=== PATIENT | female | born 1950 | race Caucasian/White ===

== ENCOUNTER 2018-03-21 22:16 | Emergency (ER) | payer MEDICARE, SELFPAY ==
[2018-03-21 22:17] VITALS: BP 160/99; PULSE 85; PULSE 89; RESP 17; TEMP 36.6; O2SAT 94; BMI 30.9
[2018-03-21 23:14] LABS: Absolute Lymphocyte Count 3.71 X10^3/ul (0.83-4.51); Absolute Neutrophil Count 3.9 X10^3/uL (2.0-7.7); Basophil# 0.03 X10^3/uL; Basophil% 0.3 % (0-1); Eosinophil# 0.32 X10^3/uL; Eosinophils% 3.7 % (0-5); Hematocrit 43.1 % (37-47); Hemoglobin 13.8 g/dl (12.0-15.0); Lymphocyte # 3.71 X10^3/ul (4.0); Lymphocyte % 42.4 % (19-41); Mean Corpuscular Hgb 31.3 pg (27.0-32.0); Mean Corpuscular Volume 97.7 fL (81-99); Mean Platelet Vol. 9.1 fl (6.2-12.0); Monocyte# 0.76 X10^3/uL; Monocyte% 8.7 % (0-10); Neutrophil # 3.87 X10^3/uL (2.7-7.7); Neutrophil % 44.1 % (47-70); Platelet Count 288 K/mm3 (150-450); RBC Distribution Width CV 12.6 % (11.6-14.6); RBC Distribution Width SD 44.9 fl (35.1-43.9); Red Blood Count 4.41 M/mm3 (4.2-5.4); White Blood Count 8.8 K/mm3 (4.4-11.0)
[2018-03-21 23:15] LABS: POSITIVE COUNT NO; POSITIVE DIFFERENTIAL NO; POSITIVE MORPHOLOGY NO
[2018-03-21 23:24] LABS: Anion Gap 7 (5-15); BUN 16 mg/dL (7-18); BUN/Creat Ratio 22.3 RATIO (10-20); Calcium,Total 8.7 mg/dL (8.5-10.1); Chloride 101 mmol/L (98-107); Creatinine, Serum 0.72 mg/dL (0.55-1.02); EST Glomerular Filtration Rate 86 mL/min (>60); Est Glom Filt Rate - Afr Amer 104 mL/min (>60); Estimated Creatinine Clearance 45.85 ml/min; Glucose 132 mg/dL (74-106); Potassium 4.2 mmol/L (3.5-5.1); Sodium Level 134 mmol/L (136-145)
--- NOTE | 2018-03-21 23:33 | ED.VISSUMM ---
- ER Visit Summary Date of Service: 03/21/18 Chief Complaint: Hematuria History of Present Illness: The patient is a 67 F who states that she has developed hematuria today. Last week the patient had a diarrheal illness. Using the patient's given history and online clinical resources, the history is that the patient was on Bactrim as prescribed by her brother for 5 days. Her symptoms of dysuria and urinary frequency did not improve. On Sunday she was written for Macrobid and a urine culture obtained. Yesterday the patient had her the biotic changed to Cipro. From a clinical resources the patient's urine culture showed greater than 100,000 colony-forming units of E. coli. It was resistant to Bactrim. Its SARAH to nitrofurantoin was less than 16 and its SARAH to Cipro less than 0.25. She was also taking Pyridium. She is no longer taking that. She is not on any blood thinners. Patient denies any fevers. She denies any CVA tenderness but notes low back pain. She is not having any urinary retention. She has seen several clots today. Uro-[place] surgical history includes a hysterectomy as well as a bladder sling 2-1/2 years ago. Physical Examination: Afebrile vital signs are stable Gen: Well-nourished well-developed Head: Normocephalic atraumatic Eyes: Perrl EOMI ENT: TMs clear no rhinorrhea moist mucous membranes Neck: Supple no lymphadenopathy no JVD nontender CVS: Regular rate rhythm no murmurs normal S1-S2 Respiratory: No distress clear to auscultation bilaterally chest nontender Abdomen: Soft nontender nondistended normal bowel sounds no masses Back: Nontender Extremity: Nontender no edema Skin: Normal color no rash Neuro: alert orientated ?3 CN II-XII intact normal strength sensation reflexes gait cerebellar Psych: Normal affect normal mood Test Results: White count is normal. Creatinine normal. Glucose 132. Urinalysis 25-50 white cells. 2+ bacteria. Blood cells 50-100. Emergency Department Course and Treatment: Patient will continue her Cipro as it appears to be the best option in terms of SARAH. She is encouraged to drink fluids to keep urine going to prevent urinary retention due to clots. Patient does not appear to have pyelonephritis. She has no fever. No white count. No CVA tenderness. She states the Pyridium did not really help her. We will try a B and O suppository. If this helps her tonight she may fill a prescription of it tomorrow. I have asked that she follow-up with her doctor in the next several days. Impression: 1. Acute hemorrhagic cystitis This note was generated with [employer] dictation software. It may contain incorrect words, spelling, and punctuation that were not noted in review of the chart prior to signing ED Disposition - Plan for ED Patient: Disposition: Home or Assisted Living Chief Complaint: Complaint Instructions: ED UTI Cystitis Female Prescriptions: Opium/Belladonna Alkaloids [B & O] 60 mg RECTAL BID PRN #6 suppos. PRN Reason: uretheral pain Referrals: Gerhard Caldwell DO [Primary Care Provider] - 3-5 Days Additional Instructions: Continue your ciprofloxacin. If you get help by the B and O suppository you may fill the prescription. If you do not I would recommend the Pyridium.
[2018-03-21 23:36] LABS: Mucous, Urine 0 SEEN /hpf (<or=2+); Squamous Epithelial Cells - UA 0 SEEN /hpf (5-10)
[2018-03-21 23:38] LABS: Color, Urine Brown (Yellow); Glucose, Dipstick Normal (Normal); Ketone-Dipstick 5 mg/dl (Negative); Leukocyte Esterase-Dipstick 500 /ul (Negative); Nitrite-Dipstick Negative (Negative); Occult Blood-Urine 250 /ul (Negative); Protein-Dipstick 100 mg/dl (Negative); Specific Gravity, Urine 1.015 (1.002-1.030); Urine Bilirubin Dipstick Negative (Negative); Urine Clarity Turbid (Clear); Urine Urobilinogen Normal (Normal)
[2018-03-21 23:49] LABS: Red Blood Cells-Urine 50-100 SEEN /hpf (0-5)
[2018-03-21 23:51] LABS: Bacteria 2+ /hpf (None Seen); White Blood Cells 25-50 SEEN /hpf (0-5)
[2018-03-22 00:34] VITALS: BP 147/89; PULSE 84; RESP 16; O2SAT 94
== END 2018-03-22 00:45 | disposition home or self-care (01) ==
PROVIDERS: Emergency Provider Emergency Medicine; Family Provider Student in an Organized Health Care Education/Training Program; PCP Student in an Organized Health Care Education/Training Program
DX: N30.91 Cystitis, unspecified with hematuria (principal); Z16.29 Resistance to other single specified antibiotic; Z79.01 Long term (current) use of anticoagulants; Z79.899 Other long term (current) drug therapy; Z90.710 Acquired absence of both cervix and uterus
CPT/HCPCS: 80048; 81001; 85025; 99283; A4216

== ENCOUNTER → 2020-01-05 20:00 | Outpatient (CLI) | payer MEDICARE, SELFPAY | PROVIDERS: PCP Student in an Organized Health Care Education/Training Program; Visit Provider Student in an Organized Health Care Education/Training Program | DX: G47.33 Obstructive sleep apnea (adult) (pediatric) (principal) | CPT/HCPCS: 95811 ==

== ENCOUNTER → 2023-10-02 | Outpatient (CLI) | payer MEDICARE, SELFPAY ==
[2023-10-02 12:26] LABS: Hematocrit 40.1 % (37-47); Hemoglobin 13.7 g/dL (12.0-15.0); Mean Corp Hgb Conc 34.2 g/dL (32-36); Mean Corpuscular Hgb 32.5 pg (27.0-32.0); Mean Platelet Vol. 10.5 fl (6.2-12.0); Platelet Count 239 K/mm3 (150-450); RBC Distribution Width CV 12.7 % (11.6-14.6); RBC Distribution Width SD 44.3 fl (35.1-43.9); Red Blood Count 4.22 M/mm3 (4.2-5.4); White Blood Count 5.7 K/mm3 (4.4-11.0)
[2023-10-02 13:30] LABS: Anion Gap 7 (5-15); BUN 13 mg/dL (7-18); BUN/Creat Ratio 22.9 RATIO (10-20); Calcium,Total 9.5 mg/dL (8.5-10.1); Chloride 96 mmol/L (98-107); Creatinine, Serum 0.57 mg/dL (0.55-1.02); EST Glomerular Filtration Rate 111 mL/min (>60); Est Glom Filt Rate - Afr Amer 134 mL/min (>60); Glucose 134 mg/dL (74-106); Sodium Level 130 mmol/L (136-145)
== END | disposition home or self-care (01) ==
PROVIDERS: PCP Student in an Organized Health Care Education/Training Program; Referring Provider Clinical Nurse Specialist Adult Health; Visit Provider Clinical Nurse Specialist Adult Health
DX: D64.9 Anemia, unspecified (principal); Z79.1 Long term (current) use of non-steroidal anti-inflammatories (NSAID)
CPT/HCPCS: 36415; 80048; 85027

== ENCOUNTER → 2024-10-02 | Outpatient (CLI) | payer MEDICARE, SELFPAY ==
--- NOTE | 2024-10-02 10:58 | RAD_ITS ---
PROCEDURE: L/S SPINE W BEND MIN 6 VW 10/02/2024 REASON FOR EXAM: DDD TECHNIQUE: 6 views, AP, bilateral oblique, lateral, flexion-extension COMPARISON: None available FINDINGS: S shaped thoracolumbar scoliosis with multilevel spondylosis/discogenic change greatest at the upper lumbar spine. The degree of curvature and degenerative changes limits the evaluation. There is no evidence of fracture or spondylolysis identified. L1-2 severe disc space narrowing with degenerative endplate changes and mild retrolisthesis L1 on L2 which appears to mildly possibly increased on the extension view and unchanged on the flexion view. Suggestion of bilateral possible osseous foraminal narrowing L2-3 severe disc space narrowing and degenerative endplate changes with mild retrolisthesis L2 on L3 which also appears to mildly increased on the extension view and unchanged on the flexion. Suggestion of bilateral possible osseous foraminal narrowing L4-5 grade 2 anterolisthesis L4 on L5 appears unchanged with flexion and extension. Moderate disc space narrowing. L5-S1 spondylosis/discogenic change. Multilevel facet degenerative changes. Partially imaged right hip replacement. Left hip osteoarthrosis. RAD/L/S Spine w Bend Min 6 Vw IMPRESSION: S shaped thoracolumbar scoliosis with multilevel spondylosis/discogenic change greatest at the upper lumbar spine. The degree of curvature and degenerative changes limits the evaluation. Multilevel spondylolisthesis as above. Reading Location: [id number]
== END | disposition home or self-care (01) ==
LOC: MTRAD 10:56
PROVIDERS: PCP Student in an Organized Health Care Education/Training Program; Referring Provider Clinical Nurse Specialist Adult Health; Visit Provider Clinical Nurse Specialist Adult Health
DX: M51.369 Other intervertebral disc degeneration, lumbar region without mention of lumbar back pain or lower extremity pain (principal)
CPT/HCPCS: 72114

== ENCOUNTER → 2024-11-20 | Outpatient (CLI) | payer MEDICARE, SELFPAY ==
--- OUTSIDE RECORDS SUMMARY | 2024-11-20 12:03 | XMS RPT_ITS | CCD ---
Author Organization [facility] Care Team Providers Care Parts Designer Name Role Phone Gerhard Caldwell Unavailable GERHARD CALDWELL Unavailable Unavailable ARSHI, CHARLETTE Unavailable Unavailable ARSHI, CHARLETTE Unavailable Unavailable Unavailable Primary Care Provider Unavailabl e Gerhard Caldwell DO Primary Care Provider Gerhard Caldwell DO Primary Care Provider Gerhard Caldwell DO Primary Care Provider Gerhard Caldwell DO Primary Care Provider Gerhard Caldwell DO Primary Care Provider Reymundo BOTANY LABORATORY ASSISTANT.Ceci BACK Unavailable Rosendo BOTANY LABORATORY ASSISTANTIndira PURCELL Unavailable Dr. Gerhard Caldwell DO Primary Care Provider NP. Linh Lala Attending Provider NP. Linh Lala Referring Provider Gerhard Caldwell Primary Care Unavailable Linh Lala Referring Unavailable Linh Lala Attending Unavailable GERHARD CALDWELL Primary Care Unavailable PORFIRIO ROLLINS Referring Unavailable PORFIRIO ROLLINS Attending Unavailable GERHARD CALDWELL Primary Care Unavailable PORFIRIO ROLLINS Referring Unavailable PORFIRIO ROLLINS Attending Unavailable GERHARD CALDWELL Attending Unavailable GERHARD CALDWELL Primary Care Unavailable GERHARD CALDWELL Referring Unavailable GERHARD CALDWELL Primary Care Unavailable PORFIRIO ROLLINS Attending Unavailable GERHARD CALDWELL Primary Care Unavailable PORFIRIO ROLLINS Referring Unavailable Allergies Allergy Classification Reported Allergen(s) Allergy Type Date of Onset Reaction(s) Facility (20 sources) Dust; Translations: [DUST] Propensity to adverse reactions 6 [facility] (20 sources) Mold Extract; Translations: [MOLD] Drug Allergy 6 [facility] (20 sources) Pollen; Translations: [POLLEN] Propensity to adverse reactions 6 [facility] (20 sources) Cat Dander; Translations: [CAT DANDER] Drug Intolerance 7 Other: See Comments [facility] Work Phone: (20 sources) Dog Dander; Translations: [DOG DANDER] Drug Intolerance 7 Other: See Comments [facility] Work Phone: Medications Current Medications Medication Drug Class(es) Dates Sig (Normalized) Sig (Original) [id number] 200 actuat albuterol 0.09 mg/actuat metered dose inhaler (20 sources) beta2-Adrenergic Agonist Start: 04-05-2020 End: 01-29-2024 take 2 puff(s) by inhalation every four hours as needed albuterol HFA (PROAIR HFA) 90 mcg/actuation inhaler Indications: Mild intermittent asthma without complication (HCC) Inhale 2 Puffs as instructed every 4 hours as needed. 8 g 4 01/29/2024 Active Start: 01-12-2017 End: 01-12-2017 take 2.5 mg by inhalation four times daily albuterol (PROVENTIL) 2.5 mg /3 mL (0.083 %) nebulizer solution 2.5 mg 2.5 mg, Inhalation, 4 times daily (RT), First dose on Sun01/12/17 at 0800 Given 01/12/2017 08:00 EDT 2.5 mg Start: 01-11-2017 Albuterol Sulf ate (Proair Hfa) 1 PUFF inhaler Active 1 - 2 NMA IH EVERY 4 HOURS NEEDED as needed for Sob &/Or Wheezing January 11, 2017 12:00am albuterol 90 mcg /actuation inhaler Inhale 2 puffs every 4 (four) hours as needed for wheezing. Active Comment on above: Inhale 2 Puffs as in structed every 4 hours as needed. amoxicillin 500 mg oral capsule (20 sources) Penicillin-class Antibacterial Start: 11-26-2017 End: 11-22-2021 amoxicillin (POLYMOX, AMOXIL) 500 mg capsule Indications: Status post total replacement of right hip Take four capsules one hour before dental procedure. 4 capsule 3 11/22/2021 Active Comment on above: Take four capsules o ne hour before dental procedure. belladonna alkaloids 16.2 mg / opium 60 mg rectal suppository (1 source) Start: 03-22-2018 Belladonna Alkaloids-Opium 60 MG/15 MG suppository Active 60 mg RECTAL TWICE A DAY as needed for uretheral pain March 22, 2018 12:14am onabotulinumtoxina 100 unt injection (13 sources) Acetylcholine Release Inhibitor Start: 10-16-2024 End: 11-15-2024 onabotulinum toxin type A 100 Units injection (BOTOX) Start: 04-24-2024 End: 04-24-2024 inject 1 dose by intramuscular injection every 30 days 100 Units, INTRAMUSCULAR, ONCE (UP TO 30 DAYS AMB), 1 dose, On Hilda 04/24/24 at 1130, This record documents the total dose provided to patient. See progress note for specific locations and amounts administered. REFRIGERATE - Pharmaceutical Waste: Lab Pack - Start: 04-24-2024 End: 04-24-2024 onabotulinum toxin type A 10 0 Units injection (BOTOX) Start: 12-06-2023 End: 12-06-2023 onabotulinum toxin type A 10 0 Units injection (BOTOX) Start: 12-18-2022 End: 12-18-2022 onabotulinum toxin type A 10 0 Units injection (BOTOX) Start: 06-29-2022 End: 07-29-2022 onabotulinum toxin type A 10 0 Units injection (BOTOX) Start: 01-26-2022 End: 01-26-2022 onabotulinum toxin type A 10 0 Units injection (BOTOX) Start: 09-22-2021 End: 09-22-2021 onabotulinum toxin type A 10 0 Units injection (BOTOX) Calcium Carbonate / vitamin D3 (20 sources) take 1 tablet by anjel once daily CALCIUM CARBONATE/VITAMIN D3 (VITAMIN D-3 ORAL) Take 1 tablet by mouth once daily. Active take 1 tablet by mouth once michael y CALCIUM CARBONATE/VITAMIN D3 (VITAMIN D-3 ORAL) Take 1 tablet by mouth once daily. 0 Active Comment on above: Take 1 tablet by anjel th once daily. cephalexin 500 mg oral capsule (20 sources) Cephalosporin Antibacterial Start: 10-16-2024 End: 10-17-2024 cephALEXin 500 mg cap(s) (KEFLEX) Start: 04-24-2024 End: 04-24-2024 cephALEXin 500 mg cap(s) (KE FLEX) Start: 04-24-2024 End: 04-24-2024 take 1 dose by mouth once 500 mg, ORAL, ONCE, 1 dose, On Hilda 04/24/24 at 1130, Antimicrobial indication: Empiric, Infectious source(s): Urinary/renal Start: 12-06-2023 take 1 capsule by mo [facility] twice daily cephALEXin (KEFLEX) 500 mg capsule Take 1 capsule by mouth two times a day. For 3 days; extra capsules given for self-start use when you have symptoms of a bladder infection 30 capsule 3 12/06/2023 Active Start: 12-14-2022 End: 12-24-2022 cephALEXin 500 mg cap(s) (KE FLEX) Start: 11-23-2022 End: 11-28-2022 take 1 capsule by mouth twice daily as needed cephALEXin (KEFLEX) 500 mg capsule Take 1 capsule by mouth twice daily for 5 days. Extra pills given for prn use 60 capsule 3 11/23/2022 11/28/2022 Active Start: 08-11-2022 End: 11-23-2022 take 1 capsule by mouth once daily at bedtime cephALEXin (KEFLEX) 250 mg capsule Take 1 capsule by mouth daily at bedtime. 30 capsule 1 08/11/2022 11/23/2022 Discontinued Start: 06-29-2022 End: 08-04-2022 take 1 capsule by mouth once daily at bedtime cephALEXin (KEFLEX) 250 mg capsule Take 1 capsule by mouth daily at bedtime. 60 capsule 0 06/30/2022 08/04/2022 Discontinued Start: 09-22-2021 End: 06-26-2022 take 1 capsule by mouth twice daily as needed cephALEXin (KEFLEX) 500 mg capsule Take 1 capsule by mouth twice daily. Extra pills given for prn use if you get a bladder infection 24 capsule 1 09/22/2021 01/26/2022 Discontinued Comment on above: Take 1 capsule by mo [facility] twice daily. Extra pills given for prn use if you get a bladder infection Take 1 capsule by mo [facility] daily at bedtime. Take 1 capsule by mo [facility] twice daily for 5 days. Extra pills given for prn use Take 1 capsule by mo [facility] four times daily for 10 days. ciprofloxacin 500 mg oral tablet (6 sources) Quinolone Antimicrobial Start: 12-06-2023 End: 12-09-2023 ciprofloxacin HCl (CIPRO) 500 mg tablet Take 1 tablet by mouth two times a day for 3 days. Take 3 day course as needed for UTI symptoms; extra pills given for prn use 30 tablet 3 12/06/2023 12/09/2023 Active Start: 12-18-2022 End: 12-21-2022 ciprofloxacin HCl (CIPRO) 50 0 mg tablet Take 1 tablet by mouth twice daily for 3 days. Take a 3 day course as needed for UTI symptoms after you have tried and failed a 3 day course of Keflex; extra pills given for prn use 30 tablet 0 12/18/2022 12/21/2022 Start: 01-26-2022 End: 01-26-2022 ciprofloxacin HCl 500 mg tab (s) (CIPRO) Comment on above: Take 1 tablet by [facility] twice daily for 3 days. Take a 3 day course as needed for UTI symptoms after you have tried and failed a 3 day course of Keflex; extra pills given for prn use CPAP/BIPAP/OTHER (20 sources) Start: 09-26-2022 End: 02-10-2050 CPAP/BIPAP/OTHER Supplies for autopap at ?cmH2O Please allow access on PlayEnable to her download DME [facility] 1 Each 09/26/2022 02/10/2050 Active Start: 09-26-2022 End: 02-10-2050 CPAP/BIPAP/OTHER Travel cpap 9cmH2O 1 Each 09/26/2022 02/10/2050 Active Start: 09-26-2022 End: 02-10-2050 CPAP/BIPAP/OTHER Supplies fo r autopap at ?cmH2O Please allow access on [employer] to her download DME [facility] 1 Each 0 09/26/2022 02/10/2050 Active Start: 09-26-2022 End: 02-10-2050 CPAP/BIPAP/OTHER Travel cpap 9cmH2O 1 Each 0 09/26/2022 02/10/2050 Active Comment on above: Supplies for autopap at ?cmH2O Please allow access on [employer]Enable to her download DME [facility] Travel cpap 9cmH2O estradiol 0.1 mg/ml vaginal cream (20 sources) Estrogen Start: 06-18-2023 End: 03-05-2024 estradiol (ESTRACE) 0.01 % (0.1 mg/gram) vaginal cream Indications: Atrophic vaginitis Use 1 g vaginally two times a week. 42.5 g 4 02/20/2024 Active Start: 03-08-2022 End: 02-21-2023 estradiol (ESTRACE) 0.01 % ( 0.1 mg/gram) vaginal cream Indications: Atrophic vaginitis Use 1 g vaginally two times a week. 8 g 3 03/08/2022 11/23/2022 Discontinued Start: 09-03-2020 End: 03-06-2022 estradiol (ESTRACE) 0.01 % ( 0.1 mg/gram) vaginal cream Indications: Atrophic vaginitis Use 1 g vaginally two times a week. 8 g 3 11/22/2021 03/06/2022 Discontinued Comment on above: Use 1 g vaginally tw o times a week. 60 actuat formoterol fumarate 0.005 mg/actuat / mometasone furoate 0.1 mg/actuat metered dose inhaler (20 sources) Corticosteroid, beta2-Adrenergic Agonist Start: 05-06-2024 take 2 puff(s) by mouth twice daily DULERA 100-5 mcg/actuation inhaler Indications: Mild intermittent asthma without complication (HCC) inhale 2 puffs by mouth and INTO THE LUNGS twice a day as directed 39 g 3 05/06/2024 Active Start: 04-10-2022 End: 05-06-2024 take 2 puff(s) by inhalation twice daily mometasone-formoterol (DULERA) 100-5 mcg/actuation inhaler Indications: Mild intermittent asthma without complication Inhale 2 Puffs as instructed two times a day. 13 g 3 04/02/2024 05/06/2024 Discontinued Start: 10-16-2017 End: 04-10-2022 take 2 puff(s) by inhalation twice daily mometasone-formoterol (DULERA) 100-5 mcg/actuation inhaler Indications: Mild intermittent asthma without complication Inhale 2 Puffs as instructed twice daily. 3 Inhaler 3 10/16/2017 04/10/2022 Discontinued Start: 01-11-2017 Mometasone-For moterol (Dulera 100 Mcg/5 Mcg Inhaler) 13 GM HFA aerosol inhaler Active 1 NMA IH DAILY as needed for Sob &/Or Wheezing January 11, 2017 12:00am mometasone-formo terol 100-5 mcg/actuation HFAA Inhale 1 puff daily. Active Comment on above: Inhale 2 Puffs as in structed twice daily. gabapentin 300 mg oral capsule (20 sources) Anti-epileptic Agent Start: 3 End: 3 take 2 capsules by mouth at bedtime gabapentin (NEURONTIN) 300 mg capsule Indications: PLMD (periodic limb movement disorder) , Restless legs take 2 capsules by mouth at bedtime if needed 30 capsule 2 06/09/2022 Active Start: 04-10-2022 End: 06-09-2022 take 1 capsule by mouth once daily at bedtime as needed, then take 2 capsules by mouth at bedtime as needed gabapentin (NEURONTIN) 300 mg capsule Indications: PLMD (periodic limb movement disorder) , Restless legs Take 1 capsule by mouth daily at bedtime for 30 days. Take 2 capsules at bedtime as needed. 30 capsule 2 04/10/2022 06/09/2022 Discontinued Start: 08-10-2020 End: 04-10-2022 gabapentin (NEURONTIN) 300 m g capsule Indications: PLMD (periodic limb movement disorder) Take 2 capsules at bedtime as needed. 60 capsule 2 08/10/2020 04/10/2022 Discontinued Comment on above: Take 2 capsules at b edtime as needed. Take 1 capsule by mo uth daily at bedtime for 30 days. Take 2 capsules at bedtime as needed. take 2 capsules by m outh at bedtime if needed ibuprofen 400 mg oral tablet (4 sources) Nonsteroidal Anti-inflammatory Drug Start: 01-12-2017 End: 02-11-2017 take 1 tablet by mouth every six hours ibuprofen (ADVIL,MOTRIN) 400 MG tablet Take 1 (one) tablet (400 mg total) by mouth every 6 (six) hours as needed. 30 tablet 0 01/12/2017 02/11/2017 Active L. gasseri-B. bifidum-B longum 1.5 billion cell cap (20 sources) Start: 05-08-2018 L. gasseri-B. bifidum-B longum 1.5 billion cell cap 05/08/2018 Active Start: 05-08-2018 L. gasseri-B. bifidum-B longum 1.5 billion cell cap lidocaine hydrochloride 0.02 mg/mg topical gel (20 sources) Antiarrhythmic, Amide Local Anesthetic Start: 04-24-2024 lidocaine urojet 2 % 22 mL topical gel (GLYDO) Start: 04-24-2024 22 mL, URETHRA L, 2 TIMES DAILY, First dose on [facility] 04/24/24 at 1130, Until Discontinued, FOR EXTERNAL USE ONLY APPLY TO Bladder; use 2 amps Start: 12-06-2023 End: 12-06-2023 lidocaine 20 mg/mL (2 %) 1,0 00 mg injection (XYLOCAINE) Start: 12-18-2022 End: 12-18-2022 lidocaine 20 mg/mL (2 %) 1,0 00 mg injection (XYLOCAINE) Start: 09-22-2021 End: 09-22-2021 lidocaine 1 % 50 mL buffered injection (XYLOCAINE) Start: 2018 End: 04-10-2022 take 10 mL transmucosal route every twelve hours as needed lidocaine urojet (XYLOCAINE, GLYDO) 2 % jelp Apply 10 mL to affected area twice daily as needed. 30 Applicator 10 2018 04/10/2022 Discontinued Comment on above: Apply 10 mL to affec kelly area twice daily as needed. LORazepam 0.5 mg oral tablet (8 sources) Benzodiazepine Start: 4 End: 4 take 1 tablet by mouth three times daily as needed for anxiety LORazepam (ATIVAN) 0.5 mg Indications: Travel advice encounter , Situational anxiety Take 1 tablet by mouth three times a day as needed (situational anxiety) for up to 30 days. 15 tablet 2 04/02/2024 05/02/2024 Active Start: 12-05-2022 End: 01-04-2023 take 1 tablet by mouth three times daily as needed for anxiety LORazepam (ATIVAN) 0.5 mg Indications: Travel advice encounter , Situational anxiety Take 1 tablet by mouth three times daily as needed (situational anxiety) for up to 30 days. 15 tablet 0 12/05/2022 01/04/2023 Active Comment on above: Take 1 tablet by anjel th three times daily as needed (situational anxiety) for up to 30 days. Magnesium (20 sources) take 1 tablet by mouth once daily Magnesium 200 mg tab Take 200 mg by mouth once daily. Active take 1 tablet by mouth once michael y Magnesium 200 mg tab Take 200 mg by mouth once daily. 0 Active Comment on above: Take 200 mg by mouth once daily. meloxicam 15 mg oral tablet (20 sources) Nonsteroidal Anti-inflammatory Drug Start: 03-08-2022 End: 06-30-2022 take 1 tablet by mouth once daily meloxicam (MOBIC) 15 mg tablet Indications: Arthritis of left knee Take 1 tablet by mouth once daily. 90 tablet 06/30/2022 Active Start: 10-10-2021 End: 03-06-2022 take 1 tablet by mouth once daily meloxicam (MOBIC) 15 mg tablet Indications: Arthritis of left knee Take 1 tablet by mouth once daily. 90 tablet 10/10/2021 03/06/2022 Discontinued Start: 11-19-2019 take 1 tablet by anjel th once daily meloxicam (MOBIC) 15 mg tablet Indications: Arthritis of left knee Take 1 tablet by mouth once daily. 90 tablet 3 11/19/2019 Active Comment on above: Take 1 tablet by anjel th once daily. methenamine hippurate 1000 mg oral tablet (19 sources) Start: 12-18-2022 take 1 tablet by mouth twice daily Methenamine Hippurate (HIPREX) 1 gram tablet Take 1 tablet by mouth twice daily. 180 tablet 12/18/2022 Active Comment on above: Take 1 tablet by anjel twice daily. 24 hr mirabegron 50 mg extended release oral tablet (20 sources) beta3-Adrenergic Agonist Start: 11-23-2022 End: 04-02-2024 take 1 tablet by mouth once daily mirabegron (MYRBETRIQ) 50 mg Tb24 Take 1 tablet by mouth once daily. 30 tablet 11 04/02/2024 Active Start: 09-22-2021 End: 04-10-2022 take 1 tablet by mouth once daily mirabegron (MYRBETRIQ) 25 mg Tb24 Take 1 tablet by mouth once daily. 90 tablet 3 09/22/2021 04/10/2022 Discontinued Comment on above: Take 1 tablet by anjel once daily. miSOPROStol 0.2 mg oral tablet (20 sources) Prostaglandin E1 Analog Start: 021 End: take 1 tablet by mouth twice daily miSOPROStol (CYTOTEC) 200 mcg tablet Indications: Chronic interstitial cystitis with hematuria Take 1 tablet by mouth twice daily. 180 tablet 3 11/23/2022 Active Comment on above: Take 1 tablet by anjel twice daily. nitrofurantoin, macrocrystals 25 mg / nitrofurantoin, monohydrate 75 mg oral capsule (6 sources) Nitrofuran Antibacterial Start: 023 End: 023 take 1 capsule by mouth twice daily at mealtime nitrofurantoin monohydrate and macrocrystal (MACROBID) 100 mg capsule Indications: Travel advice encounter Take 1 capsule by mouth twice daily with meals for 7 days. 14 capsule 1 12/05/2022 12/12/2022 Active Start: 08-04-2022 End: 08-11-2022 take 1 capsule by mouth twice daily at mealtime nitrofurantoin monohydrate and macrocrystal (MACROBID) 100 mg capsule Take 1 capsule by mouth twice daily with meals for 7 days. 14 capsule 0 08/04/2022 08/11/2022 Active Comment on above: Take 1 capsule by mo [facility] twice daily with meals for 7 days. solifenacin succinate 5 mg oral tablet (7 sources) Cholinergic Muscarinic Antagonist Start: take 1 tablet by mouth once daily as needed solifenacin (VESICARE) 5 mg tablet Take 1 tablet by mouth once daily as needed. 90 tablet 2 04/24/2024 Active TENS unit and electrodes cmpk (20 sources) Start: 2 TENS unit and electrodes cmpk Indications: DDD (degenerative disc disease), lumbar , Other osteoarthritis of spine, lumbar region , Chronic midline low back pain with bilateral sciatica 1 Units as directed. Dx: lumbar DDD, lumbar DJD, chronic low back pain 1 Each 11/22/2021 Active Start: 11-22-2021 TENS unit and electrodes cmpk Indications: DDD (degenerative disc disease), lumbar , Other osteoarthritis of spine, lumbar region , Chronic midline low back pain with bilateral sciatica 1 Units as directed. Dx: lumbar DDD, lumbar DJD, chronic low back pain 1 Each 0 11/22/2021 Active Comment on above: 1 Units as directed. Dx: lumbar DDD, lumbar DJD, chronic low back pain THERAPEUTIC MULTIVITAMIN TAB (20 sources) Start: 005 take 1 tablet by mouth once daily THERAPEUTIC MULTIVITAMIN TAB Take one(1) tablet daily by mouth 0 02/23/2005 Active Comment on above: Take one(1) tablet d aily by mouth traMADol hydrochloride 50 mg oral tablet (3 sources) Opioid Agonist Start: 017 End: 017 take 1 tablet by mouth twice daily as needed for pain traMADol (ULTRAM) 50 mg tablet Take 1 (one) tablet (50 mg total) by mouth 2 (two) times a day as needed for pain. 28 tablet 0 01/12/2017 01/26/2017 Active triamcinolone acetonide 0.055 mg/actuat metered dose nasal spray (20 sources) Corticosteroid Start: 014 take 2 puff(s) by inhalation once daily triamcinolone acetonide (NASACORT AQ) 55 mcg nasal inhaler Indications: Unspecified asthma(493.90) Inhale 2 puffs daily. 1 Bottle 3 08/26/2013 Active Comment on above: Inhale 2 puffs daily . zolpidem tartrate 5 mg oral tablet (20 sources) gamma-Aminobutyric Acid-ergic Agonist Start: 023 End: 024 take 1 tablet by mouth at bedtime as needed zolpidem (AMBIEN) 5 mg tablet Indications: Situational insomnia Take 1 tablet by mouth at bedtime as needed (situational insomnia) for up to 10 days. 10 tablet 2 04/02/2024 Active Comment on above: Take 1 tablet by anjel th at bedtime as needed (situational insomnia) for up to 10 days. Completed/Discontinued Medications Medication Drug Class(es) Dates Sig (Normalized) Sig (Original) acetaminophen 325 mg / HYDROcodone bitartrate 5 mg oral tablet (3 sources) Opioid Agonist Start: 01-11-2017 End: 01-12-2017 take 1 tablet by mouth every four hours HYDROcodone-aceta minophen (NORCO) 5-325 mg per tablet 1 tablet 1 tablet, Oral, Every 4 hours PRN, moderate to severe pain, Starting Sun01/12/17 at 0101 Given 01/12/2017 01:44 EDT 1 tablet ascorbic acid 500 mg oral tablet (5 sources) Vitamin C Start: 01-12-2017 End: 01-12-2017 take 1 tablet by mouth once daily ascorbic acid (vitamin C) (VITAMIN C) tablet 500 mg 500 mg, Oral, Daily, First dose on Sun01/12/17 at 0900 Given 01/12/2017 08:45 EDT 500 mg Start: 01-11-2017 take 1 tablet by anjel th twice daily at mealtime Ascorbic Acid (Vitamin C) (Vitamin C) 500 MG tablet Active 500 mg PO TWICE DAILY WITH MEALS January 11, 2017 12:00am aspirin 81 mg delayed release oral tablet (1 source) Platelet Aggregation Inhibitor, Nonsteroidal Anti-inflammatory Drug Start: 01-12-2017 End: 01-12-2017 take 1 tablet by mouth once daily aspirin EC tablet 81 mg 81 mg, Oral, Daily, First dose on Sun01/12/17 at 0900, DO NOT CRUSH OR CHEW. Given 01/12/2017 08:32 EDT 81 mg Budesonide-Formote rol Hfa 160 McG-4.5 McG/Actuation Aerosol Inhaler (1 source) Corticosteroid, beta2-Adrenergic Agonist Start: 01-12-2017 End: 01-12-2017 take 1 puff(s) by inhalation once daily budesonide-formote rol (SYMBICORT) 160-4.5 mcg/actuation inhaler 1 puff 1 puff, Inhalation, Daily (RT), First dose on Sun01/12/17 at 0900 Given 01/12/2017 08:03 EDT 1 puff 20 ml chloroprocaine hydrochloride 20 mg/ml injection (2 sources) Mireille Local Anesthetic Start: 06-29-2022 End: 06-29-2022 chloroprocaine (PF) 20 mg/mL (2 %) 1,000 mg injection (NESACAINE) Start: 01-26-2022 End: 01-26-2022 chloroprocaine (PF) 20 mg/mL (2 %) 1,200 mg injection (NESACAINE) docusate sodium 100 mg oral capsule (5 sources) Start: 01-11-2017 End: 01-12-2017 take 1 capsule by mouth twice daily docusate sodium (COLACE) capsule 100 mg 100 mg, Oral, 2 times daily, First dose on Sun01/12/17 at 0900, Hold for loose stools DO NOT CRUSH OR CHEW. Given 01/12/2017 08:33 EDT 100 mg 0.4 ml enoxaparin sodium 100 mg/ml prefilled syringe (5 sources) Low Molecular Weight Heparin Start: 01-11-2017 End: 01-12-2017 inject 40 mg by subcutaneous injection once daily enoxaparin (LOVENOX) syringe 40 mg 40 mg, Subcutaneous, Daily, First dose on Sun01/12/17 at 0800, Administer in abdomen unless otherwise directed by prescriber. Notify physician if patient refuses. Given 01/12/2017 08:44 EDT 40 mg fexofenadine hydrochloride 180 mg oral tablet (15 sources) Histamine-1 Receptor Antagonist Start: 05-21-2018 End: 04-10-2022 fexofenadine (PHAM) 180 mg tablet 05/21/2018 04/10/2022 Discontinued L. gasseri-B. bifidum-B longum ([place]) 1.5 billion cell cap (5 sources) Start: 05-08-2018 L. gasseri-B. bifidum-B longum ([place]) 1.5 billion cell cap 24 hr metoprolol succinate 25 mg extended release oral tablet (1 source) beta-Adrenergic Cosme Start: 01-12-2017 End: 01-12-2017 metoprolol succinate (TOPROL-XL) 24 hr tablet 12.5 mg 12.5 mg, Oral, Daily, First dose on Sun01/12/17 at 0900, Hold for HR less than 50 or SBP less than 90. DO NOT CRUSH OR CHEW. Given 01/12/2017 08:32 EDT 12.5 mg ondansetron 4 mg disintegrating oral tablet (17 sources) Serotonin-3 Receptor Antagonist Start: 12-05-2022 End: 04-02-2024 take 1 tablet by mouth every eight hours as needed for nausea ondansetron orally disintegrating (ZOFRAN ODT) 4 mg disintegrating tablet Indications: Travel advice encounter Take 1 tablet by mouth every 8 hours as needed for nausea/vomiting. 20 tablet 12/05/2022 04/02/2024 Discontinued Start: 01-11-2017 take 1 tablet by anjel th every six hours as needed for nausea Ondansetron 4 MG tablet Active 4 mg PO EVERY 6 HOURS NEEDED as needed for Nausea January 11, 2017 12:00am Comment on above: Take 1 tablet by anjel th every 8 hours as needed for nausea/vomiting. oxybutynin chloride 5 mg oral tablet (5 sources) Cholinergic Muscarinic Antagonist Start: 2016 End: 2016 take 1 tablet by mouth twice daily oxybutynin (DITROPAN) tablet 5 mg 5 mg, Oral, 2 times daily, First dose on Sun01/12/17 at 0900 Given 01/12/2017 09:55 EDT 5 mg phenazopyridine hydrochloride 200 mg oral tablet (20 sources) Start: 2020 End: 2022 take 1 tablet by mouth once daily as needed for pain phenazopyridine (PYRIDIUM, GERIDIUM) 200 mg tablet Take 1 tablet by mouth once daily as needed for pain. 90 tablet 3 04/07/2021 01/26/2022 Discontinued Comment on above: Take 1 tablet by anjel th once daily as needed for pain. rOPINIRole 1 mg oral tablet (20 sources) Nonergot Dopamine Agonist Start: 2020 End: 2023 take 1-2 tablets by mouth once daily at bedtime rOPINIRole (REQUIP) 1 mg tablet Indications: Restless legs Take 1-2 tablets by mouth daily at bedtime. For restless legs 60 tablet 2 09/03/2020 04/02/2024 Discontinued Comment on above: Take 1-2 tablets by mouth daily at bedtime. For restless legs 1000 ml sodium chloride 9 mg/ml injection (2 sources) Start: 2016 End: 2016 take 100 mL intravenous route every hour sodium chloride 0.9% (NS) 100 mL/hr, Intravenous, Continuous, Starting Sun01/12/17 at 1245, For 2 hours New Bag 01/12/2017 11:52 EDT 100 mL/hr 100 mL/hr Start: 01-12-2017 End: 01-12-2017 take 20 mL intravenous route every hour sodium chloride 0.9% (NS) 20 mL/hr, Intravenous, Continuous, Starting 01/12/17 at 0500 New Bag 01/12/2017 06:18 EDT 20 mL/hr 20 mL/hr sulfamethoxazole 800 mg / trimethoprim 160 mg oral tablet (20 sources) Dihydrofolate Reductase Inhibitor Antibacterial, Sulfonamide Antimicrobial Start: 06-29-2022 End: 06-29-2022 sulfamethoxazole-trimethopri m 800-160 mg 1 tablet (BACTRIM DS,SEPTRA DS) Start: 06-26-2022 End: 07-06-2022 take 1 tablet by mouth twice daily sulfamethoxazole-trimethoprim (BACTRIM D S) 800-160 mg per tablet Take 1 tablet by mouth twice daily for 3 days. 6 tablet 0 07/03/2022 07/06/2022 Start: 09-22-2021 End: 09-22-2021 sulfamethoxazole-trimethopri m 800-160 mg 1 tablet (BACTRIM DS,SEPTRA DS) Start: 09-30-2020 End: 06-26-2022 take 2 tablets by mouth twice daily as needed sulfamethoxazole-trimethoprim (BACTRIM,SEPTRA) 400-80 mg per tablet Take 2 tablets by mouth twice daily. Extra pills given for prn 30 tablet 3 09/30/2020 06/26/2022 Discontinued Comment on above: Take 2 tablets by mo [facility] twice daily. Extra pills given for prn Take 1 tablet by anjel twice daily for 5 doses. START AFTER BLADDER BOTOX Take 1 tablet by anjel twice daily for 3 days. trimethoprim 100 mg oral tablet (2 sources) Dihydrofolate Reductase Inhibitor Antibacterial Start: 07-03-19 End: 08-03-19 take 1 tablet by mouth once daily trimethoprim (PROLOPRIM) 100 mg tablet Take 1 tablet by mouth once daily. FOR 10 DAYS 30 tablet 1 07/03/2022 08/02/2022 Comment on above: Take 1 tablet by anjel once daily. FOR 10 DAYS 24 hr trospium chloride 60 mg extended release oral capsule (15 sources) Cholinergic Muscarinic Antagonist Start: 04-07-20 End: 04-10-20 take 1 capsule by mouth once daily Trospium (SANCTURA SR) 60 mg cp24 Take 1 capsule by mouth once daily. 90 capsule 3 04/07/2021 04/10/2022 Discontinued Comment on above: Take 1 capsule by mo ut once daily. Problems Active Problems Problem Classification Problem Date Documented Da te Episodic/Chronic Acute myocardial infarction (2 sources) Myocardial infarction; Translations: [Non-ST elevation (NSTEMI) myocardial infarction] 01-11-2017 Chronic Anxiety disorders (10 sources) Anxiety; Translations: [Other specified anxiety disorders] Onset: 04-02-2024 12-05-2022 Chronic Asthma (20 sources) Asthma; Translations: [Unspecified asthma, uncomplicated] Onset: 04-18-2006 05-03-2015 Chronic Coronary atherosclerosis and other heart disease (20 sources) History of non-ST segment elevation myocardial infarction; Translations: [Old myocardial infarction] Onset: 08-04-2022 08-04-2022 Chronic Diabetes mellitus without complication (20 sources) Type 2 diabetes mellitus without complication; Translations: [Type 2 diabetes mellitus without complications] Onset: 08-25-2010 Resolved: 12-22-2016 10-17-2016 Chronic Disorders of lipid metabolism (20 sources) Hyperlipidemia; Translations: [Hyperlipidemia, unspecified] Onset: 08-30-2009 Resolved: 12-22-2016 08-30-2009 Chronic Genitourinary symptoms and ill-defined conditions (20 sources) Female stress incontinence; Translations: [Stress incontinence (female) (male)] Onset: 08-16-2015 08-16-2015 Chronic Genitourinary symptoms and ill-defined conditions (20 sources) Microscopic hematuria; Translations: [Other microscopic hematuria] Onset: 05-20-2018 05-20-2018 Episodic Immunizations and screening for infectious disease (1 source) Contact with and (suspected) exposure to other viral communicable diseases; Translations: [Contact with or suspected exposure to other viral communicable disease] 04-25-2021 Episodic Menopausal disorders (20 sources) Atrophic vaginitis; Translations: [Postmenopausal atrophic vaginitis] Onset: 03-27-2018 03-27-2018 Chronic Miscellaneous mental health disorders (20 sources) Insomnia; Translations: [Other insomnia not due to a substance or known physiological condition] Onset: 03-27-2018 03-27-2018 Chronic Nutritional deficiencies (20 sources) Vitamin D deficiency; Translations: [Vitamin D deficiency, unspecified] Onset: 03-30-2010 03-30-2010 Chronic Osteoarthritis (20 sources) Arthritis of hip; Translations: [Unilateral primary osteoarthritis, unspecified hip] Onset: 05-03-2015 Resolved: 01-09-2017 03-20-2016 Chronic Other connective tissue disease (1 source) History of total hip arthroplasty; Translations: [Presence of right artificial hip joint] Chronic Other diseases of bladder and urethra (20 sources) Lesion of bladder; Translations: [Bladder disorder, unspecified] Onset: 08-08-2022 Chronic Other diseases of bladder and urethra (20 sources) Overactive bladder; Translations: [Overactive bladder] Onset: 08-08-2022 Chronic Other hereditary and degenerative nervous system conditions (20 sources) Restless legs; Translations: [Restless legs syndrome] Onset: 09-06-2020 09-06-2020 Chronic Other nervous system disorders (20 sources) Carpal tunnel syndrome; Translations: [Carpal tunnel syndrome, unspecified upper limb] Onset: 07-03-2022 Chronic Other nutritional; endocrine; and metabolic disorders (20 sources) Obese class I; Translations: [Obesity, unspecified] Onset: 08-08-2018 08-08-2018 Chronic Other upper respiratory disease (20 sources) Allergic rhinitis due to pollen; Translations: [Allergic rhinitis due to pollen] Onset: 10-16-2017 10-16-2017 Chronic Other upper respiratory infections (2 sources) Sore throat symptom; Translations: [Acute pharyngitis, unspecified] 10-10-2023 Episodic Residual codes; unclassified (20 sources) Obstructive sleep apnea syndrome; Translations: [Obstructive sleep apnea (adult) (pediatric)] Onset: 03-06-2016 03-06-2016 Chronic Residual codes; unclassified (2 sources) Periodic limb movement disorder; Translations: [Periodic limb movement disorder] Chronic Spondylosis; intervertebral disc disorders; other back problems (20 sources) Degeneration of lumbar intervertebral disc; Translations: [Other intervertebral disc degeneration, lumbar region] Onset: 11-22-2021 Chronic Unclassified (1 source) Other intervertebral disc degeneration, lumbar region without mention of lumbar back pain or lower extremity pain; Translations: [Other intervertebral disc degeneration, lumbar region without mention of lumbar back pain or lower extremity pain] Onset: 10-08-2024 Urinary tract infections (20 sources) Chronic interstitial cystitis; Translations: [Interstitial cystitis (chronic) without hematuria] Onset: 10-09-2018 09-06-2020 Chronic Past or Other Problems Problem Classification Problem Date Documented Date Episodic/Chronic Acute bronchitis (18 sources) Acute bronchitis; Translations: [Acute bronchitis, unspecified] Onset: 04-18-2006 Resolved: 12-20-2009 12-20-2009 Episodic Adjustment disorders (18 sources) Stress; Translations: [Reaction to severe stress, unspecified] Onset: 01-08-2012 Resolved: 12-22-2016 12-22-2016 Chronic Diabetes mellitus without complication (20 sources) Impaired fasting glycemia; Translations: [Impaired fasting glucose] Onset: 12-20-2009 09-06-2020 Episodic Fluid and electrolyte disorders (20 sources) Hyperkalemia; Translations: [Hyperkalemia] Onset: 05-11-2022 Episodic Mood disorders (18 sources) Depressive disorder; Translations: [Depression] Onset: 01-08-2012 Resolved: 08-13-2015 08-13-2015 Chronic Other connective tissue disease (18 sources) History of total knee arthroplasty; Translations: [Presence of unspecified artificial knee joint] Onset: 01-08-2017 Resolved: 01-09-2017 01-09-2017 Chronic Other hematologic conditions (3 sources) High troponin I level; Translations: [Elevated troponin] Onset: 01-12-2017 01-12-2017 Episodic Other hematologic conditions (19 sources) Raised cardiac enzyme or marker; Translations: [Other specified abnormalities of plasma proteins] Onset: 01-12-2017 08-04-2022 Episodic Other liver diseases (2 sources) Abnormal levels of other serum enzymes; Translations: [Abnormal levels of other serum enzymes] Onset: 01-11-2017 Episodic Other lower respiratory disease (2 sources) Hypoxia; Translations: [Hypoxia] Onset: 01-12-2017 01-12-2017 Episodic Other nervous system disorders (20 sources) Paresthesia of hand ; Translations: [Anesthesia of skin] Onset: 07-03-2022 Episodic Other non-traumatic joint disorders (20 sources) Pain in left knee; Translations: [Pain in joint, lower leg] Onset: 05-03-2015 05-03-2015 Episodic Other non-traumatic joint disorders (20 sources) Pain in right knee; Translations: [Pain in joint, lower leg] Onset: 05-11-2015 05-11-2015 Episodic Other screening for suspected conditions (not mental disorders or infectious disease) (20 sources) Patient encounter status; Translations: [Encounter for screening for malignant neoplasm of colon] Onset: 10-17-2016 10-17-2016 Episodic Prolapse of female genital organs (20 sources) Third degree uterine prolapse; Translations: [Complete uterovaginal prolapse] Onset: 08-16-2015 Resolved: 12-22-2016 08-16-2015 Chronic Spondylosis; intervertebral disc disorders; other back problems (20 sources) Chronic low back pain; Translations: [Lumbago with sciatica, right side] Onset: 11-22-2021 Episodic Unclassified (1 source) Patient encounter status 10-14-2024 Urinary tract infections (20 sources) Acute cystitis; Translations: [Acute cystitis with hematuria] Onset: 03-27-2018 03-27-2018 Episodic Varicose veins of lower extremity (20 sources) Varicose veins of lower extremity; Translations: [Varicose veins of bilateral lower extremities with pain] Onset: 09-06-2020 09-06-2020 Episodic Results Test Name Value Interpretation Reference Range Facility [facility] 10-16-2024 CNOV Office Visit (UROLBE ) -------- FRANCA VALENZUELA ([id number]) 1950 F Date Time Provider Department 10/16/24 1:30 PM PORFIRIO ROLLINS UROLBE During your visit today, we recorded the following information about you: Pulse Blood pressure 81/minute 135/79 Porfirio Rollins MD 10/16/2024 2:29 PM Signed 74 year old female here for botox injection for refractory OAB since her 2016 POP surgery for grade 4 prolapse and MALLORIE for which she had a TVT-Obturator sling placed by Dr. Jarvis; pt referred to my services in 2019. Also with recurrent UTIs in setting of IC IC and Rec UTI and UFS 1) Refill for Keflex, self-start 2) Refill of Mirabegron, Cytotec and Estradiol cream 4) Increase Probiotic dosing 5) Schedule for Bladder Botox 100 units before she leaves for [employer] in Dec. Here today for Bladder Botox 100 units: Last injection 06/13 UA: Positive PVR: 250 cc's On Vesicare as well. A/P: UTI with UFS 1) Hold Bladder Botox 2) Keflex self-start x 5 days and then Cipro if needed 3) OV in November Porfirio Rollins MD Medical Decision Making: Problems: Moderate: 2+ stable chronic illnesses Data: Unique source(s) for external note(s) reviewed: 2 Unique test result(s) reviewed: 2 Risk: Moderate: Drug management Medical Decision Making Level: 4 - Moderate Eusebio Villa MA 10/16/2024 1:50 PM Signed PRE CYSTO PROCEDURE ID Verified by: Eusebio Villa MA Procedure Indication:Cystoscopy botox Latex Allergy: No Betadine Allergy: No Lidocaine allergy: No Allergies reviewed and updated. Pre-Procedure Vital Signs: Blood pressure 135/79, pulse 81. Heart valve replacement:No Joint replacement: Yes Pre-Procedure Antibiotics: Cephalexin 500mg given now @ 1:30pm , by Eusebio Villa MA Verified by: Dr. Porfirio Rollins Patient Prep: Betadine Scrub to perineum and placement of Sterile Drape. Anesthetic Given: none HI Gibson Cynthia, MA 10/16/2024 2:29 PM Signed Patient has residual of 250cc's after using the restroom. Per Dr. Rollins no botox today. Patient also with positive nitrates and leukocytes. Referring Provider: PORFIRIO ROLLINS [[id number]] Allergies As of Date: 10/16/2024 Noted Allergy Reaction CAT DANDER 10/17/2016 14 - Other: See Comments DOG DANDER 10/17/2016 14 - Other: See Comments DUST 04/18/2006 MOLD 04/18/2006 POLLEN 04/18/2006 Date Reviewed: 10/16/2024 Reviewed by: Eusebio Villa MA - Fully Assessed Reason for Visit: Botox Injection [373] Primary Visit Diagnosis:Urge incontinence [N39.41] Other Visit Diagnoses:Urinary frequency [R35.0] Urgency of urination [R39.15] Genitourinary syndrome of menopause [N95.8] Recurrent UTI [N39.0] Order(s):UA DIP, URINE (POC) [[id number]] Order #: [id number]. #:[id number] onabotulinum toxin type A 100 Units injection (BOTOX)Disp: Rfl: cephALEXin 500 mg cap(s) (KEFLEX)Disp: Rfl: lidocaine urojet 2 % 22 mL topical gel (GLYDO)Disp: Rfl: Prescriptions as of 10/16/2024 - DULERA 100-5 mcg/actuation inhaler inhale 2 puffs by mouth and INTO THE LUNGS twice a day as directed - solifenacin (VESICARE) 5 mg tablet Take 1 tablet by mouth once daily as needed. - zolpidem (AMBIEN) 5 mg tablet Take 1 tablet by mouth at bedtime as needed (situational insomnia) for up to 10 days. - mirabegron (MYRBETRIQ) 50 mg Tb24 Take 1 tablet by mouth once daily. - estradiol (ESTRACE) 0.01 % (0.1 mg/gram) vaginal cream Use 1 g vaginally two times a week. - albuterol HFA (PROAIR HFA) 90 mcg/actuation inhaler Inhale 2 Puffs as instructed every 4 hours as needed. - cephALEXin (KEFLEX) 500 mg capsule Take 1 capsule by mouth two times a day. For 3 days; extra capsules given for self-start use when you have symptoms of a bladder infection - Methenamine Hippurate (HIPREX) 1 gram tablet Take 1 tablet by mouth twice daily. - miSOPROStol (CYTOTEC) 200 mcg tablet Take 1 tablet by mouth twice daily. - CPAP/BIPAP/OTHER Supplies for autopap at ?cmH2O Please allow access on PlayEnable to her download DME [employer] - CPAP/BIPAP/OTHER Travel cpap 9cmH2O - meloxicam (MOBIC) 15 mg tablet Take 1 tablet by mouth once daily. - gabapentin (NEURONTIN) 300 mg capsule take 2 capsules by mouth at bedtime if needed - amoxicillin (POLYMOX, AMOXIL) 500 mg capsule Take four capsules one hour before dental procedure. - TENS unit and electrodes cmpk 1 Units as directed. Dx: lumbar DDD, lumbar DJD, chronic low back pain - Magnesium 200 mg tab Take 200 mg by mouth once daily. - L. gasseri-B. bifidum-B longum 1.5 billion cell cap - CALCIUM CARBONATE/VITAMIN D3 (VITAMIN D-3 ORAL) Take 1 tablet by mouth once daily. - triamcinolone acetonide (NASACORT AQ) 55 mcg nasal inhaler Inhale 2 puffs daily. - THERAPEUTIC MULTIVITAMIN TAB Take one(1) tablet daily by mouth Facility-Administered M (more content not included)... Normal [facility] UA DIP, URINE (POC)on 2024 BILIRUBIN UA (POCT) Negative Negative [facility] CLARITY UA (POCT) Cloudy [facility] COLOR UA (POCT) Yellow [facility] GLUCOSE UA (POCT) Negative Negative mg/dL [facility] Hemoglobin Ql (U) Trace-intact Abnormal Negative [facility] Interpretation and review of laboratory results Abnormal [facility] KETONE UA (POCT) Negative Negative mg/dL [facility] LEUKOCYTES UA (POCT) Moderate [facility] NITRITE UA (POCT) Positive Abnormal Negative [facility] PH UA (POCT) 5.5 4.5 - 8.0 [facility] Protein Ql (U) Negative Negative mg/dL [facility] SPECIFIC GRAVITY UA (POCT) 1.015 1.005 - 1.030 [facility] UROBILINOGEN UA (POCT) 0.2 Normal E.U./dL [facility] Location:[facility], [address] [place] [address], [id number] [facility] POINT OF CARE [facility] CNPCarmen 10-14-2024 NAZANINN Telephone (FAMPWS) -------- FRANCA [id number]) 1950 F Date Time Provider Department 10/14/24 GERHARD CALDWELL During your visit today, we recorded the following information about you: Breonna Camejo MA 10/14/2024 7:34 AM Signed Please see pt message. [facility] order pended. Breonna Camejo MA Dear Dr. Caldwell, I received a reminder to make an appointment for my yearly mammogram. I need to request a prescription/referral from you before I schedule my appointment. Also, the letter stated that I need to bring the prescription with me to the mammogram appointment. Thank you, Jessica Colbert PA-C 10/14/2024 8:10 AM Signed Ordered Jessica Hill PA-C Allergies As of Date: 10/14/2024 Noted Allergy Reaction CAT DANDER 10/17/2016 14 - Other: See Comments DOG DANDER 10/17/2016 14 - Other: See Comments DUST 04/18/2006 MOLD 04/18/2006 POLLEN 04/18/2006 Date Reviewed: 04/02/2024 Reviewed by: Zoila Landis LPN - Fully Assessed Primary Visit Diagnosis:Encounter for screening mammogram for malignant neoplasm of breast [Z12.31] Order(s):[facility] SCREENING [[id number]] Order #: [id number] FUTURE Prescriptions as of 10/14/2024 - DULERA 100-5 mcg/actuation inhaler inhale 2 puffs by mouth and INTO THE LUNGS twice a day as directed - solifenacin (VESICARE) 5 mg tablet Take 1 tablet by mouth once daily as needed. - zolpidem (AMBIEN) 5 mg tablet Take 1 tablet by mouth at bedtime as needed (situational insomnia) for up to 10 days. - mirabegron (MYRBETRIQ) 50 mg Tb24 Take 1 tablet by mouth once daily. - estradiol (ESTRACE) 0.01 % (0.1 mg/gram) vaginal cream Use 1 g vaginally two times a week. - albuterol HFA (PROAIR HFA) 90 mcg/actuation inhaler Inhale 2 Puffs as instructed every 4 hours as needed. - cephALEXin (KEFLEX) 500 mg capsule Take 1 capsule by mouth two times a day. For 3 days; extra capsules given for self-start use when you have symptoms of a bladder infection - Methenamine Hippurate (HIPREX) 1 gram tablet Take 1 tablet by mouth twice daily. - miSOPROStol (CYTOTEC) 200 mcg tablet Take 1 tablet by mouth twice daily. - CPAP/BIPAP/OTHER Supplies for autopap at ?cmH2O Please allow access on PlayEnable to her download DME [employer] - CPAP/BIPAP/OTHER Travel cpap 9cmH2O - meloxicam (MOBIC) 15 mg tablet Take 1 tablet by mouth once daily. - gabapentin (NEURONTIN) 300 mg capsule take 2 capsules by mouth at bedtime if needed - amoxicillin (POLYMOX, AMOXIL) 500 mg capsule Take four capsules one hour before dental procedure. - TENS unit and electrodes cmpk 1 Units as directed. Dx: lumbar DDD, lumbar DJD, chronic low back pain - Magnesium 200 mg tab Take 200 mg by mouth once daily. - L. gasseri-B. bifidum-B longum 1.5 billion cell cap - CALCIUM CARBONATE/VITAMIN D3 (VITAMIN D-3 ORAL) Take 1 tablet by mouth once daily. - triamcinolone acetonide (NASACORT AQ) 55 mcg nasal inhaler Inhale 2 puffs daily. - THERAPEUTIC MULTIVITAMIN TAB Take one(1) tablet daily by mouth Facility-Administered Medications as of 10/14/2024 - lidocaine urojet 2 % 22 mL topical gel (GLYDO) Meds Comments as of 12/05/2022: AZO over the counter Malaria prophylaxis- malarone Oral typhoid vaccine Problem List As Of Date 10/14/2024 Noted Resolved Acute Bronchitis [J20.9] 04/18/2006 12/20/2009 Asthma [J45.909] 04/18/2006 Hyperlipidemia [E78.5] 08/30/2009 IFG (impaired fasting glucose) [R73.01] 12/20/2009 Vitamin D deficiency [E55.9] 03/30/2010 Type II diabetes mellitus (HCC) [E11.9] 08/25/2010 12/22/2016 Depression [F32.A] 01/08/2012 08/13/2015 Stress [F43.9] 01/08/2012 12/22/2016 Pain in left knee [M25.562] 05/03/2015 Generalized osteoarthrosis, involving multiple *05/03/2015 09/11/2015 Pain in right knee [M25.561] 05/11/2015 Female stress incontinence [N39.3] 08/16/2015 Primary osteoarthritis involving multiple joint*09/11/2015 12/14/2015 Osteoarthritis of both knees [M17.0] 12/14/2015 12/22/2016 ANGELIKA (obstructive sleep apnea) [G47.33] 03/06/2016 Hip arthritis [M16.10] 03/20/2016 Urge incontinence [N39.41] 10/02/2016 Osteoarthritis [M19.90] Prolapse of female genital organs [N81.9] 12/22/2016 Special screening for malignant neoplasms, colo*10/17/2016 Controlled type 2 diabetes mellitus without com*10/17/2016 Dyslipidemia [E78.5] 10/17/2016 12/22/2016 Primary osteoarthritis of left knee [M17.12] 12/15/2016 01/09/2017 S/P total knee arthroplasty [Z96.659] 01/08/2017 01/09/2017 Osteoarthritis of left knee [M17.12] 03/14/2017 Seasonal allergic rhinitis due to pollen [J30.1]10/16/2017 Mixed hyperlipidemia [E78.2] 03/27/2018 Situational insomnia [F51.09] 03/27/2018 Atrophic vaginitis [N95.2] 03/27/2018 Acute cystitis with hematuria [N30.01] 03/27/2018 Microhematuria [R31.29] 05/20/2018 Persistent proteinuria [R80.1] 05/20/2018 Obesity, Class I, B (more content not included)... Normal [facility] L/S Spine w Bend Min 6 Vwon 10-02-2024 L/S Spine w Bend Min [address] [facility] Imaging Services [address], [place] [id number] L/S Spine w Bend Min 6 Vw MR#: [id number] Acct: [id number] Name: FRANCA VALENZUELA DAGOBERTO Rep #: [id number] : 1950 F 74 From: Chris Arana MD PCP: Dr. Gerhard Caldwell, DO Status: REG CLI Study: L/S Spine w Bend Min 6 Vw Date of Exam: Exam# [id number] Ordering Dr: Linh Lala PROCEDURE: L/S SPINE W BEND MIN 6 VW 10/02/2024 REASON FOR EXAM: DDD TECHNIQUE: 6 views, AP, bilateral oblique, lateral, flexion-extension COMPARISON: None available FINDINGS: S shaped thoracolumbar scoliosis with multilevel spondylosis/discogenic change greatest at the upper lumbar spine. The degree of curvature and degenerative changes limits the evaluation. There is no evidence of fracture or spondylolysis identified. L1-2 severe disc space narrowing with degenerative endplate changes and mild retrolisthesis L1 on L2 which appears to mildly possibly increased on the extension view and unchanged on the flexion view. Suggestion of bilateral possible osseous foraminal narrowing L2-3 severe disc space narrowing and degenerative endplate changes with mild retrolisthesis L2 on L3 which also appears to mildly increased on the extension view and unchanged on the flexion. Suggestion of bilateral possible osseous foraminal narrowing L4-5 grade 2 anterolisthesis L4 on L5 appears unchanged with flexion and extension. Moderate disc space narrowing. L5-S1 spondylosis/discogenic change. Multilevel facet degenerative changes. Partially imaged right hip replacement. Left hip osteoarthrosis. RAD/L/S Spine w Bend Min 6 Vw IMPRESSION: S shaped thoracolumbar scoliosis with multilevel spondylosis/discogenic change greatest at the upper lumbar spine. The degree of curvature and degenerative changes limits the evaluation. Multilevel spondylolisthesis as above. Reading Location: [facility] CC: Linh Lala; Dr. 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 Pre-Procedure Vital Signs: Blood pressure 139/84, pulse 81. Heart valve replacement:No Joint replacement: Yes left knee replacement and right hip replacement Pre-Procedure Antibiotics: Cephalexin 500mg given now @ 11:14 am , by Jaspreet Green LPN verified by carolina villa MA Patient Prep: Betadine Scrub to perineum and placement of Sterile Drape. Anesthetic Given: 10 cc 2% Lidocaine jelly ALL Michaud Jonissa, LPN 04/24/2024 11:50 AM Signed NURSE POST PROCEDURE ASSESSMENT Level of Consciousness: Alert and Oriented Transferred: via Ambulation Post Procedure Vital Signs: Not indicated Specimens obtained: None Post Procedure: Cystoscopy WITH BOTOX Discharge Notes: Patient returns to pre-procedure mental status. Patient alert and oriented on discharge. Discharge Pain level: 0 on a scale of 0-10. THE FOLLOWING WAS EVALUATED Motivation To Learn: Interested Family/Significant Other Support: High : Family not present. Cognitive Ability: Alert and oriented Patient Learns Best By:Individual Instruction and Written Material The Following Influencing Factors Were Barriers To This Education Session: Voodoo Factors: No barriers The Following Physical Limitations Were Barriers To This Education Session: None Instruction Provided To: Patient Patient Evaluation:Verbalizes understanding Follow Up Plan: As instructed Supplemental Material Given:Written Material UNIVERSAL PROTOCOL / SAFETY CHECKLIST Procedure to be Performed: cystoscopy with botox Sign In: A Moment of CARE was completed. Personnel directly involved with the procedure wore the appropriate PPE (Personal Protective Equipment). Special equipment: botox setup Patient/Surrogate Stated/Verified: PATIENT VERIFIED(optional for EMERGENT procedures): Patient name, Date of , Relevant allergies, and The intended procedure Time Out Communication: Intended patient and procedure match the source documents. Consent documented and matches the intended procedure. Relevant labs, photos, and/or imaging studies have been reviewed. No correct side/site applicable for marking and visibility. Medications required for procedure verified. Fire risk assessed and interventions discussed. No implant(s) inserted. Sign Out: SIGN OUT (optional for EMERGENT procedures): No specimen collected. All instruments, equipment, possible retained foreign bodies accounted for. Post-procedure follow-up management communicated and Plan of Care Visit completed when applicable. ALL Michaud Raymond R, MD 04/24/2024 1:00 PM Signed 73 year old female here for botox injection for refractory OAB since her 2016 POP surgery for grade 4 prolapse and MALLORIE for which she had a TVT-Obturator sling placed by Dr. Jarvis; pt referred to my services in 2019. Also with recurrent UTIs in setting of IC IC and Rec UTI and UFS 1) Refill for Keflex, self-start 2) Refill of Mirabegron, Cytotec and Estradiol cream 4) Increase Probiotic dosing 5) Schedule for Bladder Botox 100 units before she leaves for [employer] in Dec. Here today for Bladder Botox 100 units: Last injection 06/13 UA: normal PVR: 100 cc's During great with no issues since her last visit - very pleased with [facility] [employer] HOPS NOTE / UNIVERSAL PROTOCOL / SAFETY CHECKLIST Sign In History and Physical Exam reviewed and is unchanged. Medication Reconciliation Performed: Yes Primary Diagnosis: Urge Incontinence Informed Consent Discussed: Yes Sign in Communication: Completed After the genitalia were prepped and draped in a sterile manner a timeout was performed which confirmed the above information. A 19 Fr rigid cystoscope was inserted atruamtically through the urethra. The bladder was distended with no abnormalities of the bladder mucosa noted. No bladder stones. 100 units of botox in 200 cc were injected throughout the posterior bladder wall and trigone. There was no major bleeding noted. The cystoscope was removed. Patient tolerated procedure well. A/P: IC and Rec UTI and UFS 1) Bladder Botox 100 units in 5-6 months 2) [facility] UTI [facility] plan: Keflex prn and Cipro when needed 3) Vesicare 5 mg every day prn sine Beta-3 agonist are too expensive Porfirio Rollins MD Referring Provider: PORFIRIO ROLLINS [[id number]] Allergies As of Date: 04/24 (more content not included)... Normal [facility] UA DIP, URINE (POC)on 2023 BILIRUBIN UA (POCT) Negative Negative [facility] CLARITY UA (POCT) Clear [facility] COLOR UA (POCT) Yellow [facility] GLUCOSE UA (POCT) Negative Negative mg/dL [facility] Hemoglobin Ql (U) Negative Negative [facility] KETONE UA (POCT) Negative Negative mg/dL [facility] LEUKOCYTES UA (POCT) Negative Negative [facility] NITRITE UA (POCT) Negative Negative [facility] PH UA (POCT) 5.5 4.5 - 8.0 [facility] Protein Ql (U) Negative Negative mg/dL [facility] SPECIFIC GRAVITY UA (POCT) 1.010 1.005 - 1.030 [facility] UROBILINOGEN UA (POCT) 0.2 Normal E.U./dL [facility] Location:[facility] [place], [address] [place] [address], [address] [place] [address] POINT OF CARE [facility] CBC W Auto Differential pane l (Bld)on 04-04-2024 Basophils (Bld) [#/Vol] 0.03 10*3/uL Normal <0.[address] [facility] Comment on above: Order Comment: Speci men Type: BLOOD SPECIMENOrdering Facility: [facility] Address: [address] [place] [address] Performed By: #### 5 7021-8 ####[facility] [id number] [place] [address] [place] Basophils/100 WBC (Bld) 0.5 % Normal [facility] Comment on above: Order Comment: Speci men Type: BLOOD SPECIMENOrdering Facility: [facility] Address: [address] [place] [address] Performed By: #### 5 7021-8 ####[facility] [id number] [place] [address] [place] Differential cell count method Nom (Bld) Auto Normal [facility] Comment on above: Order Comment: Speci men Type: BLOOD SPECIMENOrdering Facility: [facility] Address: [address] [place] [address] Performed By: #### 5 7021-8 ####[facility] [id number] [place] [address] [place] Eosinophils (Bld) [#/Vol] 0.11 10*3/uL Normal <0.[address] [facility] Comment on above: Order Comment: Speci men Type: BLOOD SPECIMENOrdering Facility: [facility] Address: [address] [place] [address] Performed By: #### 5 7021-8 ####[facility] [id number] [place] [address] [place] Eosinophils/100 WBC (Bld) 1.9 % Normal [facility] Comment on above: Order Comment: Speci men Type: BLOOD SPECIMENOrdering Facility: [facility] Address: [address] [place] [address] Performed By: #### 5 7021-8 ####[facility] [id number] [place] [address] [place] Erythrocyte distribution width (RBC) [Ratio] 12.8 % Normal 11.5-15.[address] [facility] Comment on above: Order Comment: Speci men Type: BLOOD SPECIMENOrdering Facility: [facility] Address: [address] [place] [address] Performed By: #### 5 7021-8 ####[facility] [id number] [place] [address] [place] Hematocrit (Bld) [Volume fraction] 43.1 % Normal 36.0-46.[address] [facility] Comment on above: Order Comment: Speci men Type: BLOOD SPECIMENOrdering Facility: [facility] Address: [address] [place] [address] Performed By: #### 5 7021-8 ####[facility] [id number] [address] [id number] [address] [place] Hemoglobin (Bld) [Mass/Vol] 14.2 g/dL Normal 11.5-15.[address] [facility] Comment on above: Order Comment: Speci men Type: BLOOD SPECIMENOrdering Facility: [facility] Address: [address] [place] [address] Performed By: #### 5 7021-8 ####[facility] [id number] [place] [address] [place] Immature granulocytes (Bld) [#/Vol] 10*3/uL Normal <0.[address] [facility] Comment on above: Order Comment: Speci men Type: BLOOD SPECIMENOrdering Facility: [facility] Address: [address] [place] [address] Performed By: #### 5 7021-8 ####[facility] [id number] [place] [address] [place] Immature granulocytes/100 WBC (Bld) 0.2 % Normal [facility] Comment on above: Order Comment: Speci men Type: BLOOD SPECIMENOrdering Facility: [facility] Address: [address] [place] [address] Performed By: #### 5 7021-8 ####[facility] [id number] [place] [address] [place] Lymphocytes (Bld) [#/Vol] 2.11 10*3/uL Normal 1.00-4.[address] [facility] Comment on above: Order Comment: Speci men Type: BLOOD SPECIMENOrdering Facility: [facility] Address: [address] [place] [address] Performed By: #### 5 7021-8 ####[facility] [id number] [place] [address] [place] Lymphocytes/100 WBC (Bld) 36.6 % Normal [facility] Comment on above: Order Comment: Speci men Type: BLOOD SPECIMENOrdering Facility: [facility] Address: [address] [place] [address] Performed By: #### 5 7021-8 ####[facility] [id number] [place] [address] [place] MCH (RBC) [Entitic mass] 32.9 pg Normal 26.0-34.[address] [facility] Comment on above: Order Comment: Speci men Type: BLOOD SPECIMENOrdering Facility: [facility] Address: [address] [place] [address] Performed By: #### 5 7021-8 ####[facility] [id number] [place] [address] [place] MCHC (RBC) [Mass/Vol] 32.9 g/dL Normal 30.5-36.0 [facility] Comment on above: Order Comment: Speci men Type: BLOOD SPECIMENOrdering Facility: [facility] Address: [address] [place] [address] Performed By: #### 5 7021-8 ####[facility] [id number] [place] [address] [place] MCV (RBC) [Entitic vol] 100.0 fL Normal 80.0-100.[address] [facility] Comment on above: Order Comment: Speci men Type: BLOOD SPECIMENOrdering Facility: [facility] Address: [address] [place] [address] Performed By: #### 5 7021-8 ####[facility] [id number] [place] [address] [place] Monocytes (Bld) [#/Vol] 0.53 10*3/uL Normal <0.[address] [facility] Comment on above: Order Comment: Speci men Type: BLOOD SPECIMENOrdering Facility: [facility] Address: [address] [place] [address] Performed By: #### 5 7021-8 ####[facility] [id number] [place] [address] [place] Monocytes/100 WBC (Bld) 9.2 % Normal [facility] Comment on above: Order Comment: Speci men Type: BLOOD SPECIMENOrdering Facility: [facility] Address: [address] [place] [address] Performed By: #### 5 7021-8 ####[facility] [id number] [place] [address] [place] Neutrophils (Bld) [#/Vol] 2.97 10*3/uL Normal 1.45-7.[address] [facility] Comment on above: Order Comment: Speci men Type: BLOOD SPECIMENOrdering Facility: [facility] Address: [address] [place] [address] Performed By: #### 5 7021-8 ####[facility] [id number] [place] [address] [place] Neutrophils/100 WBC (Bld) 51.6 % Normal [facility] Comment on above: Order Comment: Speci men Type: BLOOD SPECIMENOrdering Facility: [facility] Address: [address] [place] [address] Performed By: #### 5 7021-8 ####[facility] [id number] [place] [address] [place] Nucleated RBC (Bld) [#/Vol] 10*3/uL Normal <0.[address] [facility] Comment on above: Order Comment: Speci men Type: BLOOD SPECIMENOrdering Facility: [facility] Address: [address] [place] [address] Performed By: #### 5 7021-8 ####[facility] [id number] [place] [address] [place] Nucleated RBC/100 WBC (Bld) [Ratio] 0.0 /[address] [facility] Comment on above: Order Comment: Speci men Type: BLOOD SPECIMENOrdering Facility: [facility] Address: [address] [place] [address] Performed By: #### 5 7021-8 ####[facility] [id number] [place] [address] [place] Platelet mean volume (Bld) [Entitic vol] 10.6 fL Normal 9.0-12.[address] [facility] Comment on above: Order Comment: Speci men Type: BLOOD SPECIMENOrdering Facility: [facility] Address: [address] [place] [address] Performed By: #### 5 7021-8 ####[facility] [id number] [place] [address] [place] Platelets (Bld) [#/Vol] 219 10*3/uL Normal 150-[address] [facility] Comment on above: Order Comment: Speci men Type: BLOOD SPECIMENOrdering Facility: [facility] Address: [address] [place] [address] Performed By: #### 5 7021-8 ####[facility] [id number] [place] [address] [place] RBC (Bld) [#/Vol] 4.31 10*6/uL Normal 3.90-5.20 [facility] Comment on above: Order Comment: Speci men Type: BLOOD SPECIMENOrdering Facility: [facility] Address: [address] [place] [address] Performed By: #### 5 7021-8 ####[facility] [id number] [place] [address] [place] WBC (Bld) [#/Vol] 5.76 10*3/uL Normal 3.70-11.00 [facility] Comment on above: Order Comment: Speci men Type: BLOOD SPECIMENOrdering Facility: [facility] Address: [address] [place] [address] Performed By: #### 5 7021-8 ####[facility] [id number] [address] [address] [place] Comprehensive metabolic 2000 panelon 04-04-2024 Albumin [Mass/Vol] 4.1 g/dL Normal 3.9-4.9 [facility] Comment on above: Order Comment: Speci men Type: BLOOD SPECIMENOrdering Facility: [facility] Address: [address] [place] [address] Performed By: #### 3 016-3, 78356-1, 74274-2, 3024-7 ####[facility] [id number] [place] [address] [place] ALP [Catalytic activity/Vol] 88 U/L Normal 34-[address] [facility] Comment on above: Order Comment: Speci men Type: BLOOD SPECIMENOrdering Facility: [facility] Address: [address] [place] [address] Performed By: #### 3 016-3, 94308-0, 89317-9, 3024-7 ####[facility] [id number] [place] [address] [place] ALT [Catalytic activity/Vol] 18 U/L Normal 7-[address] [facility] Comment on above: Order Comment: Speci men Type: BLOOD SPECIMENOrdering Facility: [facility] Address: [address] [place] [address] Performed By: #### 3 016-3, 60531-9, 01614-1, 3024-7 ####[facility] [id number] [place] [id number] [place] Anion gap [Moles/Vol] 10 mmol/L Normal 8-15 [facility] Comment on above: Order Comment: Speci men Type: BLOOD SPECIMENOrdering Facility: [facility] Address: [address] [place] [address] Performed By: #### 3 016-3, 95868-4, 95662-1, 3024-7 ####[facility] [id number] [address] [address] [place] AST [Catalytic activity/Vol] 19 U/L Normal 13-[address] [facility] Comment on above: Order Comment: Speci men Type: BLOOD SPECIMENOrdering Facility: [facility] Address: [address] [place] [address] Performed By: #### 3 016-3, 86789-2, 31931-6, 7 ####[facility] [id number] [place] [id number] [place] Bilirubin [Mass/Vol] 0.5 mg/dL Normal 0.2-1.3 [facility] Comment on above: Order Comment: Speci men Type: BLOOD SPECIMENOrdering Facility: [facility] Address: [address] [place] [address] Performed By: #### 3 016-3, 19539-5, 27296-0, 7 ####[facility] [id number] [place] [id number] [place] Calcium [Mass/Vol] 9.1 mg/dL Normal 8.5-10.2 [facility] Comment on above: Order Comment: Speci men Type: BLOOD SPECIMENOrdering Facility: [facility] Address: [address] [place] [address] Performed By: #### 3 016-3, 42774-5, 83035-3, 7 ####[facility] [id number] [place] [id number] [place] Chloride [Moles/Vol] 103 mmol/L Normal 98-107 [facility] Comment on above: Order Comment: Speci men Type: BLOOD SPECIMENOrdering Facility: [facility] Address: [address] [place] [address] Performed By: #### 3 016-3, 22842-2, 71739-7, 7 ####[facility] [id number] [facility] [place] [address] [place] CO2 [Moles/Vol] 26 mmol/L Normal 22-[address] [facility] Comment on above: Order Comment: Speci men Type: BLOOD SPECIMENOrdering Facility: [facility] Address: [address] [place] [address] Performed By: #### 3 016-3, 78418-3, 74310-0, 3023-11 ####[facility] [id number] [place] [address] [place] Creatinine [Mass/Vol] 0.49 mg/dL Low 0.58-0.96 [facility] Comment on above: Order Comment: Speci men Type: BLOOD SPECIMENOrdering Facility: [facility] Address: [address] [place] [address] Performed By: #### 3 016-3, 74469-5, 88117-7, 3023-11 ####[facility] [id number] [place] [address] [place] Creatinine and Glomerular filtration rate.predicted panel (S/P/Bld) 98 mL/min/1.73m??? Normal >=[address] [facility] Comment on above: Order Comment: Speci men Type: BLOOD SPECIMENOrdering Facility: [facility] Address: [address] [place] [address] Result Comment: Sharita mated Glomerular Filtration Rate (eGFR) is calculated using the 2020 CKD-EPI creatinine equation. This equation utilizes serum creatinine, sex, and age as parameters. The creatinine assay has traceable calibration to isotope dilution-mass spectrometry. Refer to KDIGO guidelines for clinical interpretation. In patients with unstable renal function, e.g. those with acute kidney injury, the eGFR may not accurately reflect actual GFR. Performed By: #### 3 016-3, 15906-8, 16477-0, 7 ####[facility] [id number] [place] [address] [place] Glucose [Mass/Vol] 118 mg/dL High 74-99 [facility] Comment on above: Order Comment: Speci men Type: BLOOD SPECIMENOrdering Facility: [facility] Address: [address] [place] [address] Result Comment: The [place] Diabetes Association (ADA) provides guidance for cutoff values for fasting glucose and random glucose. The ADA defines fasting as no caloric intake for at least 8 hours. Fasting plasma glucose results between 100 to 125 mg/dL indicate increased risk for diabetes (prediabetes). Fasting plasma glucose results greater than or equal to 126 mg/dL meet the criteria for diagnosis of diabetes. In the absence of unequivocal hyperglycemia, results should be confirmed by repeat testing. In a patient with classic symptoms of hyperglycemia or hyperglycemic crisis, random plasma glucose results greater than or equal to 200 mg/dL meet the criteria for diagnosis of diabetes. Reference: Standards of Medical Care in Diabetes 2016, [place] Diabetes Association. Diabetes Care. 2016.39(Suppl 1). Performed By: #### 3 016-3, 14400-5, 28387-7, 3024-7 ####[facility] [id number] [place] [address] [place] Potassium [Moles/Vol] 4.3 mmol/L Normal 3.7-5.1 [facility] Comment on above: Order Comment: Speci men Type: BLOOD SPECIMENOrdering Facility: [facility] Address: [address] [place] [address] Performed By: #### 3 016-3, 66461-4, 05384-5, 3024-7 ####[facility] [id number] [place] [address] [place] Protein [Mass/Vol] 7.1 g/dL Normal 6.3-8.0 [facility] Comment on above: Order Comment: Speci men Type: BLOOD SPECIMENOrdering Facility: [facility] Address: [address] [place] [address] Performed By: #### 3 016-3, 56493-3, 86832-2, 3024-7 ####[facility] [id number] [place] [id number] [place] Sodium [Moles/Vol] 139 mmol/L Normal 136-144 [facility] Comment on above: Order Comment: Speci men Type: BLOOD SPECIMENOrdering Facility: [facility] Address: [address] [place] [address] Performed By: #### 3 016-3, 92366-3, 43838-1, 3024-7 ####[facility] [id number] [place] [address] [place] Urea nitrogen [Mass/Vol] 15 mg/dL Normal 7-[address] [facility] Comment on above: Order Comment: Speci men Type: BLOOD SPECIMENOrdering Facility: [facility] Address: [address] [place] [address] Performed By: #### 3 016-3, 98920-6, 79519-9, 30247 ####[facility] [id number] [place] [address] [place] HbA1c (Bld)on 04-04-2024 Average glucose Estimated from glycated hemoglobin (Bld) [Mass/Vol] 131 mg/dL Normal [facility] Comment on above: Order Comment: Speci men Type: BLOOD SPECIMENOrdering Facility: [facility] Address: [address] [place] [address] Result Comment: eAG: (Estimated average glucose) is a calculated value from HgbA1c and is bottling equipment sales representative of the average blood glucose level in the last 2-3 month period. Performed By: #### 5 5454-3 ####[facility] [id number] [place] [address] [place] HbA1c (Bld) [Mass fraction] 6.2 % High 4.3-5.[address] [facility] Comment on above: Order Comment: Speci men Type: BLOOD SPECIMENOrdering Facility: [facility] Address: [address] [place] [address] Result Comment: [place] Diabetes Association guidelines indicate that patients with HgbA1c in the range 5.7-6.4% are at increased risk for development of diabetes, and intervention by lifestyle modification may be beneficial. HgbA1c greater or equal to 6.5% is considered diagnostic of diabetes. Performed By: #### 5 5454-3 ####[facility] [id number] [place] [address] [place] Lipid 1996 panelon 4 Cholesterol [Mass/Vol] 194 mg/dL Normal <[address] [facility] Comment on above: Order Comment: Speci men Type: BLOOD SPECIMENOrdering Facility: [facility] Address: [address] [place] [address] Result Comment: <200 mg/dL, Desirable 200-239 mg/dL, Borderline high >239 mg/dL, High Performed By: #### 3 016-3, 02716-4, 25265-5, 3024-7 ####[facility] [id number] [place] [address] [place] Cholesterol in HDL [Mass/Vol] 79 mg/dL Normal >[address] [facility] Comment on above: Order Comment: Renettai men Type: BLOOD SPECIMENOrdering Facility: [facility] Address: [address] [place] [address] Result Comment: 40-5 9 mg/dL, Acceptable >59 mg/dL, High: Negative risk factor for coronary heart disease <40 mg/dL, Low: Positive risk factor for coronary heart disease Performed By: #### 3 016-3, 37239-0, 22577-7, 3024-7 ####[facility] [id number] [place] [address] [place] Cholesterol in LDL [Mass/Vol] 89 mg/dL Normal <[address] [facility] Comment on above: Order Comment: Speci men Type: BLOOD SPECIMENOrdering Facility: [facility] Address: [address] [place] [address] Result Comment: <100 mg/dL, Optimal 100-129 mg/dL, Near optimal/above optimal 130-159 mg/dL, Borderline high 160-189 mg/dL, High >189 mg/dL, Very high Secondary prevention optimal LDL Cholesterol levels are recommended to be < 70 mg/dL Performed By: #### 3 016-3, 52527-3, 63643-1, 3023-7 ####[facility] [id number] [place] [address] [place] Cholesterol in LDL/Cholesterol in HDL [Mass ratio] 1.13 {ratio} Normal <2.[address] [facility] Comment on above: Order Comment: Speci men Type: BLOOD SPECIMENOrdering Facility: [facility] Address: [address] [place] [address] Result Comment: Autumn turnerce: 1. National Cholesterol Education Program ATP III Guideline At-A-Glance Quick Desk Reference: National Heart, Lung, and Blood [place]. National Institutes of Health. 2001: NIH Publication No. 01-3305. 2. An International Atherosclerosis Society position paper: global recommendations for the management of dyslipidemia: executive summary, Atherosclerosis. 2014: 232(2):410-413. Performed By: #### 3 016-3, 38730-2, 78021-5, 7 ####[facility] [id number] [place] [address] [place] Cholesterol in VLDL [Mass/Vol] 26 mg/dL Normal <[address] [facility] Comment on above: Order Comment: Renettai men Type: BLOOD SPECIMENOrdering Facility: [facility] Address: [address] [place] [address] Performed By: #### 3 016-3, 16404-8, 55076-4, 3023-7 ####[facility] [id number] [place] [address] [place] Cholesterol non HDL [Mass/Vol] 115 mg/dL Normal <[address] [facility] Comment on above: Order Comment: Speci men Type: BLOOD SPECIMENOrdering Facility: [facility] Address: [address] [place] [address] Result Comment: <130 mg/dL, Optimal 130-159 mg/dL, Near optimal/above optimal 160-189 mg/dL, Borderline high 190-219 mg/dL, High >219 mg/dL, Very high Secondary prevention optimal non HDL Cholesterol levels are recommended to be <100 mg/dL Performed By: #### 3 016-3, 05182-2, 45886-1, 7 ####[facility] [id number] [place] [address] [place] Cholesterol.total/Cho lesterol in HDL [Mass ratio] 2.46 {ratio} Normal <5.[address] [facility] Comment on above: Order Comment: Speci men Type: BLOOD SPECIMENOrdering Facility: [facility] Address: [address] [place] [address] Performed By: #### 3 016-3, 33318-5, 23269-7, 3023-11 ####[facility] [id number] [place] [address] [place] FASTING TIME [address] [facility] Comment on above: Order Comment: Speci men Type: BLOOD SPECIMENOrdering Facility: [facility] Address: [address] [place] [address] Performed By: #### 3 016-3, 82770-7, 51597-3, 3023-11 ####[facility] [id number] [place] [address] [place] Triglyceride [Mass/Vol] 128 mg/dL Normal <[address] [facility] Comment on above: Order Comment: Speci men Type: BLOOD SPECIMENOrdering Facility: [facility] Address: [address] [place] [address] Result Comment: <150 mg/dL, Normal 150-199 mg/dL, Borderline high 200-499 mg/dL, High >499 mg/dL, Very high Performed By: #### 3 016-3, 56158-9, 85053-1, 7 ####[facility] [id number] [place] [address] [place] T4 Free SerPl-mCncon 024 Free T4 [Mass/Vol] 1.1 ng/dL Normal 0.9-1.7 [facility] Comment on above: Order Comment: Speci men Type: BLOOD SPECIMENOrdering Facility: [facility] Address: [address] [place] [address] Performed By: #### 3 016-3, 47069-5, 51957-1, 3024-7 ####[facility] [id number] [place] [address] [place] TSH SerPl-aCncon 04-04-2024 TSH Qn 2.350 m[IU]/L Normal 0.270-4.[address] [facility] Comment on above: Order Comment: Speci men Type: BLOOD SPECIMENOrdering Facility: [facility] Address: [address] [place] [address] Performed By: #### 3 016-3, 96263-6, 16412-9, 3024-7 ####[facility] [id number] [address] [place] CNOVon 04-02-2024 CNOV Office Visit (FAMPWS ) -------- FRANCA VALENZUELA ([id number]) 1950 F Date Time Provider Department 04/02/24 12:20 PM GERHARD CALDWELL FAMPWS During your visit today, we recorded the following information about you: Temperature Pulse Respiration Blood pressure 97.3 degrees 64/minute 16/minute 116/80 Weight Height 87.7 kg 1.585 m Gerhard Caldwell, 04/02/2024 1:10 PM Signed CC: Franca Valenzuela is a 73 year old female who presents to the office for follow up HPI: Left knee arthritis, osteoarthritis, overall feels she is coping well with intermittent use of meloxicam, no SE with medications, no swelling, no recent falls. IFG, diet controlled, knows need for weight loss. Bladder symptoms, chronic, has been seeing Dr. Rollins for opinion with Urology and testing with urodynamics. Has started the new medication prescribed by specialist which has been helpful which is Mybetriq Will have upcoming travel to [facility] in mid May. Asking for antibiotic to take in case gets UTI- usually benefits from Macrobid. Also asking for Ativan for use prn with flight since will be 24 hours of flight and gets situational anxiety and insomnia during travel. Type 2 diabetes, diet controlled. Obesity, needs to work on weight loss, 193 lbs. PAST MEDICAL HISTORY Diagnosis Date ASTHMA UNSPECIFIED 04/18/2006 Hyperlipidemia 08/30/2009 Impaired fasting glucose 12/20/2009 Glucose 2006 - 107, 2010 - 127 ANGELIKA (obstructive sleep apnea) Osteoarthritis Prolapse of female genital organs Snoring PAST SURGICAL HISTORY Procedure Laterality Date ARTHRP ACETBLR/PROX FEM PROSTC AGRFT/ALGRFT Right 03/20/2016 Hip replacement, total ARTHRP KNE CONDYLEANDPLATU MEDIALANDLAT COMPARTMENTS Left 01/08/2017 Knee replacement, total COLONOSCOPY 06/2002 COLONOSCOPY FLX DX W/COLLJ SPEC WHEN PFRMD 02/14/2018 Colonoscopy CORRECTION OF BUNION 2001 also toes straightened bilateral HEART CATHETERIZATION 01/12/2017 [place] HYSTERECTOMY HX 12/15/2015 Total vaginal hysterectomy, uterus <250g, Bilateral salpingo-oophorectomy, Colpopexy, vaginal vault suspension via intraperitoneal approach (uterosacral ligament suspension), Anterior repair, Posterior repair, TVT-O sling, Cystoscopy TONSILLECTOMY HX 3 years old Social History: Social History Tobacco Use Smoking status: Former Current packs/day: 0.00 Average packs/day: 0.5 packs/day for 10.0 years (5.0 ttl pk-yrs) Types: Cigarettes Start date: 05/21/1969 Quit date: 05/21/1979 Years since quittin.8 Smokeless tobacco: Never Tobacco comments: social smoker in [employer] Substance Use Topics Alcohol use: Yes Comment: 1-2 glasses of wine daily or every day Drug use: No FAMILY HISTORY Problem Relation Age of Onset Allergies Mother Arthritis Mother Asthma Mother Hearing Loss Mother Heart Mother triple bypass ASHD Arthritis Father Diabetes Father Current Outpatient prescriptions: mometasone-formoterol (DULERA) 100-5 mcg/actuation inhaler Inhale 2 Puffs as instructed two times a day. zolpidem (AMBIEN) 5 mg tablet Take 1 tablet by mouth at bedtime as needed (situational insomnia) for up to 10 days. LORazepam (ATIVAN) 0.5 mg Take 1 tablet by mouth three times a day as needed (situational anxiety) for up to 30 days. mirabegron (MYRBETRIQ) 50 mg Tb24 Take 1 tablet by mouth once daily. estradiol (ESTRACE) 0.01 % (0.1 mg/gram) vaginal cream Use 1 g vaginally two times a week. albuterol HFA (PROAIR HFA) 90 mcg/actuation inhaler Inhale 2 Puffs as instructed every 4 hours as needed. cephALEXin (KEFLEX) 500 mg capsule Take 1 capsule by mouth two times a day. For 3 days; extra capsules given for self-start use when you have symptoms of a bladder infection Methenamine Hippurate (HIPREX) 1 gram tablet Take 1 tablet by mouth twice daily. miSOPROStol (CYTOTEC) 200 mcg tablet Take 1 tablet by mouth twice daily. CPAP/BIPAP/OTHER Supplies for autopap at ?cmH2O Please allow access on PlayEnable to her download DME [facility] CPAP/BIPAP/OTHER Travel cpap 9cmH2O meloxicam (MOBIC) 15 mg tablet Take 1 tablet by mouth once daily. gabapentin (NEURONTIN) 300 mg capsule take 2 capsules by mouth at bedtime if needed amoxicillin (POLYMOX, AMOXIL) 500 mg capsule Take four capsules one hour before dental procedure. TENS unit and electrodes cmpk 1 Units as directed. Dx: lumbar DDD, lumbar DJD, chronic low back pain Magnesium 200 mg tab Take 200 mg by mouth once daily. L. gasseri-B. bifidum-B longum 1.5 billion cell cap CALCIUM CARBONATE/VITAMIN D3 (VITAMIN D-3 ORAL) Take 1 tablet by mouth once daily. triamcinolone acetonide (NASACORT AQ) 55 mcg nasal inhaler Inhale 2 puffs daily. THERAPEUTIC MULTIVITAMIN TAB Take one(1) tablet daily by mouth Allergies: ALLERGIES Allergen Reactions Cat Dander Other: See Comments Dog Dander Other: See Comments Dust (more content not included)... [facility] ([facility]) -------- FRANCA VALENZUELA ([id number]) 1950 F Date Time Provider Department 12/12/23 [facility] During your visit today, we recorded the following information about you: Alba Vazquez HUC 12/12/2023 11:49 AM Signed Received CMN from [facility] via fax. Sent back with note that patient has not been seen in office since 09.26.2022 and needs an appointment in order to re-establish care and/or obtain supplies. Allergies As of Date: 12/12/2023 Noted Allergy Reaction CAT DANDER 10/17/2016 14 - Other: See Comments DOG DANDER 10/17/2016 14 - Other: See Comments DUST 04/18/2006 MOLD 04/18/2006 POLLEN 04/18/2006 Date Reviewed: 12/06/2023 Reviewed by: Bethany Clinton RN - Fully Assessed Reason for Visit: Rejected CMN [Other] Prescriptions as of 12/12/2023 - cephALEXin (KEFLEX) 500 mg capsule Take 1 capsule by mouth two times a day. For 3 days; extra capsules given for self-start use when you have symptoms of a bladder infection - estradiol (ESTRACE) 0.01 % (0.1 mg/gram) vaginal cream Use 1 g vaginally two times a week. - Methenamine Hippurate (HIPREX) 1 gram tablet Take 1 tablet by mouth twice daily. - ondansetron orally disintegrating (ZOFRAN ODT) 4 mg disintegrating tablet Take 1 tablet by mouth every 8 hours as needed for nausea/vomiting. - zolpidem (AMBIEN) 5 mg tablet Take 1 tablet by mouth at bedtime as needed (situational insomnia) for up to 10 days. - miSOPROStol (CYTOTEC) 200 mcg tablet Take 1 tablet by mouth twice daily. - mirabegron (MYRBETRIQ) 50 mg Tb24 Take 1 tablet by mouth once daily. - CPAP/BIPAP/OTHER Supplies for autopap at ?cmH2O Please allow access on airLensVector to her download DME [facility] - CPAP/BIPAP/OTHER Travel cpap 9cmH2O - meloxicam (MOBIC) 15 mg tablet Take 1 tablet by mouth once daily. - gabapentin (NEURONTIN) 300 mg capsule take 2 capsules by mouth at bedtime if needed - mometasone-formoterol (DULERA) 100-5 mcg/actuation inhaler Inhale 2 Puffs as instructed twice daily. - albuterol HFA (PROAIR HFA) 90 mcg/actuation inhaler Inhale 2 Puffs as instructed every 4 hours as needed. - amoxicillin (POLYMOX, AMOXIL) 500 mg capsule Take four capsules one hour before dental procedure. - TENS unit and electrodes cmpk 1 Units as directed. Dx: lumbar DDD, lumbar DJD, chronic low back pain - rOPINIRole (REQUIP) 1 mg tablet Take 1-2 tablets by mouth daily at bedtime. For restless legs - Magnesium 200 mg tab Take 200 mg by mouth once daily. - L. gasseri-B. bifidum-B longum 1.5 billion cell cap - CALCIUM CARBONATE/VITAMIN D3 (VITAMIN D-3 ORAL) Take 1 tablet by mouth once daily. - triamcinolone acetonide (NASACORT AQ) 55 mcg nasal inhaler Inhale 2 puffs daily. - THERAPEUTIC MULTIVITAMIN TAB Take one(1) tablet daily by mouth Meds Comments as of 12/05/2022: AZO over the counter Malaria prophylaxis- malarone Oral typhoid vaccine Problem List As Of Date 12/12/2023 Noted Resolved Acute Bronchitis [J20.9] 04/18/2006 12/20/2009 Asthma [J45.909] 04/18/2006 Hyperlipidemia [E78.5] 08/30/2009 IFG (impaired fasting glucose) [R73.01] 12/20/2009 Vitamin D deficiency [E55.9] 03/30/2010 Type II diabetes mellitus (HCC) [E11.9] 08/25/2010 12/22/2016 Depression [F32.A] 01/08/2012 08/13/2015 Stress [F43.9] 01/08/2012 12/22/2016 Pain in left knee [M25.562] 05/03/2015 Generalized osteoarthrosis, involving multiple *05/03/2015 09/11/2015 Pain in right knee [M25.561] 05/11/2015 Female stress incontinence [N39.3] 08/16/2015 Primary osteoarthritis involving multiple joint*09/11/2015 12/14/2015 Osteoarthritis of both knees [M17.0] 12/14/2015 12/22/2016 ANGELIKA (obstructive sleep apnea) [G47.33] 03/06/2016 Hip arthritis [M16.10] 03/20/2016 Urge incontinence [N39.41] 10/02/2016 Osteoarthritis [M19.90] Prolapse of female genital organs [N81.9] 12/22/2016 Special screening for malignant neoplasms, colo*10/17/2016 Controlled type 2 diabetes mellitus without com*10/17/2016 Dyslipidemia [E78.5] 10/17/2016 12/22/2016 Primary osteoarthritis of left knee [M17.12] 12/15/2016 01/09/2017 S/P total knee arthroplasty [Z96.659] 01/08/2017 01/09/2017 Osteoarthritis of left knee [M17.12] 03/14/2017 Seasonal allergic rhinitis due to pollen [J30.1]10/16/2017 Mixed hyperlipidemia [E78.2] 03/27/2018 Situational insomnia [F51.09] 03/27/2018 Atrophic vaginitis [N95.2] 03/27/2018 Acute cystitis with hematuria [N30.01] 03/27/2018 Microhematuria [R31.29] 05/20/2018 Persistent proteinuria [R80.1] 05/20/2018 Obesity, Class I, BMI 30-34.9 [E66.9] 08/08/2018 Dysuria [R30.0] 08/20/2018 Interstitial cystitis [N30.10] 10/09/2018 Varicose veins of both lower extremities with p*09/06/2020 Restless legs [G25.81] 09/06/2020 Mild intermittent asthma without complication [*09/06/2020 DDD (degenerative disc disease), lumbar [M51.36]11/22/2021 Chronic midline (more content not included)... Normal [facility] CNOVon 12-06-2023 CNOV Office Visit (UROLBE ) -------- FRANCA VALENZUELA ([id number]) 1950 F Date Time Provider Department 12/06/23 11:00 AM PORFIRIO ROLLINS During your visit today, we recorded the following information about you: Bethany Clinton RN 12/06/2023 11:39 AM Signed NURSE PRE PROCEDURE ASSESSMENT: Patient ID Verified with two identifiers, name and date by Bethany Clinton RN as follows: Patient Name: Date of : Pre Procedure Vital Signs: There were no vitals taken for this visit. Allergies reviewed and updated. Latex Allergy: no Prophylactic Antibiotic Needed: yes per MD taking No Patient currently experiencing pain? No. Pain 0 on scale of 0-10. Pre-Procedure Antibiotics: Cipro 500 mg po, given during visit @ 11:30 , by HAZEL frasermanager rn case: Cystoscopy Botox: Perineal area prepped with betadine scrub and draped. Anesthetic Given: 50cc 2% lidocaine ashley into bladder Physician: Casi Jeff RN Chojnowski, Cynthia, MA 12/06/2023 11:34 AM Signed PRE CYSTO PROCEDURE ID Verified by: Eusebio Villa MA Procedure Indication:Cystoscopy botox Latex Allergy: No Betadine Allergy: No Lidocaine allergy: No Allergies reviewed and updated. Pre-Procedure Vital Signs: There were no vitals taken for this visit. Heart valve replacement:No Joint replacement: No Pre-Procedure Antibiotics: Cipro 500 mg po, given now @ 11:25am , by Bethany Clinton RN Verified by: Carolina Villa MA Patient Prep: Betadine Scrub to perineum and placement of Sterile Drape. Anesthetic Given: 50 cc's of 2% Lidocaine solution instilled into the bladder by ALL Michaud MA Chojnowski, Cynthia, MA 12/06/2023 11:41 AM Signed NURSE POST PROCEDURE ASSESSMENT Level of Consciousness: Alert and Oriented Transferred: via Ambulation Post Procedure Vital Signs: Not indicated Specimens obtained: None Post Procedure: Cystoscopy Discharge Notes: Patient returns to pre-procedure mental status. Patient alert and oriented on discharge. Discharge Pain level: NA on a scale of 0-10. THE FOLLOWING WAS EVALUATED Motivation To Learn: Interested Family/Significant Other Support: High : Family not present. Cognitive Ability: Alert and oriented Patient Learns Best By:Individual Instruction and Written Material The Following Influencing Factors Were Barriers To This Education Session: Voodoo Factors: No barriers The Following Physical Limitations Were Barriers To This Education Session: None Instruction Provided To: Patient Patient Evaluation:Verbalizes understanding Follow Up Plan: as instructed Supplemental Material Given:Written Material Eusebio Villa MA UNIVERSAL PROTOCOL / SAFETY CHECKLIST Procedure to be Performed: cysto botox Sign In: A Moment of CARE was completed. Personnel directly involved with the procedure wore the appropriate PPE (Personal Protective Equipment). Special equipment: botox set up Patient/Surrogate Stated/Verified: PATIENT VERIFIED(optional for EMERGENT procedures): Patient name, Date of , Relevant allergies, and The intended procedure Time Out Communication: Intended patient and procedure match the source documents. Consent documented and matches the intended procedure. Relevant labs, photos, and/or imaging studies have been reviewed. No correct side/site applicable for marking and visibility. Medications required for procedure verified. Fire risk assessed and interventions discussed. No implant(s) inserted. Sign Out: SIGN OUT (optional for EMERGENT procedures): No specimen collected. No instruments, equipment or retained foreign bodies applicable. Post-procedure follow-up management communicated and Plan of Care Visit completed when applicable. HI Gibson Raymond R, MD 12/06/2023 1:20 PM Signed 73 year old female here for botox injection for refractory OAB since her 2016 POP surgery for grade 4 prolapse and MALLORIE for which she had a TVT-Obturator sling placed by Dr. Jarvis; pt referred to my services in 2019. Also with recurrent UTIs in setting of IC IC and Rec UTI and UFS 1) Refill for Keflex, self-start 2) Refill of Mirabegron, Cytotec and Estradiol cream 4) Increase Probiotic dosing 5) Schedule for Bladder Botox 100 units before she leaves for [place] [employer] in Dec. Here today for Bladder Botox 100 units: Last injection 06/13 UA: normal PVR: 100 cc's During great with no issues since her last visit - very pleased with [facility] programs Casi'S HOPS NOTE / UNIVERSAL PROTOCOL / SAFETY CHECKLIST Sign In History and Physical Exam reviewed and is unchanged. Medication Reconciliation Performed: Yes Primary Diagnosis: Urge Incontinence Informed Consent Discussed: Yes Sign in Communication: Completed After the genitalia were prepped and draped in a sterile manner a timeout was (more content not included)... Normal [facility] UA DIP, URINE (POC)on 2023 BILIRUBIN UA (POCT) Negative Negative [facility] CLARITY UA (POCT) Slightly Cloudy Cl [facility] COLOR UA (POCT) Yellow [facility] GLUCOSE UA (POCT) Negative Negative mg/dL [facility] Hemoglobin Ql (U) Negative Negative [facility] Interpretation and review of laboratory results Abnormal [facility] KETONE UA (POCT) Negative Negative mg/dL [facility] LEUKOCYTES UA (POCT) Small Abnormal Negative [facility] NITRITE UA (POCT) Negative Negative [facility] PH UA (POCT) 5.5 4.5 - 8.0 [facility] Protein Ql (U) Negative Negative mg/dL [facility] SPECIFIC GRAVITY UA (POCT) 1.010 1.005 - 1.030 [facility] UROBILINOGEN UA (POCT) 0.2 Normal E.U./dL [facility] Location:[facility] [place], [address] [facility], [place], [place], [address] [place] [address] POINT OF CARE [facility] COVID & INFLUENZA A/B & RSV NAAT, ROUTINEon 10-10-2023 FLUAV RNA ENA+probe Ql (Unsp spec) Not detected Not Detected [facility] FLUBV RNA ENA+probe Ql (Unsp spec) Not detected Not Detected [facility] Interpretation and review of laboratory results Normal [facility] RSV A RNA ENA+probe Ql (Unsp spec) Not detected Not Detected [facility] SARS-CoV-2 (COVID-19) RNA ENA+probe Ql (Resp) Not detected See comment [facility] Comment on above: The method used is R T-PCR or an equivalent NAAT method. Reference Range (the expected result in uninfected individuals): Not detected For upper respirator y tract samples, this test has been authorized by FDA under Emergenecy Use Authorization (EUA). For lower respiratory tract samples, this test was developed and its performance characteristics determined by [facility]'s [facility] ([facility]). It has not been cleared or approved by the FDA. -[facility] is regulated under CLIA as qualified to perform high-complexity testing. This test is used for clinical purposes. It should not be regarded as investigational or for research. Test performed by [facility], [facility] [place], [address] [place] [address]. [facility] STREP A MOLECULAR (POC)on Procedural Control Valid [facility] Strep A (POCT) Negative Negative [facility] UA DIP, URINE (POC)on 2022 BILIRUBIN UA (POCT) Negative Negative [facility] CLARITY UA (POCT) [facility] COLOR UA (POCT) Yellow [facility] GLUCOSE UA (POCT) Negative Negative mg/dL [facility] HEMOGLOBIN/BLOOD UA (POCT) Negative Negative [facility] KETONE UA (POCT) Negative Negative mg/dL [facility] LEUKOCYTES UA (POCT) Trace Abnormal Negative [facility] NITRITE UA (POCT) Negative Negative [facility] PH UA (POCT) 6.0 4.5 - 8.0 [facility] Protein Ql (U) Negative Negative mg/dL [facility] SPECIFIC GRAVITY UA (POCT) 1.020 1.005 - 1.030 [facility] UROBILINOGEN UA (POCT) 0.2 E.U./dL Normal E.U./dL [facility] UA DIP, URINE (POC)on 2022 BILIRUBIN UA (POCT) Negative Negative [facility] CLARITY UA (POCT) Cloudy [facility] COLOR UA (POCT) Yellow [facility] GLUCOSE UA (POCT) Negative Negative mg/dL [facility] HEMOGLOBIN/BLOOD UA (POCT) Moderate Abnormal Negative [facility] KETONE UA (POCT) Negative Negative mg/dL [facility] LEUKOCYTES UA (POCT) Large Abnormal Negative [facility] NITRITE UA (POCT) Positive Abnormal Negative [facility] PH UA (POCT) 6.0 4.5 - 8.0 [facility] Protein Ql (U) 100 mg/dL Abnormal Negative mg/dL [facility] SPECIFIC GRAVITY UA (POCT) 1.020 1.005 - 1.030 [facility] UROBILINOGEN UA (POCT) 0.2 E.U./dL Normal E.U./dL [facility] UA DIP, URINE (POC)on 2022 BILIRUBIN UA (POCT) Negative Negative [facility] CLARITY UA (POCT) Cloudy [facility] COLOR UA (POCT) [place] [facility] GLUCOSE UA (POCT) 100 mg/dL Abnormal Negative mg/dL [facility] HEMOGLOBIN/BLOOD UA (POCT) Moderate Abnormal Negative [facility] KETONE UA (POCT) Negative Negative mg/dL [facility] LEUKOCYTES UA (POCT) Large Abnormal Negative [facility] NITRITE UA (POCT) Positive Abnormal Negative [facility] PH UA (POCT) 5.5 4.5 - 8.0 [facility] Protein Ql (U) 100 mg/dL Abnormal Negative mg/dL [facility] SPECIFIC GRAVITY UA (POCT) 1.010 1.005 - 1.030 [facility] UROBILINOGEN UA (POCT) 2.0 E.U./dL Abnormal Normal E.U./dL [facility] No Panel Informationon 09-05 [facility] UA DIP, URINE (POC)on 2022 BILIRUBIN UA (POCT) Negative Negative [facility] CLARITY UA (POCT) Cloudy [facility] COLOR UA (POCT) Other [facility] GLUCOSE UA (POCT) Negative Negative mg/dL [facility] HEMOGLOBIN/BLOOD UA (POCT) Moderate Abnormal Negative [facility] KETONE UA (POCT) Negative Negative mg/dL [facility] [facility] LEUKOCYTES UA (POCT) Large Abnormal Negative [facility] NITRITE UA (POCT) Positive Abnormal Negative [facility] PH UA (POCT) 6.0 4.5 - 8.0 [facility] Protein Ql (U) 30 mg/dL Abnormal Negative mg/dL [facility] SPECIFIC GRAVITY UA (POCT) 1.020 1.005 - 1.030 [facility] UROBILINOGEN UA (POCT) 0.2 E.U./dL Normal E.U./dL [facility] UA DIP, URINE (POC)on 2022 BILIRUBIN UA (POCT) Negative Negative [facility] CLARITY UA (POCT) [facility] COLOR UA (POCT) Yellow [facility] GLUCOSE UA (POCT) Negative Negative mg/dL [facility] HEMOGLOBIN/BLOOD UA (POCT) Trace-intact Abnormal Negative [facility] KETONE UA (POCT) Negative Negative mg/dL [facility] LEUKOCYTES UA (POCT) Large Abnormal Negative [facility] NITRITE UA (POCT) Positive Abnormal Negative [facility] PH UA (POCT) 5.5 4.5 - 8.0 [facility] Protein Ql (U) Negative Negative mg/dL [facility] SPECIFIC GRAVITY UA (POCT) 1.015 1.005 - 1.030 [facility] UROBILINOGEN UA (POCT) 0.2 E.U./dL Normal E.U./dL [facility] BILIRUBIN UA (POCT) Negative Negative [facility] CLARITY UA (POCT) Cloudy [facility] COLOR UA (POCT) Yellow [facility] GLUCOSE UA (POCT) Negative Negative mg/dL [facility] HEMOGLOBIN/BLOOD UA (POCT) Small Abnormal Negative [facility] KETONE UA (POCT) Negative Negative mg/dL [facility] LEUKOCYTES UA (POCT) Large Abnormal Negative [facility] NITRITE UA (POCT) Positive Abnormal Negative [facility] PH UA (POCT) 5.5 4.5 - 8.0 [facility] Protein Ql (U) Negative Negative mg/dL [facility] SPECIFIC GRAVITY UA (POCT) 1.015 1.005 - 1.030 [facility] UROBILINOGEN UA (POCT) 0.2 E.U./dL Normal E.U./dL [facility] EMG(NEURO/NI)on 06-09-2022 [facility] UA DIP, URINE (POC)on 2021 BILIRUBIN UA (POCT) Negative Negative [facility] CLARITY UA (POCT) Clear [facility] COLOR UA (POCT) Yellow [facility] GLUCOSE UA (POCT) Negative Negative mg/dL [facility] HEMOGLOBIN/BLOOD UA (POCT) Trace-intact Abnormal Negative [facility] KETONE UA (POCT) Negative Negative mg/dL [facility] LEUKOCYTES UA (POCT) Trace Abnormal Negative [facility] NITRITE UA (POCT) Negative Negative [facility] PH UA (POCT) 6.0 4.5 - 8.0 [facility] Protein Ql (U) Negative Negative mg/dL [facility] SPECIFIC GRAVITY UA (POCT) 1.015 1.005 - 1.030 [facility] UROBILINOGEN UA (POCT) 0.2 E.U./dL Normal E.U./dL [facility] XR Lumbar spine 3 Viewson IMPRESSION: Spondylosis and curvature of the lumbar spine.. 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 Transcribe Date/Time: Nov 22 2021 2:39P Dictated by : GARY PATEL MD This examination was interpreted and the report reviewed and electronically signed by: GARY PATEL MD on Nov 22 2021 2:40PM EST [id number] SE_DIVISION OF RADIOLOGY * * *Final Report* * * DATE OF EXAM: Nov 22 2021 8:47AM WOX 5228 - XR LUMBAR 3V AP/LAT/L5-S1 / PROCEDURE REASON: multiple diagnoses * * * * Physician Interpretation * * * * Lumbar spine radiographs HISTORY: 71 years old Clinical information: DDD (degenerative disc disease), lumbar Other osteoarthritis of spine, 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 Chronic midline low back pain with bilateral sciatica Chronic lower back pain that is increasing over time without injury TECHNIQUE: Images: XR LUMBAR 3V AP/LAT/L5-S1 Comparison: September 08, 2020 left-sided convex curvature of the lumbar spine.. RESULT: Findings: For the purposes of this dictation the iliac crests are at the L4-5 level. Stable grade 1 anterolisthesis of L4 on L5. Stable retrolisthesis of L1 on L2 and L2 on L3. Intervertebral disc space narrowing and endplate osteophyte formation at multiple levels in the lumbar and imaged thoracic spine. No fracture. SI joints are intact. Paraspinous soft tissues are unremarkable in appearance. [id number] SE_DIVISION OF RADIOLOGY Provider, Berkley Bell - 11/22/2021 * * *Final Report* * * DATE OF EXAM: Nov 22 2021 8:47AM WOX 5228 - XR LUMBAR 3V AP/LAT/L5-S1 / PROCEDURE REASON: multiple diagnoses * * * * Physician Interpretation * * * * Lumbar spine radiographs HISTORY: 71 years old Clinical information: DDD (degenerative disc disease), lumbar Other osteoarthritis of spine, 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 Chronic midline low back pain with bilateral sciatica Chronic lower back pain that is increasing over time without injury TECHNIQUE: Images: XR LUMBAR 3V AP/LAT/L5-S1 Comparison: September 08, 2020 left-sided convex curvature of the lumbar spine.. RESULT: Findings: For the purposes of this dictation the iliac crests are at the L4-5 level. Stable grade 1 anterolisthesis of L4 on L5. Stable retrolisthesis of L1 on L2 and L2 on L3. Intervertebral disc space narrowing and endplate osteophyte formation at multiple levels in the lumbar and imaged thoracic spine. No fracture. SI joints are intact. Paraspinous soft tissues are unremarkable in appearance. IMPRESSION IMPRESSION: Spondylosis and curvature of the lumbar spine.. 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 Transcribe Date/Time: Nov 22 2021 2:39P Dictated by : GARY PATEL MD This examination was interpreted and the report reviewed and electronically signed by: GARY PATEL MD on Nov 22 2021 2:40PM EST [facility] Radiology Study observation (narrative) [facility] XR Lumbar spine 3 ViewsOrder ed By: Ccf Provider on 11-22-2021 [facility] UA DIP, URINE (POC)on 2021 BILIRUBIN UA (POCT) Negative Negative [facility] CLARITY UA (POCT) Clear [facility] COLOR UA (POCT) Yellow [facility] GLUCOSE UA (POCT) Negative Negative mg/dL [facility] HEMOGLOBIN/BLOOD UA (POCT) Negative Negative [facility] KETONE UA (POCT) Negative Negative mg/dL [facility] LEUKOCYTES UA (POCT) Negative Negative [facility] NITRITE UA (POCT) Negative Negative [facility] PH UA (POCT) 7.0 4.5 - 8.0 [facility] Protein Ql (U) Negative Negative mg/dL [facility] SPECIFIC GRAVITY UA (POCT) 1.015 1.005 - 1.030 [facility] UROBILINOGEN UA (POCT) 0.2 E.U./dL Normal E.U./dL [facility] XR Lumbar spine 3 Viewson IMPRESSION: Lumbar spondylosis with vertebral subluxations and spinal curvature. Counting reference: Lumbosacral junction. For the purposes of this report, L4-5 is considered the level of the iliac crest and there are 5 lumbar-type vertebrae. Anatomic Variants: None. 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 VIEWS: Standing AP, lateral, coned lateral L5-S1. COMPARISON: No. FINDINGS: Left convex lower thoracic curvature. Narrowed lower thoracic interspaces with marginal endplate spurring and right lateral bridging ossification at T12-L1. Advanced L2-3 and L3-4 discogenic disease with vertebral retrolistheses and endplate spurring. Mild narrowing of the L4 interspace. Facet arthrosis with hypertrophic spurring at L4-5-S1 and associated grade 1 degenerative anterolistheses at L4 and to a lesser degree at L5. Right total hip arthroplasty. DIVISION OF RADIOLOGY Provider, [facility] Lasha [facility] - 09/08/2020 * * *Final Report* * * DATE OF EXAM: Sep 08 2020 9:03AM WOX 5228 - XR LUMBAR 3V AP/LAT/L5-S1 / PROCEDURE REASON: Restless legs * * * * Physician Interpretation * * * * EXAM: XR LUMBAR 3V AP/LAT/L5-S1 HISTORY: Restless legs, leg pain x3 weeks. VIEWS: Standing AP, lateral, coned lateral L5-S1. COMPARISON: No. FINDINGS: Left convex lower thoracic curvature. Narrowed lower thoracic interspaces with marginal endplate spurring and right lateral bridging ossification at T12-L1. Advanced L2-3 and L3-4 discogenic disease with vertebral retrolistheses and endplate spurring. Mild narrowing of the L4 interspace. Facet arthrosis with hypertrophic spurring at L4-5-S1 and associated grade 1 degenerative anterolistheses at L4 and to a lesser degree at L5. Right total hip arthroplasty. IMPRESSION IMPRESSION: Lumbar spondylosis with vertebral subluxations and spinal curvature. Counting reference: Lumbosacral junction. For the purposes of this report, L4-5 is considered the level of the iliac crest and there are 5 lumbar-type vertebrae. Anatomic Variants: None. 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 Transcribe Date/Time: Sep 08 2020 10:23A Dictated by : Gilbert MARRERO MD This examination was interpreted and the report reviewed and electronically signed by: Gilbert MARRERO MD on Sep 08 2020 10:31AM EST [facility] Radiology Study observation (narrative) [facility] XR Lumbar spine 3 ViewsOrder ed By: Ccf Provider on 09-08-2020 [facility] PROGRESSon 06-22-2020 PROGRESS HNO ID: [id number] Author: Tiara Corrales) IGOR Galaviz Service: Radiology Author Type: Clinical Director Cpg Type: Progress Notes Filed: 06/22/2020 10:19 AM Note Text: Radiology Service Progress Note PATIENT NAME: Franca Valenzuela DATE OF SERVICE: June 22, 2020 TIME: 10:18 AM PATIENT IDENTITY VERIFICATION COMPLETED USING TWO (2) IDENTIFIERS: Name and Date of confirmed by patient verbally. FALL SCREENING: Has the patient had 2 falls in the last year or 1 fall with injury or currently using an Ambulatory Assistive Device (Walker, Cane, Wheelchair, Crutches, etc.)? No PATIENT GENDER DATA: Female. status: : No status: NO. PATIENT RELEVANT IMPLANT DATA REVIEWED: Not Applicable RADIOLOGY DEPARTMENT: General X-ray: Exam(s) Completed: Pelvis X-Ray: Pelvis General AP Lower Extremity X-Ray(s): Knee, AP / Lat / Merchant Bilateral and Wt. Bearing: PERIPHERAL IV DATA: Not applicable SIGNED BY: IGOR Londono June 22, 2020 10:18 AM [facility] XR KNEE 3V AP/LAT/KWESI BILon 06-22-2020 XR KNEE 3V AP/LAT/KWESI DEMARCO * * *Final Report* * * DATE OF EXAM: Jun 22 2020 10:16AM NINFA 5635 - XR KNEE 3V AP/LAT/KWESI DEMARCO / PROCEDURE REASON: multiple diagnoses * * * * Physician Interpretation * * * * PROCEDURE: Pelvis and bilateral knees INDICATION: Pain in right hip .RIGHT HIP PAIN-KATHY-AP LOW PELVIS PER ORTHO DR PROTOCOL (accession [id number]), BILATERAL KNEE PAIN-LEFT TKA (accession [id number]) TECHNIQUE: XR PELVIS 1V AP, XR KNEE 3V AP/LAT/KWESI DEMARCO COMPARISON: Pelvis 03/22/2017, left knee with limited views of the right knee 02/08/2017 FINDINGS: Pelvis: The right total hip arthroplasty remains in satisfactory position without evidence for loosening. Stable prominent spurring from the lateral superior acetabulum. Moderate left hip osteoarthrosis appears similar. No fracture. Bilateral knees: The left total knee arthroplasty remains in satisfactory position without evidence for loosening. No fracture or joint effusion. There is tricompartment osteoarthrosis in the right knee with significant patellofemoral joint compartment narrowing and tricompartment spur formation, little changed when compared to the limited prior study. No fracture or significant joint effusion. IMPRESSION: 1. Stable right KATHY 2. 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: [employer] Transcribe Date/Time: Jun 22 2020 10:49A Dictated by : TOSIN LOPEZ MD This examination was interpreted and the report reviewed and electronically signed by: TOSIN LOPEZ MD on Jun 22 2020 10:51AM EST [id number] [facility] XR PELVIS 1V APon 06-22-2020 XR PELVIS 1V AP * * *Final Report* * * DATE OF EXAM: Jun 22 2020 10:16AM NINFA 5239 - XR PELVIS 1V AP / PROCEDURE REASON: M25.551-Pain in right hip * * * * Physician Interpretation * * * * PROCEDURE: Pelvis and bilateral knees INDICATION: Pain in right hip .RIGHT HIP PAIN-KATHY-AP LOW PELVIS PER ORTHO DR PROTOCOL (accession [id number]), BILATERAL KNEE PAIN-LEFT TKA (accession [id number]) TECHNIQUE: XR PELVIS 1V AP, XR KNEE 3V AP/LAT/KWESI DEMARCO COMPARISON: Pelvis 03/22/2017, left knee with limited views of the right knee 02/08/2017 FINDINGS: Pelvis: The right total hip arthroplasty remains in satisfactory position without evidence for loosening. Stable prominent spurring from the lateral superior acetabulum. Moderate left hip osteoarthrosis appears similar. No fracture. Bilateral knees: The left total knee arthroplasty remains in satisfactory position without evidence for loosening. No fracture or joint effusion. There is tricompartment osteoarthrosis in the right knee with significant patellofemoral joint compartment narrowing and tricompartment spur formation, little changed when compared to the limited prior study. No fracture or significant joint effusion. IMPRESSION: 1. Stable right KATHY 2. 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: [facility] Transcribe Date/Time: Jun 22 2020 10:49A Dictated by : TOSIN LOPEZ MD This examination was interpreted and the report reviewed and electronically signed by: TOSIN LOPEZ MD on Jun 22 2020 10:51AM EST [id number] [facility] CBCon 01-12-2017 Erythrocyte distribution width Entitic volume (RBC) 12.8 % 11.6 - 14.8 % [facility] Hematocrit Volume Fraction (Bld) 30.5 % Low 36 - 46 % [facility] Hemoglobin mass conc (Bld) 9.8 g/dL Low 12 - 16 g/dL [facility] MCH Entitic mass (RBC) 32.1 pg 26 - 34 pg [facility] MCHC mass conc (RBC) 32.1 g/dL 31 - 37 g/dL [facility] MCV Entitic volume (RBC) 100.0 fL 80 - 100 fL [facility] Nucleated RBC #/vol (Bld) 0.00 K/mcL 0.00 - 0.00 [facility] Nucleated RBC/100 WBC Ratio (Bld) 0.0 % [facility] Platelet mean volume Entitic volume (Bld) 10.3 fL 9 - 15.5 fL [facility] Platelets #/vol (Bld) 188 K/mcL 150 - 400 [facility] RBC #/vol (Bld) 3.05 M/mcL Low 4.00 - 5.20 [facility] WBC #/vol (Bld) 6.30 K/mcL 4.50 - 11.00 [facility] Cardiac Catheterizationon Cardiac Catheterization Interface, Rad In Heartlab Xper Echopacs - 01/12/2017 11:34 AM EDT Patient Name: FRANCA VALENZUELA Date of : 1950 Procedure Date: 01/12/2017 Physician(s): Scar Kaplan MD Cath #: [id number] Ref. Physician: Gerhard Caldwell PROCEDURE(S) PERFORMED: Heart Cath: Left with Coronary Angio & LV gram Clinical History: Prior smoker Other: positive troponins at [facility] Chronic Lung Disease: Yes , on meds. Prior Procedure - left total knee replacement Pre-OP Diagnosis/Indication: CAD Presentation: Unstable angina. Anginal Classification w/in 2 Weeks:CCS IV. CAD Presentation: Non-STEMI. Anginal Classification w/in 2 Weeks:CCS IV ASA status unchanged immediately prior to sedation administration. Heart, lungs, and airway assessed prior to sedation. The risks, benefits, and side effects related to alternative treatment options and the risks related to not receiving the proposed interventions and care were discussed with the patient. Following informed consent, the patient was brought to the procedure room in the fasting state. right wrist & bilateral groins was prepped and draped in a sterile fashion. Local anesthesia was attained with 2% Lidocaine to the Right radial region. Using standard technique, sheath(s) were placed in the following site(s): right radial artery - 5-6F 10cm Glidesheath Slender Catheters were advanced using standard guide wire technique. Multiple angiographic pictures were taken and appropriate pressures obtained. Hemodynamics: Time AIR REST NODUCER RRadl / () 10:58:05 NODUCER ORRad / () 10:58:16 LV 119/11, 19 11:20:23 LVp 134/83, 91 11:20:37 AOp 148/83 (99) 11:20:42 AO 142/91 (115) SA 11:20:58 After review of the angiography and assurance of the patient's stability, the catheter was withdrawn from the sheath and Radial sheath pulled. Radial band used, inflated with 10 mls of air CORONARY_ANGIO/FINDINGS Diffuse disease of 20 % in LAD Diffuse disease of 20 % in CIRC Eccentric 55 % distal lesion in 3rd LPL Diffuse disease of 10 % in RCA Ventricular Function: LV Gram- 60% EF with normal wall motion Dominance: POST-OP DIAGNOSIS: Non-cardiac chest pain CARDIAC RECOMMENDATIONS: Medical therapy COMMENTS: No Complications _ ____ Equipment: Sheath(s) [employer] 5-6F 10CM GLIDESHEATH SLENDER Wire(s) [employer] .035 X 260CM FIXED J WIRE Catheter(s) [employer] 5F JR5 DIAG CATH [employer] 5F JL3.5 DIAG CATH Other [employer] REGULAR TR BAND See Nursing Notes for further details Signed By Scar Kaplan MD On 01/12/2017 11:33:45 AM Scar Kaplan MD _ ____ [facility] Cardiac Catheterization Patient Name: FRANCA VALENZUELA Date of : 1950 Procedure Date: 01/12/2017 Physician(s): Scar Kaplan MD Cath #: [id number] Ref. Physician: Gerhard Caldwell PROCEDURE(S) PERFORMED: Heart Cath: Left with Coronary Angio & LV gram Clinical History: Prior smoker Other: positive troponins at [facility] Chronic Lung Disease: Yes , on meds. Prior Procedure - left total knee replacement Pre-OP Diagnosis/Indication: CAD Presentation: Unstable angina. Anginal Classification w/in 2 Weeks:CCS IV. CAD Presentation: Non-STEMI. Anginal Classification w/in 2 Weeks:CCS IV ASA status unchanged immediately prior to sedation administration. Heart, lungs, and airway assessed prior to sedation. The risks, benefits, and side effects related to alternative treatment options and the risks related to not receiving the proposed interventions and care were discussed with the patient. Following informed consent, the patient was brought to the procedure room in the fasting state. right wrist & bilateral groins was prepped and draped in a sterile fashion. Local anesthesia was attained with 2% Lidocaine to the Right radial region. Using standard technique, sheath(s) were placed in the following site(s): right radial artery - 5-6F 10cm [employer]he[employer] Slender Catheters were advanced using standard guide wire technique. Multiple angiographic pictures were taken and appropriate pressures obtained. Hemodynamics: Time AIR REST NODUCER RRadl / () 10:58:05 NODUCER ORRad / () 10:58:16 LV 119/11, 19 11:20:23 LVp 134/83, 91 11:20:37 AOp 148/83 (99) 11:20:42 AO 142/91 (115) SA 11:20:58 After review of the angiography and assurance of the patient's stability, the catheter was withdrawn from the sheath and Radial sheath pulled. Radial band used, inflated with 10 mls of air CORONARY_ANGIO/FINDINGS Diffuse disease of 20 % in LAD Diffuse disease of 20 % in CIRC Eccentric 55 % distal lesion in 3rd LPL Diffuse disease of 10 % in RCA Ventricular Function: LV Gram- 60% EF with normal wall motion Dominance: POST-OP DIAGNOSIS: Non-cardiac chest pain CARDIAC RECOMMENDATIONS: Medical therapy COMMENTS: No Complications _ ____ Equipment: Sheath(s) [employer] 5-6F 10CM GLIDESHEATH SLENDER Wire(s) [employer] .035 X 260CM FIXED J WIRE Catheter(s) [employer] 5F JR5 DIAG CATH [employer] 5F JL3.5 DIAG CATH Other [employer] REGULAR TR BAND See Nursing Notes for further details Signed By Scar Kaplan MD On 01/12/2017 11:33:45 AM Scar Kaplan MD _ ____ [facility] Metabolic Pane kiara 01-12-2017 Albumin mass conc 3.0 g/dL Low 3.2 - 5.2 g/dL [facility] ALP enzyme act/vol 72 U/L 40 - 150 U/L [facility] ALT enzyme act/vol 14 U/L 0 - 40 U/L [facility] Anion gap molar conc 14 mmol/L 10 - 20 mmol/L [facility] AST enzyme act/vol 18 U/L 0 - 45 U/L [facility] Bilirubin mass conc 0.4 mg/dL 0 - 1.3 mg/dL [facility] Calcium mass conc 8.9 mg/dL 8.4 - 10.2 mg/dL [facility] Chloride molar conc 99 mmol/L 98 - 108 mmol/L [facility] Creatinine mass conc 0.42 mg/dL Low 0.6 - 1 .2 mg/dL [facility] GFR/1.73 sq M predicted among non-blacks MDRD vol rate/area (S/P/Bld) The eGFR should be used for monitoring renal function only and not for medication dosing. [facility] GFR/1.73 sq M.predicted CKD-EPI vol rate/area (S/P/Bld) 106 mL/min/1.73 m2 >=60 [facility] Glucose mass conc 120 mg/dL High 65 - 99 mg/dL [facility] HCO3 molar conc 30 mmol/L 21 - 32 mmol/L [facility] Interpretation and review of laboratory results Abnormal [facility] Potassium molar conc 4.3 mmol/L 3.5 - 5 .1 mmol/L [facility] Protein mass conc 6.2 g/dL 6 - 8 g/dL [facility] Sodium molar conc 139 mmol/L 135 - 145 mmol/L [facility] Urea nitrogen mass conc 7 mg/dL Low 8 - 25 mg/dL [facility] Urea nitrogen/Creatinine mass ratio 16.7 mg/mg 10.0 - 20.0 [facility] ECG 12 Leadon 01-12-2017 Atrial Rate 87 BPM MUSE P [place] 53 degrees MUSE P-R Interval 142 ms MUSE Q-T Interval 380 ms MUSE QRS Duration 84 ms MUSE QTC Calculation (Bezet) 457 ms MUSE R [place] 78 degrees MUSE T [place] 25 degrees MUSE Ventricular Rate 87 BPM MUSE ECG 12 Lead Normal sinus rhythm Cannot rule out Inferior infarct Borderline ECG Confirmed by NELY GUADALUPE MD ([id number]) on 01/12/2017 12:41:16 PM MUSE Hemoglobin A1con 01-12-2017 Average glucose Estimated from glycated hemoglobin mass conc (Bld) 117 mg/dL 68 - 126 mg/dL [facility] Hemoglobin A1c/Hemoglobin.total mass fraction (Bld) 5.7 % 4.2 - 6 % [facility] Interpretation and review of laboratory results Normal [facility] LEFT HEART CATH POSSIBLE PTC A/STENTon 01-12-2017 LEFT HEART CATH POSSIBLE PTCA/STENT Patient Name: FRANCA VALENZUELA of : 1950 Date: 01/12/2017 ): Scar Kaplan MD Cath #: [id number]. Physician: Gerhard CaldwellPROKIKIURE(S) PERFORMED:Heart Cath: Left with Coronary Angio AND LV gramClinical History:Prior smokerOther: positive troponins at [facility] Lung Disease: Yes , on meds.Prior Procedure - left total knee replacementPre-OP Diagnosis/Indication:CAD Presentation: Unstable angina. Anginal Classification w/in 2Weeks:CCS IV. CAD Presentation: Non-STEMI. Anginal Classification w/in 2Weeks:CCS IVASA status unchanged immediately prior to sedation administration.Heart, lungs, and airway assessed prior to sedation.The risks, benefits, and side effects related to alternative treatmentoptions and the risks related to not receiving the proposed interventionsand care were discussed with the patient. Following informed consent, thepatient was brought to the procedure room in the fasting state. rightwrist AND bilateral groins was prepped and draped in a sterile fashion.Local anesthesia was attained with 2% Lidocaine to the Right radialregion. Using standard technique, sheath(s) were placed in the followingsite(s):right radial artery - 5-6F 10cm Glidesheath SlenderCatheters were advanced using standard guide wire technique. Multipleangiographic pictures were taken and appropriate pressures obtained.Hemodynamics:Ti meAIR RESTNODUCER RRadl / () 10:58:05NODUCER ORRad / () 10:58:16LV 119/11, 19 11:20:23LVp 134/83, 91 11:20:37AOp 148/83 (99) 11:20:42AO 142/91 (115) SA 11:20:58After review of the angiography and assurance of the patient's stability,the catheter was withdrawn from the sheath and Radial sheath pulled.Radial band used, inflated with 10 mls of airCORONARY_ANGIO/FINDIN GSDiffuse disease of 20 % in LADDiffuse disease of 20 % in CIRCEccentric 55 % distal lesion in 3rd LPLDiffuse disease of 10 % in RCAVentricular Function: LV Gram- 60% EF with normal wall motionDominance:POST-OP DIAGNOSIS:Non-cardiac chest painCARDIAC RECOMMENDATIONS:Medical therapyCOMMENTS:No Complications Equipm ent:Sheath(s) [employer] 5-6F 10CM GLIDESHEATH SLENDERWire(s) Xamarin .035 X 260CM FIXED J WIRECatheter(s) Xamarin 5F JR5 DIAG CATHJOHNSON AND [employer] 5F JL3.5 DIAG CATHOther [employer] REGULAR TR BANDSee Nursing Notes for further details Signed By Scar Kaplan MD On 01/12/2017 11:33:45 AM Scar Kaplan MD Normal [facility] Lipid Panelon 01-12-2017 Cholesterol in HDL mass conc 55 mg/dL 40 - 59 mg/dL [facility] Comment on above: National Cholesterol Education Program Guidelines: HDL Cholesterol Low: <40 mg/dL Near Optimal: 40-59 mg/dL High: greater than or equal to 60 mg/dL Cholesterol in LDL mass conc 71 mg/dL 10 - 150 mg/dL [facility] Comment on above: National Cholesterol Education Program Guidelines: LDL Cholesterol Optimal: <100 mg/dL Near Optimal/above Optimal: 100-129 mg/dL Borderline High: 130-159 mg/dL High: 160-189 mg/dL Very High: greater than or equal to 190 mg/dL Cholesterol mass conc 145 mg/dL 100 - 199 mg/dL [facility] Comment on above: National Cholesterol Education Program Guidelines: Cholesterol Desirable: <200 mg/dL Borderline High: 200-239 mg/dL High: greater than or equal to 240 mg/dL Cholesterol non HDL mass conc 90 mg/dL [facility] Comment on above: National Cholesterol Education Program Guidelines: NON HDL Cholesterol Desirable: <130 mg/dL Borderline High: 130-159 mg/dL High: 160-189 mg/dL Very High: > or = 190 mg/dL Cholesterol.total/Cho lesterol in HDL mass ratio 2.6 {ratio} [facility] Comment on above: Female Cholesterol/HDL Ratio: Average risk: 4.4 1/2 average risk: 3.3 2 x average risk: 7.1 Triglyceride mass conc 94 mg/dL 30 - 150 mg/dL [facility] Comment on above: National Cholesterol Education Program Guidelines: Triglyceride Normal: <150 mg/dL Borderline High: 150-199 mg/dL High: 200-499 mg/dL Very High: greater than or equal to 500 mg/dL Troponinon 01-12-2017 Interpretation and review of laboratory results Normal [facility] Troponin T.cardiac mass conc ug/L <0.040 ng/mL [facility] Troponin T.cardiac mass conc ug/L <0.040 ng/mL [facility] Interpretation and review of laboratory results Normal [facility] Troponin T.cardiac mass conc ug/L <0.040 ng/mL [facility] Vital Signs Date Time Vital Sign Value Performing Clinician Facility 10-16-2024 13:29-0400 Diastolic blood pressure 79 mm[Hg] Porfirio Rollins MD Work Phone: [facility] 10-16-2024 13:29-0400 Heart rate 81 /min Porfirio Rollins MD Work Phone: [facility] 10-16-2024 13:29-0400 Systolic blood pressure 135 mm[Hg] Porfirio Rollins MD Work Phone: [facility] 04-24-2024 10:54-0500 Diastolic blood pressure 84 mm[Hg] Porfirio Rollins MD Work Phone: [facility] 04-24-2024 10:54-0500 Heart rate 81 /min Porfirio Rollins MD Work Phone: [facility] 04-24-2024 10:54-0500 Systolic blood pressure 139 mm[Hg] Porfirio Rollins MD Work Phone: [facility] 04-02-2024 11:58-0500 Body height 158.5 cm Gerhard Caldwell DO Work Phone: [facility] 04-02-2024 11:58-0500 Body mass index (BMI) [Ratio] 34.91 kg/m2 Gerhard Caldwell DO Work Phone: [facility] 04-02-2024 11:58-0500 Body temperature 97.3 [degF] Gerhard Caldwell DO Work Phone: [facility] 04-02-2024 11:58-0500 Body weight 87.7 kg Gerhard Caldwell DO Work Phone: [facility] 04-02-2024 11:58-0500 Diastolic blood pressure 80 mm[Hg] Gerhard Caldwell DO Work Phone: [facility] 04-02-2024 11:58-0500 Heart rate 64 /min Gerhard Caldwell DO Work Phone: [facility] 04-02-2024 11:58-0500 Respiratory rate 16 /min Gerhard Caldwell DO Work Phone: [facility] 04-02-2024 11:58-0500 Systolic blood pressure 116 mm[Hg] Gerhard Caldwell DO Work Phone: [facility] 10-10-2023 13:47-0400 Body mass index (BMI) [Ratio] 31.95 kg/m2 Krislyn Aberegg PA Work Phone: [facility] 10-10-2023 13:47-0400 Body temperature 97.9 [degF] Krislyn Aberegg PA Work Phone: [facility] 10-10-2023 13:47-0400 Body weight 81.8 kg Krislyn Aberegg PA Work Phone: [facility] 10-10-2023 13:47-0400 Diastolic blood pressure 82 mm[Hg] Krislyn Aberegg PA Work Phone: [facility] 10-10-2023 13:47-0400 Heart rate 73 /min Krislyn Aberegg PA Work Phone: [facility] 10-10-2023 13:47-0400 Respiratory rate 18 /min Krislyn Aberegg PA Work Phone: [facility] 10-10-2023 13:47-0400 SaO2% (BldA) [Mass fraction] 98 % Krislyn Aberegg PA Work Phone: [facility] 10-10-2023 13:47-0400 Systolic blood pressure 138 mm[Hg] Krislyn Aberegg PA Work Phone: [facility] 12-18-2022 13:42-0400 Diastolic blood pressure 82 mm[Hg] Porfirio Rollins MD Work Phone: [facility] 12-18-2022 13:42-0400 Heart rate 80 /min Porfirio Rollins MD Work Phone: [facility] 12-18-2022 13:42-0400 Systolic blood pressure 164 mm[Hg] Porfirio Rollins MD Work Phone: [facility] 12-14-2022 07:11-0400 Body temperature 97.7 [degF] Stacia Willard APRN.PSYCHIATRIC MENTAL HEALTH NURSE Work Phone: [facility] 12-14-2022 07:11-0400 Body weight 84.55 kg Stacia Willard APRN.PSYCHIATRIC MENTAL HEALTH NURSE Work Phone: [facility] 12-14-2022 07:11-0400 Diastolic blood pressure 76 mm[Hg] Stacia Willard APRN.PSYCHIATRIC MENTAL HEALTH NURSE Work Phone: [facility] 12-14-2022 07:11-0400 Heart rate 90 /min Stacia Willard APRN.PSYCHIATRIC MENTAL HEALTH NURSE Work Phone: [facility] 12-14-2022 07:11-0400 Respiratory rate 21 /min Stacia Willard APRN.PSYCHIATRIC MENTAL HEALTH NURSE Work Phone: [facility] 12-14-2022 07:11-0400 SaO2% (BldA) [Mass fraction] 95 % Stacia Willard APRN.PSYCHIATRIC MENTAL HEALTH NURSE Work Phone: [facility] 12-14-2022 07:11-0400 Systolic blood pressure 134 mm[Hg] Stacia Willard APRN.PSYCHIATRIC MENTAL HEALTH NURSE Work Phone: [facility] 12-05-2022 10:22-0400 Body temperature 97.39 [degF] Gerhard Caldwell DO Work Phone: [facility] 12-05-2022 10:22-0400 Body weight 84.37 kg Gerhard Caldwell DO Work Phone: [facility] 12-05-2022 10:22-0400 Diastolic blood pressure 96 mm[Hg] Gerhard Caldwell DO Work Phone: [facility] 12-05-2022 10:22-0400 Heart rate 64 /min Gerhard Caldwell DO Work Phone: [facility] 12-05-2022 10:22-0400 Respiratory rate 16 /min Gerhard Caldwell DO Work Phone: [facility] 12-05-2022 10:22-0400 Systolic blood pressure 146 mm[Hg] Gerhard Caldwell DO Work Phone: [facility] 11-23-2022 14:35-0400 Body weight 83.87 kg Porfirio Rollins MD Work Phone: [facility] 11-23-2022 14:35-0400 Diastolic blood pressure 77 mm[Hg] Porfirio Rollins MD Work Phone: [facility] 11-23-2022 14:35-0400 Heart rate 74 /min Porfirio Rollins MD Work Phone: [facility] 11-23-2022 14:35-0400 Systolic blood pressure 136 mm[Hg] Porfirio Rollins MD Work Phone: [facility] 08-04-2022 08:51-0400 Body temperature 98.1 [degF] Cheri Athy PA-C Work Phone: [facility] 08-04-2022 08:51-0400 Body weight 87.54 kg Cheri Athy PA-C Work Phone: [facility] 08-04-2022 08:51-0400 Diastolic blood pressure 76 mm[Hg] Cheri Athy PA-C Work Phone: [facility] 08-04-2022 08:51-0400 Heart rate 82 /min Cheri Athy PA-C Work Phone: [facility] 08-04-2022 08:51-0400 Respiratory rate 18 /min Cheri Athy PA-C Work Phone: [facility] 08-04-2022 08:51-0400 SaO2% (BldA) [Mass fraction] 97 % Cheri Kenny PA-C Work Phone: [facility] 08-04-2022 08:51-0400 Systolic blood pressure 120 mm[Hg] Cheri Efraín PA-C Work Phone: [facility] 06-30-2022 11:40-0500 Body temperature 98.6 [degF] Gerhard Caldwell DO Work Phone: [facility] 06-30-2022 11:40-0500 Body weight 87.09 kg Gerhard Caldwell DO Work Phone: [facility] 06-30-2022 11:40-0500 Diastolic blood pressure 80 mm[Hg] Gerhard Caldwell DO Work Phone: [facility] 06-30-2022 11:40-0500 Heart rate 80 /min Gerhard Caldwell DO Work Phone: [facility] 06-30-2022 11:40-0500 Respiratory rate 16 /min Gerhard Caldwell DO Work Phone: [facility] 06-30-2022 11:40-0500 Systolic blood pressure 120 mm[Hg] Gerhard Caldwell DO Work Phone: [facility] 06-29-2022 14:35-0500 Diastolic blood pressure 85 mm[Hg] Porfirio Rollins MD Work Phone: [facility] 06-29-2022 14:35-0500 Heart rate 81 /min Porfirio Rollins MD Work Phone: [facility] 06-29-2022 14:35-0500 Systolic blood pressure 147 mm[Hg] Porfirio Rollins MD Work Phone: [facility] 05-18-2022 07:22-0500 Body weight 87.54 kg Ceci Paris BOTANY LABORATORY ASSISTANT.PSYCHIATRIC MENTAL HEALTH NURSE Work Phone: [facility] 05-18-2022 07:22-0500 Diastolic blood pressure 62 mm[Hg] Ceciflora Paris [employer]OT[employer] LABORATORY ASSISTANT.PSYCHIATRIC MENTAL HEALTH NURSE Work Phone: [facility] 05-18-2022 07:22-0500 Heart rate 60 /min Ceci Zurawick [employer]OT[employer] LABORATORY ASSISTANT.PSYCHIATRIC MENTAL HEALTH NURSE Work Phone: [facility] 05-18-2022 07:22-0500 Respiratory rate 12 /min Ceci Zurawick BOT[employer] LABORATORY ASSISTANT.PSYCHIATRIC MENTAL HEALTH NURSE Work Phone: [facility] 05-18-2022 07:22-0500 Systolic blood pressure 118 mm[Hg] Ceci Zurawick [employer]OT[employer] LABORATORY ASSISTANT.PSYCHIATRIC MENTAL HEALTH NURSE Work Phone: [facility] 04-10-2022 11:06-0500 Body temperature 99.7 [degF] Indira Rosendo [employer] LABORATORY ASSISTANT.PSYCHIATRIC MENTAL HEALTH NURSE Work Phone: [facility] 04-10-2022 11:06-0500 Body weight 85.28 kg Indira Rosendo [employer]OT[employer] LABORATORY ASSISTANT.PSYCHIATRIC MENTAL HEALTH NURSE Work Phone: [facility] 04-10-2022 11:06-0500 Diastolic blood pressure 86 mm[Hg] Indira Rosendo BOT[employer] LABORATORY ASSISTANT.PSYCHIATRIC MENTAL HEALTH NURSE Work Phone: [facility] 04-10-2022 11:06-0500 Heart rate 84 /min Indira Rosendo BOT[employer] LABORATORY ASSISTANT.PSYCHIATRIC MENTAL HEALTH NURSE Work Phone: [facility] 04-10-2022 11:06-0500 SaO2% (BldA) [Mass fraction] 95 % Indira Rosendo [employer]OT[employer] LABORATORY ASSISTANT.PSYCHIATRIC MENTAL HEALTH NURSE Work Phone: [facility] 04-10-2022 11:06-0500 Systolic blood pressure 124 mm[Hg] Indira Rosendo BOT[employer] LABORATORY ASSISTANT.PSYCHIATRIC MENTAL HEALTH NURSE Work Phone: [facility] 01-26-2022 14:50-0400 Diastolic blood pressure 84 mm[Hg] Porfirio Rollins MD Work Phone: [facility] 01-26-2022 14:50-0400 Heart rate 83 /min Porfirio Rollins MD Work Phone: [facility] 01-26-2022 14:50-0400 Systolic blood pressure 163 mm[Hg] Porfirio Rollins MD Work Phone: [facility] 11-22-2021 07:38-0400 Body height 160 cm Gerhard Caldwell DO Work Phone: [facility] 11-22-2021 07:38-0400 Body temperature 97 [degF] Gerhard Caldwell DO Work Phone: [facility] 11-22-2021 07:38-0400 Body weight 84.82 kg Gerhard Caldwell DO Work Phone: [facility] 11-22-2021 07:38-0400 Diastolic blood pressure 80 mm[Hg] Gerhard Caldwell DO Work Phone: [facility] 11-22-2021 07:38-0400 Heart rate 68 /min Gerhard Caldwell DO Work Phone: [facility] 11-22-2021 07:38-0400 Respiratory rate 16 /min Gerhard Caldwell DO Work Phone: [facility] 11-22-2021 07:38-0400 Systolic blood pressure 130 mm[Hg] Gerhard Caldwell DO Work Phone: [facility] 09-22-2021 13:29-0400 Diastolic blood pressure 76 mm[Hg] Porfirio Rollins MD Work Phone: [facility] 09-22-2021 13:29-0400 Heart rate 71 /min Porfirio Rollins MD Work Phone: [facility] 09-22-2021 13:29-0400 Systolic blood pressure 136 mm[Hg] Porfirio Rollins MD Work Phone: [facility] 01-12-2017 14:51-0400 Body Temperature 98.29 [degF] Generic Cardiac Red Service [facility] Work Phone: 01-12-2017 14:51-0400 BP Diastolic 75 mm[Hg] Generic Cardiac Red Service [facility] Work Phone: 01-12-2017 14:51-0400 BP Systolic 133 mm[Hg] Generic Cardiac Red Service [facility] Work Phone: 01-12-2017 14:51-0400 Pulse (Heart Rate) 83 /min Generic Cardiac Red Service [facility] Work Phone: 01-12-2017 14:51-0400 Pulse Oximetry 97 % Generic Cardiac Red Service [facility] Work Phone: 01-12-2017 14:51-0400 Respiratory Rate 14 /min Generic Cardiac Red Service [facility] Work Phone: 01-11-2017 22:23-0400 BMI (Body Mass Index) 31.79 kg/m2 Generic Card[facility] Red Service [facility] Work Phone: 01-11-2017 22:23-0400 Height 160 cm Generic Cardiac Red Service [facility] Work Phone: 01-11-2017 22:23-0400 Weight 81.4 kg Generic Cardiac Red Service [facility] Work Phone: Encounters Encounter Date Encounter Type Care Provider Facility Start: 10-16-2024 End: 10-16-2024 Patient encounter procedure Porfirio Rollins MD Work Phone: Urology Comment on above: Urge incontinence (P rimary Dx); Urinary frequency; Urgency of urination; Genitourinary syndrome of menopause; Recurrent UTI Start: 10-16-2024 End: 10-16-2024 ambulatory GERHARD CALDWELL Facility:[facility] Start: 10-14-2024 End: 10-14-2024 Telephone encounter Gerhard Caldwell DO Work Phone: [facility] Start: 10-12-2024 End: 10-14-2024 ambulatory Gerhard Caldwell DO Work Phone: [facility] Start: 10-12-2024 End: 10-14-2024 Patient encounter procedure Gerhard Caldwell DO Work Phone: [facility] Comment on above: Mammogram Referral/P rescription Medication question with upcoming appointment appointment October 16. Start: 10-02-2024 End: 10-02-[address] Gerhard Caldwell DO Work Phone: [facility] Work Phone: Start: 10-02-2024 End: 10-02-2024 Patient encounter procedure Linh [place] [facility] Work Phone: Start: 10-02-2024 End: 10-02-2024 ambulatory Gerhard Caldwell Facility:[facility] Start: 09-26-2024 End: 09-26-2024 ambulatory Charo Ugalde [facility] [place] [facility] Start: 09-26-2024 End: 09-26-2024 Patient encounter procedure Charo Ugalde MA [facility] [place] Comment on above: Population Health Na vigation Outreach (Zero HCC List - [facility] ) Start: 05-06-2024 End: 05-06-2024 Refill Gerhard Palomoon DO Work Phone: [facility] Comment on above: Med Change Request Start: 04-24-2024 End: 04-24-2024 Patient encounter procedure Porfirio Rollins MD Work Phone: Urology Comment on above: Urge incontinence (P rimary Dx) Start: 04-24-2024 End: 04-24-2024 ambulatory PORFIRIO ROLLINS Facility:[facility] Start: 04-04-2024 End: 04-04-2024 ambulatory GERHARD CALDWELL Facility:[facility] Start: 04-02-2024 End: 04-02-2024 ambulatory GERHARD L CALDWELL Facility:[facility] Start: 04-02-2024 End: 04-02-2024 Patient encounter procedure Gerhard L Caldwell DO Work Phone: [facility] Comment on above: Medicare annual well ness visit, subsequent (Primary Dx); Mild intermittent asthma without complication; Situational insomnia; Travel advice encounter; Situational anxiety; Controlled type 2 diabetes mellitus without complication, without long-term current use of insulin (HCC); Mixed hyperlipidemia; Chronic midline low back pain with bilateral sciatica; Overactive bladder; Degeneration of intervertebral disc of lumbar region with discogenic back pain and lower extremity pain Start: 02-20-2024 End: 02-20-2024 Refill Porfirio Rollins MD Work Phone: Urology Comment on above: Refill Request Start: 01-29-2024 End: 01-29-2024 Refill Gerhard Caldwell DO Work Phone: [facility] Comment on above: Refill Request Start: 12-12-2023 Telephone encounter [facility] Work Phone: Neurology Comment on above: Rejected CMN Start: 12-06-2023 End: 12-06-2023 ambulatory GERHARD CALDWELL Facility:[facility] Start: 12-06-2023 End: 12-06-2023 Patient encounter procedure Porfirio Rollins MD Work Phone: Urology Comment on above: Screening for genito urinary condition [Z13.89] (Primary Dx); Atrophic vaginitis; Recurrent UTI; Urge incontinence; Urinary frequency; Urgency of urination Start: 11-28-2023 [facility] [place] Start: 11-28-2023 Patient encounter procedure Yvonne Christina MA [facility] Comment on above: Population Health Na vigation Outreach (Adrina [facility] [place] ) Start: 10-10-2023 End: 10-10-2023 Patient encounter procedure Daniel AVILES Work Phone: [facility] Comment on above: Sore throat (Primary Dx); URI, acute Start: 09-17-2023 Documentation procedure Mammog savannah Coordinator [facility] Department Start: 09-17-2023 Letter encounter Mammography Coordinator [facility] Department Start: 09-14-2023 End: 09-14-2023 Subsequent hospital visit by physician Screen Mammo [facility] Comment on above: Encounter for screen ing mammogram for breast cancer [Z12.31] Start: 01-16-2023 End: 01-16-2023 ambulatory Jane López PT [facility] Comment on above: Degeneration of lumb osacral intervertebral disc (Primary Dx); Spondylosis of lumbosacral region, unspecified spinal osteoarthritis complication status; Lumbosacral stenosis; Arthropathy of lumbar facet joint Start: 12-20-2022 End: 12-20-2022 ambulatory Jane O'Yonis PT [facility] Comment on above: Degeneration of lumb osacral intervertebral disc (Primary Dx); Spondylosis of lumbosacral region, unspecified spinal osteoarthritis complication status; Lumbosacral stenosis; Arthropathy of lumbar facet joint Start: 12-18-2022 End: 12-18-2022 Patient encounter procedure Porfirio Rollins MD Work Phone: Urology Comment on above: Screening for genito urinary condition (Primary Dx) Start: 12-14-2022 Chart abstracting [facility] Work Phone: Neurology Comment on above: CMN Start: 12-14-2022 End: 12-14-2022 Patient encounter procedure Stacia Willard APRN.PSYCHIATRIC MENTAL HEALTH NURSE Work Phone: [facility] Comment on above: Bladder pain (Primar y Dx) Start: 12-11-2022 Telephone encounter Gerhard bernardo DO Work Phone: [facility] Comment on above: Results Start: 12-05-2022 End: 12-05-2022 Patient encounter procedure Gerhard Caldewll DO Work Phone: [facility] Comment on above: Controlled type 2 di abetes mellitus without complication, without long-term current use of insulin (HCC) (Primary Dx); Travel advice encounter; Situational anxiety; Situational insomnia; Dysuria; Mixed hyperlipidemia; Chronic midline low back pain with bilateral sciatica; Overactive bladder Start: 11-24-2022 End: 11-24-2022 ambulatory Jane O'Yonis PT [facility] Comment on above: Degeneration of lumb osacral intervertebral disc (Primary Dx); Spondylosis of lumbosacral region, unspecified spinal osteoarthritis complication status; Lumbosacral stenosis; Arthropathy of lumbar facet joint Start: 11-23-2022 End: 11-23-2022 Patient encounter procedure Porfirio Rollins MD Work Phone: Urology Comment on above: Screening for genito urinary condition [Z13.89 (ICD-10-CM)] (Primary Dx); Atrophic vaginitis; Chronic interstitial cystitis with hematuria; Genitourinary syndrome of menopause; Recurrent UTI; Lesion of bladder; Urgency of urination; Urinary frequency Start: 10-03-2022 End: 10-03-2022 ambulatory Jane López PT [facility] Comment on above: Degeneration of lumb osacral intervertebral disc (Primary Dx); Spondylosis of lumbosacral region, unspecified spinal osteoarthritis complication status; Lumbosacral stenosis; Arthropathy of lumbar facet joint Start: 09-27-2022 E-mail encounter fro m caregiver Erica Long APRN.CNP Work Phone: [facility] Start: 09-27-2022 Follow-up encounter Erica brizuela APRN.CNP Work Phone: Neurology Comment on above: follow up cpap downl oad Start: 09-27-2022 Telephone encounter Erica brizuela APRN.CNP Work Phone: Neurology Comment on above: Compliance Adherence (The complete one) Results (Sleep study from [facility]) Start: 09-26-2022 End: 09-26-2022 ambulatory Erica Long APRN.CNP Work Phone: Neurology Comment on above: ANGELIKA (obstructive sle ep apnea) (Primary Dx) Start: 09-26-2022 End: 09-26-2022 Telemedicine consultation with patient Erica Godfreychristiano SEQUEIRA Work Phone: [facility] Start: 09-05-2022 Documentation procedure Mammog savannah Coordinator [facility] Start: 09-05-2022 Letter encounter Mammography Coordinator [facility] Department Start: 09-05-2022 End: 09-05-2022 Subsequent hospital visit by physician Screen Mammo [facility] Comment on above: Encounter for screen ing mammogram for malignant neoplasm of breast [Z12.31] Start: 08-11-2022 Orders Only Meka chadwick APRN.CNP Work Phone: Urology Start: 08-08-2022 End: 08-08-2022 Patient encounter procedure Porfirio Rollins MD Work Phone: Urology Comment on above: Recurrent UTI (Prima ry Dx); Overactive bladder; Stress incontinence; Dysfunctional voiding of urine Start: 08-04-2022 End: 08-04-2022 Patient encounter procedure Cheri Kenny PA-C Work Phone: [facility] Comment on above: Recurrent UTI (Prima ry Dx) Start: 08-03-2022 ambulatory Jose bridges MD Work Phone: Neurology Comment on above: CPAP Prescription Start: 07-04-2022 End: 07-04-2022 Subsequent hospital visit by physician Screen Mammo [facility] Comment on above: Encounter for screen ing mammogram for malignant neoplasm of breast [Z12.31] Start: 07-03-2022 Telephone encounter Porfirio Rollins MD Work Phone: Urology Comment on above: Results Start: 06-30-2022 End: 06-30-2022 Patient encounter procedure Gerhard Caldwell DO Work Phone: [facility] Comment on above: Encounter for screen ing mammogram for malignant neoplasm of breast (Primary Dx); Arthritis of left knee; IFG (impaired fasting glucose); Numbness and tingling in both hands; Mild carpal tunnel syndrome, unspecified laterality; Controlled type 2 diabetes mellitus without complication, without long-term current use of insulin (HCC); Mixed hyperlipidemia Start: 06-29-2022 End: 06-29-2022 Patient encounter procedure Porfirio Rollins MD Work Phone: Urology Comment on above: Screening for genito urinary condition [Z13.89 (ICD-10-CM)] (Primary Dx); Urinary tract infection without hematuria, site unspecified; Lesion of bladder; Incomplete emptying of bladder; Recurrent UTI; Incomplete bladder emptying Start: 06-29-2022 Telephone encounter Porfirio Rollins MD Work Phone: Urology Comment on above: LAB RESULTS Start: 06-26-2022 ambulatory Fiona Jules DO Work Phone: Urology Start: 06-26-2022 E-mail encounter terrie m caregiver Fiona Gleich DO Work Phone: [facility] Start: 06-22-2022 ambulatory Fiona Jules DO Work Phone: Urology Comment on above: Bladder botox Start: 06-22-2022 E-mail encounter fro m caregiver Fiona Jules DO Work Phone: [facility] Start: 06-09-2022 Refill Indira naranjo BOTANY LABORATORY ASSISTANT.PSYCHIATRIC MENTAL HEALTH NURSE Work Phone: [facility] Comment on above: Refill Request Start: 06-09-2022 Telephone encounter Ceci givens BOTANY LABORATORY ASSISTANT.PSYCHIATRIC MENTAL HEALTH NURSE Work Phone: [facility] Comment on above: Results Start: 06-09-2022 End: 06-09-2022 ambulatory Emg 850) Neurology Comment on above: EMG Start: 06-09-2022 End: 06-09-2022 Patient encounter procedure Emg 2 Neur Julienne (Max Weight: 850) JULIENNE Start: 05-18-2022 End: 05-18-2022 Patient encounter procedure Ceci Paris BOTANY LABORATORY ASSISTANT.PSYCHIATRIC MENTAL HEALTH NURSE Work Phone: [facility] Comment on above: Numbness and tinglin g in both hands (Primary Dx) Start: 04-10-2022 End: 04-10-2022 Patient encounter procedure Indira Robbins BOTANY LABORATORY ASSISTANT.PSYCHIATRIC MENTAL HEALTH NURSE Work Phone: [facility] Comment on above: Mild intermittent as thma without complication (Primary Dx); PLMD (periodic limb movement disorder); Restless legs; Hyperkalemia Start: 03-16-2022 Telephone encounter Ceci hale BOTANY LABORATORY ASSISTANT.PSYCHIATRIC MENTAL HEALTH NURSE Work Phone: [facility] Comment on above: Results Start: 03-10-2022 ambulatory Gerhard Dasilva son DO Work Phone: [facility] Comment on above: Bloodwork Start: 03-10-2022 Telephone encounter Gerhard bernardo DO Work Phone: [facility] Comment on above: Results; Orders Start: 03-06-2022 Refill Gerhard givens DO Work Phone: [facility] Comment on above: Refill Request Start: 02-09-2022 ambulatory No Pcp (Historical) Johann pradomarely [facility] [place] Start: 01-31-2022 Refill Gerhard givens DO Work Phone: [facility] Comment on above: Refill Request Start: 01-26-2022 End: 01-26-2022 Patient encounter procedure Porfirio Rollins MD Work Phone: Urology Comment on above: Screening for genito urinary condition [Z13.89 (ICD-10-CM)] (Primary Dx); Chronic interstitial cystitis with hematuria; Urinary frequency; Urgency of urination; Urge incontinence; Interstitial cystitis Start: 11-22-2021 End: 11-22-2021 Subsequent hospital visit by physician Erinn [facility] Work Phone: Radiology Comment on above: DDD (degenerative di sc disease), lumbar [M51.36] Start: 11-22-2021 End: 11-22-2021 Patient encounter procedure Gerhard Caldwell DO Work Phone: [facility] Comment on above: DDD (degenerative di sc disease), lumbar (Primary Dx); Atrophic vaginitis; Status post total replacement of right hip; Other osteoarthritis of spine, lumbar region; Chronic midline low back pain with bilateral sciatica; Vitamin D deficiency; IFG (impaired fasting glucose); Mixed hyperlipidemia; Mild intermittent asthma without complication; Restless legs; Interstitial cystitis Start: 10-12-[address] [facility] Comment on above: Population Health Na vigation Outreach ([employer] Care Gap - Open in error ) Start: 09-22-2021 End: 09-22-2021 Patient encounter procedure Porfirio Rollins MD Work Phone: Urology Comment on above: Recurrent UTI (Prima ry Dx); Screening for genitourinary condition; Nocturia; Urge incontinence Start: 08-18-2021 Documentation procedure Mammog savannah Coordinator [facility] Start: 08-18-2021 Letter encounter Mammography Coordinator [facility] Department Start: 08-16-2021 ambulatory Charo (Pss) Dopart N [facility] [place] Comment on above: Population Health Na vigation Outreach ([employer] Care Gaps) Start: 09-08-2020 End: 09-08-2020 Subsequent hospital visit by physician Erinn [facility] Work Phone: Radiology Comment on above: Restless legs [G25.8 1] Start: 01-14-2017 End: 01-14-2017 Documentation procedure Buffy Moran [facility] Start: 01-11-2017 End: 01-12-2017 Ambulatory GERHARD CALDWELL [facility] Start: 01-11-2017 End: 01-12-2017 Evaluation and management of inpatient Generic Cardiac Red Service [facility] Work Phone: [facility] Comment on above: Elevated troponin (P rimary Dx) Procedures Date Procedure Procedure Detail Performing Clinician Start: 10-16-2024 Urnls dip stick/tablet rgnt auto w/o microscopy Porfirio Rollins MD Work Phone: Start: 10-02-2024 Complete x-ray series of lumbar spine with bending views Dr. Gerhard Caldwell DO Work Phone: Start: 04-24-2024 Urnls dip stick/tablet rgnt auto w/o microscopy Porfirio Rollins MD Work Phone: Start: 12-06-2023 Urnls dip stick/tablet rgnt auto w/o microscopy Porfirio Rollins MD Work Phone: Start: 10-10-2023 COVID & INFLUENZA A/B & RSV NAAT, ROUTINE Daniel AVILES Work Phone: Start: 10-10-2023 STREP A MOLECULAR (POC) Daniel falcon PA Work Phone: Start: 12-18-2022 Urnls dip stick/tablet rgnt auto w/o microscopy Porfirio Rollins MD Work Phone: Start: 12-14-2022 Urnls dip stick/tablet rgnt auto w/o microscopy Stacia Willard APRN.PSYCHIATRIC MENTAL HEALTH NURSE Work Phone: Start: 12-05-2022 Urnls dip stick/tablet rgnt auto w/o microscopy Gerhard Palomoon DO Work Phone: Start: 09-05-2022 End: 09-05-2022 Mammography Gerhard Holbrookrison DO Work Phone: Start: 08-04-2022 Urnls dip stick/tablet rgnt auto w/o microscopy Stacia Willard APRN.PSYCHIATRIC MENTAL HEALTH NURSE Work Phone: Start: 06-29-2022 End: 06-29-2022 Urnls dip stick/tablet rgnt auto w/o microscopy Porfirio Rollins MD Work Phone: Start: 06-09-2022 Nerve conduction studies 5-6 studies Ceci Dwyer APRN.PSYCHIATRIC MENTAL HEALTH NURSE Work Phone: Start: 01-26-2022 Urnls dip stick/tablet rgnt auto w/o microscopy Porfirio Rollins MD Work Phone: Start: 11-22-2021 Radex spine lumbosacral 2/3 views Gerhard Palomoon DO Work Phone: Start: 11-22-2021 Adult depression screening assessment Gerhard Caldwell DO Work Phone: Start: 09-22-2021 Urnls dip stick/tablet rgnt auto w/o microscopy Porfirio Rollins MD Work Phone: Start: 08-18-2021 Mammography Mammography Coordinator Start: 09-08-2020 Radex spine lumbosacral 2/3 views Gerhard Palomoon DO Work Phone: Start: 04-28-2020 Adult depression screening assessment Charo Dopart Start: 02-13-2020 Mammography Charo Dopart Start: 02-14-2018 Colonoscopy Charo Dopart Start: 01-12-2017 End: 01-12-2017 LEFT HEART CATH POSSIBLE PTCA/STENT Say Garcia Work Phone: Start: 01-12-2017 End: 01-12-2017 CASE REQUEST CARGO CHECKER Say Garcia Work Phone: History of operative procedure on knee History of arthroplasty of left knee Dr. Gerhard Caldwell DO Work Phone: Plan of Treatment Date Care Activity Detail Author Start: 08-03-2032 Urine microalbumin profile [facility] Start: 02-15-2028 Colonoscopy COLONOSCOPY [facility] Start: 02-15-2028 COLORECTAL CANCER SCREENING COLORECTAL CANCER SCREENING [facility] Start: 02-15-2028 Screening for malignant neoplasm of colon [facility] Start: 04-06-2025 End: 04-06-2025 Patient encounter procedure 04/06/2025 10:40 AM EST Office Visit [facility] [address] [place], [place] [id number] Gerhard Caldwell DO [address] [place], [place] [id number] Annual Wellness [facility] Comment on above: Annual Wellness Start: 04-04-2025 Hepatitis B surface antibody level LDL Cholesterol [facility] Start: 04-02-2025 Annual PCP Team Chronic Disease Visit Annual PCP Team Chronic Disease Visit [facility] Start: 11-20-2024 End: 11-20-2024 Patient encounter procedure 11/20/2024 1:00 PM EDT Office Visit Urology [address] [place] [address] Porfirio Rollins MD [address] [place], [place] [id number] Follow Up [facility] Comment on above: Follow Up [facility] Start: 10-16-2024 End: 10-16-2024 Patient encounter procedure Urology Comment on above: Left vm, ms 100 units botox 100 units botox Start: 10-02-2024 Glaucoma screening Dilated Retinal Exam [facility] Start: 10-02-2024 Hemoglobin A1c measurement HbA1C [facility] Start: 10-02-2024 End: 10-02-2024 Patient encounter procedure 10/02/2024 11:00 AM EDT Office Visit Urology [address] [place] [address] Porfirio Rollins MD [address] [place] [address] [facility] Comment on above: [facility] Start: 09-16-2024 Covid-19 Vaccine ( season) Covid-19 Vaccine ( season) [facility] Start: 09-13-2024 Screening for malignant neoplasm of breast Mammogram Screening [facility] Start: 05-21-2024 Advance Directive Discussion Advance Directive Discussion [facility] Start: 04-24-2024 End: 04-24-2024 Patient encounter procedure 04/24/2024 11:00 AM EST Office Visit Urology [address] [place] [address] Porfirio Rollins MD [address] [place] [address] 100 UNITS Cystoscopy botox Urology Comment on above: 100 UNITS Cystoscopy botox Start: 04-04-2024 End: 04-04-2024 ambulatory 04/04/2024 8:30 AM EST Results Only [facility] [address] [place] [address] [facility] Start: 04-02-2024 End: 07-02-2024 CBC W Auto Differential panel - Blood COMPLETE BLOOD COUNT AND DIFFERENTIAL Lab Routine Mixed hyperlipidemia Expected: 04/02/2024, Expires: 07/02/2024 [facility] Comment on above: Expected: 04/02/2024, Expires: Start: 04-02-2024 End: 07-02-2024 Comprehensive metabolic 2000 panel - Serum or Plasma COMPREHENSIVE METABOLIC PANEL Lab Routine Mixed hyperlipidemia Expected: 04/02/2024, Expires: 07/02/2024 [facility] Work Phone: Comment on above: Expected: 04/02/2024, Expires: Start: 04-02-2024 End: 07-02-2024 Hemoglobin A1c in Blood HEMOGLOBIN A1C Lab Routine Controlled type 2 diabetes mellitus without complication, without long-term current use of insulin (HCC) Expected: 04/02/2024, Expires: 07/02/2024 [facility] Comment on above: Expected: 04/02/2024, Expires: Start: 04-02-2024 End: 07-02-2024 Lipid 1996 panel - Serum or Plasma LIPID PANEL BASIC Lab Routine Mixed hyperlipidemia Expected: 04/02/2024, Expires: 07/02/2024 [facility] Comment on above: Expected: 04/02/2024, Expires: Start: 04-02-2024 End: 07-02-2024 Thyrotropin [Units/volume] in Serum or Plasma THYROID STIMULATING HORMONE Lab Routine Situational insomnia Controlled type 2 diabetes mellitus without complication, without long-term current use of insulin (HCC) Expected: 04/02/2024, Expires: 07/02/2024 [facility] Comment on above: Expected: 04/02/2024, Expires: Start: 04-02-2024 End: 07-02-2024 Thyroxine (T4) free [Mass/volume] in Serum or Plasma T4 FREE/FREE THYROXINE Lab Routine Situational insomnia Controlled type 2 diabetes mellitus without complication, without long-term current use of insulin (HCC) Expected: 04/02/2024, Expires: 07/02/2024 [facility] Comment on above: Expected: 04/02/2024, Expires: Start: 04-02-2024 End: 04-02-2024 Patient encounter procedure 04/02/2024 12:20 PM EST Office Visit [facility] [address] [place] [address] Gerhard Caldwell DO [address] [place] [address] MEDICARE WELLNESS Z00.00 [facility] Comment on above: MEDICARE WELLNESS Z00.00 Start: 01-20-2024 Covid-19 Vaccine ( season) Covid-19 Vaccine ( season) [facility] Start: 01-20-2024 Covid-19 Vaccine ( season) Covid-19 Vaccine () [facility] Start: 01-20-2024 Influenza vaccination Influenza Vaccine (#1) [facility] Start: 12-06-2023 ANNUAL PCP TEAM CHRONIC DISEASE VISIT ANNUAL PCP TEAM CHRONIC DISEASE VISIT [facility] Start: 12-06-2023 End: 12-06-2023 Patient encounter procedure 12/06/2023 11:00 AM EDT Office Visit Urology [address] [place] [address] Porfirio Rollins MD [address] [place] [address] 100 UNITS Cystoscopy botox Urology Comment on above: 100 UNITS Cystoscopy botox Start: 12-05-2023 Hepatitis B screening URINE ALBUMIN:CREATININE RATIO [facility] Start: 12-05-2023 Hepatitis B surface antibody level LDL CHOLESTEROL [facility] Start: 11-07-2023 Glaucoma screening Dilated Retinal Exam [facility] Start: 11-07-2023 Hepatitis C antibody, confirmatory test DILATED RETINAL EXAM [facility] Start: 09-06-2023 Mammography [facility] Start: 09-06-2023 Screening for malignant neoplasm of breast Mammogram Screening [facility] Start: 06-30-2023 3 comp foot exam completed DIABETIC FOOT EXAM [facility] Start: 06-30-2023 ANNUAL PCP TEAM CHRONIC DISEASE VISIT ANNUAL PCP TEAM CHRONIC DISEASE VISIT [facility] Start: 06-30-2023 Diabetic foot examination Diabetic Foot Exam [facility] Start: 06-06-2023 Hemoglobin A1c measurement HbA1C [facility] Start: 06-06-2023 Hemoglobin A1c/Hemoglobin.total in Blood HBA1C [facility] Start: 05-21-2023 Advance Directive Discussion Advance Directive Discussion [facility] Start: 05-21-2023 Behavioral Health Screening Behavioral Health Screening [facility] Start: 05-18-2023 ANNUAL PCP TEAM CHRONIC DISEASE VISIT ANNUAL PCP TEAM CHRONIC DISEASE VISIT [facility] Start: 04-10-2023 ANNUAL PCP TEAM CHRONIC DISEASE VISIT ANNUAL PCP TEAM CHRONIC DISEASE VISIT [facility] Start: 03-15-2023 Hepatitis B surface antibody level LDL CHOLESTEROL [facility] Start: 01-19-2023 Covid-19 Vaccine ( season) Covid-19 Vaccine () [facility] Start: 01-19-2023 Influenza vaccination [facility] Start: 12-31-2022 End: 03-02-2023 ALBUMIN/CREAT RATIO RND UR ALBUMIN/CREAT RATIO RND UR Lab Routine Controlled type 2 diabetes mellitus without complication, without long-term current use of insulin (HCC) Expected: 12/31/2022, Expires: 03/02/2023 [facility] Work Phone: Comment on above: Expected: 12/31/2022, Expires: 3 Start: 12-31-2022 End: 03-02-2023 CBC panel - Blood by Automated count CBC Lab Routine Controlled type 2 diabetes mellitus without complication, without long-term current use of insulin (HCC) Expected: 12/31/2022, Expires: 03/02/2023 [facility] Work Phone: Comment on above: Expected: 12/31/2022, Expires: 3 Start: 12-31-2022 End: 03-02-2023 Comprehensive metabolic 2000 panel - Serum or Plasma COMP METABOLIC PANEL Lab Routine Controlled type 2 diabetes mellitus without complication, without long-term current use of insulin (HCC) Expected: 12/31/2022, Expires: 03/02/2023 [facility] Work Phone: Comment on above: Expected: 12/31/2022, Expires: 3 Start: 12-31-2022 End: 03-02-2023 Hemoglobin A1c in Blood HGB A1C Lab Routine Controlled type 2 diabetes mellitus without complication, without long-term current use of insulin (HCC) Expected: 12/31/2022, Expires: 03/02/2023 [facility] Work Phone: Comment on above: Expected: 12/31/2022, Expires: 3 Start: 12-31-2022 End: 03-02-2023 Lipid 1996 panel - Serum or Plasma LIPID PANEL BASIC Lab Routine Mixed hyperlipidemia Expected: 12/31/2022, Expires: 03/02/2023 [facility] Work Phone: Comment on above: Expected: 12/31/2022, Expires: 3 Start: 11-22-2022 Adult depression screening assessment DEPRESSION SCREENING [facility] Start: 11-22-2022 ANNUAL PCP TEAM CHRONIC DISEASE VISIT ANNUAL PCP TEAM CHRONIC DISEASE VISIT [facility] Start: 09-15-2022 Hepatitis C antibody, confirmatory test DILATED RETINAL EXAM [facility] Start: 09-13-2022 Hemoglobin A1c/Hemoglobin.total in Blood HBA1C [facility] Start: 08-18-2022 Mammography MAMMOGRAM [facility] Start: 07-16-2022 COVID-19 VACCINE (6 - Moderna series) COVID-19 VACCINE (6 - Moderna series) [facility] Start: 05-21-2022 ADVANCE DIRECTIVE DISCUSSION ADVANCE DIRECTIVE DISCUSSION [facility] Start: 05-21-2022 DEPRESSION ASSESSMENT DEPRESSION ASSESSMENT [facility] Start: 05-10-2022 End: 07-10-2022 POTASSIUM BLD POTASSIUM BLD Lab Routine Hyperkalemia Expected: 05/10/2022, Expires: 07/10/2022 [facility] Work Phone: Comment on above: Expected: 05/10/2022, Expires: 3 Start: 03-30-2022 End: 05-30-2022 POTASSIUM BLD POTASSIUM BLD Lab Routine Hyperkalemia Expected: 03/30/2022, Expires: 05/30/2022 [facility] Work Phone: Comment on above: Expected: 03/30/2022, Expires: 3 Start: 03-13-2022 End: 05-13-2022 25-hydroxyvitamin D3 [Mass/volume] in Serum or Plasma VITAMIN D 25 HYDROXY Lab Routine Vitamin D deficiency Expected: 03/13/2022, Expires: 05/13/2022 [facility] Work Phone: Comment on above: Expected: 03/13/2022, Expires: 2 Start: 03-13-2022 End: 05-13-2022 CBC panel - Blood by Automated count CBC Lab Routine Mixed hyperlipidemia Controlled type 2 diabetes mellitus without complication, without long-term current use of insulin (HCC) Expected: 03/13/2022, Expires: 05/13/2022 [facility] Work Phone: Comment on above: Expected: 03/13/2022, Expires: 2 Start: 03-13-2022 End: 05-13-2022 Comprehensive metabolic 2000 panel - Serum or Plasma COMP METABOLIC PANEL Lab Routine Mixed hyperlipidemia Controlled type 2 diabetes mellitus without complication, without long-term current use of insulin (HCC) Expected: 03/13/2022, Expires: 05/13/2022 [facility] Work Phone: Comment on above: Expected: 03/13/2022, Expires: 2 Start: 03-13-2022 End: 05-13-2022 Hemoglobin A1c in Blood HGB A1C Lab Routine Controlled type 2 diabetes mellitus without complication, without long-term current use of insulin (HCC) Expected: 03/13/2022, Expires: 05/13/2022 [facility] Work Phone: Comment on above: Expected: 03/13/2022, Expires: 2 Start: 03-13-2022 End: 05-13-2022 Lipid 1996 panel - Serum or Plasma LIPID PANEL BASIC Lab Routine Mixed hyperlipidemia Expected: 03/13/2022, Expires: 05/13/2022 [facility] Work Phone: Comment on above: Expected: 03/13/2022, Expires: 2 Start: 03-13-2022 End: 05-13-2022 Thyrotropin [Units/volume] in Serum or Plasma TSH BLD Lab Routine Screening for thyroid disorder Expected: 03/13/2022, Expires: 05/13/2022 [facility] Work Phone: Comment on above: Expected: 03/13/2022, Expires: 2 Start: 01-19-2022 Influenza vaccination INFLUENZA (#1) [facility] Start: 11-22-2021 End: 01-22-2022 Comprehensive metabolic 2000 panel - Serum or Plasma COMP METABOLIC PANEL Lab Routine IFG (impaired fasting glucose) Mixed hyperlipidemia Restless legs Expected: 11/22/2021, Expires: 01/22/2022 [facility] Work Phone: Comment on above: Expected: 11/22/2021, Expires: 2 Start: 11-22-2021 End: 01-22-2022 Hemoglobin A1c in Blood HGB A1C Lab Routine IFG (impaired fasting glucose) Expected: 11/22/2021, Expires: 01/22/2022 [facility] Work Phone: Comment on above: Expected: 11/22/2021, Expires: 2 Start: 11-22-2021 End: 01-22-2022 Lipid 1996 panel - Serum or Plasma LIPID PANEL BASIC Lab Routine Mixed hyperlipidemia Expected: 11/22/2021, Expires: 01/22/2022 [facility] Work Phone: Comment on above: Expected: 11/22/2021, Expires: 2 Start: 10-31-2021 COVID-19 VACCINE (5 - Booster for Moderna series) COVID-19 VACCINE (5 - Booster for Moderna series) [facility] Start: 09-03-2021 ANNUAL PCP TEAM CHRONIC DISEASE VISIT ANNUAL PCP TEAM CHRONIC DISEASE VISIT [facility] Start: 08-30-2021 Hepatitis B screening URINE ALBUMIN:CREATININE RATIO [facility] Start: 08-30-2021 Hepatitis B surface antibody level LDL CHOLESTEROL [facility] Start: 08-20-2021 Hepatitis C antibody, confirmatory test DILATED RETINAL EXAM [facility] Start: 05-21-2021 ADVANCE DIRECTIVE DISCUSSION ADVANCE DIRECTIVE DISCUSSION [facility] Start: 05-21-2021 DEPRESSION ASSESSMENT DEPRESSION ASSESSMENT [facility] Start: 04-28-2021 Adult depression screening assessment DEPRESSION SCREENING [facility] Start: 03-01-2021 Hemoglobin A1c/Hemoglobin.total in Blood HBA1C [facility] Start: 02-12-2021 Mammography MAMMOGRAM [facility] Start: 12-16-2019 Urine microalbumin profile DTAP,TDAP,TD (2 - Td or Tdap) [facility] Start: 10-17-2017 3 comp foot exam completed DIABETIC FOOT EXAM [facility] Start: 09-04-2014 FECAL OCCULT BLOOD FECAL OCCULT BLOOD [facility] Start: 09-04-2014 Screening for malignant neoplasm of colon Fecal Occult Blood [facility] Start: 2008 RSV Vaccine (1 - 1-dose 60+ series) RSV Vaccine (1 - 1-dose 60+ series) [facility] Start: 1993 COLOGUARD (FIT-DNA) COLOGUARD (FIT-DNA) [facility] Start: [address] COLONOGRAPHY [facility] Start: 1993 Screening for malignant neoplasm of colon [facility] Start: 1993 SIGMOIDOSCOPY SIGMOIDOSCOPY [facility] Start: 1966 Anxiety Screening Anxiety Screening [facility] Start: 1966 Depression Screening Depression Screening [facility] Start: 1966 HEPATITIS C SCREENING HEPATITIS C SCREENING [facility] Start: 1966 Hepatitis C screening Hepatitis C Screening [facility] Start: 1966 SPIROMETRY SPIROMETRY [facility] Bacteria identified in Urine by Culture URINE CULTURE Microbiology Routine Urinary tract infection without hematuria, site unspecified 06/29/2022 3:17 PM EST [facility] Work Phone: Bacteria identified in Urine by Culture URINE CULTURE Microbiology Routine Recurrent UTI Ordered: 08/04/2022 [facility] Work Phone: Comment on above: Ordered: 08/04/2022 Bacteria identified in Urine by Culture URINE CULTURE Microbiology Routine Dysuria 12/05/2022 5:35 PM EDT [facility] Work Phone: Bacteria identified in Urine by Culture URINE CULTURE Microbiology Routine Bladder pain Ordered: 12/14/2022 [facility] Work Phone: Comment on above: Ordered: 12/14/2022 CYTOLOGY NON-POULTRY INSPECTOR CYTOLOGY NON-GY N Lab Routine Lesion of bladder 06/29/2022 3:26 PM EST [facility] Work Phone: End: 01-12-2017 ECG 12 Lead ECG 12 Lead Routine Once for 1 Occurrences starting 01/12/2017 until 01/12/2017 [facility] Work Phone: Comment on above: Once for 1 Occurrences starting 01/13/20 until 01/12/2017 End: 05-18-2023 EMG(NEURO/NI) EMG(NEURO/NI) EMG Routine Numbness and tingling in both hands 1 Occurrences starting 05/18/2022 until 05/18/2023 [facility] Work Phone: Comment on above: 1 Occurrences starting 05/18/2022 until 05/18/2023 FLUROURODYNAMICS WITH EMG FLUROU RODYNAMICS WITH EMG Procedures Routine Incomplete emptying of bladder Ordered: 06/29/2022 [facility] Work Phone: Comment on above: Ordered: 06/29/2022 End: 07-30-2023 ESTHELA SCREENING ESTHELA SCREENING Radiology Routine Encounter for screening mammogram for malignant neoplasm of breast 1 Occurrences starting 06/30/2022 until 07/30/2023 [facility] Work Phone: Comment on above: 1 Occurrences starting 06/30/2022 until 07/30/2023 MG Breast Screening ESTHELA SCREENIN G Radiology Routine Encounter for screening mammogram for breast cancer 09/14/2023 1:11 PM EDT [facility] Work Phone: End: 11-13-2025 MG Breast Screening ESTHELA SCREENING Radiology Routine Encounter for screening mammogram for malignant neoplasm of breast 1 Occurrences starting 10/14/2024 until 11/13/2025 [facility] Work Phone: Comment on above: 1 Occurrences starting 10/14/2024 until 11/13/2025 Radex spine lumbosac ral 2/3 views XR LUMBAR GENERAL 3V AP/LAT/L5-S1 Radiology Routine DDD (degenerative disc disease), lumbar Other osteoarthritis of spine, 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 11/22/2021 8:47 AM EDT [facility] Work Phone: [facility] Immunizations Immunization Date Immunization Notes Care Provider Sena carlson 03-18-2024 COVID-19 vaccine, ag e 12+ yr (MODERNA) Gerhard Caldwell DO Work Phone: [facility] 03-18-2024 influenza, seasonal, injectable Gerhard Caldwell DO Work Phone: [facility] 04-30-2023 influenza virus vacc ine, unspecified formulation Yvonne Fahad DO [facility] 11-24-2022 Hepatitis B vaccine (recombinant), CpG adjuvanted Gerhard Caldwell DO Work Phone: [facility] 10-17-2022 Hepatitis B vaccine (recombinant), CpG adjuvanted Porfirio Rollins MD Work Phone: [facility] 10-09-2022 typhoid vaccine, fifi e, oral Porfirio Rollins MD Work Phone: [facility] 08-03-2022 tetanus toxoid, redu kiki diphtheria toxoid, and acellular pertussis vaccine, adsorbed Jose Syed Jr., MD Work Phone: [facility] 03-15-2022 COVID-19 booster vaccine, age 12+ yr, bivalent (PFIZER-BIONTiLoop Mobile) Ceci Zurawick BOTANY LABORATORY ASSISTANT.PSYCHIATRIC MENTAL HEALTH NURSE Work Phone: [facility] 03-15-2022 influenza, high dose seasonal, preservative-free Ceci Zurawick BOTANY LABORATORY ASSISTANT.PSYCHIATRIC MENTAL HEALTH NURSE Work Phone: [facility] 03-15-2022 influenza virus vacc ine, unspecified formulation Screen Wstr [facility] 09-05-2021 COVID-19 vaccine, booster dose (MODERNA) Porfirio Rollins MD Work Phone: [facility] 09-05-2021 hepatitis A vaccine, adult dosage Jose Syed Jr., MD Work Phone: [facility] 09-05-2021 pneumococcal (PCV20) vaccine, 20 valent (PREVNAR 20) Jose Syed Jr., MD Work Phone: [facility] 08-06-2020 COVID-19 vaccine, fu ll dose (MODERNA) Char[facility] Work Phone: 07-09-2020 COVID-19 vaccine, fu ll dose (MODERNA) [facility] Work Phone: 05-10-2020 zoster vaccine recombinant [facility] Work Phone: 03-10-2020 zoster vaccine recombinant [facility] Work Phone: 03-27-2018 influenza, high dose seasonal, preservative-free [facility] Work Phone: 11-02-2017 typhoid vaccine, unspecified formulation Jose Syed Jr., MD Work Phone: [facility] 11-01-2017 typhoid vaccine, unspecified formulation Jose Syed Jr., MD Work Phone: [facility] 09-20-2017 hepatitis A vaccine, adult dosage [facility] Work Phone: 03-26-2017 influenza, high dose seasonal, preservative-free [facility] Work Phone: 04-18-2016 pneumococcal conjuga te vaccine, 13 valent [facility] 03-04-2016 influenza, high dose seasonal, preservative-free [facility] 04-05-2015 pneumococcal polysaccharide vaccine, 23 valent [facility] 02-27-2015 influenza, seasonal, injectable [facility] 03-25-2013 influenza virus vacc ine, unspecified formulation [facility] 01-08-2012 zoster vaccine, live [facility] 06-07-2010 influenza virus vacc ine, unspecified formulation [facility] 12-15-2009 pneumococcal polysaccharide vaccine, 23 valent [facility] 12-15-2009 tetanus toxoid, redu kiki diphtheria toxoid, and acellular pertussis vaccine, adsorbed [facility] 04-03-2005 influenza virus vacc ine, unspecified formulation [facility] Work Phone: Payers Date Payer Category Payer Self-pay 2021 Medicare AETNA MEDICARE A ETNA MEDICARE PPO [id number] 2021-Present [phone] [address] [place] [address] O [id number] 2021 Medicare (Managed Care) AETJAGDISH BASILIO [id number] 2021 Private Health Insurance [id number] 2017 Medicare [id number] 2016 Medicare [id number] Self-pay SELF PAY INSURANCE [id number] Unknown [id number] Unknown [id number] Social History Date Type Detail Facility Start: 01-11-2017 Tobacco smoking status IDIS Unknown if ever smoked [facility] Work Phone: Sex Assigned At Not on file [facility] Work Phone: Start: 01-12-2017 End: 04-02-2024 Tobacco smoking status NHIS Former smoker [facility] Start: 05-21-1969 End: 05-21-1979 History of tobacco use Current smoker [facility] Start: 05-21-1969 End: 05-21-1979 History of tobacco use Cigarette Smoker [facility] Start: 09-30-2020 End: 04-02-2024 Alcohol intake Current drinker of alcohol (finding) [facility] Start: 09-30-2020 End: 09-26-2022 Alcohol intake [facility] Start: 05-27-2019 End: 05-12-2022 History SDOH Alcohol Frequency 5 [facility] Start: 05-27-2019 End: 05-12-2022 History SDOH Alcohol Std Drinks 1 [facility] Start: 02-14-2018 History SDOH Alcohol Comment 1-2 glasses of wine daily or every day [facility] Start: 05-27-2019 End: 05-12-2022 History SDOH Social Connections Sikhism 3 [facility] Start: 11-17-2019 History SDOH Physical Activity MPS 8 [facility] Start: 05-27-2019 End: 05-12-2022 History SDOH Transport Med 2 [facility] Start: 05-27-2019 Education 17 [facility] Start: 03-06-2016 End: 04-10-2022 Tobacco Comment social smoker in college [facility] Start: 1950 Sex Assigned At Female [facility] Start: 08-09-2020 End: 04-10-2022 Exposure to SARS-CoV-2 (event) Not sure [facility] Start: 11-17-2021 History SDOH Alcohol Frequency 4 [facility] Start: 02-14-2018 End: 04-02-2024 Tobacco use and exposure Smokeless tobacco non-user [facility] Start: 05-11-2022 End: 09-26-2022 Social connection and isolation panel [facility] Do you belong to any clubs or organizations such as yarsanism groups, unions, fraternal or athletic groups, or school groups? Yes [facility] Are you now , , , , never or living with a partner? [facility] How often to you hav e a drink containing alcohol? 4 or more times a week [facility] How many standard dr inks containing alcohol do you have on a typical day? 1 or 2 [facility] How often do you hav e 6 or more drinks on 1 occasion? Never [facility] How hard is it for y ou to pay for the very basics like food, housing, medical care, and heating Not hard at all [facility] Do you feel stress - tense, restless, nervous, or anxious, or unable to sleep at night because your mind is troubled all the time - these days [OSQ] Only a little [facility] (I/We) worried ulysses er (my/our) food would run out before (I/we) got money to buy more. Never true [facility] In the past 12 month s, was there a time when you were not able to pay the mortgage or rent on time? No [facility] Start: 08-13-2018 Gender identity Identifies as female gender (finding) [facility] Start: 08-13-2018 Sexual orientation Heterosexual (finding) [facility] How often to you hav e a drink containing alcohol? 2-3 time sa week [facility] Do you feel stress - tense, restless, nervous, or anxious, or unable to sleep at night because your mind is troubled all the time - these days [OSQ] To some extent [facility] Do you feel stress - tense, restless, nervous, or anxious, or unable to sleep at night because your mind is troubled all the time - these days [OSQ] Not at all [facility] Start: 04-25-2021 Tobacco smoking status NHIS Never smoked tobacco (finding) [facility] Start: 01-11-2017 Alcohol Alcohol [facility] Start: 01-11-2017 Lives Lives [facility] Medical Equipment Procedure Code Equipment Code Equipment Origin al Text Equipment Identifier Dates Cement Simplex P Bone Radiopaque Full Dose Sterile - [id number] Start: 01-08-2017 Cup Adm Mobile Bearing Hip [facility] 48mm X3 Soliz Acetabular Peripheral - [id number] Start: 03-20-2016 Insert Adm Mobil e Bearing Hip [facility] 48mm 28mm 0d X3 6.9mm Acetabular - [id number] Start: 03-20-2016 Head V40 28mm 0m m Offset Taper Biolox Delta Femoral Hip - [id number] Start: 03-20-2016 Comment on above: Description: BIOLOX DELTA CERAMIC V40 FEMORAL HEAD 28MM +0MM Insert Triathlon 2 X3 11mm Tibial Condylar Stabilized Knee - [id number] Start: 01-08-2017 Component Triath kiara 2 Femoral Cruciate Retain Cemented Knee Left - [id number] Start: 01-08-2017 Component Triath kiara 32mm Asymmetric X3 10mm Patellar Knee - [id number] Start: 01-08-2017 Stem Accolade Ii V40 127d 2 37mm Offset Purefix Titanium Plasma Broad Top 99mm - [id number] Start: 03-20-2016 Comment on above: Description: ACCOLAD E II 127 DEGREE NECK #2 GRETTA #2 nk lnth 30mm 99mm stm lnth v40 tpr Baseplate Triath kiara 2 Tibial Primary Cement Knee - [id number] Start: 01-08-2017 Sling Gynecare T vt Abbrevo Mini Prolene Plastic 12cm Gynecological Mesh - [id number] Start: 12-15-2015 Functional Status Date Assessment Result Facility 01-10-2017 Are you deaf, or do you have serious difficulty hearing No 01/10/2017 12:39 PM Jaxon Grant RN No [facility] 01-10-2017 Are you blind, or do you have serious difficulty seeing, even when wearing glasses No 01/10/2017 12:39 PM Jaxon Grant RN No [facility] 01-10-2017 Do you have serious difficulty walking or climbing stairs Yes 01/10/2017 12:39 PM Jaxon Grant, KIRAN Yes [facility] 01-10-2017 Do you have difficul ty dressing or bathing Yes 01/10/2017 12:39 PM Jaxon Grant, KIRAN Yes [facility] 01-10-2017 Because of a physica l, mental, or emotional condition, do you have difficulty doing errands alone such as visiting a physician's office or shopping Yes 01/10/2017 12:39 PM Jaxon Grant, KIRAN Yes [facility] Mental Status Date Assessment Result Facility 01-10-2017 Because of a physica l, mental, or emotional condition, do you have serious difficulty concentrating, remembering, or making decisions No 01/10/2017 12:39 PM Jaxon Grant RN No [facility] Clinical Notes 01-08-2017 to 10-16-2024 Eusebio Villa MA - 10/16/2024 1:50 PM Eusebio Garcia MA - 10/16/2024 1:38 PM Porfirio Bowden MD - 10/16/2024 1:34 PM Charo Davis MA - 09/26/2024 3:06 PM EDT Note Date & Type Note Facility 10-16-2024 Note HNO ID: [id number] Author: EUSEBIO VILLA MA Service: ? Author Type: Home Health Occupational Therapist Type: Progress Notes Filed: 10/16/2024 14:29 Note Text: Patient has residual of 250cc's after using the restroom. Per Dr. Rollins no botox today. Patient also with positive nitrates and leukocytes. [facility] 10-16-2024 History of Present illness Narrative Patient has residual of 250cc's after using the restroom. Per Dr. Rollins no botox today. Patient also with positive nitrates and leukocytes. PRE CYSTO PROCEDURE ID Verified by: Eusebio Villa MA Procedure Indication:Cystoscopy botox Latex Allergy: No Betadine Allergy: No Lidocaine allergy: No Allergies reviewed and updated. Pre-Procedure Vital Signs: Blood pressure 135/79, pulse 81. Heart valve replacement:No Joint replacement: Yes Pre-Procedure Antibiotics: Cephalexin 500mg given now @ 1:30pm , by Eusebio Villa MA Verified by: Dr. Porfirio Rollins Patient Prep: Betadine Scrub to perineum and placement of Sterile Drape. 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 Jarvis; pt referred to my services in 2019. Also with recurrent UTIs in setting of IC IC and Rec UTI and UFS 1) Refill for Keflex, self-start 2) Refill of Mirabegron, Cytotec and Estradiol cream 4) Increase Probiotic dosing 5) Schedule for Bladder Botox 100 units before she leaves for [employer] in Dec. Here today for Bladder Botox 100 units: Last injection 06/13 UA: Positive PVR: 250 cc's On Vesicare as well. A/P: UTI with UFS 1) Hold Bladder Botox 2) Keflex self-start x 5 days and then Cipro if needed 3) OV in November Porfirio Rollins MD Medical Decision Making: Problems: Moderate: 2+ stable chronic illnesses Data: Unique source(s) for external note(s) reviewed: 2 Unique test result(s) reviewed: 2 Risk: Moderate: Drug management Medical Decision Making Level: 4 - Moderate documented in this encounter [facility] 10-16-2024 Note HNO ID: [id number] Author: EUSEBIO VILLA MA Service: ? Author Type: Home Health Occupational Therapist Type: Progress Notes Filed: 10/16/2024 13:50 Note Text: PRE CYSTO PROCEDURE ID Verified by: Eusebio Villa MA Procedure Indication:Cystoscopy botox Latex Allergy: No Betadine Allergy: No Lidocaine allergy: No Allergies reviewed and updated. Pre-Procedure Vital Signs: Blood pressure 135/79, pulse 81. Heart valve replacement:No Joint replacement: Yes Pre-Procedure Antibiotics: Cephalexin 500mg given now @ 1:30pm , by Eusebio Villa MA Verified by: Dr. Porfirio Rollins Patient Prep: Betadine Scrub to perineum and placement of Sterile Drape. Anesthetic Given: none Eusebio Villa MA [facility] 10-16-2024 Note HNO ID: [id number] Author: PORFIRIO ROLLINS MD Service: ? 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 Jarvis; pt referred to my services in 2019. Also with recurrent UTIs in setting of IC IC and Rec UTI and UFS 1) Refill for Keflex, self-start 2) Refill of Mirabegron, Cytotec and Estradiol cream 4) Increase Probiotic dosing 5) Schedule for Bladder Botox 100 units before she leaves for [employer] [facility] in Dec. Here today for Bladder Botox 100 units: Last injection 06/13 UA: Positive PVR: 250 cc's On Vesicare as well. A/P: UTI with UFS 1) Hold Bladder Botox 2) Keflex self-start x 5 days and then Cipro if needed 3) OV in November Porfirio Rollins MD Medical Decision Making: Problems: Moderate: 2+ stable chronic illnesses Data: Unique source(s) for external note(s) reviewed: 2 Unique test result(s) reviewed: 2 Risk: Moderate: Drug management Medical Decision Making Level: 4 - Moderate [facility] 10-14-2024 Telephone encounter Note Ordered Jessica Hill PA-C [facility] 10-14-2024 Miscellaneous Notes Ordered Jessica Hill PA-C Please see pt message. Esthela order pended. Breonna Camejo MA Dear Dr. Caldwell, I received a reminder to make an appointment for my yearly mammogram. I need to request a prescription/referral from you before I schedule my appointment. Also, the letter stated that I need to bring the prescription with me to the mammogram appointment. Thank you, Franca Valenzuela documented in this encounter [facility] 10-14-2024 Telephone encounter Note Please see pt message. Esthela order pended. Breonna Camejo MA Dear Dr. Caldwell, I received a reminder to make an appointment for my yearly mammogram. I need to request a prescription/referral from you before I schedule my appointment. Also, the letter stated that I need to bring the prescription with me to the mammogram appointment. Thank you, Franca Valenzuela [facility] 10-14-2024 Telephone encounter Note Turned into TE Breonna Camejo MA [facility] 10-14-2024 Miscellaneous Notes Turned into TE Breonna Camejo MA documented in this encounter [facility] 10-03-2024 Note HNO ID: [id number] Author: CHARO UGALDE MA Service: ? Author Type: Home Health Occupational Therapist Type: Progress Notes Filed: 10/03/2024 07:24 Note Text: POPULATION HEALTH NAVIGATION OUTREACH Action/FYI Orders removed since provider did not sign within 7 days and encounter closed. Please have the office reach out to the patient to coordinate any further testing/appointment needs. Navigation Signature: Charo Ugalde MA October 03, 2024 7:[address] [facility] 10-03-2024 Radiology Diagnostic study note [facility] Imaging Services [address] [place] [address] L/S Spine w Bend Min 6 Vw MR#: [id number] Acct: [id number] Name: FRANCA VALENZUELA Rep #: [id number] F [id number] From: Vimal Arana MD PCP: Dr. Gerhard Caldwell, Status: RE G CLI Study:L/S Spine w Bend Min 6 Vw Date of Exam: 10/02/24 Exam# [id number] Ordering Dr: Linh Lala PROCEDURE: L/S SPINE W BEND MIN 6 VW 10/02/2024 REASON FOR EXAM: DDD TECHNIQUE: 6 views, AP, bilateral oblique, lateral, flexion-extension COMPARISON: None available FINDINGS: S shaped thoracolumbar scoliosis with multilevel spondylosis/discogenic change greatest at the upper lumbar spine. The degree of curvature and degenerative changes limits the evaluation. There is no evidence of fracture or spondylolysis identified. L1-2 severe disc space narrowing with degenerative endplate changes and mild retrolisthesis L1 on L2 which appears to mildly possibly increased on the extension view and unchanged on the flexion view. Suggestion of bilateral possible osseous foraminal narrowing L2-3 severe disc space narrowing and degenerative endplate changes with mild retrolisthesis L2 on L3 which also appears to mildly increased on the extension view and unchanged on the flexion. Suggestion of bilateral possible osseous foraminal narrowing L4-5 grade 2 anterolisthesis L4 on L5 appears unchanged with flexion and extension. Moderate disc space narrowing. L5-S1 spondylosis/discogenic change. Multilevel facet degenerative changes. Partially imaged right hip replacement. Left hip osteoarthrosis. RAD/L/S Spine w Bend Min 6 Vw IMPRESSION: S shaped thoracolumbar scoliosis with multilevel spondylosis/discogenic change greatest at the upper lumbar spine. The degree of curvature and degenerative changes limits the evaluation. Multilevel spondylolisthesis as above. Reading Location: [id number] CC: Linh Lala; Dr. Gerhard Caldwell, DO 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: Signed [facility] 09-26-2024 Note Addended by: CHARO UGALDE on: 09/26/2024 03:09 PM Modules accepted: Orders [facility] 09-26-2024 Miscellaneous Notes Addended by: CHARO UGALDE on: 09/26/2024 03:09 PM Modules accepted: Orders documented in this encounter [facility] 09-26-2024 Note HNO ID: [id number] Author: CHARO UGALDE MA Service: ? Author Type: Home Health Occupational Therapist Type: Progress Notes Filed: 09/26/2024 15:09 Note Text: POPULATION HEALTH NAVIGATION OUTREACH Action/FYI Spoke to patient. Scheduled AWV 04/06 with PCP. Declined POP. Noted to address due care gaps. Patient has eye exams done outside [facility] at [facility]. Spoke to office and they will fax over records. KED and A1C pended for PCP review. Reason for Outreach Returned Call/MyChart Patient Contacted: Spoke to patient/parent/or legal guardian Patient identified by name and date of : Yes Returned call/MyChart actions taken: Patient scheduled/pended orders: Medicare Annual Wellness Visit HBA1C KED 10/16/2024 in [facility] with PORFIRIO ROLLINS - Left vm, ms 100 units botox 04/06/2025 in [facility] with GERHARD CALDWELL - Annual Wellness, Please address due care gaps Navigation Signature: Charo Ugalde MA September 26, 2024 3:[address] [facility] 09-26-2024 History of Present illness Narrative POPULATION HEALTH NAVIGATION OUTREACH Action/I Spoke to patient. Scheduled AWV 04/06 with PCP. Declined POP. Noted to address due care gaps. Patient has eye exams done outside [facility] at [facility]. Spoke to office and they will fax over records. KED and A1C pended for PCP review. Reason for Outreach Returned Call/MyChart Patient Contacted: Spoke to patient/parent/or legal guardian Patient identified by name and date of : Yes Returned call/MyChart actions taken: Patient scheduled/pended orders: Medicare Annual Wellness Visit HBA1C KED 10/16/2024 in [facility] with PORFIRIO ROLLINS - Left vm, ms 100 units botox 04/06/2025 in [facility] with GERHARD CALDWELL - Annual Wellness, Please address due care gaps Navigation Signature: Charo Ugalde MA September 26, 2024 3:06 PM POPULATION HEALTH NAVIGATION OUTREACH Action/FYI Patient is on Zero HCC List - Protem PCSA list for below and needs appointment to address: Depression Screening Hepatitis C Screening Diabetic Foot Exam Urine Albumin:Creatinine Ratio Advance Directive Discussion Covid-19 Vaccine( season) Dilated Retinal Exam Hemoglobin A1C (%) Date Value 04/04/2024 6.2 08/30/2020 5.9 Patient due for: Medicare Annual Wellness Visit - last 04/02/24 Diabetic Eye Exam HBA1C KED MyChart Active: Yes Left message for patient to call back. Sent mychart message. HCC: No Last OV: 04-02-24 AWV Next OV: N/A Reason for Outreach Care Gap/HCC or Scheduling Wellness Visits Care Gaps due: Medicare Annual Wellness Visit Diabetic Eye Exam HBA1C KED Patient Contacted: Unable or unnecessary to reach patient: Left message MyChart message sent Navigation Signature: Charo Ugalde MA September 26, 2024 7:30 AM documented in this encounter [facility] 09-26-2024 Note HNO ID: [id number] Author: CHARO UGALDE MA Service: ? Author Type: Home Health Occupational Therapist Type: Progress Notes Filed: 09/26/2024 10:53 Note Text: POPULATION HEALTH NAVIGATION OUTREACH Action/FYI Patient is on Zero HCC List - Protem PCSA list for below and needs appointment to address: Depression Screening Hepatitis C Screening Diabetic Foot Exam Urine Albumin:Creatinine Ratio Advance Directive Discussion Covid-19 Vaccine() Dilated Retinal Exam Hemoglobin A1C (%) Date Value 04/04/2024 6.2 08/30/2020 5.9 Patient due for: Medicare Annual Wellness Visit - last 04/02/24 Diabetic Eye Exam HBA1C KED MyChart Active: Yes Left message for patient to call back. Sent mychart message. HCC: No Last OV: 04-02-24 AWV Next OV: N/A Reason for Outreach Care Gap/HCC or Scheduling Wellness Visits Care Gaps due: Medicare Annual Wellness Visit Diabetic Eye Exam HBA1C KED Patient Contacted: Unable or unnecessary to reach patient: Left message MyChart message sent Navigation Signature: Charo Ugalde MA September 26, 2024 7:[address] [facility] 09-26-2024 Note Patient Outreach (NE TNAV) BIANCAFRANCA ([id number]) 1950 F Date Time Provider Department 09/26/24 CHARO UGALDE During your visit today, we recorded the following information about you: Charo Ugalde MA 09/26/2024 10:53 AM Signed POPULATION HEALTH NAVIGATION OUTREACH Action/FYI Patient is on Zero HCC List - Protem PCSA list for below and needs appointment to address: Depression Screening Hepatitis C Screening Diabetic Foot Exam Urine Albumin:Creatinine Ratio Advance Directive Discussion Covid-19 Vaccine( season) Dilated Retinal Exam Hemoglobin A1C (%) Date Value 04/04/2024 6.2 08/30/2020 5.9 Patient due for: Medicare Annual Wellness Visit - last 04/02/24 Diabetic Eye Exam HBA1C KED MyChart Active: Yes Left message for patient to call back. Sent Smart Panel message. HCC: No Last OV: 04-02-24 AWV Next OV: N/A Reason for Outreach Care Gap/HCC or Scheduling Wellness Visits Care Gaps due: Medicare Annual Wellness Visit Diabetic Eye Exam HBA1C KED Patient Contacted: Unable or unnecessary to reach patient: Left message MyChart message sent Navigation Signature: Charo Ugalde MA September 26, 2024 7:30 AM Charo Ugalde MA 09/26/2024 3:09 PM Signed POPULATION HEALTH NAVIGATION OUTREACH Action/FYI Spoke to patient. Scheduled AWV 04/06 with PCP. Declined POP. Noted to address due care gaps. Patient has eye exams done outside [facility] at [facility]. Spoke to office and they will fax over records. KED and A1C pended for PCP review. Reason for Outreach Returned Call/MyChart Patient Contacted: Spoke to patient/parent/or legal guardian Patient identified by name and date of : Yes Returned call/MyChart actions taken: Patient scheduled/pended orders: Medicare Annual Wellness Visit HBA1C KED 10/16/2024 in [facility] with RIA, PORFIRIO R - Left vm, ms 100 units botox 04/06/2025 in [facility] with GERHARD CALDWELL - Annual Wellness, Please address due care gaps Navigation Signature: Charo Ugalde MA September 26, 2024 3:06 PM Charo Ugalde MA 09/26/2024 3:09 PM Signed Addended by: CHARO UGALDE on: 09/26/2024 03:09 PM Modules accepted: Orders Charo Ugalde MA 10/03/2024 7:24 AM Signed POPULATION HEALTH NAVIGATION OUTREACH Action/FYI Orders removed since provider did not sign within 7 days and encounter closed. Please have the office reach out to the patient to coordinate any further testing/appointment needs. Navigation Signature: Charo Ugalde MA October 03, 2024 7:24 AM Allergies As of Date: 09/26/2024 Noted Allergy Reaction CAT DANDER 10/17/2016 14 - Other: See Comments DOG DANDER 10/17/2016 14 - Other: See Comments DUST 04/18/2006 MOLD 04/18/2006 POLLEN 04/18/2006 Date Reviewed: 04/02/2024 Reviewed by: Zoila Landis LPN - Fully Assessed Reason for Visit: Population Health Navigation Outreach [3910] Cmt: Zero HCC List - Radha PCSA Primary Visit Diagnosis:Controlled type 2 diabetes mellitus without complication, without long-term current use of insulin (HCC) [E11.9] Prescriptions as of 10/03/2024 - DULERA 100-5 mcg/actuation inhaler inhale 2 puffs by mouth and INTO THE LUNGS twice a day as directed - solifenacin (VESICARE) 5 mg tablet Take 1 tablet by mouth once daily as needed. - zolpidem (AMBIEN) 5 mg tablet Take 1 tablet by mouth at bedtime as needed (situational insomnia) for up to 10 days. - mirabegron (MYRBETRIQ) 50 mg Tb24 Take 1 tablet by mouth once daily. - estradiol (ESTRACE) 0.01 % (0.1 mg/gram) vaginal cream Use 1 g vaginally two times a week. - albuterol HFA (PROAIR HFA) 90 mcg/actuation inhaler Inhale 2 Puffs as instructed every 4 hours as needed. - cephALEXin (KEFLEX) 500 mg capsule Take 1 capsule by mouth two times a day. For 3 days; extra capsules given for self-start use when you have symptoms of a bladder infection - Methenamine Hippurate (HIPREX) 1 gram tablet Take 1 tablet by mouth twice daily. - miSOPROStol (CYTOTEC) 200 mcg tablet Take 1 tablet by mouth twice daily. - CPAP/BIPAP/OTHER Supplies for autopap at ?cmH2O Please allow access on PlayEnable to her download DME [employer] - CPAP/BIPAP/OTHER Travel cpap 9cmH2O - meloxicam (MOBIC) 15 mg tablet Take 1 tablet by mouth once daily. - gabapentin (NEURONTIN) 300 mg capsule take 2 capsules by mouth at bedtime if needed - amoxicillin (POLYMOX, AMOXIL) 500 mg capsule Take four capsules one hour before dental procedure. - TENS unit and electrodes cmpk 1 Units as directed. Dx: lumbar DDD, lumbar DJD, chronic low back pain - Magnesium 200 mg tab Take 200 mg by mouth once daily. - L. gasseri-B. bifidum-B longum 1.5 billion cell cap - CALCIUM CARBONATE/VITAMIN D3 (VITAMIN D-3 ORAL) Take 1 tablet by mouth once daily. - triamcinolone ac (more content not included)... [facility] 05-06-2024 Telephone encounter Note Pharmacy is requesting a 90 day supply for pt. Grace Whiteside LPN [facility] 05-06-2024 Miscellaneous Notes Pharmacy is requesting a 90 day supply for pt. Grace Whiteside LPN documented in this encounter [facility] 04-24-2024 Note HNO ID: [id number] Author: PORFIRIO ROLLINS MD Service: ? Author Type: Physician Type: Progress Notes Filed: 04/24/2024 13:00 Note Text: 73 year old female here for botox injection for refractory OAB since her 2016 POP surgery for grade 4 prolapse and MALLORIE for which she had a TVT-Obturator sling placed by Dr. Jarvis; pt referred to my services in 2019. Also with recurrent UTIs in setting of IC IC and Rec UTI and UFS 1) Refill for Keflex, self-start 2) Refill of Mirabegron, Cytotec and Estradiol cream 4) Increase Probiotic dosing 5) Schedule for Bladder Botox 100 units before she leaves for [employer] in Dec. Here today for Bladder Botox 100 units: Last injection 06/13 UA: normal PVR: 100 cc's During great with no issues since her last visit - very pleased with [facility] programs [employer] NOTE / UNIVERSAL PROTOCOL / SAFETY CHECKLIST Sign In History and Physical Exam reviewed and is unchanged. Medication Reconciliation Performed: Yes Primary Diagnosis: Urge Incontinence Informed Consent Discussed: Yes Sign in Communication: Completed After the genitalia were prepped and draped in a sterile manner a timeout was performed which confirmed the above information. A 19 Fr rigid cystoscope was inserted atruamtically through the urethra. The bladder was distended with no abnormalities of the bladder mucosa noted. No bladder stones. 100 units of botox in 200 cc were injected throughout the posterior bladder wall and trigone. There was no major bleeding noted. The cystoscope was removed. Patient tolerated procedure well. A/P: IC and Rec UTI and UFS 1) Bladder Botox 100 units in 5-6 months 2) Revc UTI [facility] plan: Keflex prn and Cipro when needed 3) Vesicare 5 mg every day prn sine Beta-3 agonist are too expensive Porfirio Rollins MD [facility] 04-24-2024 History of Present illness Narrative 73 year old female here for botox injection for refractory OAB since her 2016 POP surgery for grade 4 prolapse and MALLORIE for which she had a TVT-Obturator sling placed by Dr. Jarvis; pt referred to my services in 2019. Also with recurrent UTIs in setting of IC IC and Rec UTI and UFS 1) Refill for Keflex, self-start 2) Refill of Mirabegron, Cytotec and Estradiol cream 4) Increase Probiotic dosing 5) Schedule for Bladder Botox 100 units before she leaves for [employer] [place] in Dec. Here today for Bladder Botox 100 units: Last injection 06/13 UA: normal PVR: 100 cc's During great with no issues since her last visit - very pleased with [facility] NOTE / UNIVERSAL PROTOCOL / SAFETY CHECKLIST Sign In History and Physical Exam reviewed and is unchanged. Medication Reconciliation Performed: Yes Primary Diagnosis: Urge Incontinence Informed Consent Discussed: Yes Sign in Communication: Completed After the genitalia were prepped and draped in a sterile manner a timeout was performed which confirmed the above information. A 19 Fr rigid cystoscope was inserted atruamtically through the urethra. The bladder was distended with no abnormalities of the bladder mucosa noted. No bladder stones. 100 units of botox in 200 cc were injected throughout the posterior bladder wall and trigone. There was no major bleeding noted. The cystoscope was removed. Patient tolerated procedure well. A/P: IC and Rec UTI and UFS 1) Bladder Botox 100 units in 5-6 months 2) Revc UTI [facility] plan: Keflex prn and Cipro when needed 3) Vesicare 5 mg every day prn sine Beta-3 agonist are too expensive Porfirio Rollins MD documented in this encounter [facility] 04-24-2024 Nurse Note NURSE POST PROCEDURE ASSESSMENT Level of Consciousness: Alert and Oriented Transferred: via Ambulation Post Procedure Vital Signs: Not indicated Specimens obtained: None Post Procedure: Cystoscopy WITH BOTOX Discharge Notes: Patient returns to pre-procedure mental status. Patient alert and oriented on discharge. Discharge Pain level: 0 on a scale of 0-10. THE FOLLOWING WAS EVALUATED Motivation To Learn: Interested Family/Significant Other Support: High : Family not present. Cognitive Ability: Alert and oriented Patient Learns Best By:Individual Instruction and Written Material The Following Influencing Factors Were Barriers To This Education Session: Voodoo Factors: No barriers The Following Physical Limitations Were Barriers To This Education Session: None Instruction Provided To: Patient Patient Evaluation:Verbalizes understanding Follow Up Plan: As instructed Supplemental Material Given:Written Material UNIVERSAL PROTOCOL / SAFETY CHECKLIST Procedure to be Performed: cystoscopy with botox Sign In: A Moment of CARE was completed. Personnel directly involved with the procedure wore the appropriate PPE (Personal Protective Equipment). Special equipment: botox setup Patient/Surrogate Stated/Verified: PATIENT VERIFIED(optional for EMERGENT procedures): Patient name, Date of , Relevant allergies, and The intended procedure Time Out Communication: Intended patient and procedure match the source documents. Consent documented and matches the intended procedure. Relevant labs, photos, and/or imaging studies have been reviewed. No correct side/site applicable for marking and visibility. Medications required for procedure verified. Fire risk assessed and interventions discussed. No implant(s) inserted. Sign Out: SIGN OUT (optional for EMERGENT procedures): No specimen collected. All instruments, equipment, possible retained foreign bodies accounted for. Post-procedure follow-up management communicated and Plan of Care Visit completed when applicable. Jaspreet Green LPN [facility] 04-24-2024 Nurse Note NURSE POST PROCEDURE ASSESSMENT Level of Consciousness: Alert and Oriented Transferred: via Ambulation Post Procedure Vital Signs: Not indicated Specimens obtained: None Post Procedure: Cystoscopy WITH BOTOX Discharge Notes: Patient returns to pre-procedure mental status. Patient alert and oriented on discharge. Discharge Pain level: 0 on a scale of 0-10. THE FOLLOWING WAS EVALUATED Motivation To Learn: Interested Family/Significant Other Support: High : Family not present. Cognitive Ability: Alert and oriented Patient Learns Best By:Individual Instruction and Written Material The Following Influencing Factors Were Barriers To This Education Session: Voodoo Factors: No barriers The Following Physical Limitations Were Barriers To This Education Session: None Instruction Provided To: Patient Patient Evaluation:Verbalizes understanding Follow Up Plan: As instructed Supplemental Material Given:Written Material UNIVERSAL PROTOCOL / SAFETY CHECKLIST Procedure to be Performed: cystoscopy with botox Sign In: A Moment of CARE was completed. Personnel directly involved with the procedure wore the appropriate PPE (Personal Protective Equipment). Special equipment: botox setup Patient/Surrogate Stated/Verified: PATIENT VERIFIED(optional for EMERGENT procedures): Patient name, Date of , Relevant allergies, and The intended procedure Time Out Communication: Intended patient and procedure match the source documents. Consent documented and matches the intended procedure. Relevant labs, photos, and/or imaging studies have been reviewed. No correct side/site applicable for marking and visibility. Medications required for procedure verified. Fire risk assessed and interventions discussed. No implant(s) inserted. Sign Out: SIGN OUT (optional for EMERGENT procedures): No specimen collected. All instruments, equipment, possible retained foreign bodies accounted for. Post-procedure follow-up management communicated and Plan of Care Visit completed when applicable. Jaspreet Green LPN PRE CYSTO PROCEDURE ID Verified by: Jaspreet Green LPN Procedure Indication:Cystoscopy with botox Latex Allergy: No Betadine Allergy: No Lidocaine allergy: No Allergies reviewed and updated. Pre-Procedure Vital Signs: Blood pressure 139/84, pulse 81. Heart valve replacement:No Joint replacement: Yes left knee replacement and right hip replacement Pre-Procedure Antibiotics: Cephalexin 500mg given now @ 11:14 am , by Jaspreet Green LPN verified by carolina villa MA Patient Prep: Betadine Scrub to perineum and placement of Sterile Drape. Anesthetic Given: 10 cc 2% Lidocaine elizabeth Green LPN documented in this encounter [facility] 04-24-2024 Nurse Note PRE CYSTO PROCEDURE ID Verified by: Jaspreet Green LPN Procedure Indication:Cystoscopy with botox Latex Allergy: No Betadine Allergy: No Lidocaine allergy: No Allergies reviewed and updated. Pre-Procedure Vital Signs: Blood pressure 139/84, pulse 81. Heart valve replacement:No Joint replacement: Yes left knee replacement and right hip replacement Pre-Procedure Antibiotics: Cephalexin 500mg given now @ 11:14 am , by Jaspreet Green LPN verified by carolina villa MA Patient Prep: Betadine Scrub to perineum and placement of Sterile Drape. Anesthetic Given: 10 cc 2% Lidocaine jealishay Jaspreet Green LPN [facility] 04-02-2024 Note HNO ID: [id number] Author: GERHARD CALDWELL, DO Service: ? Author Type: Physician Type: Progress Notes Filed: 04/02/2024 13:10 Note Text: Franca Valenzuela is a 73 year old female here for a Medicare wellness visit. Medicare Health Risk Assessment General Health Good Exercise: Minutes/Day 30 min Exercise: Days/Week 5 days Alcohol: Daily Use 4 or more times a week Alcohol: Drinks/Day 1 or 2 Alcohol: 6 or more drinks Never Feel off balance No Concerns: Teeth/Dentures No Concerns: Sexual function No Troubled by feelings None of the above Frequency: Eating healthy diet Nearly every day ADLs requiring help None of the above Safety precautions in home/vehicle Yes Smoke, vape, chews tobacco No Difficulty hearing No Difficulty seeing Yes Current Providers Specialists: I have reviewed specialist-related care of the patient in the medical record. Medical/Family history review Reviewed and updated problem list, medical/surgical/family/social history, medications, and allergies. Opioid use review Opioid Medications (last 90 days) No data to display Anxiety/Depression screening PHQ-9 Score: 2 (Minimal Depression) CHARISSA-7 Score: 0. Recommendation: no further intervention at this time Cognitive screening Mini Cog Score: 5 Cognitive screening reviewed and No further action needed (score 3-5). Functional Observation Was the patient's Timed Up AND Go test unsteady or >= 12 seconds? No Advance Care Planning Surrogate decision maker and/or advance care plan documented Measurements BP 116/80 Pulse 64 Temp 36.3 ?C (97.3 ?F) (Temporal) Resp 16 Ht 158.5 cm (5' 2.4) Wt 87.7 kg (193 lb 5.5 oz) BMI 34.91 kg/m? Vision Screening: Follows with optometry/ophthalmology Assessment/Plan Medicare annual wellness visit, subsequent (Z00.00) - Counseled on healthy diet and regular exercise - Fall avoidance information provided - Personalized prevention plan provided - Discussed need for and benefit of weight loss. BMI 34.91 kg/(m2) Gerhard Caldwell DO [facility] 04-02-2024 History of Present illness Narrative Images from the original note were not included. Franca Valenzuela is a 73 year old female here for a Medicare wellness visit. Medicare Health Risk Assessment General Health Good Exercise: Minutes/Day 30 min Exercise: Days/Week 5 days Alcohol: Daily Use 4 or more times a week Alcohol: Drinks/Day 1 or 2 Alcohol: 6 or more drinks Never Feel off balance No Concerns: Teeth/Dentures No Concerns: Sexual function No Troubled by feelings None of the above Frequency: Eating healthy diet Nearly every day ADLs requiring help None of the above Safety precautions in home/vehicle Yes Smoke, vape, chews tobacco No Difficulty hearing No Difficulty seeing Yes Current Providers Specialists: I have reviewed specialist-related care of the patient in the medical record. Medical/Family history review Reviewed and updated problem list, medical/surgical/family/social history, medications, and allergies. Opioid use review Opioid Medications (last 90 days) No data to display Anxiety/Depression screening PHQ-9 Score: 2 (Minimal Depression) CHARISSA-7 Score: 0. Recommendation: no further intervention at this time Cognitive screening Mini Cog Score: 5 Cognitive screening reviewed and No further action needed (score 3-5). Functional Observation Was the patient's Timed Up & Go test unsteady or >= 12 seconds? No Advance Care Planning Surrogate decision maker and/or advance care plan documented Measurements BP 116/80 Pulse 64 Temp 36.3 C (97.3 F) (Temporal) Resp 16 Ht 158.5 cm (5' 2.4) Wt 87.7 kg (193 lb 5.5 oz) BMI 34.91 kg/m Vision Screening: Follows with optometry/ophthalmology Assessment/Plan Medicare annual wellness visit, subsequent (Z00.00) - Counseled on healthy diet and regular exercise - Fall avoidance information provided - Personalized prevention plan provided - Discussed need for and benefit of weight loss. BMI 34.91 kg/(m^2) Gerhard Caldwell DO CC: Franca Valenzuela is a 73 year old female who presents to the office for follow up HPI: Left knee arthritis, osteoarthritis, overall feels she is coping well with intermittent use of meloxicam, no SE with medications, no swelling, no recent falls. IFG, diet controlled, knows need for weight loss. Bladder symptoms, chronic, has been seeing Dr. Rollins for opinion with Urology and testing with urodynamics. Has started the new medication prescribed by specialist which has been helpful which is Mybetriq Will have upcoming travel to [facility] in mid May. Asking for antibiotic to take in case gets UTI- usually benefits from Macrobid. Also asking for Ativan for use prn with flight since will be 24 hours of flight and gets situational anxiety and insomnia during travel. Type 2 diabetes, diet controlled. Obesity, needs to work on weight loss, 193 lbs. PAST MEDICAL HISTORY Diagnosis Date ASTHMA UNSPECIFIED 04/18/2006 Hyperlipidemia 08/30/2009 Impaired fasting glucose 12/20/2009 Glucose 2006 - 107, 2010 - 127 ANGELIKA (obstructive sleep apnea) Osteoarthritis Prolapse of female genital organs Snoring PAST SURGICAL HISTORY Procedure Laterality Date ARTHRP ACETBLR/PROX FEM PROSTC AGRFT/ALGRFT Right 03/20/2016 Hip replacement, total ARTHRP KNE CONDYLE&PLATU MEDIAL&LAT COMPARTMENTS Left 01/08/2017 Knee replacement, total COLONOSCOPY 06/2002 COLONOSCOPY FLX DX W/COLLJ SPEC WHEN PFRMD 02/14/2018 Colonoscopy CORRECTION OF BUNION 2001 also toes straightened bilateral HEART CATHETERIZATION 01/12/2017 [place] HYSTERECTOMY HX 12/15/2015 Total vaginal hysterectomy, uterus <250g, Bilateral salpingo-oophorectomy, Colpopexy, vaginal vault suspension via intraperitoneal approach (uterosacral ligament suspension), Anterior repair, Posterior repair, TVT-O sling, Cystoscopy TONSILLECTOMY HX 3 years old Social History: Social History Tobacco Use Smoking status: Former Current packs/day: 0.00 Average packs/day: 0.5 packs/day for 10.0 years (5.0 ttl pk-yrs) Types: Cigarettes Start date: 05/21/1969 Quit date: 05/21/1979 Years since quittin.8 Smokeless tobacco: Never Tobacco comments: social smoker in college Substance Use Topics Alcohol use: Yes Comment: 1-2 glasses of wine daily or every day Drug use: No FAMILY HISTORY Problem Relation Age of Onset Allergies Mother Arthritis Mother Asthma Mother Hearing Loss Mother Heart Mother triple bypass ASHD Arthritis Father Diabetes Father Current Outpatient prescriptions: mometasone-formoterol (DULERA) 100-5 mcg/actuation inhaler Inhale 2 Puffs as instructed two times a day. zolpidem (AMBIEN) 5 mg tablet Take 1 tablet by mouth at bedtime as needed (situational insomnia) for up to 10 days. LORazepam (ATIVAN) 0.5 mg Take 1 tablet by mouth three times a day as needed (situational anxiety) for up to 30 days. mirabegron (MYRBETRIQ) 50 mg Tb24 Take 1 tablet by mouth once daily. estradiol (ESTRACE) 0.01 % (0.1 mg/gram) vaginal cream Use 1 g vaginally two times a week. albuterol HFA (PROAIR HFA) 90 mcg/actuation inhaler Inhale 2 Puffs as instructed every 4 hours as needed. cephALEXin (KEFLEX) 500 mg capsule Take 1 capsule by mouth two times a day. For 3 days; extra capsules given for self-start use when you have symptoms of a bladder infection Methenamine Hippurate (HIPREX) 1 gram tablet Take 1 tablet by mouth twice daily. miSOPROStol (CYTOTEC) 200 mcg tablet Take 1 tablet by mouth twice daily. CPAP/BIPAP/OTHER Supplies for autopap at ?cmH2O Please allow access on PlayEnable to her download DME [facility] CPAP/BIPAP/OTHER Travel cpap 9cmH2O meloxicam (MOBIC) 15 mg tablet Take 1 tablet by mouth once daily. gabapentin (NEURONTIN) 300 mg capsule take 2 capsules by mouth at bedtime if needed amoxicillin (POLYMOX, AMOXIL) 500 mg capsule Take four capsules one hour before dental procedure. TENS unit and electrodes cmpk 1 Units as directed. Dx: lumbar DDD, lumbar DJD, chronic low back pain Magnesium 200 mg tab Take 200 mg by mouth once daily. L. gasseri-B. bifidum-B longum 1.5 billion cell cap CALCIUM CARBONATE/VITAMIN D3 (VITAMIN D-3 ORAL) Take 1 tablet by mouth once daily. triamcinolone acetonide (NASACORT AQ) 55 mcg nasal inhaler Inhale 2 puffs daily. THERAPEUTIC MULTIVITAMIN TAB Take one(1) tablet daily by mouth Allergies: ALLERGIES Allergen Reactions Cat Dander Other: See Comments Dog Dander Other: See Comments Dust Mold Pollen ROS: See HPI PE: 04/02/24 1158 BP: 116/80 Pulse: 64 Resp: 16 Temp: 36.3 C (97.3 F) TempSrc: Temporal Weight: 87.7 kg (193 lb 5.5 oz) Height: 158.5 cm (5' 2.4) Gen: A&O, NAD, non-toxic appearing, Pleasant, cooperative HEENT: NT/AC, PERRLA, EOMs intact b/l, nares clear and patent b/l, pharynx without erythema, exudate or lesions. Uvula midline. EACs without erythema or debris. TMs pearly chou with intact landmarks b/l. Neck: supple, No cervical LAD, no thyromegaly, no carotid bruits CV: RRR, normal S1 and S2, no murmurs, no gallops, no rubs, Pulses 2+ and symmetric in UE and LE b/l Lungs: normal respiratory effort, CTA b/l, no wheezing or rhonchi or rales Abd: soft, NT, ND, +BS, no hepatosplenomegaly MS: FROM all 4 extremities Neuro: CN II-XII intact b/l, strength 5/5 b/l UE and LE, DTRs 2/4 UE and LE, sensation intact. Skin: warm, dry, intact, No rashes or lesions on exposed skin. No edema, normal pulses ASSESSMENT/PLAN: 1. Controlled type 2 diabetes mellitus without complication, without long-term current use of insulin (HCC) - ICD9: 250.00, ICD10: E11.9 (primary diagnosis) - Control undetermined, due for labs - Blood glucose monitoring on a once daily schedule - Counseled on healthy diet and regular exercise - Discussed need for and benefit of weight loss. BMI 34.91 kg/(m^2) - HEMOGLOBIN A1C - THYROID STIMULATING HORMONE - T4 FREE/FREE THYROXINE 2. Mild intermittent asthma without complication - ICD9: 493.90, ICD10: J45.20 - Mild intermittent asthma stable - Continue current medications - Avoidance of triggers recommended - MOMETASONE-FORMOTEROL HFA 100 MCG-5 MCG/ACTUATION AEROSOL INHALER 3. Situational insomnia - ICD9: 307.41, ICD10: F51.09 rx refilled for prn use for travel - ZOLPIDEM 5 MG TABLET - THYROID STIMULATING HORMONE - T4 FREE/FREE THYROXINE 4. Travel advice encounter - ICD9: V65.49, ICD10: Z71.84 rx refilled for prn use for travel - LORAZEPAM 0.5 MG TABLET 5. Situational anxiety - ICD9: 300.09, ICD10: F41.8 rx refilled for prn use for travel - LORAZEPAM 0.5 MG TABLET 6. Mixed hyperlipidemia - ICD9: 272.2, ICD10: E78.2 - Control undetermined, due for labs - Counseled on healthy diet and regular exercise - COMPREHENSIVE METABOLIC PANEL - COMPLETE BLOOD COUNT AND DIFFERENTIAL - LIPID PANEL BASIC 7. Chronic midline low back pain with bilateral sciatica - ICD9: 724.2, 724.3, 338.29, ICD10: M54.41, M54.42, G89.29 Chronic low back pain - Ice for localized tenderness - Warm moist heat for 20 min three times a day 8. Overactive bladder - ICD9: 596.51, ICD10: N32.81 Continue prn medication Mybetriq 9. Degeneration of intervertebral disc of lumbar region with discogenic back pain and lower extremity pain - ICD9: 722.52, ICD10: M51.362 See above, f/u with specialist Gerhard Caldwell DO To ER if develops chest pain, shortness of breath, or severe worsening of symptoms. Discussed risks, benefits, alternatives, and potential side effects of medications. Patient expressed understanding and agreed with the plan. Gerhard Caldwell DO [address] [place] [address] documented in this encounter [facility] 04-02-2024 Note HNO ID: [id number] Author: GERHARD CALDWELL DO Service: ? Author Type: Physician Type: Progress Notes Filed: 04/02/2024 13:10 Note Text: CC: Franca Valenzuela is a 73 year old female who presents to the office for follow up HPI: Left knee arthritis, osteoarthritis, overall feels she is coping well with intermittent use of meloxicam, no SE with medications, no swelling, no recent falls. IFG, diet controlled, knows need for weight loss. Bladder symptoms, chronic, has been seeing Dr. Rollins for opinion with Urology and testing with urodynamics. Has started the new medication prescribed by specialist which has been helpful which is Mybetriq Will have upcoming travel to [facility] in mid May. Asking for antibiotic to take in case gets UTI- usually benefits from Macrobid. Also asking for Ativan for use prn with flight since will be 24 hours of flight and gets situational anxiety and insomnia during travel. Type 2 diabetes, diet controlled. Obesity, needs to work on weight loss, 193 lbs. PAST MEDICAL HISTORY Diagnosis Date ASTHMA UNSPECIFIED 04/18/2006 Hyperlipidemia 08/30/2009 Impaired fasting glucose 12/20/2009 Glucose 2007 - 107, 2010 - 127 ANGELIKA (obstructive sleep apnea) Osteoarthritis Prolapse of female genital organs Snoring PAST SURGICAL HISTORY Procedure Laterality Date ARTHRP ACETBLR/PROX FEM PROSTC AGRFT/ALGRFT Right 03/20/2016 Hip replacement, total ARTHRP KNE CONDYLEANDPLATU MEDIALANDLAT COMPARTMENTS Left 01/08/2017 Knee replacement, total COLONOSCOPY 06/2002 COLONOSCOPY FLX DX W/COLLJ SPEC WHEN PFRMD 02/14/2018 Colonoscopy CORRECTION OF BUNION 2001 also toes straightened bilateral HEART CATHETERIZATION 01/12/2017 [place] HYSTERECTOMY HX 12/15/2015 Total vaginal hysterectomy, uterus <250g, Bilateral salpingo-oophorectomy, Colpopexy, vaginal vault suspension via intraperitoneal approach (uterosacral ligament suspension), Anterior repair, Posterior repair, TVT-O sling, Cystoscopy TONSILLECTOMY HX 3 years old Social History: Social History Tobacco Use Smoking status: Former Current packs/day: 0.00 Average packs/day: 0.5 packs/day for 10.0 years (5.0 ttl pk-yrs) Types: Cigarettes Start date: 05/21/1969 Quit date: 05/21/1979 Years since quittin.8 Smokeless tobacco: Never Tobacco comments: social smoker in college Substance Use Topics Alcohol use: Yes Comment: 1-2 glasses of wine daily or every day Drug use: No FAMILY HISTORY Problem Relation Age of Onset Allergies Mother Arthritis Mother Asthma Mother Hearing Loss Mother Heart Mother triple bypass ASHD Arthritis Father Diabetes Father Current Outpatient prescriptions: mometasone-formoterol (DULERA) 100-5 mcg/actuation inhaler Inhale 2 Puffs as instructed two times a day. zolpidem (AMBIEN) 5 mg tablet Take 1 tablet by mouth at bedtime as needed (situational insomnia) for up to 10 days. LORazepam (ATIVAN) 0.5 mg Take 1 tablet by mouth three times a day as needed (situational anxiety) for up to 30 days. mirabegron (MYRBETRIQ) 50 mg Tb24 Take 1 tablet by mouth once daily. estradiol (ESTRACE) 0.01 % (0.1 mg/gram) vaginal cream Use 1 g vaginally two times a week. albuterol HFA (PROAIR HFA) 90 mcg/actuation inhaler Inhale 2 Puffs as instructed every 4 hours as needed. cephALEXin (KEFLEX) 500 mg capsule Take 1 capsule by mouth two times a day. For 3 days; extra capsules given for self-start use when you have symptoms of a bladder infection Methenamine Hippurate (HIPREX) 1 gram tablet Take 1 tablet by mouth twice daily. miSOPROStol (CYTOTEC) 200 mcg tablet Take 1 tablet by mouth twice daily. CPAP/BIPAP/OTHER Supplies for autopap at ?cmH2O Please allow access on PlayEnable to her download DME [facility] CPAP/BIPAP/OTHER Travel cpap 9cmH2O meloxicam (MOBIC) 15 mg tablet Take 1 tablet by mouth once daily. gabapentin (NEURONTIN) 300 mg capsule take 2 capsules by mouth at bedtime if needed amoxicillin (POLYMOX, AMOXIL) 500 mg capsule Take four capsules one hour before dental procedure. TENS unit and electrodes cmpk 1 Units as directed. Dx: lumbar DDD, lumbar DJD, chronic low back pain Magnesium 200 mg tab Take 200 mg by mouth once daily. L. gasseri-B. bifidum-B longum 1.5 billion cell cap CALCIUM CARBONATE/VITAMIN D3 (VITAMIN D-3 ORAL) Take 1 tablet by mouth once daily. triamcinolone acetonide (NASACORT AQ) 55 mcg nasal inhaler Inhale 2 puffs daily. THERAPEUTIC MULTIVITAMIN TAB Take one(1) tablet daily by mouth Allergies: ALLERGIES Allergen Reactions Cat Dander Other: See Comments Dog Dander Other: See Comments Dust Mold Pollen ROS: See HPI PE: 04/02/24 1158 BP: 116/80 Pulse: 64 Resp: 16 Temp: 36.3 ?C (97.3 ?F) TempSrc: Temporal Weight: 87.7 kg (193 lb 5.5 oz) Height: 158.5 cm (5' 2.4) Gen: AANDO, NAD, non-toxic appearing, Pleasant, cooperative HEENT: NT/AC, PERRLA, EOMs intact b/l, nares clear and paten (more content not included)... [facility] 02-20-2024 Telephone encounter Note Patient's request for medication is as follows: Requested Prescriptions Signed Prescriptions Disp Refills estradiol (ESTRACE) 0.01 % (0.1 mg/gram) vaginal cream 42.5 g 4 Sig: Use 1 g vaginally two times a week. Authorizing Provider: SOHAM HERMAN Ordering User: PAT BOBO Prescription(s) as above. Please process accordingly. Pat Bobo PA-C [facility] Work Phone: 02-20-2024 Miscellaneous Notes Patient's request for medication is as follows: Requested Prescriptions Signed Prescriptions Disp Refills estradiol (ESTRACE) 0.01 % (0.1 mg/gram) vaginal cream 42.5 g 4 Sig: Use 1 g vaginally two times a week. Authorizing Provider: SOHAM HERMAN Ordering User: PAT BOBO Prescription(s) as above. Please process accordingly. Pat Bobo PA-C Patient last seen 12/06/23. Next appointment 04/24/24. documented in this encounter [facility] 02-20-2024 Telephone encounter Note Patient last seen 12/06/23. Next appointment 04/24/24. [facility] 01-29-2024 Telephone encounter Note Prescription Refill Information The patient has been identified by name and date of : Yes Caregiver verified no other encounters exist for this prescription request: Yes Caregiver confirmed with patient/requestor that no other refills are due, in the near future, with this provider at this time: No The last office visit in the department: 12/05/22 Does the patient have a future office visit with this provider/department: Yes Requested Prescriptions Pending Prescriptions Disp Refills albuterol HFA (PROAIR HFA) 90 mcg/actuation inhaler 8 g 4 Sig: Inhale 2 Puffs as instructed every 4 hours as needed. Bethany Fan MA January 29, 2024 3:23 PM [facility] 01-29-2024 Miscellaneous Notes Prescription Refill Information The patient has been identified by name and date of : Yes Caregiver verified no other encounters exist for this prescription request: Yes Caregiver confirmed with patient/requestor that no other refills are due, in the near future, with this provider at this time: No The last office visit in the department: 12/05/22 Does the patient have a future office visit with this provider/department: Yes Requested Prescriptions Pending Prescriptions Disp Refills albuterol HFA (PROAIR HFA) 90 mcg/actuation inhaler 8 g 4 Sig: Inhale 2 Puffs as instructed every 4 hours as needed. Bethany Fan MA January 29, 2024 3:23 PM documented in this encounter [facility] 12-12-2023 Telephone encounter Note Received CMN from [facility] via fax. Sent back with note that patient has not been seen in office since 09.26.2022 and needs an appointment in order to re-establish care and/or obtain supplies. [facility] 12-12-2023 Miscellaneous Notes Received CMN from Hien Solano via fax. Sent back with note that patient has not been seen in office since 09.26.2022 and needs an appointment in order to re-establish care and/or obtain supplies. documented in this encounter [facility] 12-06-2023 Note HNO ID: [id number] Author: PORFIRIO ROLLINS MD Service: ? Author Type: Physician Type: Progress Notes Filed: 12/06/2023 13:20 Note Text: 73 year old female here for botox injection for refractory OAB since her 2016 POP surgery for grade 4 prolapse and MALLORIE for which she had a TVT-Obturator sling placed by Dr. Jarvis; pt referred to my services in 2019. Also with recurrent UTIs in setting of IC IC and Rec UTI and UFS 1) Refill for Keflex, self-start 2) Refill of Mirabegron, Cytotec and Estradiol cream 4) Increase Probiotic dosing 5) Schedule for Bladder Botox 100 units before she leaves for [employer] in Dec. Here today for Bladder Botox 100 units: Last injection 06/13 UA: normal PVR: 100 cc's During great with no issues since her last visit - very pleased with [facility] NOTE / UNIVERSAL PROTOCOL / SAFETY CHECKLIST Sign In History and Physical Exam reviewed and is unchanged. Medication Reconciliation Performed: Yes Primary Diagnosis: Urge Incontinence Informed Consent Discussed: Yes Sign in Communication: Completed After the genitalia were prepped and draped in a sterile manner a timeout was performed which confirmed the above information. A 19 Fr rigid cystoscope was inserted atruamtically through the urethra. The bladder was distended with no abnormalities of the bladder mucosa noted. No bladder stones. 100 units of botox in 200 cc were injected throughout the posterior bladder wall and trigone. There was no major bleeding noted. The cystoscope was removed. Patient tolerated procedure well. A/P: IC and Rec UTI and UFS 1) Bladder Botox 100 units in 6 months 2) Revc UTI [facility] plan: Keflex prn and Cipro when needed 4) refilled estradiol Porfirio Rollins MD Medical Decision Making: Problems: Low: 2+ self-limited or minor problems Data: Unique source(s) for external note(s) reviewed: 2 Unique test result(s) reviewed: 2 Risk: Moderate: Drug management Medical Decision Making Level: 4 - Moderate [facility] 12-06-2023 History of Present illness Narrative 73 year old female here for botox injection for refractory OAB since her 2016 POP surgery for grade 4 prolapse and MALLORIE for which she had a TVT-Obturator sling placed by Dr. Jarvis; pt referred to my services in 2019. Also with recurrent UTIs in setting of IC IC and Rec UTI and UFS 1) Refill for Keflex, self-start 2) Refill of Mirabegron, Cytotec and Estradiol cream 4) Increase Probiotic dosing 5) Schedule for Bladder Botox 100 units before she leaves for [employer] in Dec. Here today for Bladder Botox 100 units: Last injection 06/13 UA: normal PVR: 100 cc's During great with no issues since her last visit - very pleased with [facility] NOTE / UNIVERSAL PROTOCOL / SAFETY CHECKLIST Sign In History and Physical Exam reviewed and is unchanged. Medication Reconciliation Performed: Yes Primary Diagnosis: Urge Incontinence Informed Consent Discussed: Yes Sign in Communication: Completed After the genitalia were prepped and draped in a sterile manner a timeout was performed which confirmed the above information. A 19 Fr rigid cystoscope was inserted atruamtically through the urethra. The bladder was distended with no abnormalities of the bladder mucosa noted. No bladder stones. 100 units of botox in 200 cc were injected throughout the posterior bladder wall and trigone. There was no major bleeding noted. The cystoscope was removed. Patient tolerated procedure well. A/P: IC and Rec UTI and UFS 1) Bladder Botox 100 units in 6 months 2) Revc UTI [facility] plan: Keflex prn and Cipro when needed 4) refilled estradiol Porfirio Rollins MD Medical Decision Making: Problems: Low: 2+ self-limited or minor problems Data: Unique source(s) for external note(s) reviewed: 2 Unique test result(s) reviewed: 2 Risk: Moderate: Drug management Medical Decision Making Level: 4 - Moderate documented in this encounter [facility] 12-06-2023 Nurse Note NURSE POST PROCEDURE ASSESSMENT Level of Consciousness: Alert and Oriented Transferred: via Ambulation Post Procedure Vital Signs: Not indicated Specimens obtained: None Post Procedure: Cystoscopy Discharge Notes: Patient returns to pre-procedure mental status. Patient alert and oriented on discharge. Discharge Pain level: NA on a scale of 0-10. THE FOLLOWING WAS EVALUATED Motivation To Learn: Interested Family/Significant Other Support: High : Family not present. Cognitive Ability: Alert and oriented Patient Learns Best By:Individual Instruction and Written Material The Following Influencing Factors Were Barriers To This Education Session: Voodoo Factors: No barriers The Following Physical Limitations Were Barriers To This Education Session: None Instruction Provided To: Patient Patient Evaluation:Verbalizes understanding Follow Up Plan: as instructed Supplemental Material Given:Written Material Eusebio Villa MA UNIVERSAL PROTOCOL / SAFETY CHECKLIST Procedure to be Performed: cysto botox Sign In: A Moment of CARE was completed. Personnel directly involved with the procedure wore the appropriate PPE (Personal Protective Equipment). Special equipment: botox set up Patient/Surrogate Stated/Verified: PATIENT VERIFIED(optional for EMERGENT procedures): Patient name, Date of , Relevant allergies, and The intended procedure Time Out Communication: Intended patient and procedure match the source documents. Consent documented and matches the intended procedure. Relevant labs, photos, and/or imaging studies have been reviewed. No correct side/site applicable for marking and visibility. Medications required for procedure verified. Fire risk assessed and interventions discussed. No implant(s) inserted. Sign Out: SIGN OUT (optional for EMERGENT procedures): No specimen collected. No instruments, equipment or retained foreign bodies applicable. Post-procedure follow-up management communicated and Plan of Care Visit completed when applicable. Eusebio Villa MA T [facility] 12-06-2023 Nurse Note NURSE POST PROCEDURE ASSESSMENT Level of Consciousness: Alert and Oriented Transferred: via Ambulation Post Procedure Vital Signs: Not indicated Specimens obtained: None Post Procedure: Cystoscopy Discharge Notes: Patient returns to pre-procedure mental status. Patient alert and oriented on discharge. Discharge Pain level: NA on a scale of 0-10. THE FOLLOWING WAS EVALUATED Motivation To Learn: Interested Family/Significant Other Support: High : Family not present. Cognitive Ability: Alert and oriented Patient Learns Best By:Individual Instruction and Written Material The Following Influencing Factors Were Barriers To This Education Session: Voodoo Factors: No barriers The Following Physical Limitations Were Barriers To This Education Session: None Instruction Provided To: Patient Patient Evaluation:Verbalizes understanding Follow Up Plan: as instructed Supplemental Material Given:Written Material Eusebio Villa MA UNIVERSAL PROTOCOL / SAFETY CHECKLIST Procedure to be Performed: cysto botox Sign In: A Moment of CARE was completed. Personnel directly involved with the procedure wore the appropriate PPE (Personal Protective Equipment). Special equipment: botox set up Patient/Surrogate Stated/Verified: PATIENT VERIFIED(optional for EMERGENT procedures): Patient name, Date of , Relevant allergies, and The intended procedure Time Out Communication: Intended patient and procedure match the source documents. Consent documented and matches the intended procedure. Relevant labs, photos, and/or imaging studies have been reviewed. No correct side/site applicable for marking and visibility. Medications required for procedure verified. Fire risk assessed and interventions discussed. No implant(s) inserted. Sign Out: SIGN OUT (optional for EMERGENT procedures): No specimen collected. No instruments, equipment or retained foreign bodies applicable. Post-procedure follow-up management communicated and Plan of Care Visit completed when applicable. Eusebio Villa MA PRE CYSTO PROCEDURE ID Verified by: Eusebio Villa MA Procedure Indication:Cystoscopy botox Latex Allergy: No Betadine Allergy: No Lidocaine allergy: No Allergies reviewed and updated. Pre-Procedure Vital Signs: There were no vitals taken for this visit. Heart valve replacement:No Joint replacement: No Pre-Procedure Antibiotics: Cipro 500 mg po, given now @ 11:25am , by Bethany Clinton RN Verified by: Carolina Villa MA Patient Prep: Betadine Scrub to perineum and placement of Sterile Drape. Anesthetic Given: 50 cc's of 2% Lidocaine solution instilled into the bladder by ALL Michaud MA NURSE PRE PROCEDURE ASSESSMENT: Patient ID Verified with two identifiers, name and date by Bethany Clinton RN as follows: Patient Name: Date of : Pre Procedure Vital Signs: There were no vitals taken for this visit. Allergies reviewed and updated. Latex Allergy: no Prophylactic Antibiotic Needed: yes per MD taking No Patient currently experiencing pain? No. Pain 0 on scale of 0-10. Pre-Procedure Antibiotics: Cipro 500 mg po, given during visit @ 11:30 , by HAZEL frasermanager rn case: Cystoscopy Botox: Perineal area prepped with betadine scrub and draped. Anesthetic Given: 50cc 2% lidocaine ashley into bladder Physician: Casi Jeff RN documented in this encounter [facility] 12-06-2023 Nurse Note PRE CYSTO PROCEDURE ID Verified by: Eusebio Villa MA Procedure Indication:Cystoscopy botox Latex Allergy: No Betadine Allergy: No Lidocaine allergy: No Allergies reviewed and updated. Pre-Procedure Vital Signs: There were no vitals taken for this visit. Heart valve replacement:No Joint replacement: No Pre-Procedure Antibiotics: Cipro 500 mg po, given now @ 11:25am , by Bethany Clinton RN Verified by: Carolina Villa MA Patient Prep: Betadine Scrub to perineum and placement of Sterile Drape. Anesthetic Given: 50 cc's of 2% Lidocaine solution instilled into the bladder by ALL Michaud MA [facility] 12-06-2023 Nurse Note NURSE PRE PROCEDURE ASSESSMENT: Patient ID Verified with two identifiers, name and date by Bethany Clinton RN as follows: Patient Name: Date of : Pre Procedure Vital Signs: There were no vitals taken for this visit. Allergies reviewed and updated. Latex Allergy: no Prophylactic Antibiotic Needed: yes per MD taking No Patient currently experiencing pain? No. Pain 0 on scale of 0-10. Pre-Procedure Antibiotics: Cipro 500 mg po, given during visit @ 11:30 , by HAZEL frasermanager rn case: Cystoscopy Botox: Perineal area prepped with betadine scrub and draped. Anesthetic Given: 50cc 2% lidocaine ashley into bladder Physician: Casi Jeff, RN [facility] 11-28-2023 Note HNO ID: [id number] Author: YVONNE CHRISTINA MA Service: ? Author Type: Home Health Occupational Therapist Type: Progress Notes Filed: 11/28/2023 12:50 Note Text: POPULATION HEALTH NAVIGATION OUTREACH Action/Adrian Melgar [place] Discuss/Due for: Medicare Wellness, Dilated Retinal Exam, Hgb a1c HCC Score: .[id number] Outcome: 1st attempt - Spoke to patient Scheduled Medicare Wellness Patient reports having scheduled a Dilated Retinal Exam for 01/08/2024 [facility] in [place], patient will obtain results for Gerhard Caldwell DO Patient declined Hgb a1c, will wait for appointment Reason for Outreach Care Gap/HCC or Scheduling Wellness Visits Care Gaps due: Medicare Annual Wellness Visit Diabetic Eye Exam HBA1C Patient Contacted: Spoke to patient/parent/or legal guardian Patient identified by name and : Yes Care Gap/HCC/Scheduling Wellness actions taken: Patient scheduled/pended labs: Medicare Annual Wellness Visit 12/06/2023 in [facility] with PORFIRIO ROLLINS R - 100 UNITS Cystoscopy botox 04/02/2024 in [facility] with GERHARD CALDWELL - MEDICARE WELLNESS Z00.00, HCC GAP CLOSURE , DUE : HGB A1C [facility] related Navigation Signature: Yvonne Christina MA November 28, 2023 9:[address] [facility] 11-28-2023 History of Present illness Narrative POPULATION HEALTH NAVIGATION OUTREACH Action/Adrian Melgar [place] Discuss/Due for: Medicare Wellness, Dilated Retinal Exam, Hgb a1c HCC Score: .[id number] Outcome: 1st attempt - Spoke to patient Scheduled Medicare Wellness Patient reports having scheduled a Dilated Retinal Exam for 01/08/2024 [facility] in [place], patient will obtain results for Gerhard Caldwell DO Patient declined Hgb a1c, will wait for appointment Reason for Outreach Care Gap/HCC or Scheduling Wellness Visits Care Gaps due: Medicare Annual Wellness Visit Diabetic Eye Exam HBA1C Patient Contacted: Spoke to patient/parent/or legal guardian Patient identified by name and : Yes Care Gap/HCC/Scheduling Wellness actions taken: Patient scheduled/pended labs: Medicare Annual Wellness Visit 12/06/2023 in [facility] with PORFIRIO ROLLINS R - 100 UNITS Cystoscopy botox 04/02/2024 in [facility] with GERHARD CALDWELL - MEDICARE WELLNESS Z00.00, HCC GAP CLOSURE , HM DUE : HGB A1C [facility] related Navigation Signature: Yvonne Christina MA November 28, 2023 9:41 AM documented in this encounter [facility] 11-28-2023 Note Patient Outreach (NE TNAV) FRANCA VALENZUELA ([id number]) 1950 F Date Time Provider Department 11/28/23 YVONNE CHRISTINA NETJAGDISHV During your visit today, we recorded the following information about you: Yvonne Christina MA 11/28/2023 12:50 PM Signed POPULATION HEALTH NAVIGATION OUTREACH Action/Adrian Melgar [place] Discuss/Due for: Medicare Wellness, Dilated Retinal Exam, Hgb a1c HCC Score: .[id number] Outcome: 1st attempt - Spoke to patient Scheduled Medicare Wellness Patient reports having scheduled a Dilated Retinal Exam for 01/08/2024 Ekaterina Maravilla in [place], patient will obtain results for Gerhard Caldwell DO Patient declined Hgb a1c, will wait for appointment Reason for Outreach Care Gap/HCC or Scheduling Wellness Visits Care Gaps due: Medicare Annual Wellness Visit Diabetic Eye Exam HBA1C Patient Contacted: Spoke to patient/parent/or legal guardian Patient identified by name and : Yes Care Gap/HCC/Scheduling Wellness actions taken: Patient scheduled/pended labs: Medicare Annual Wellness Visit 12/06/2023 in [facility] with PORFIRIO ROLLINS - 100 UNITS Cystoscopy botox 04/02/2024 in [facility] with GERHARD CALDWELL - MEDICARE WELLNESS Z00.00, HCC GAP CLOSURE , HM DUE : HGB A1C HCC related Navigation Signature: Yvonne Christina MA November 28, 2023 9:41 AM Allergies As of Date: 11/28/2023 Noted Allergy Reaction CAT DANDER 10/17/2016 14 - Other: See Comments DOG DANDER 10/17/2016 14 - Other: See Comments DUST 04/18/2006 MOLD 04/18/2006 POLLEN 04/18/2006 Date Reviewed: 10/10/2023 Reviewed by: Brittany Guan LPN - Fully Assessed Reason for Visit: Population Health Navigation Outreach [3910] Cmt: Adrian Liu [place] Prescriptions as of 11/28/2023 - estradiol (ESTRACE) 0.01 % (0.1 mg/gram) vaginal cream Use 1 g vaginally two times a week. - Methenamine Hippurate (HIPREX) 1 gram tablet Take 1 tablet by mouth twice daily. - ondansetron orally disintegrating (ZOFRAN ODT) 4 mg disintegrating tablet Take 1 tablet by mouth every 8 hours as needed for nausea/vomiting. - zolpidem (AMBIEN) 5 mg tablet Take 1 tablet by mouth at bedtime as needed (situational insomnia) for up to 10 days. - miSOPROStol (CYTOTEC) 200 mcg tablet Take 1 tablet by mouth twice daily. - mirabegron (MYRBETRIQ) 50 mg Tb24 Take 1 tablet by mouth once daily. - CPAP/BIPAP/OTHER Supplies for autopap at ?cmH2O Please allow access on ClassPassview to her download DME [facility] - CPAP/BIPAP/OTHER Travel cpap 9cmH2O - meloxicam (MOBIC) 15 mg tablet Take 1 tablet by mouth once daily. - gabapentin (NEURONTIN) 300 mg capsule take 2 capsules by mouth at bedtime if needed - mometasone-formoterol (DULERA) 100-5 mcg/actuation inhaler Inhale 2 Puffs as instructed twice daily. - albuterol HFA (PROAIR HFA) 90 mcg/actuation inhaler Inhale 2 Puffs as instructed every 4 hours as needed. - amoxicillin (POLYMOX, AMOXIL) 500 mg capsule Take four capsules one hour before dental procedure. - TENS unit and electrodes cmpk 1 Units as directed. Dx: lumbar DDD, lumbar DJD, chronic low back pain - rOPINIRole (REQUIP) 1 mg tablet Take 1-2 tablets by mouth daily at bedtime. For restless legs - Magnesium 200 mg tab Take 200 mg by mouth once daily. - L. gasseri-B. bifidum-B longum 1.5 billion cell cap - CALCIUM CARBONATE/VITAMIN D3 (VITAMIN D-3 ORAL) Take 1 tablet by mouth once daily. - triamcinolone acetonide (NASACORT AQ) 55 mcg nasal inhaler Inhale 2 puffs daily. - THERAPEUTIC MULTIVITAMIN TAB Take one(1) tablet daily by mouth Meds Comments as of 12/05/2022: AZO over the counter Malaria prophylaxis- malarone Oral typhoid vaccine Problem List As Of Date 11/28/2023 Noted Resolved Acute Bronchitis [J20.9] 04/18/2006 12/20/2009 Asthma [J45.909] 04/18/2006 Hyperlipidemia [E78.5] 08/30/2009 IFG (impaired fasting glucose) [R73.01] 12/20/2009 Vitamin D deficiency [E55.9] 03/30/2010 Type II diabetes mellitus (HCC) [E11.9] 08/25/2010 12/22/2016 Depression [F32.A] 01/08/2012 08/13/2015 Stress [F43.9] 01/08/2012 12/22/2016 Pain in left knee [M25.562] 05/03/2015 Generalized osteoarthrosis, involving multiple *05/03/2015 09/11/2015 Pain in right knee [M25.561] 05/11/2015 Female stress incontinence [N39.3] 08/16/2015 Primary osteoarthritis involving multiple joint*09/11/2015 12/14/2015 Osteoarthritis of both knees [M17.0] 12/14/2015 12/22/2016 ANGELIKA (obstructive sleep apnea) [G47.33] 03/06/2016 Hip arthritis [M16.10] 03/20/2016 Urge incontinence [N39.41] 10/02/2016 Osteoarthritis [M19.90] Prolapse of female genital organs [N81.9] 12/22/2016 Special screening for malignant neoplasms, colo*10/17/2016 Controlled type 2 diabetes mellitus without com*10/17/2016 Dyslipidemia [E78.5] 10/17/2016 12/22/2016 Primary osteoarthritis of left knee [M17.12] 12/15/2016 01/09/2017 S/P total (more content not included)... [facility] 10-10-2023 Instructions Daniel Najera PA - 10/10/2023 1:57 PM EDT Rest, increase water intake Motrin or Tylenol as needed for fever or pain. Salt water gargles, chloraseptic spray or lozenges as needed for sore throat. Warm beverages, honey. Nasal saline spray as needed Cool mist humidifier at night A cold normally lasts 7-10 days. If your symptoms are lasting longer, develop fever, or worsening by that time instead of improving then return to clinic or follow up with PCP for re-evaluation. Tylenol (generic acetaminophen) 500 mg-2 tabs every 8 hrs. as needed for fever and aches Ibuprofen 600 mg (3-200mg tablets) every 6 hours -Mucinex (generic is fine) Guaifenesin 1200 mg twice daily to help with cough and to thin out mucus documented in this encounter [facility] 10-10-2023 History of Present illness Narrative This note was created using Pactter. Subjective Franca Valenzuela is a 73 year old female. HPI 73-year-old female presents for congestion, sore throat x 2 days. Patient states she starting sore throat on Sunday. She states that she feels like she has nasal congestion and postnasal drainage. She feels mucus in her throat. She has a little bit of a cough to clear the mucus in the throat. No fevers. No vomiting or diarrhea. Patient unaware of any sick contacts, but does states she was around her grandchildren this weekend. She has not tried anything [id number]-uqa-[id number] for her symptoms. No other complaint. PAST MEDICAL HISTORY Diagnosis Date ASTHMA UNSPECIFIED 04/18/2006 Hyperlipidemia 08/30/2009 Impaired fasting glucose 12/20/2009 Glucose 2007 - 107, 2009 - 127 ANGELIKA (obstructive sleep apnea) Osteoarthritis Prolapse of female genital organs Snoring PAST SURGICAL HISTORY Procedure Laterality Date ARTHRP ACETBLR/PROX FEM PROSTC AGRFT/ALGRFT Right 03/20/2016 Hip replacement, total ARTHRP KNE CONDYLE&PLATU MEDIAL&LAT COMPARTMENTS Left 01/08/2017 Knee replacement, total COLONOSCOPY 06/2002 COLONOSCOPY FLX DX W/COLLJ SPEC WHEN PFRMD 02/14/2018 Colonoscopy CORRECTION OF BUNION 2001 also toes straightened bilateral HEART CATHETERIZATION 01/12/2017 [place] HYSTERECTOMY HX 12/15/2015 Total vaginal hysterectomy, uterus <250g, Bilateral salpingo-oophorectomy, Colpopexy, vaginal vault suspension via intraperitoneal approach (uterosacral ligament suspension), Anterior repair, Posterior repair, TVT-O sling, Cystoscopy TONSILLECTOMY HX 3 years old ALLERGIES Cat Dander, Dog Dander, Dust, Mold, and Pollen MEDICATIONS estradiol (ESTRACE) 0.01 % (0.1 mg/gram) vaginal cream Use 1 g vaginally two times a week. zolpidem (AMBIEN) 5 mg tablet Take 1 tablet by mouth at bedtime as needed (situational insomnia) for up to 10 days. miSOPROStol (CYTOTEC) 200 mcg tablet Take 1 tablet by mouth twice daily. CPAP/BIPAP/OTHER Supplies for autopap at ?cmH2O Please allow access on PlayEnable to her download DME [facility] CPAP/BIPAP/OTHER Travel cpap 9cmH2O meloxicam (MOBIC) 15 mg tablet Take 1 tablet by mouth once daily. mometasone-formoterol (DULERA) 100-5 mcg/actuation inhaler Inhale 2 Puffs as instructed twice daily. albuterol HFA (PROAIR HFA) 90 mcg/actuation inhaler Inhale 2 Puffs as instructed every 4 hours as needed. amoxicillin (POLYMOX, AMOXIL) 500 mg capsule Take four capsules one hour before dental procedure. TENS unit and electrodes cmpk 1 Units as directed. Dx: lumbar DDD, lumbar DJD, chronic low back pain Magnesium 200 mg tab Take 200 mg by mouth once daily. L. gasseri-B. bifidum-B longum 1.5 billion cell cap CALCIUM CARBONATE/VITAMIN D3 (VITAMIN D-3 ORAL) Take 1 tablet by mouth once daily. triamcinolone acetonide (NASACORT AQ) 55 mcg nasal inhaler Inhale 2 puffs daily. THERAPEUTIC MULTIVITAMIN TAB Take one(1) tablet daily by mouth Methenamine Hippurate (HIPREX) 1 gram tablet Take 1 tablet by mouth twice daily. ondansetron orally disintegrating (ZOFRAN ODT) 4 mg disintegrating tablet Take 1 tablet by mouth every 8 hours as needed for nausea/vomiting. mirabegron (MYRBETRIQ) 50 mg Tb24 Take 1 tablet by mouth once daily. (Patient not taking: Reported on 06/07/2023) gabapentin (NEURONTIN) 300 mg capsule take 2 capsules by mouth at bedtime if needed rOPINIRole (REQUIP) 1 mg tablet Take 1-2 tablets by mouth daily at bedtime. For restless legs FAMILY HISTORY Problem Relation Age of Onset Allergies Mother Arthritis Mother Asthma Mother Hearing Loss Mother Heart Mother triple bypass ASHD Arthritis Father Diabetes Father Social History Tobacco Use Smoking status: Former Packs/day: 0.50 Years: 10.00 Additional pack years: 0.00 Total pack years: 5.00 Types: Cigarettes Quit date: 05/21/1979 Years since quittin.4 Smokeless tobacco: Never Tobacco comments: social smoker in college Substance Use Topics Alcohol use: Yes Comment: 1-2 glasses of wine daily or every day Drug use: No Review of Systems Constitutional: Negative for chills and fever. HENT: Positive for congestion, postnasal drip and sore throat. Negative for ear pain. Respiratory: Positive for cough. Negative for shortness of breath. Cardiovascular: Negative for chest pain. Gastrointestinal: Negative for diarrhea and vomiting. Objective BP 138/82 Pulse 73 Temp 36.6 C (97.9 F) (Tympanic) Resp 18 Wt 81.8 kg (180 lb 5.4 oz) SpO2 98% BMI 31.95 kg/m Physical Exam Vitals and nursing note reviewed. Constitutional: General: She is not in acute distress. Appearance: Normal appearance. She is not toxic-appearing. HENT: Right Ear: Tympanic membrane and ear canal normal. Left Ear: Tympanic membrane and ear canal normal. Nose: Nose normal. Mouth/Throat: Mouth: Mucous membranes are moist. Pharynx: Uvula midline. Posterior oropharyngeal erythema present. No oropharyngeal exudate. Comments: + Tonsillectomy Eyes: Conjunctiva/sclera: Conjunctivae normal. Cardiovascular: Rate and Rhythm: Normal rate and regular rhythm. Pulmonary: Effort: Pulmonary effort is normal. Breath sounds: Normal breath sounds. Musculoskeletal: Cervical back: Full passive range of motion without pain. Lymphadenopathy: Cervical: No cervical adenopathy. Neurological: Mental Status: She is alert. Assessment and Plan ASSESSMENT/PLAN: 1. Sore throat - ICD9: 462, ICD10: J02.9 (primary diagnosis) - suspect viral - Group A strep molecular testing negative - Discussed supportive care treatment with fluids, rest and analgesia. - The patient may also use warm salt water gargles, throat lozenges and/or OTC throat spray as needed. - STREP A MOLECULAR (POC) 2. URI, acute - ICD9: 465.9, ICD10: J06.9 - Discussed viral etiology and rationale for treatment. - Symptomatic treatment with prn analgesia - Supportive care with fluids and rest - COVID & INFLUENZA A/B & RSV NAAT, ROUTINE -Out of window for Tamiflu. Diagnosis and treatment plan were discussed and questions were answered to the patient's satisfaction. Pt acknowledged understanding of concepts and follow up plan. Specific signs and symptoms that would indicate the need for higher level of care were discussed in detail warranting prompt ER evaluation. TRACI Prater documented in this encounter [facility] 09-17-2023 Note Formatting of this n ote might be different from the original. September 17, 2023 PID: [id number] Franca Valenzuela [address] [place] [address] Dear Ms. Valenzuela, We are pleased to inform you that the results of your recent breast imaging exam on 09/14/2023 are normal. Early detection of cancer is very important. We also understand recommendations regarding breast cancer screening are controversial. Please discuss with your primary care provider which strategy is best for you and whether a mammogram is right for you. Your imaging studies and report will be kept on file at [facility] as part of your permanent medical record and are available for your continuing care. Thank you for allowing us to help in meeting your health care needs. Sincerely, Dr. Hoover Interpreting Radiologist [facility] (Normal over 40) [facility] 09-17-2023 Miscellaneous Notes September 17, 2023 PID: [id number] Franca Valenzuela [address] [place] [address] Dear Ms. Valenzuela, We are pleased to inform you that the results of your recent breast imaging exam on 09/14/2023 are normal. Early detection of cancer is very important. We also understand recommendations regarding breast cancer screening are controversial. Please discuss with your primary care provider which strategy is best for you and whether a mammogram is right for you. Your imaging studies and report will be kept on file at [facility] as part of your permanent medical record and are available for your continuing care. Thank you for allowing us to help in meeting your health care needs. Sincerely, Dr. Hoover Interpreting Radiologist [facility] (Normal over 40) documented in this encounter [facility] 09-14-2023 History of Present illness Narrative Radiology Service Progress Note PATIENT NAME: Franca Valenzuela DATE OF SERVICE: September 14, 2023 TIME: 1:11 PM PATIENT IDENTITY VERIFICATION COMPLETED USING TWO (2) IDENTIFIERS: Name and Date of confirmed by patient verbally. FALL SCREENING: Has the patient had 2 falls in the last year or 1 fall with injury or currently using an Ambulatory Assistive Device (Walker, Cane, Wheelchair, Crutches, etc.)? No PATIENT GENDER DATA: Female. status: : No status: NO. PATIENT RELEVANT IMPLANT DATA REVIEWED: Not Applicable PATIENT PRESENTS WITH AN IMPLANTABLE OR ATTACHED RESPIRATORY CARE ASSISTANT: No RADIOLOGY DEPARTMENT: Mammography PERIPHERAL IV DATA: Not applicable SIGNED BY: Allyssa Encarnacion September 14, 2023 1:11 PM documented in this encounter [facility] 01-16-2023 History of Present illness Narrative Episode Visit Count: 9 Therapist That Will Accept/Oversee The Plan Of Care: Jane López Start of Care Date: 09/25/22 Onset Date: 09/25/21 Plan of Care Certification Date: 01/16/23 Next Certification Due Date: 01/16/23 REHABILITATION AND SPORTS THERAPY PHYSICAL THERAPY DISCONTINUANCE OF CARE PLAN OF CARE UPDATE: Assessment: Franca Valenzuela is discontinued from Physical Therapy services due to goal achievement.. Patient was seen for 9 visits from Start of Care Date: 09/25/22 to 01/16/2023 and treatment included: Therapeutic exercise, Neuromuscular re-education, and Self-fdc management. Goals for Episode of Care: created on 09/25/22 through 11/06/22 Goals updated on 10/13/2022 through 11/24/22 Goals updated on 11/24/2022 through 12/29/22 Goals updated on 01/16/2023. Independent in home exercises. -- MET Patient will decrease pain rating by 2 points to meet minimal clinical important difference for numeric pain rating scale. -- MET Restore pain-free lumbar ROM to minimal to no limitation flexion, extension, and side flexion each side to allow for transitional movements and lifting without limitation due to increased symptoms. -- MET Stand / Walk 30-45 minutes without increased LBP pain/symptoms. -- MET Sleep through night without pain/symptoms. -- MET Maintain proper sitting posture throughout session -- MET Patient will be able to tolerate ascending 1 flight of steps 1x with or without hand rails and either step to or reciprocal pattern without increased symptoms. -- MET Patient Goals: self manage low back pain -- MET, she is not taking medication NEW GOALS: Goals updated on 11/24/2022 through 12/29/22 Goals updated on 01/16/2023. Pt. Will negotiate x 1 set of steps (standard 8 ht.) with x1 rail without increased LBP. -- PARTIALLY MET, non reciprocal pattern with descending steps Pt. Will amb x 1-2 mile walking program 2-3 times a week without limitation due to increased low back pain. -- MET SUBJECTIVE: Pt. reports not doing HEP consistently due to being on vacation on an [place] trip. She did well with the bouncy safari ride but not so well with the plane ride back. She reports no pain today. Pt. hasn't been taking her meloxicam in a week.. Patient Goals: Pt. would like to walk for exercise at least 2 miles Functional Limitations: lifting, carrying Pain: Pain Pain Level: 0 Pain Location: Low Back/Lumbar Spine- Midline Description: Tightness Frequency: Sitting, Walking, Continuous Post Treatment Pain Post Treatment Pain Level: 0 Post Treatment Pain Location: Low Back/Lumbar Spine- Midline PROMIS Scales Higher is Better 01/14/2023 11/23/2022 09/22/2022 Phys Func - Score 41 (mild dysfunction) 42 (mild dysfunction) 39 (moderate dysfunction) Phys Func - Percentile 18 % 21 % 14 % Self-Eff Symptom - Score 46 (Average) 44 (Average) 42 (Average) Self-Eff Symptom - Percentile 34 % 27 % 21 % T-scores: mean of general population = 50. 5 points is clinically meaningfully difference Percentiles provide an indication of how the patient's score ranks in relation to the general population. Higher percentile rankings indicate better function/quality of life. 50th percentile is the average of the general population and indicates half of respondents had a worse score. OBJECTIVE MEASURES WITH LEVEL OF FUNCTION: TREATMENT: Therapeutic Exercise: 1: standing TA pull down 1x12 green band, too easy - 1x12 blue band 2: B KTC 3x30 sec 3: *BTB issued 4: hook lying TA activation 3x10 5: hook lying TA opposite UE/LE raises 3x30 sec, 2x./day (cues for correct techniqute at - july rather than heel slide) 6: standing blue band single arm row 2x12 each side, twice daily 7: seated repeated lumbar flexion 1x12 8: paloff press blue band 1x12 each side Skilled Intervention: Patient was educated in proper exercise technique and purpose for exercises. Skilled judgment was provided in selection of appropriate interventions. Correct performance of therapeutic exercises was facilitated with verbal, visual, and tactile cuing. Additional time necessary for assessing progress toward goals due to DC today. Educated patient on rationale for performing exercises in regards to decreasing fatigue , increase ease of ADL, and ROM and function . Patient education as noted. Billing Therapeutic Exercise Treatment Minutes: 30 Total Treatment Time Minutes (timed/untimed): 30 Session Start Time : 804 Session Stop Time : 834 Jane López, PT documented in this encounter [facility] 12-20-2022 History of Present illness Narrative Episode Visit Count: 8 Therapist That Will Accept/Oversee The Plan Of Care: Jane López Start of Care Date: 09/25/22 Onset Date: 09/25/21 Plan of Care Certification Date: 11/24/22 Next Certification Due Date: 12/29/22 REHABILITATION AND SPORTS THERAPY PHYSICAL THERAPY TREATMENT NOTE ASSESSMENT: Franca Valenzuela tolerated the session with no issues. She demonstrated difficulty with hip abduction . The patient will continue to benefit from ongoing skilled physical therapy . PLAN FOR NEXT VISIT: Pt f/u with PT 01/16/23. F/u with referring provider 01/17/23. Determine DC or PN based on symptoms while pt. on vacation in [place] SUBJECTIVE: Subjective: Pt. reports her back is feeling better. Had a couple of events within the family that required her assitsance with grandchildren. Despite this, she had no trouble with prolonged standing at [place] for [employer]. Functional Limitations: lifting, carrying Pain: Pain Pain Level: 2 Pain Location: Low Back/Lumbar Spine- Midline Description: Tightness Frequency: Sitting, Walking, Continuous Post Treatment Pain Post Treatment Pain Level: Better Post Treatment Pain Location: Low Back/Lumbar Spine- Midline OBJECTIVE MEASURES WITH LEVEL OF FUNCTION: TREATMENT: Therapeutic Exercise: 1: SciFit stepper 1:1 throughout level 1, subjective taken 5 min 2: *hook lying TA activation 2x10, 5 sec hold each, 2-3 times a day 3: *hook lying TA opposite UE/LE raises 3x30 sec, 2x./day 4: *SL hip abd to 45 degrees of elevation, 2x10 each side 5: *standing TA pull down 3x12, twice dialy 6: *standing green band single arm row 3x12 each side, twice daily (cues at shoulders to avoid trunk rotation) Skilled Intervention: Patient was educated in proper exercise technique and purpose for exercises. Reviewed and educated patient on additions/changes for home exercise program as above (*). Skilled judgment was provided in selection of appropriate interventions. Provided written instruction for home exercise program to facilitate proper performance and compliance. Correct performance of therapeutic exercises was facilitated with verbal, visual, and tactile cuing. Educated patient on rationale for performing exercises in regards to decreasing fatigue , increase ease of ADL, and ROM and function . Patient education as noted. Billing Therapeutic Exercise Treatment Minutes: 40 Total Treatment Time Minutes (timed/untimed): 40 Session Start Time : 1020 Session Stop Time : 1100 Jane López PT documented in this encounter [facility] 12-18-2022 History of Present illness Narrative 71 year old female here for botox injection for refractory OAB since her 2016 POP surgery for grade 4 prolapse and MALLORIE for which she had a TVT-Obturator sling placed by Dr. Jarvis; pt referred to my services in 2019 Last botox injection 02/09; lesion noted on posterior wall of bladder Developed infection Managed for IC with Cytotec and Probiotics Last OV 07/13 cystoscopy showing one ulcer lesion noted on the posteriorl wall PVR 150 Plan- keflex for 60 days, continue cytotec and probiotics Today, E coli UTI on 08/04 completing macrobid course currently Patient is here today for UDS and cystoscopy with bladder biopsy Janelle NEGRON NOTE / UNIVERSAL PROTOCOL / SAFETY CHECKLIST Sign In History and Physical Exam reviewed and is unchanged. Primary Diagnosis: Recurrent UTI and bladder lesion Sign in Communication: Completed Time Out: Immediately prior to procedure, Team Confirms the Correct Patient, Correct Procedure; Cystoscopy, Correct Site and Site Marking, Correct Position (if applicable). Sign Out: Sign Out Discussion: Completed Details of Procedure: Cystoscopy 16 Fr flexible cystoscope inserted in the urethra. Circumferential cystoscopy performed. Some global bladder mucosal irritation. A 1cm erythematous patch on posterior bladder wall. Using flexible graspers a single cold cup biopsy was taken. Fulguration was performed and hemostasis achieved. Urethra:No polyps or lesions. No stricture. No mesh exposure. Bladder: No lesions or tumors Rt ureter: nl, clear Clear efflux; Left ureter: nl clear efflux A/P: 71 yo female with recurrent UTI and history of obturator sling 2016, also with IC managed with cytotec and probiotics, and OAB. UDS today- doubt obstruction from sling - doubt obstruction from sling, sling incision would likely not improve symptoms - cystoscopy today showing bladder mucosal irritation-recent UTI 08/04 - s/p bladder biopsy of posterior wall erythematous area - urine sent for cytology - restart Keflex 250 mg at bedtime and complete for another 60 days after her present keflex script is done. She will restart the Keflex after completion of Nitrofurantoin Course is completed this week. -continue cytotec and probiotics for IC - - f/u visit in 3 months at [facility] office Dr. Gabriele Rollins MD I have seen and evaluated the patient and discussed the case with the resident physician. I agree with the assessment and plan as documented in the resident s note. I was physically present during the entire procedure or the critical portion and immediately available during the entire procedure. Porfirio Rollins MD Medical Decision Making: Problems: Moderate: 2+ stable chronic illnesses Data: Unique source(s) for external note(s) reviewed: 2 Unique test result(s) reviewed: 2 Risk: Moderate: Moderate risk from testing/treatment and Drug management Medical Decision Making Level: 4 - Moderate documented in this encounter [facility] 12-18-2022 Nurse Note UNIVERSAL PROTOCOL / SAFETY CHECKLIST Procedure to be Performed: cysto/botox Sign In: A Moment of CARE was completed. Personnel directly involved with the procedure wore the appropriate PPE (Personal Protective Equipment). Special equipment: botox set up Patient/Surrogate Stated/Verified: PATIENT VERIFIED(optional for EMERGENT procedures): Patient name, Date of , Relevant allergies, and The intended procedure Time Out Communication: Intended patient and procedure match the source documents. Consent documented and matches the intended procedure. Relevant labs, photos, and/or imaging studies have been reviewed. No correct side/site applicable for marking and visibility. Medications required for procedure verified. Fire risk assessed and interventions discussed. No implant(s) inserted. Sign Out: SIGN OUT (optional for EMERGENT procedures): No specimen collected. All instruments, equipment, possible retained foreign bodies accounted for. Post-procedure follow-up management communicated and Plan of Care Visit completed when applicable. NURSE POST PROCEDURE ASSESSMENT Level of Consciousness: Alert and Oriented Transferred: via Ambulation Post Procedure Vital Signs: Not indicated Specimens obtained: UA Post Procedure: Cystoscopy and botox Discharge Notes: Patient returns to pre-procedure mental status. Patient alert and oriented on discharge. Discharge Pain level: 0 on a scale of 0-10. THE FOLLOWING WAS EVALUATED Motivation To Learn: Interested Family/Significant Other Support: Family not present. Cognitive Ability: Alert and oriented Patient Learns Best By:Individual Instruction,Written Material The Following Influencing Factors Were Barriers To This Education Session: Voodoo Factors: No barriers The Following Physical Limitations Were Barriers To This Education Session: None Instruction Provided To: Patient Patient Evaluation:Verbalizes understanding Follow Up Plan: Follow up as needed Supplemental Material Given:Written Material Sharon Velazquez (Rn) Sharon Velazquez RN PRE CYSTO PROCEDURE ID Verified by: Sharon Velazquez RN Procedure Indication:Cystoscopy and botox Latex Allergy: No Betadine Allergy: No Lidocaine allergy: No Allergies reviewed and updated. Pre-Procedure Vital Signs: Blood pressure 164/82, pulse 80. Heart valve replacement:No Joint replacement: No Pre-Procedure Antibiotics: cephalexin , taken prior to visit @ home Patient Prep: Betadine Scrub to perineum and placement of Sterile Drape. Anesthetic Given: 50 cc's of 2% Lidocaine solution instilled into the bladder by sharon Velazquez RN documented in this encounter [facility] 12-18-2022 Instructions Porfirio Rollins MD - 12/18/2022 2:29 PM EDT Medical [facility] Plan for Mid-Levels and Internists: Recurrent UTI Step Prevention Program: Takes 6 months before it is fully in effect! This is not a treatment program for each time you may get a breakthrough infection in the future or while you are waiting for the prevention program to take effect over the next 6 months. Your primary care team will treat any breakthrough infections or provide refills for any of suggestions below. The following is the recommended treatment to PREVENT recurrent urinary tract infections. 1) Topical estrogen cream for atrophic vaginitis: estrace cream fingertip application every other night - indicated in patients even with a history of breast cancer 2) Probiotics: take any brand once daily: Jose De Jesus 3) A good bowel regimen to promote a BM each day or by every 3rd day - your medical team may be of help here 4) We are adding Hiprex 1 gram pill twice a day as an oral antiseptic to take while your are in [place] and for 3 months total therapy until your probiotics have more time to work. 5) For break through infections over the next 6 months, use a 3 day course of Keflex in which you use 1 pill 2 x a day for 3 days; if symptoms persists and you think you have a UTI while in [place], then start Ciprofloxacin 500 mg bid x 3 days. Patient Information: Topical estrogen cream is recommended to restore the vaginal epithelium to its pre menopausal state. With a decrease in estrogen after menopause, the vaginal environment changes. This can lead to increased itchiness, dryness, and irritation. The environment becomes more basic/alkaline to a pH of 6.0 to 7.5. Normally the pH level is around 3.5 to 4.5. A different bacterial cely then begins to colonize the vagina which can lead to increased urinary tract infections. In order to re-establish the good bacteria cely, it is important to get the vaginal epithelium back to its pre menopausal state. This can be done with topical estrogen cream. A pea sized amount on the tip of the finger used every other night can do this. It takes about six months for the environment to become hospitable to good bacteria. During this time your doctor may or may not also prescribe a low dose daily antibiotic to decrease your chance of infections. Side effects of topical estrogen use include breast tenderness, vaginal bleeding or spotting, nonphysiologic discharge, vaginal irritation, burning and itching. If you have a history of deep vein thrombosis, pulmonary embolism, uterine cancer or estrogen receptor positive breast cancer, you may want to discuss this with your doctor prior to starting topical estrogen use. Histology slides of vaginal epithelium without estrogen then with estrogen supplementation. Epi stands for epithelium. Progress and Prospects in Treating Postmenopausal Vaginal atrophy. Clinical pharmacology & Therapeutics, Vol 89 Number 1, May 2010 Probiotics also helps in re-establishing the good bacteria in the vaginal cely. Numerous probiotics are available over the counter to use. This can also help with establishing a good bowel regimen. Given the bowels close proximity to both the vagina and urethra/bladder, it is important to have regular bowel movements to decrease voiding symptoms and also decrease the risk of urinary tract infections. A good bowel regimen help with decreasing colonic cely in the perineal area. This can be done with stool softeners available over the counter to gentle laxatives such as miralax. We would suggest avoiding shelter use of laxatives though and if you would like a consult with gastroenterology for additional evaluation please ask. Along with these three strategies to prevent recurrent infections, your doctor may add additional strategies tailored to your situation. We are commonly asked whether taking cranberry extract will prevent urinary tract infections. documented in this encounter [facility] 12-14-2022 History of Present illness Narrative CMN RECEIVED BY [employer] VIA FAX, COMPLETED, AND PLACED IN PROVIDER MAILBOX FOR SIGNATURE Peter Carias, Administration Assistance 12/14/22 [email or web address] SENDING CMN: Hien Solano SIGNED AND DATED CMN, FAXED TO [employer] & CONFIRMATION PAGE RECEIVED: 12/18/22 documented in this encounter [facility] 12-14-2022 History of Present illness Narrative CC: Patient presents with: UTI: Possible uti, bladder pain x 2 days Was recently diagnosed with UTI and took 7 days of Macrobid felt a little better but symptoms feel very pronounced at this time. NYDIA Valenzuela is a 72 year old female who presents with complaint of possible UTI. These symptoms have been present for 2 days. Associated symptoms: burning and pressure Denies: fever, chills, sweats, abdominal pain, and flank pain Treatments: nothing The ROS was otherwise negative. PMH, Medications, labs, allergies, and recent past visits with PCP were reviewed and updated as able. PHYSICAL EXAM: BP 134/76 Pulse 90 Temp 36.5 C (97.7 F) Resp 21 Wt 84.6 kg (186 lb 6.4 oz) SpO2 95% BMI 33.03 kg/m General: Well appearing and alert CV: Regular rate and rhythm without obvious murmur Lungs: clear to auscultation bilaterally Back: straight and symmetric Abdomen: soft, nontender, nondistended PAST MEDICAL HISTORY Diagnosis Date ASTHMA UNSPECIFIED 04/18/2006 Hyperlipidemia 08/30/2009 Impaired fasting glucose 12/20/2009 Glucose 2007 - 107, 2010 - 127 ANGELIKA (obstructive sleep apnea) Osteoarthritis Prolapse of female genital organs Snoring PAST SURGICAL HISTORY Procedure Laterality Date ARTHRP ACETBLR/PROX FEM PROSTC AGRFT/ALGRFT Right 03/20/2016 Hip replacement, total ARTHRP KNE CONDYLE&PLATU MEDIAL&LAT COMPARTMENTS Left 01/08/2017 Knee replacement, total COLONOSCOPY 06/2002 COLONOSCOPY FLX DX W/COLLJ SPEC WHEN PFRMD 02/14/2018 Colonoscopy CORRECTION OF BUNION 2001 also toes straightened bilateral HEART CATHETERIZATION 01/12/2017 [place] HYSTERECTOMY HX 12/15/2015 Total vaginal hysterectomy, uterus <250g, Bilateral salpingo-oophorectomy, Colpopexy, vaginal vault suspension via intraperitoneal approach (uterosacral ligament suspension), Anterior repair, Posterior repair, TVT-O sling, Cystoscopy TONSILLECTOMY HX 3 years old ALLERGIES Cat Dander, Dog Dander, Dust, Mold, and Pollen MEDICATIONS ondansetron orally disintegrating (ZOFRAN ODT) 4 mg disintegrating tablet Take 1 tablet by mouth every 8 hours as needed for nausea/vomiting. LORazepam (ATIVAN) 0.5 mg Take 1 tablet by mouth three times daily as needed (situational anxiety) for up to 30 days. zolpidem (AMBIEN) 5 mg tablet Take 1 tablet by mouth at bedtime as needed (situational insomnia) for up to 10 days. estradiol (ESTRACE) 0.01 % (0.1 mg/gram) vaginal cream Use 1 g vaginally two times a week. miSOPROStol (CYTOTEC) 200 mcg tablet Take 1 tablet by mouth twice daily. mirabegron (MYRBETRIQ) 50 mg Tb24 Take 1 tablet by mouth once daily. CPAP/BIPAP/OTHER Supplies for autopap at ?cmH2O Please allow access on [employer] to her download DME [employer] CPAP/BIPAP/OTHER Travel cpap 9cmH2O meloxicam (MOBIC) 15 mg tablet Take 1 tablet by mouth once daily. mometasone-formoterol (DULERA) 100-5 mcg/actuation inhaler Inhale 2 Puffs as instructed twice daily. albuterol HFA (PROAIR HFA) 90 mcg/actuation inhaler Inhale 2 Puffs as instructed every 4 hours as needed. amoxicillin (POLYMOX, AMOXIL) 500 mg capsule Take four capsules one hour before dental procedure. TENS unit and electrodes cmpk 1 Units as directed. Dx: lumbar DDD, lumbar DJD, chronic low back pain Magnesium 200 mg tab Take 200 mg by mouth once daily. L. gasseri-B. bifidum-B longum 1.5 billion cell cap CALCIUM CARBONATE/VITAMIN D3 (VITAMIN D-3 ORAL) Take 1 tablet by mouth once daily. triamcinolone acetonide (NASACORT AQ) 55 mcg nasal inhaler Inhale 2 puffs daily. THERAPEUTIC MULTIVITAMIN TAB Take one(1) tablet daily by mouth cephALEXin (KEFLEX) 500 mg capsule Take 1 capsule by mouth four times daily for 10 days. gabapentin (NEURONTIN) 300 mg capsule take 2 capsules by mouth at bedtime if needed rOPINIRole (REQUIP) 1 mg tablet Take 1-2 tablets by mouth daily at bedtime. For restless legs FAMILY HISTORY Problem Relation Age of Onset Allergies Mother Arthritis Mother Asthma Mother Hearing Loss Mother Heart Mother triple bypass ASHD Arthritis Father Diabetes Father Social History Tobacco Use Smoking status: Former Packs/day: 0.50 Years: 10.00 Total pack years: 5.00 Types: Cigarettes Quit date: 05/21/1979 Years since quittin.5 Smokeless tobacco: Never Tobacco comments: social smoker in college Substance Use Topics Alcohol use: Yes Alcohol/week: 1.7 standard drinks of alcohol Comment: 1-2 glasses of wine daily or every day Drug use: No ASSESSMENT/PLAN: 1. Bladder pain - ICD9: 788.99, ICD10: R39.89 - UA DIP, URINE (POC) - URINE CULTURE - CEPHALEXIN 500 MG CAPSULE Was okay with trying Keflex at this time due to previous culture. If we need to change medication after the culture comes back patient is okay with changing it. Patient was instructed about red flag symptoms and to go to the ER if they occur. Patient was okay with this care plan. Stacia Willard APRN.NAZANIN Prescription instructions reviewed with patient as applicable. Potential red flag symptoms discussed with the patient. Reviewed appropriate action plan to take if red flag symptoms occur. Patient agreeable to treatment plan. Stacia Willard APRN.NAZANIN documented in this encounter [facility] 12-11-2022 Miscellaneous Notes Pt notified of results via [employer]. Bethany Fan Ma Please inform patient that her urine culture did show + UTI for E coli sensitive for antibiotic macrobid which is what she was given on 12/05. Let me know if she isn't feeling better Gerhard Caldwell DO documented in this encounter [facility] 12-05-2022 History of Present illness Narrative CC: Franca Valenzuela is a 72 year old female who presents to the office for follow up HPI: Type 2 diabetes, controlled Hemoglobin A1C Date Value Ref Range Status 12/04/2022 6.2 (H) 4.3 - 5.6 % Final Comment: [place] [employer] guidelines indicate that patients with HgbA1c in the range 5.7-6.4% are at increased risk for development of diabetes, and intervention by lifestyle modification may be beneficial. HgbA1c greater or equal to 6.5% is considered diagnostic of diabetes. 03/15/2022 6.1 (H) 4.3 - 5.6 % Final Comment: [place] [employer] guidelines indicate that patients with HgbA1c in the range 5.7-6.4% are at increased risk for development of diabetes, and intervention by lifestyle modification may be beneficial. HgbA1c greater or equal to 6.5% is considered diagnostic of diabetes. 08/30/2020 5.9 (H) 4.3 - 5.6 % Final Comment: [place] [employer] guidelines indicate that patients with HgbA1c in the range 5.7-6.4% are at increased risk for development of diabetes, and intervention by lifestyle modification may be beneficial. HgbA1c greater or equal to 6.5% is considered diagnostic of diabetes. 11/27/2019 5.8 (H) 4.3 - 5.6 % Final Comment: [place] [employer] guidelines indicate that patients with HgbA1c in the range 5.7-6.4% are at increased risk for development of diabetes, and intervention by lifestyle modification may be beneficial. HgbA1c greater or equal to 6.5% is considered diagnostic of diabetes. 12/06/2018 5.6 4.3 - 5.6 % Final Left knee arthritis, osteoarthritis, overall feels she is coping well with intermittent use of meloxicam, no SE with medications, no swelling, no recent falls. IFG, diet controlled, knows need for weight loss. Bladder symptoms, chronic, has been seeing Dr. Rollins for opinion with Urology and testing with urodynamics. Hasn't started the new medication prescribed by specialist Will have upcoming travel to [facility] in mid December. Asking for antibiotic to take in case gets UTI- usually benefits from Macrobid. Also asking for Ativan for use prn with flight since will be 24 hours of flight and gets situational anxiety and insomnia during travel. PAST MEDICAL HISTORY Diagnosis Date ASTHMA UNSPECIFIED 04/18/2006 Hyperlipidemia 08/30/2009 Impaired fasting glucose 12/20/2009 Glucose 2006 - 107, 2010 - 127 ANGELIKA (obstructive sleep apnea) Osteoarthritis Prolapse of female genital organs Snoring PAST SURGICAL HISTORY Procedure Laterality Date ARTHRP ACETBLR/PROX FEM PROSTC AGRFT/ALGRFT Right 03/20/2016 Hip replacement, total ARTHRP KNE CONDYLE&PLATU MEDIAL&LAT COMPARTMENTS Left 01/08/2017 Knee replacement, total COLONOSCOPY 06/2002 COLONOSCOPY FLX DX W/COLLJ SPEC WHEN PFRMD 02/14/2018 Colonoscopy CORRECTION OF BUNION 2001 also toes straightened bilateral HEART CATHETERIZATION 01/12/2017 [place] HYSTERECTOMY HX 12/15/2015 Total vaginal hysterectomy, uterus <250g, Bilateral salpingo-oophorectomy, Colpopexy, vaginal vault suspension via intraperitoneal approach (uterosacral ligament suspension), Anterior repair, Posterior repair, TVT-O sling, Cystoscopy TONSILLECTOMY HX 3 years old Current Outpatient Medications Medication Sig estradiol (ESTRACE) 0.01 % (0.1 mg/gram) vaginal cream Use 1 g vaginally two times a week. miSOPROStol (CYTOTEC) 200 mcg tablet Take 1 tablet by mouth twice daily. mirabegron (MYRBETRIQ) 50 mg Tb24 Take 1 tablet by mouth once daily. meloxicam (MOBIC) 15 mg tablet Take 1 tablet by mouth once daily. mometasone-formoterol (DULERA) 100-5 mcg/actuation inhaler Inhale 2 Puffs as instructed twice daily. albuterol HFA (PROAIR HFA) 90 mcg/actuation inhaler Inhale 2 Puffs as instructed every 4 hours as needed. amoxicillin (POLYMOX, AMOXIL) 500 mg capsule Take four capsules one hour before dental procedure. TENS unit and electrodes cmpk 1 Units as directed. Dx: lumbar DDD, lumbar DJD, chronic low back pain Magnesium 200 mg tab Take 200 mg by mouth once daily. L. gasseri-B. bifidum-B longum 1.5 billion cell cap CALCIUM CARBONATE/VITAMIN D3 (VITAMIN D-3 ORAL) Take 1 tablet by mouth once daily. triamcinolone acetonide (NASACORT AQ) 55 mcg nasal inhaler Inhale 2 puffs daily. THERAPEUTIC MULTIVITAMIN TAB Take one(1) tablet daily by mouth ondansetron orally disintegrating (ZOFRAN ODT) 4 mg disintegrating tablet Take 1 tablet by mouth every 8 hours as needed for nausea/vomiting. nitrofurantoin monohydrate and macrocrystal (MACROBID) 100 mg capsule Take 1 capsule by mouth twice daily with meals for 7 days. LORazepam (ATIVAN) 0.5 mg Take 1 tablet by mouth three times daily as needed (situational anxiety) for up to 30 days. zolpidem (AMBIEN) 5 mg tablet Take 1 tablet by mouth at bedtime as needed (situational insomnia) for up to 10 days. CPAP/BIPAP/OTHER Supplies for autopap at ?cmH2O Please allow access on [employer]Enable to her download DME [employer] CPAP/BIPAP/OTHER Travel cpap 9cmH2O gabapentin (NEURONTIN) 300 mg capsule take 2 capsules by mouth at bedtime if needed rOPINIRole (REQUIP) 1 mg tablet Take 1-2 tablets by mouth daily at bedtime. For restless legs No current facility-administered medications for this visit. ALLERGIES Allergen Reactions Cat Dander Other: See Comments Dog Dander Other: See Comments Dust Mold Pollen Social History Tobacco Use Smoking status: Former Packs/day: 0.50 Years: 10.00 Total pack years: 5.00 Types: Cigarettes Quit date: 05/21/1979 Years since quittin.5 Smokeless tobacco: Never Tobacco comments: social smoker in college Substance Use Topics Alcohol use: Yes Alcohol/week: 1.7 standard drinks of alcohol Comment: 1-2 glasses of wine daily or every day Drug use: No ROS: See HPI PE: BP 146/96 Pulse 64 Temp (Src) 97.4 (Left Tympanic) Resp 16 Wt 186 lb (84.4kg) Gen: A&OX3, NAD, non-toxic appearing HEENT: PERRLA, EOMs intact b/l, nares without drainage, pharynx without erythema, exudate, lesions, or drainage. Uvula midline. Neck: No LAD, no thyromegaly, no meningismus. CV: RRR, no murmur Lungs: CTA b/l, no wheezing Skin: No rashes, lesions, or wounds on exposed skin. Varicose veins No edema Normal peripheral pulses Central overweight ASSESSMENT/PLAN: 1. Controlled type 2 diabetes mellitus without complication, without long-term current use of insulin ([facility]) - ICD9: 250.00, ICD10: E11.9 (primary diagnosis) - Controlled - Continue current medications - Blood glucose monitoring on a once daily schedule - Counseled on healthy diet and regular exercise - Discussed need for and benefit of weight loss. BMI 32.96 kg/(m^2) 2. Travel advice encounter - ICD9: V65.49, ICD10: Z71.84 She will be traveling to [place] for 15 days. She has medication already for typhoid and malaria and other vaccines per health departments. - ONDANSETRON 4 MG DISINTEGRATING TABLET - NITROFURANTOIN MONOHYDRATE & MACROCRYSTAL 100 MG ORAL CAP - LORAZEPAM 0.5 MG TABLET - NITROFURANTOIN MONOHYDRATE & MACROCRYSTAL 100 MG ORAL CAP 3. Situational anxiety - ICD9: 300.09, ICD10: F41.8 She will be traveling to [place] for 15 days. She has medication already for typhoid and malaria and other vaccines per health departments. rx only for travel - LORAZEPAM 0.5 MG TABLET 4. Situational insomnia - ICD9: 307.41, ICD10: F51.09 She will be traveling to [place] for 15 days. She has medication already for typhoid and malaria and other vaccines per health departments. rx only for travel - ZOLPIDEM 5 MG TABLET 5. Dysuria - ICD9: 788.1, ICD10: R30.0 acute - UA positive for anny esterase, hematuria, proteinuria, and nitrates She will start on macrobid - Patient education for prevention given - UA DIP, URINE (POC) - URINE CULTURE 6. Mixed hyperlipidemia - ICD9: 272.2, ICD10: E78.2 - Control undetermined, due for labs - Counseled on healthy diet and regular exercise 7. Chronic midline low back pain with bilateral sciatica - ICD9: 724.2, 724.3, 338.29, ICD10: M54.41, M54.42, G89.29 Chronic low back pain - Ice for localized tenderness - Warm moist heat for 20 min three times a day Seems to be improving with PHYSICAL THERAPY 8. Overactive bladder - ICD9: 596.51, ICD10: N32.81 F/u with Urologist Gerhard Caldwell DO PDMP website checked and validated. All prescriptions have been APPROPRIATELY filled. No suspicious activity was identified. 12/06/2022 by Gerhard Caldwell DO Return if no improvement. Follow up with Gerhard Caldwell DO. To ER if develops chest pain, shortness of breath. Discussed risks, benefits, alternatives, and potential side effects of medications. Patient/Guardian expressed understanding and agreed with the plan. See patient instructions. Gerhard Caldwell DO [id number] [place] [address] documented in this encounter [facility] 11-24-2022 History of Present illness Narrative Episode Visit Count: 6 Therapist That Will Accept/Oversee The Plan Of Care: Jane López Start of Care Date: 09/25/22 Onset Date: 09/25/21 Plan of Care Certification Date: 11/24/22 Next Certification Due Date: 12/29/22 [facility] PHYSICAL THERAPY PROGRESS REPORT PLAN OF CARE UPDATE: Assessment: Franca Valenzuela demonstrates improvements in rising from a chair, standing, walking in the community, stair negotiation, physical activities, recreational activities, and sleeping. She has progressed toward goals. Patient continues to present with impairments in ADL's, gait, independence in exercise, overall function, patient reported outcome measures, strength, and symptom management that interfere with lifting, carrying . Current prognosis is Good due to: within-session changes, good support system/ coping skills, current objective clinical presentation . She will benefit from continued skilled therapy services to meet the updated goals for this plan of care as noted below. Goals for Episode of Care: created on 09/25/22 through 11/06/22 Goals updated on 10/13/2022 through 11/24/22 Goals updated on 11/24/2022 through 12/29/22 Independent in home exercises. -- MET Patient will decrease pain rating by 2 points to meet minimal clinical important difference for numeric pain rating scale. -- MET Restore pain-free lumbar ROM to minimal to no limitation flexion, extension, and side flexion each side to allow for transitional movements and lifting without limitation due to increased symptoms. -- MET Stand / Walk 30-45 minutes without increased LBP pain/symptoms. -- MET Sleep through night without pain/symptoms. -- MET Maintain proper sitting posture throughout session -- MET Patient will be able to tolerate ascending 1 flight of steps 1x with or without hand rails and either step to or reciprocal pattern without increased symptoms. -- MET Patient Goals: self manage low back pain -- MET, she is not taking medication NEW GOALS: Goals updated on 11/24/2022 through 12/29/22 Pt. Will negotiate x 1 set of steps (standard 8 ht.) with x1 rail without increased LBP. -- PROGRESSING Pt. Will amb x 1-2 mile walking program 2-3 times a week without limitation due to increased low back pain. -- PROGRESSING Patient Goals: Pt. would like to walk for exercise at least 2 miles Planned Interventions, Frequency, and Duration: 1x/week, 6 weeks Total Number of Visits Planned: 6 Patient to be seen for Therapeutic exercise (68882), Neuromuscular re-education (64238), Manual therapy (99968), Therapeutic activities (97287), Self-fdc management (37844), Gait Training ([id number]), Body Mechanics Training, Patient/Family/Caregiver Education PLAN FOR NEXT VISIT: Pt. would like to continue PT. She would like to become independent with a walking program and anticipates difficulty with climbing steps into a jeep for an safari trip planned at the end of summer. SUBJECTIVE: Patient Reason for Visit: Pt. reports overall she is feeling better. She thinks she may need a new mattress. She states that she isn't doing the best at managing her symptoms, but is trying to correct her posture. Pt. reports that she negociated steps well while on vacation but is mindful of the way she carries laundry baskets. Pt. will see Dr. Zhong January 17. Pt. will be going on vacation tomorrow for a week. She would like to continue PT to become independent with a walking program and prevent worsening symptoms before her next vacation.. Patient Goals: Pt. would like to walk for exercise at least 2 miles Functional Limitations: lifting, carrying Pain: Pain Pain Level: 3 Pain Location: Low Back/Lumbar Spine- Midline Description: Aching Frequency: Sitting, Walking, Continuous Post Treatment Pain Post Treatment Pain Level: Better Post Treatment Pain Location: Low Back/Lumbar Spine- Midline PROMIS Scales Higher is Better 11/23/2022 09/22/2022 Phys Func - Score 42 (mild dysfunction) 39 (moderate dysfunction) Phys Func - Percentile 21 % 14 % Self-Eff Symptom - Score 44 (Average) 42 (Average) Self-Eff Symptom - Percentile 27 % 21 % T-scores: mean of general population = 50. 5 points is clinically meaningfully difference Percentiles provide an indication of how the patient's score ranks in relation to the general population. Higher percentile rankings indicate better function/quality of life. 50th percentile is the average of the general population and indicates half of respondents had a worse score. OBJECTIVE MEASURES WITH LEVEL OF FUNCTION: Lumbar Spine AROM Lumbar Flexion: Normal Lumbar Extension: Normal Lumbar R Side-Bend: Normal Lumbar L Side-Bend: Moderate limitation, Produces (right side) Lumbar R Rotation: Normal Lumbar L Rotation: Normal Gait Gait: Independent Gait Distance (feet): 50 Gait Device: None Gait Deviations: General Deviations General Deviations/Observations: Lateral sway increased (slight sway to the right) TREATMENT: Therapeutic Exercise: 1: SciFit stepper 1:1 throughout level 2, subjective taken 2: B KTC 3x30 sec 3: S KTC 3x30 sec each side 4: seatedTA activation 2x10 5: seated lumbar flexion 2x10 6: lumbar flexion, extension, side bend R and L, rotation R and L, SG R and L 1x each Skilled Intervention: Patient was educated in proper exercise technique and purpose for exercises. Reviewed and educated patient on additions/changes for home exercise program as above (*). Skilled judgment was provided in selection of appropriate interventions. Additional time necessary for assessing progress toward goals due to PN today. Educated patient on rationale for performing exercises in regards to decreasing fatigue , improving fitness, increase ease of ADL, and ROM and function . Patient education as noted. Billing Therapeutic Exercise Treatment Minutes: 40 Total Treatment Time Minutes (timed/untimed): 40 Jane López PT documented in this encounter [facility] 11-23-2022 History of Present illness Narrative S: 72 yo with recurrent UTIs in setting of IC O: Completed 60 day course of Keflex we started in August/September Did well through October and just recenlty had UTI in November 18 responsive to Keflex self-start for 5 days. A/P: As above - IC and Rec UTI 1) Refill for Keflex, self-start 2) Refill of Mirabegron, Cytotec and Estradiol cream 4) Increase Probiotic dosing 5) Schedule for Bladder Botox 100 units before she leaves for [employer] in Dec. Porfirio Rollins MD Medical Decision Making: Problems: Moderate: 2+ stable chronic illnesses Data: Unique source(s) for external note(s) reviewed: 2 Unique test result(s) reviewed: 1 Risk: Moderate: Drug management Medical Decision Making Level: 4 - Moderate documented in this encounter [facility] 11-23-2022 Nurse Note Post Void Residual done on patient with 180 cc residual volume remaining. notified. Eusebio Feliz MA documented in this encounter [facility] 10-03-2022 History of Present illness Narrative Episode Visit Count: 3 Therapist That Will Accept/Oversee The Plan Of Care: Jane López Start of Care Date: 09/25/22 Onset Date: 09/25/21 Plan of Care Certification Date: 09/25/22 Next Certification Due Date: 10/30/22 REHABILITATION AND SPORTS THERAPY PHYSICAL THERAPY TREATMENT NOTE ASSESSMENT: Franca Valenzuela tolerated the session with increased symptoms. She demonstrated improvements in symptom intensity immediately following single and double KTC lumbar flexion stretches in hook lying. The patient will continue to benefit from ongoing skilled physical therapy to progress toward set goals. Current Frequency: 2x/week PLAN FOR NEXT VISIT: Consider progressing TA stabilization to standing SUBJECTIVE: Patient Reason for Visit: Pt. reports standing for hours over the weekend watching grandchildren's sports. Pain onset during the standing. Repeated lumbar flexion exercises continue to be helpful. Pain: Pain Pain Level: 8 Pain Location: Low Back/Lumbar Spine- Midline Description: Aching Frequency: Sitting, Walking, Continuous Post Treatment Pain Post Treatment Pain Level: 5 Post Treatment Pain Location: Low Back/Lumbar Spine- Midline Post Treatment Pain Description: Aching OBJECTIVE MEASURES WITH LEVEL OF FUNCTION: Repeated Test Movements - Lumbar RFIL - Symptoms During: decreases RFIL - Symptoms After: better TREATMENT: Therapeutic Exercise: 1: B KTC 3x30 sec 2: S KTC 3x30 sec each side 3: hook lying TA activation 2x10 4: hook lying TA activation 2x10, 10 sec hold, abdominal brace BUE on physioball 5: hook lying BLE on 55 cm physioball B hip flexion repeated 1x20 6: hook lying alt BUE raises, with physioball 55 cm 2x10 7: hook lying opposite UE/LE raises with 55 cm physioball 2x10 8: hooklying TA alt bent knee fall outs 2x10 Skilled Intervention: Patient was educated in proper exercise technique and purpose for exercises. Skilled judgment was provided in selection of appropriate interventions. Provided written instruction for home exercise program to facilitate proper performance and compliance. Correct performance of therapeutic exercises was facilitated with verbal and visual cuing. Educated patient on rationale for performing exercises in regards to decreasing fatigue , increase ease of ADL, and ROM and function . Patient education as noted. Self-Fpc Management: 1: *discussed using a timer for 20-30 seconds rather than counting reps if its difficult to focus on maintaining TA contraction with hook lying strengthening 2: discussed phyioball size used in PT, pt. can purchase a ball but it is not manditory for effective core stabilization strengthening. Skilled Intervention: Skilled judgment in the selection of proper modification for activity of daily living/home management based on clinical presentation, deficits, and needs. Provided written instruction for activities of daily living techniques to facilitate proper performance and compliance. Reviewed patient specific diagnosis in relation to activities of daily living/home management. Activity progression based on professional judgement. Reviewed and educated patient on additions/changes for home program as noted above with an (*). Provided written instruction for home program to facilitate proper performance and compliance. Correct performance of home program was facilitated with verbal, visual, and tactile cueing. Billing Therapeutic Exercise Treatment Minutes: 35 Self-Care/Home Management Treatment Minutes: 5 Total Treatment Time Minutes (timed/untimed): 40 Jane López PT documented in this encounter [facility] 09-28-2022 Miscellaneous Notes [facility] message sent documented in this encounter [facility] 09-27-2022 Miscellaneous Notes Images from the original note were not included. documented in this encounter [facility] 09-27-2022 Miscellaneous Notes Images from the original note were not included. documented in this encounter [facility] 09-26-2022 Miscellaneous Notes Addended by: ERICA LONG on: 09/26/2022 11:42 AM Modules accepted: Orders documented in this encounter [facility] 09-26-2022 History of Present illness Narrative Images from the original note were not included. [facility] Follow up/ Established patient visit I have communicated my name and active licensure. The patient's identity and physical location were verified at the time of this visit. Either the patient or their legal bottling equipment sales representative has been informed of the risks and benefits of -- and alternatives to -- treatment through a remote evaluation and consents to proceed with the evaluation remotely. In [employer] [facility] [employer] Date of last visit : 07/23/2020 Per last visit: Assessment and Plan: ASSESSMENT/PLAN: 1. ANGELIKA on CPAP - ICD9: 327.23, V46.8, ICD10: G47.33, Z99.89 (primary diagnosis) Doing well on PAP from both subjective and objective standpoints. Encouraged compliance. Reminded to clean and replace equipment regularly. Advised not to drive or operate heavy machinery if sleepy. Reminded of risk and precautions of PAP use in setting of COVID 19. 2. RLS (restless legs syndrome) - ICD9: 333.94, ICD10: G25.81 3. Nocturnal leg cramps - ICD9: 327.52, ICD10: G47.62 Leg cramps during the night. Question if these symptoms might in fact represent RLS given nocturnal nature and urge for movement. Prior Ferritin checks all >100. Patient has never taken gabapentin consistently as Rx'd. Will have patient again restart gabapentin 300mg QHS and titrate up to 600mg QHS after 3-5 days if tolerating. Would like her to continue medication for at least 2 weeks and contact us at such time to let us know if symptoms improving. In addition pt has follow up scheduled with PCP in 3 weeks - if gabapentin not providing relief, may need labs to evaluate for other causes including Ca, Mg, Na, CPK... Jose Syed MD I spent a total of 32 minutes on the date of the service which included preparing to see the patient, [id number] patient care, completing clinical documentation, obtaining and/or reviewing separately obtained history, performing a medically appropriate examination, counseling and educating the patient/family/caregiver, independently interpreting results (not separately reported) and communicating results to the patient/family/caregiver (results being PAP download). PDMP website checked and validated. All prescriptions have been APPROPRIATELY filled. No suspicious activity was identified. 07/23/2020 by Jose Syed MD Interval history : Reports was told by [facility] she needed script for supplies. Reports device is still working. Has been debating getting a travel device. Here for follow up for ANGELIKA and RLS SLEEP APNEA Sleep apnea type : ANGELIKA, Most Recent Apnea-Hypopnea Index (AHI): ? Treatment : PAP therapy, resemed DME: [facility] PAP History: Uses AutoPAP for 4+ hours per night, 7 nights per week. Current PAP setting: ? cm H2O. Difficulties with AutoPAP: None Reviewed objective PAP compliance data: n/a Mask type: nasal pillow mask, dreamwear? Mask issues: none Uses humidity: no There is a perceived benefit by the patient: feels better with use Observers report abolition of snoring with AutoPAP use. Ferritin Date Value Ref Range Status 12/22/2016 103.4 14.7 - 205.1 ng/mL Final 03/06/2016 106.0 18.0 - 300.0 ng/mL Final Transferrin Saturation Date Value Ref Range Status 12/22/2016 15 15 - 57 % Final 03/06/2016 17 11 - 46 % Final Hemoglobin Date Value Ref Range Status 03/15/2022 14.1 11.5 - 15.5 g/dL Final 11/17/2021 14.2 11.5 - 15.5 g/dL Final PATIENT-ENTERED QUESTIONNAIRE SLEEP SCORES Sleep Questions 09/23/2022 Reason for visit: Sleep apnea Average hours slept in 24 hours: 7 Average hours of CPAP per night: 7 Percent of nights CPAP used at least 4 hours: 100 Accidents or near accidents due to drowsy drivin [place] Sleepiness Scale 04/28/2020 09/23/2022 Score 8 (No daytime sleepiness) 5 (No daytime sleepiness) PROMIS CAT Sleep Disturbance 04/28/2020 09/23/2022 PROMIS Sleep Disturbance T-Score 54 (within normal limits) 44 (within normal limits) PROMIS Sleep Disturbance Percentile 34 % 73 % PHQ-9 04/28/2020 09/23/2022 Score 3 0 PROMIS Global Health - (T-Scores - the mean of general population = 50. Five points is a clinically meaningful difference.) 06/28/2022 09/22/2022 09/22/2022 Physical T-Score 47.7 39.8 39.8 Mental T-Score 62.5 53.3 53.3 PMH, PSH, SH: reviewed SLEEP RELATED ROS Review of Systems Constitutional: Negative for fatigue. HENT: Negative for congestion. Genitourinary: Positive for nocturia. Skin: Negative for rash. Neurological: Negative for headaches. ALLERGIES Allergen Reactions Cat Dander Other: See Comments Dog Dander Other: See Comments Dust Mold Pollen CURRENT MEDICATIONS: CPAP/BIPAP/OTHER Supplies for autopap at ?cmH2O Please allow access on PlayEnable to her download DME [facility] cephALEXin (KEFLEX) 250 mg capsule Take 1 capsule by mouth daily at bedtime. meloxicam (MOBIC) 15 mg tablet Take 1 tablet by mouth once daily. gabapentin (NEURONTIN) 300 mg capsule take 2 capsules by mouth at bedtime if needed mometasone-formoterol (DULERA) 100-5 mcg/actuation inhaler Inhale 2 Puffs as instructed twice daily. estradiol (ESTRACE) 0.01 % (0.1 mg/gram) vaginal cream Use 1 g vaginally two times a week. albuterol HFA (PROAIR HFA) 90 mcg/actuation inhaler Inhale 2 Puffs as instructed every 4 hours as needed. miSOPROStol (CYTOTEC) 200 mcg tablet Take 1 tablet by mouth twice daily. amoxicillin (POLYMOX, AMOXIL) 500 mg capsule Take four capsules one hour before dental procedure. TENS unit and electrodes cmpk 1 Units as directed. Dx: lumbar DDD, lumbar DJD, chronic low back pain rOPINIRole (REQUIP) 1 mg tablet Take 1-2 tablets by mouth daily at bedtime. For restless legs Magnesium 200 mg tab Take 200 mg by mouth once daily. L. gasseri-B. bifidum-B longum 1.5 billion cell cap CALCIUM CARBONATE/VITAMIN D3 (VITAMIN D-3 ORAL) Take 1 tablet by mouth once daily. triamcinolone acetonide (NASACORT AQ) 55 mcg nasal inhaler Inhale 2 puffs daily. THERAPEUTIC MULTIVITAMIN TAB Take one(1) tablet daily by mouth PHYSICAL EXAMINATION: Vital Signs: Deferred due to virtual visit via Zoom. General appearance: NAD Mental status: awake and alert Constitutional: Well groomed Skin: Dry and intact Neuro: Speech fluent IMPRESSION: Angelika (obstructive sleep apnea) (primary encounter diagnosis) Franca Valenzuela is a 72 year old female with a PMH of CTS, NSTEMI, DM 2, osteoarthritis, DDD, HLD, asthma and obesity who presents via zoom for ANGELIKA follow up. -Mrs. Valenzuela is doing well. She denies pressure or mask intolerance, is compliant and benefiting. She feels better with use. -No download available. I will request one. -She is curious about getting a travel autopap. Once I get her download/settings will put device order on chart. PLAN: - Continue Auto CPAP at ?cmH2O. - 30 day download, DME [facility] - travel autopap - Remember to clean your mask and equipment regularly, as directed. - You should be eligible for new supplies approximately every 3-6 months, depending on your insurance coverage. Contact your Durable Medical Equipment (DME) company for new supplies as needed. - Follow up in 12 months with me. Erica Long APRN.NAZANIN documented in this encounter [facility] 09-05-2022 Miscellaneous Notes September 06, 2022 PID: [id number] Franca Valenzuela [address] [place] [address] Dear Ms. Valenzuela, We are pleased to inform you that the results of your recent breast imaging exam on 09/05/2022 are normal. Early detection of cancer is very important. We also understand recommendations regarding breast cancer screening are controversial. Please discuss with your primary care provider which strategy is best for you and whether a mammogram is right for you. Your imaging studies and report will be kept on file at [facility] as part of your permanent medical record and are available for your continuing care. Thank you for allowing us to help in meeting your health care needs. Sincerely, Dr. Tillman Interpreting Radiologist [facility] (Normal over 40) documented in this encounter [facility] 09-05-2022 History of Present illness Narrative Radiology Service Progress Note PATIENT NAME: Franca Valenzuela DATE OF SERVICE: September 05, 2022 TIME: 7:31 AM PATIENT IDENTITY VERIFICATION COMPLETED USING TWO (2) IDENTIFIERS: Name and Date of confirmed by patient verbally. FALL SCREENING: Has the patient had 2 falls in the last year or 1 fall with injury or currently using an Ambulatory Assistive Device (Walker, Cane, Wheelchair, Crutches, etc.)? No PATIENT GENDER DATA: Female. status: : No status: NO. PATIENT RELEVANT IMPLANT DATA REVIEWED: Not Applicable RADIOLOGY DEPARTMENT: Interventional Radiology PERIPHERAL IV DATA: Not applicable SIGNED BY: Allyssa Cool September 05, 2022 7:31 AM documented in this encounter [facility] 08-11-2022 History of Present illness Narrative Last OV w/Dr. Rollins 08/08/22 A/P: 71 yo female with recurrent UTI and history of obturator sling 2016, also with IC managed with cytotec and probiotics, and OAB. UDS today- doubt obstruction from sling - doubt obstruction from sling, sling incision would likely not improve symptoms - cystoscopy today showing bladder mucosal irritation-recent UTI 08/04 - s/p bladder biopsy of posterior wall erythematous area - urine sent for cytology - restart Keflex 250 mg at bedtime and complete for another 60 days after her present keflex script is done. She will restart the Keflex after completion of Nitrofurantoin Course is completed this week. -continue cytotec and probiotics for IC - f/u visit in 3 months at [facility] office Patient's request for medication is as follows: Requested Prescriptions Signed Prescriptions Disp Refills cephALEXin (KEFLEX) 250 mg capsule 30 capsule 1 Sig: Take 1 capsule by mouth daily at bedtime. Prescription(s) as above. Please process accordingly. Meka Houser APRN.CNP documented in this encounter [facility] 08-08-2022 History of Present illness Narrative 71 year old female here for botox injection for refractory OAB since her 2016 POP surgery for grade 4 prolapse and MALLORIE for which she had a TVT-Obturator sling placed by Dr. Jarvis; pt referred to my services in 2019 Last botox injection 02/09; lesion noted on posterior wall of bladder Developed infection Managed for IC with Cytotec and Probiotics Last OV 07/13 cystoscopy showing one ulcer lesion noted on the posteriorl wall PVR 150 Plan- keflex for 60 days, continue cytotec and probiotics Today, E coli UTI on 08/04 completing macrobid course currently Patient is here today for UDS and cystoscopy with bladder biopsy UDS Interpretation No pre-procedure uroflow Capacity 300cc MALLORIE at volumes of 150, 200, 250cc Unable to amount good void with catheter in place and when removed Voided in bathroom, minimal PVR A/P: 71 yo female with recurrent UTI, IC managed with cytotec and probiotics, and OAB - doubt obstruction from sling, sling incision would likely not improve symptoms - cystoscopy today Angelika Jim, DO Porfirio Rollins MD I have seen and evaluated the patient and discussed the case with the resident physician. I agree with the assessment and plan as documented in the resident s note. documented in this encounter [facility] 08-08-2022 Nurse Note [facility] URODYNAMICS LAB URODYNAMIC PROCEDURE NOTE ID Verified by: Sofia Cintron RN with name and birthdate. Procedure instructions reviewed with patient prior to procedure: Yes Currently experiencing pain: No 0 on a scale of 0 to 10 on a scale of 0-10. Does the patient have any concerns about safety in the home/falls?: Not at risk for falls Has the patient had 2 falls in the last year or 1 fall with injury or currently using assistive device (walker, cane, wheelchair, crutches): No What interventions were put in place to prevent falls during this visit: Increased observations by caregivers Has patient had any history of Mitral Valve prolapse: No MEDS:NONE Has patient had any history of prosthetics: Yes (>6yrs ago)MEDS: NONE Latex allergy: No Iodine allergy: No Females- Is patient : No Biofuels Production Manager offered:Patient declines B/O UA: YES Negative for leukocytes and negative for nitrates. UROFLOWMETRY Unable to void for uroflow. CYSTOMETROGRAM Subtracted:Yes Video: Yes EMG: Yes First Sensation: 144 ml Strong desire: 273 ml Max. capacity: 278 ml Maximum filling detrusor pressure 3 cm of water Detrusor overactivity associated with urge: No Detrusor overactivity associated with leakage: No Was patient assessed for VLPP / UPP Yes Leaks urine with valsalva /coughs: Yes Lowest Leak point pressure: 38 cm of water at 150 ml PRESSURE-FLOW VOIDING STUDY Did patient void with catheters in place Yes Voided: 86 ml voluntary (additional 175 ml in hat in bathroom) Max Voiding Detrusor Pressure 12 cm H2O P det Q max (Max Flow): 3 cm H2O Maximum Flow Rate: 4 ml/sec Average Flow Rate: 2 ml/sec Fluro time: see xray Vaginal Packing for prolapse support: No Comments: Cysto to follow. Patient filled to max capacity. Stressed with leak x5 noted. Patient with strong desire. Permission to void given. Voluntary void with start/stop stream. Patient leaning and pushing to void. Pves removed to aid void, unable to empty. Patient placed in the bathroom with hat, additional 175 ml void. STUDY DETAILS: Was a uroflow done at some point during the study: No Was a cystometrogram performed: Yes Was a UPP/VLPP done: Yes Was an EMG done: Yes Was an intraabdominal pressure recorded with urethral catheter in: Yes Where were pressure catheters placed: Bladder and Rectum Was contrast instilled for radiologic evaluation: Yes, Cysto-conray 250 ccs utilized Please use Urodynamic Graph. Pt given verbal home going instructions. Pt states an understanding of instructions given. documented in this encounter [facility] 08-04-2022 History of Present illness Narrative This note was created using [employer] CRM[employer]. Subjective Franca Valenzuela is a 71 year old female. HPI Patient presents with a chief complaint of dysuria and frequency over the past day. She has a history of recurrent UTIs and is on trimethoprim chronically since June. She is supposed to follow-up on August 08 with urology. She denies blood in the urine. No back pain or abdominal pain. No vomiting. No fever. No vaginal complaints. Review of Systems Constitutional: Negative. HENT: Negative. Respiratory: Negative. Cardiovascular: Negative. Gastrointestinal: Negative. Genitourinary: Positive for dysuria, frequency and urgency. Negative for hematuria, vaginal bleeding, vaginal discharge and vaginal pain. Musculoskeletal: Negative. All other systems reviewed and are negative. PAST MEDICAL HISTORY Diagnosis Date ASTHMA UNSPECIFIED 04/18/2006 Hyperlipidemia 08/30/2009 Impaired fasting glucose 12/20/2009 Glucose 2006 - 107, 2009 - 127 ANGELIKA (obstructive sleep apnea) Osteoarthritis Prolapse of female genital organs Snoring Current Outpatient Medications Medication Sig Dispense Refill meloxicam (MOBIC) 15 mg tablet Take 1 tablet by mouth once daily. 90 tablet 0 gabapentin (NEURONTIN) 300 mg capsule take 2 capsules by mouth at bedtime if needed 30 capsule 2 mometasone-formoterol (DULERA) 100-5 mcg/actuation inhaler Inhale 2 Puffs as instructed twice daily. 13 g 3 albuterol HFA (PROAIR HFA) 90 mcg/actuation inhaler Inhale 2 Puffs as instructed every 4 hours as needed. 8 g 4 miSOPROStol (CYTOTEC) 200 mcg tablet Take 1 tablet by mouth twice daily. 180 tablet 3 TENS unit and electrodes cmpk 1 Units as directed. Dx: lumbar DDD, lumbar DJD, chronic low back pain 1 Each 0 rOPINIRole (REQUIP) 1 mg tablet Take 1-2 tablets by mouth daily at bedtime. For restless legs 60 tablet 2 Magnesium 200 mg tab Take 200 mg by mouth once daily. L. gasseri-B. bifidum-B longum 1.5 billion cell cap CALCIUM CARBONATE/VITAMIN D3 (VITAMIN D-3 ORAL) Take 1 tablet by mouth once daily. triamcinolone acetonide (NASACORT AQ) 55 mcg nasal inhaler Inhale 2 puffs daily. 1 Bottle 3 THERAPEUTIC MULTIVITAMIN TAB Take one(1) tablet daily by mouth 0 nitrofurantoin monohydrate and macrocrystal (MACROBID) 100 mg capsule Take 1 capsule by mouth twice daily with meals for 7 days. 14 capsule 0 estradiol (ESTRACE) 0.01 % (0.1 mg/gram) vaginal cream Use 1 g vaginally two times a week. 8 g 3 amoxicillin (POLYMOX, AMOXIL) 500 mg capsule Take four capsules one hour before dental procedure. 4 capsule 3 No current facility-administered medications for this visit. PAST SURGICAL HISTORY Procedure Laterality Date ARTHRP ACETBLR/PROX FEM PROSTC AGRFT/ALGRFT Right 03/20/2016 Hip replacement, total ARTHRP KNE CONDYLE&PLATU MEDIAL&LAT COMPARTMENTS Left 01/08/2017 Knee replacement, total COLONOSCOPY 06/2002 COLONOSCOPY FLX DX W/COLLJ SPEC WHEN PFRMD 02/14/2018 Colonoscopy CORRECTION OF BUNION 2001 also toes straightened bilateral HEART CATHETERIZATION 01/12/2017 [place] HYSTERECTOMY HX 12/15/2015 Total vaginal hysterectomy, uterus <250g, Bilateral salpingo-oophorectomy, Colpopexy, vaginal vault suspension via intraperitoneal approach (uterosacral ligament suspension), Anterior repair, Posterior repair, TVT-O sling, Cystoscopy TONSILLECTOMY HX 3 years old FAMILY HISTORY Problem Relation Age of Onset Allergies Mother Arthritis Mother Asthma Mother Hearing Loss Mother Heart Mother triple bypass ASHD Arthritis Father Diabetes Father Social History Tobacco Use Smoking status: Former Packs/day: 0.50 Years: 10.00 Pack years: 5.00 Types: Cigarettes Quit date: 05/21/1979 Years since quittin.2 Smokeless tobacco: Never Tobacco comments: social smoker in college Substance Use Topics Alcohol use: Yes Alcohol/week: 1.7 standard drinks Comment: 1-2 glasses of wine daily or every day Drug use: No Objective BP 120/76 Pulse 82 Temp 36.7 C (98.1 F) Resp 18 Wt 87.5 kg (193 lb) SpO2 97% BMI 34.20 kg/m Physical Exam Vitals reviewed. Constitutional: Appearance: Normal appearance. HENT: Head: Normocephalic and atraumatic. Cardiovascular: Rate and Rhythm: Normal rate and regular rhythm. Heart sounds: Normal heart sounds. Pulmonary: Effort: Pulmonary effort is normal. Breath sounds: Normal breath sounds. Abdominal: General: Abdomen is flat. Palpations: Abdomen is soft. Tenderness: There is no abdominal tenderness. There is no right CVA tenderness, left CVA tenderness or guarding. Skin: General: Skin is warm and dry. Neurological: General: No focal deficit present. Mental Status: She is alert. Assessment and Plan ASSESSMENT/PLAN: 1. Recurrent UTI - ICD9: 599.0, ICD10: N39.0 recurrent - UA positive for anny esterase, hematuria, and nitrates - Send urine for culture - Begin treatment with Macrobid 100 mg BID for 7 days - normal kidney function reviewed - recommended she follow up with urology - UA DIP, URINE (POC) - URINE CULTURE Cheri Kenny PA-C documented in this encounter [facility] 08-04-2022 Miscellaneous Notes Patient not seen since 07/23/2020. Advised through to schedule a follow up appointment. Number to neurology scheduling provided. IGOR Huerta documented in this encounter [facility] 07-03-2022 Miscellaneous Notes Patient returned our call for previous message. Patient told to disregard that message. Patient to start Bactrim for 3 days then start low dose trimethoprim. Patient will follow up at UDS & cysto appointment. Patient told cytology showed no cancer only inflammation. Addended by: ANGELIKA JIM on: 07/03/2022 01:38 PM Modules accepted: Orders Patient to stop keflex Bactrim 3 days sent Also sent trimethoprim 100mg daily ppx as plan was for abx ppx for 60 days- script sent off of susceptibility results Angelika Jim DO Patient's urine culture results were positive. Dr. Rollins put patient on cephalexin which is resistant. Dr. Rollins said to have the [facility] know if the antibiotic needs to be changed. Will send to them to change antibiotic. Check patient's urine culture and cytology that was done 06/29/22. If antibiotic needs changed message fellow or [facility] group. documented in this encounter [facility] 07-03-2022 Miscellaneous Notes Patient returning RN phone call and also had some questions on a prescription. Please call patient on cell phone. Called patient and left a VM on both cell phone and home phone to call back the office. Denise Spangler RN BSN Pt urine culture positive Was started on keflex 250 mg at bedtime Routed to [facility] nurses to see how pt feeling If better then continue qhs If not better, please have pt take 4 tablets daily x5 days OK if she runs out of keflex a little early, Dr. Rollins will discuss continuing with her at her UDS appt in July Pat Bobo PA-C documented in this encounter [facility] 07-03-2022 History of Present illness Narrative CC: Franca Valenzuela is a 71 year old female who presents to the office for follow up HPI: Type 2 diabetes, controlled Hemoglobin A1C Date Value Ref Range Status 03/15/2022 6.1 (H) 4.3 - 5.6 % Final Comment: [place] [employer] guidelines indicate that patients with HgbA1c in the range 5.7-6.4% are at increased risk for development of diabetes, and intervention by lifestyle modification may be beneficial. HgbA1c greater or equal to 6.5% is considered diagnostic of diabetes. 08/30/2020 5.9 (H) 4.3 - 5.6 % Final Comment: [place] [employer] guidelines indicate that patients with HgbA1c in the range 5.7-6.4% are at increased risk for development of diabetes, and intervention by lifestyle modification may be beneficial. HgbA1c greater or equal to 6.5% is considered diagnostic of diabetes. 11/27/2019 5.8 (H) 4.3 - 5.6 % Final Comment: [place] [employer] guidelines indicate that patients with HgbA1c in the range 5.7-6.4% are at increased risk for development of diabetes, and intervention by lifestyle modification may be beneficial. HgbA1c greater or equal to 6.5% is considered diagnostic of diabetes. 12/06/2018 5.6 4.3 - 5.6 % Final 06/17/2018 6.1 (H) 4.3 - 5.6 % Final Comment: [place] [employer] guidelines indicate that patients with HgbA1c in the range 5.7-6.4% are at increased risk for development of diabetes, and intervention by lifestyle modification may be beneficial. HgbA1c greater or equal to 6.5% is considered diagnostic of diabetes. Numbness and tingling in both hands, diagnosed with mild carpal tunnel syndrome. Feels this is already improving with use of splints at bedtime and resting wrists. Not interested in other surgical intervention Need for mammogram Left knee arthritis, osteoarthritis, overall feels she is coping well with intermittent use of meloxicam, no SE with medications, no swelling, no recent falls. IFG, diet controlled, knows need for weight loss. Bladder symptoms, chronic, has recently seen Dr. Rollins for opinion with Urology and needs further testing with Urodynamics PAST MEDICAL HISTORY Diagnosis Date ASTHMA UNSPECIFIED 04/18/2006 Hyperlipidemia 08/30/2009 Impaired fasting glucose 12/20/2009 Glucose 2007 - 107, 2009 - 127 ANGELIKA (obstructive sleep apnea) Osteoarthritis Prolapse of female genital organs Snoring PAST SURGICAL HISTORY Procedure Laterality Date ARTHRP ACETBLR/PROX FEM PROSTC AGRFT/ALGRFT Right 03/20/2016 Hip replacement, total ARTHRP KNE CONDYLE&PLATU MEDIAL&LAT COMPARTMENTS Left 01/08/2017 Knee replacement, total COLONOSCOPY 06/2002 COLONOSCOPY FLX DX W/COLLJ SPEC WHEN PFRMD 02/14/2018 Colonoscopy CORRECTION OF BUNION 2001 also toes straightened bilateral HEART CATHETERIZATION 01/12/2017 [place] HYSTERECTOMY HX 12/15/2015 Total vaginal hysterectomy, uterus <250g, Bilateral salpingo-oophorectomy, Colpopexy, vaginal vault suspension via intraperitoneal approach (uterosacral ligament suspension), Anterior repair, Posterior repair, TVT-O sling, Cystoscopy TONSILLECTOMY HX 3 years old Social History: Social History Tobacco Use Smoking status: Former Packs/day: 0.50 Years: 10.00 Pack years: 5.00 Types: Cigarettes Quit date: 05/21/1979 Years since quittin.1 Smokeless tobacco: Never Tobacco comments: social smoker in college Substance Use Topics Alcohol use: Yes Alcohol/week: 1.7 standard drinks Comment: 1-2 glasses of wine daily or every day Drug use: No FAMILY HISTORY Problem Relation Age of Onset Allergies Mother Arthritis Mother Asthma Mother Hearing Loss Mother Heart Mother triple bypass ASHD Arthritis Father Diabetes Father Current Outpatient prescriptions: gabapentin (NEURONTIN) 300 mg capsule^take 2 capsules by mouth at bedtime if needed^Disp: 30 capsule^Rfl: 2 mometasone-formoterol (DULERA) 100-5 mcg/actuation inhaler^Inhale 2 Puffs as instructed twice daily.^Disp: 13 g^Rfl: 3 estradiol (ESTRACE) 0.01 % (0.1 mg/gram) vaginal cream^Use 1 g vaginally two times a week.^Disp: 8 g^Rfl: 3 albuterol HFA (PROAIR HFA) 90 mcg/actuation inhaler^Inhale 2 Puffs as instructed every 4 hours as needed.^Disp: 8 g^Rfl: 4 miSOPROStol (CYTOTEC) 200 mcg tablet^Take 1 tablet by mouth twice daily.^Disp: 180 tablet^Rfl: 3 amoxicillin (POLYMOX, AMOXIL) 500 mg capsule^Take four capsules one hour before dental procedure.^Disp: 4 capsule^Rfl: 3 TENS unit and electrodes cmpk^1 Units as directed. Dx: lumbar DDD, lumbar DJD, chronic low back pain^Disp: 1 Each^Rfl: 0 rOPINIRole (REQUIP) 1 mg tablet^Take 1-2 tablets by mouth daily at bedtime. For restless legs^Disp: 60 tablet^Rfl: 2 Magnesium 200 mg tab^Take 200 mg by mouth once daily.^Disp: ^Rfl: L. gasseri-B. bifidum-B longum 1.5 billion cell cap^^Disp: ^Rfl: CALCIUM CARBONATE/VITAMIN D3 (VITAMIN D-3 ORAL)^Take 1 tablet by mouth once daily.^Disp: ^Rfl: triamcinolone acetonide (NASACORT AQ) 55 mcg nasal inhaler^Inhale 2 puffs daily.^Disp: 1 Bottle^Rfl: 3 THERAPEUTIC MULTIVITAMIN TAB^Take one(1) tablet daily by mouth^Disp: ^Rfl: 0 meloxicam (MOBIC) 15 mg tablet^Take 1 tablet by mouth once daily.^Disp: 90 tablet^Rfl: 0 cephALEXin (KEFLEX) 250 mg capsule^Take 1 capsule by mouth daily at bedtime.^Disp: 60 capsule^Rfl: 0 Allergies: ALLERGIES Allergen Reactions Cat Dander Other: See Comments Dog Dander Other: See Comments Dust Mold Pollen ROS: See HPI PE: 06/30/22 1140 BP: 120/80 Pulse: 80 Resp: 16 Temp: 37 C (98.6 F) TempSrc: Left Tympanic Weight: 87.1 kg (192 lb) Gen: A&O, NAD, non-toxic appearing, Pleasant, cooperative HEENT: NT/AC, PERRLA, EOMs intact b/l, nares clear and patent b/l, pharynx without erythema, exudate or lesions. Uvula midline. MMM Neck: supple, No cervical LAD, no thyromegaly, no carotid bruits CV: RRR, normal S1 and S2, no murmurs, no gallops, no rubs, Pulses 2+ and symmetric in UE and LE b/l Lungs: normal respiratory effort, CTA b/l, no wheezing or rhonchi or rales Abd: soft, overweight, NT, ND, +BS, no hepatosplenomegaly MS: arthritis changes of hands and knees and back Neuro: CN II-XII intact b/l Gait is stable No edema peripheral Skin: warm, dry, intact, No rashes or lesions on exposed skin. ASSESSMENT/PLAN: 1. Encounter for screening mammogram for malignant neoplasm of breast - ICD9: V76.12, ICD10: Z12.31 (primary diagnosis) - Completed pelvic and breast exam - Set up for mammogram, yearly mammogram recommended - Encouraged monthly BSE - Increase calcium intake with supplements or by diet (goal of 6445-1498 mg/day - Follow up for annual exam in one year. - ESTHELA SCREENING 2. Arthritis of left knee - ICD9: 716.96, ICD10: M17.12 rx refilled, chronic, stable - MELOXICAM 15 MG TABLET 3. IFG (impaired fasting glucose) - ICD9: 790.21, ICD10: R73.01 - diet controlled. 4. Numbness and tingling in both hands - ICD9: 782.0, ICD10: R20.0, R20.2 - secondary to carpal tunnel syndrome, managing symptoms with use of cock up splint and rest and stretches. 5. Mild carpal tunnel syndrome, unspecified laterality - ICD9: 354.0, ICD10: G56.00 - secondary to carpal tunnel syndrome, managing symptoms with use of cock up splint and rest and stretches. 6. Controlled type 2 diabetes mellitus without complication, without long-term current use of insulin (HCC) - ICD9: 250.00, ICD10: E11.9 Controlled. - Continue current medications - Blood glucose monitoring on a once a day schedule - Encouraged regular aerobic exercise and weight loss - Daily Asprin therapy recommended - BP goal of <130/80 - LDL goal of <100 - HGB A1C - COMP METABOLIC PANEL - CBC - ALBUMIN/CREAT RATIO RND UR 7. Mixed hyperlipidemia - ICD9: 272.2, ICD10: E78.2 - to be determined upon return of lab results - Encouraged following a low fat, low cholesterol diet. - Discussed the benefits of regular aerobic exercise and weight loss. - Check fasting lipid panel - LIPID PANEL BASIC Gerhard Caldwell DO To ER if develops chest pain, shortness of breath, or severe worsening of symptoms. Discussed risks, benefits, alternatives, and potential side effects of medications. Patient expressed understanding and agreed with the plan. Gerhard Caldwell DO [address] [place] [address] documented in this encounter [facility] 06-29-2022 Nurse Note Botox cancelled today per Dr. Rollins. Patient with high residual 150cc's after she urinated here in the office. Urine sent for culture. NURSE POST PROCEDURE ASSESSMENT Level of Consciousness: Alert and Oriented Transferred: via Ambulation Post Procedure Vital Signs: Not indicated Specimens obtained: Urine C/S Post Procedure: Cystoscopy Discharge Notes: Patient returns to pre-procedure mental status. Patient alert and oriented on discharge. Discharge Pain level: 0 on a scale of 0-10. THE FOLLOWING WAS EVALUATED Motivation To Learn: Interested Family/Significant Other Support: High : Family not present. Cognitive Ability: Alert and oriented Patient Learns Best By:Individual Instruction and Written Material The Following Influencing Factors Were Barriers To This Education Session: Voodoo Factors: No barriers The Following Physical Limitations Were Barriers To This Education Session: None Instruction Provided To: Patient Patient Evaluation:Verbalizes understanding Follow Up Plan: as instructed Supplemental Material Given:Written Material Eusebio Villa Ma UNIVERSAL PROTOCOL / SAFETY CHECKLIST Procedure to be Performed: cysto Sign In: A Moment of CARE was completed. Personnel directly involved with the procedure wore the appropriate PPE (Personal Protective Equipment). No special equipment needed. Patient/Surrogate Stated/Verified: PATIENT VERIFIED(optional for EMERGENT procedures): Patient name, Date of , Relevant allergies, and The intended procedure Time Out Communication: Intended patient and procedure match the source documents. Consent documented and matches the intended procedure. Relevant labs, photos, and/or imaging studies have been reviewed. No correct side/site applicable for marking and visibility. Medications required for procedure verified. Fire risk assessed and interventions discussed. No implant(s) inserted. Sign Out: SIGN OUT (optional for EMERGENT procedures): All specimen containers correctly labeled. No instruments, equipment or retained foreign bodies applicable. Post-procedure follow-up management communicated and Plan of Care Visit completed when applicable. Eusebio Villa Ma PRE CYSTO PROCEDURE ID Verified by: Eusebio Villa Ma Procedure Indication:Cystoscopy Latex Allergy: No Betadine Allergy: No Lidocaine allergy: No Allergies reviewed and updated. Pre-Procedure Vital Signs: Blood pressure 147/85, pulse 81. Heart valve replacement:No Joint replacement: Yes Pre-Procedure Antibiotics: Bactrim DS 160mg-800mg po, given now @ 4:00pm , by Eusebio Villa Ma Verified by: Sharon Velazquez RN Patient Prep: Betadine Scrub to perineum and placement of Sterile Drape. Anesthetic Given: None Eusebio Villa Ma documented in this encounter [facility] 06-29-2022 History of Present illness Narrative 71 year old female here for botox injection for refractory OAB since her 2016 POP surgery for grade 4 prolapse and MALLORIE for which she had a TVT-Obturator sling placed;by Dr. Jarvis; pt referred to my services in 2019 Last injection 02/09; lesion noted on posterior wall of bladder Developed infection Managed for IC with Cytotec and Probiotics Today - urine infected; sent for culture and cytology PVR ~ 150 cc's ROAB, refractory UUI, ? IC in past ?? M.DMegan'S HOPS NOTE / UNIVERSAL PROTOCOL / SAFETY CHECKLIST Sign In History and Physical Exam reviewed and is unchanged. Primary Diagnosis: Urge Incontinence Sign in Communication: Completed Time Out: Immediately prior to procedure, Team Confirms the Correct Patient, Correct Procedure; Botox Injection, Correct Site and Site Marking, Correct Position (if applicable). Sign Out: Sign Out Discussion: Completed Antibiotic(s) given immediately prior to procedure: bactrim Details of Procedure: After the genitalia were prepped and draped in a sterile manner a timeout was performed which confirmed the above information. A cystoscope was inserted atruamtically through the urethra. The bladder was distended; there is one ulcer lesion noted on the posteriorl wall The cystoscope was removed. Patient tolerated procedure well. A/P: 71 year old female with refractory UUI and new appearance of solitary bladder lesions, recurrent UTIs, suspicion of elevated PVR/sling obstruction leading to UTIs ? PLAN: - Keflex 250 mg qhs x 60 days - Cysto/bladder biospy in 45 days - Continue Cytotec/stop Mobic - use Tylenol - Continue Probiotics - Videourodynamics to look for urinary obstruction from sling - TVT- O ? Medical Decision Making: Problems: Moderate: 2+ stable chronic illnesses Data: Unique source(s) for external note(s) reviewed: 2 Unique test result(s) reviewed: 2 Risk: Moderate: Drug management and Decision on minor surgery w/ risk factors Medical Decision Making Level: 4 - Moderate Porfirio Rollins MD documented in this encounter [facility] 06-12-2022 Miscellaneous Notes Pt called and is notified of providers results. Pt voices understanding. Pt states she will go over options with Dr Caldwell at her upcoming appointment. Kamilla Stoll RN Left message to return call. 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 This is carpal tunnel. Therefore, this confirmed our likely diagnosis. Thank you, Ceci Dwyer APRN.PSYCHIATRIC MENTAL HEALTH NURSE documented in this encounter [facility] 06-09-2022 History of Present illness Narrative UNIVERSAL PROTOCOL / SAFETY CHECKLIST Procedure to be Performed: EMG Sign In: A Moment of CARE was completed. Personnel directly involved with the procedure wore the appropriate PPE (Personal Protective Equipment). Patient/Surrogate Stated/Verified: PATIENT VERIFIED(optional for EMERGENT procedures): Patient name, Date of , Relevant allergies, and The intended procedure Time Out Communication: Intended patient and procedure match the source documents. Correct side/site marked and visible. Sign Out: SIGN OUT (optional for EMERGENT procedures): Post-procedure follow-up management communicated and Plan of Care Visit completed when applicable. CRISTIAN Diazelle Park, MD Staff, [facility] [place] documented in this encounter [facility] 06-09-2022 Miscellaneous Notes Patient phones requesting refills as follows: Requested Prescriptions Pending Prescriptions Disp Refills gabapentin (NEURONTIN) 300 mg capsule [Pharmacy Med Name: GABAPENTIN 300 MG CAPSULE] 30 capsule 2 Sig: take 2 capsules by mouth at bedtime if needed DARIN-05/18/22 Labs-05/11/22 NOV-06/30/22 med filled 04/10/22 Please review and advise. Jennifer Carroll LPN documented in this encounter [facility] 05-18-2022 History of Present illness Narrative Chief Complaint Patient presents with: Numbness: Numbness in demarco hands and fingers started about a couple weeks ago HPI Franca Valenzuela is a 71 year old female who presents here today for Above Complaints.. Franca is an established patient of Dr. Javi DO. Alyse is a new patient to me today. Concerns today.. Fingers numb --- Numbness to bilateral hands and fingers x 3 weeks. Denies any color change to finger tips. Slightly worse with cold temperatures but is more constant than intermittent. Pt reports symptoms are annoying, but not painful or bothersome to her. Reports worse at night and when gripping objects, feels like medical psychotherapist is not as strong as prior. Happens at night or when using them a lot, such as when she is on her phone. 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 On gabapentin prn for leg cramping -- admits she does not take this regularly. No hx of DM -- hx of IFG. No other concerns or complaints. Past medical history, appointments, medications, allergies reviewed. Previous Medical History PAST MEDICAL HISTORY Diagnosis Date ASTHMA UNSPECIFIED 04/18/2006 Hyperlipidemia 08/30/2009 Impaired fasting glucose 12/20/2009 Glucose 2006 - 107, 2009 - 127 ANGELIKA (obstructive sleep apnea) Osteoarthritis Prolapse of female genital organs Snoring Previous Surgical History PAST SURGICAL HISTORY Procedure Laterality Date ARTHRP ACETBLR/PROX FEM PROSTC AGRFT/ALGRFT Right 03/20/2016 Hip replacement, total ARTHRP KNE CONDYLE&PLATU MEDIAL&LAT COMPARTMENTS Left 01/08/2017 Knee replacement, total COLONOSCOPY 06/2002 COLONOSCOPY FLX DX W/COLLJ SPEC WHEN PFRMD 02/14/2018 Colonoscopy CORRECTION OF BUNION 2001 also toes straightened bilateral HEART CATHETERIZATION 01/12/2017 [place] HYSTERECTOMY HX 12/15/2015 Total vaginal hysterectomy, uterus <250g, Bilateral salpingo-oophorectomy, Colpopexy, vaginal vault suspension via intraperitoneal approach (uterosacral ligament suspension), Anterior repair, Posterior repair, TVT-O sling, Cystoscopy TONSILLECTOMY HX 3 years old Family History FAMILY HISTORY Problem Relation Age of Onset Allergies Mother Arthritis Mother Asthma Mother Hearing Loss Mother Heart Mother triple bypass ASHD Arthritis Father Diabetes Father Patient Allergies ALLERGIES Allergen Reactions Cat Dander Other: See Comments Dog Dander Other: See Comments Dust Mold Pollen Current Medications Current Outpatient Medications on File Prior to Visit Medication Sig mometasone-formoterol (DULERA) 100-5 mcg/actuation inhaler Inhale 2 Puffs as instructed twice daily. gabapentin (NEURONTIN) 300 mg capsule Take 1 capsule by mouth daily at bedtime for 30 days. Take 2 capsules at bedtime as needed. meloxicam (MOBIC) 15 mg tablet Take 1 tablet by mouth once daily. estradiol (ESTRACE) 0.01 % (0.1 mg/gram) vaginal cream Use 1 g vaginally two times a week. albuterol HFA (PROAIR HFA) 90 mcg/actuation inhaler Inhale 2 Puffs as instructed every 4 hours as needed. cephALEXin (KEFLEX) 500 mg capsule Take 1 capsule by mouth twice daily. Extra pills given for prn use if you get a bladder infection phenazopyridine (PYRIDIUM, GERIDIUM) 200 mg tablet Take 1 tablet by mouth once daily as needed for pain. miSOPROStol (CYTOTEC) 200 mcg tablet Take 1 tablet by mouth twice daily. amoxicillin (POLYMOX, AMOXIL) 500 mg capsule Take four capsules one hour before dental procedure. TENS unit and electrodes cmpk 1 Units as directed. Dx: lumbar DDD, lumbar DJD, chronic low back pain sulfamethoxazole-trimethoprim (BACTRIM,SEPTRA) 400-80 mg per tablet Take 2 tablets by mouth twice daily. Extra pills given for prn rOPINIRole (REQUIP) 1 mg tablet Take 1-2 tablets by mouth daily at bedtime. For restless legs Magnesium 200 mg tab Take 200 mg by mouth once daily. L. gasseri-B. bifidum-B longum 1.5 billion cell cap CALCIUM CARBONATE/VITAMIN D3 (VITAMIN D-3 ORAL) Take 1 tablet by mouth once daily. triamcinolone acetonide (NASACORT AQ) 55 mcg nasal inhaler Inhale 2 puffs daily. THERAPEUTIC MULTIVITAMIN TAB Take one(1) tablet daily by mouth No current facility-administered medications on file prior to visit. Social History Social History Tobacco Use Smoking status: Former Packs/day: 0.50 Years: 10.00 Pack years: 5.00 Types: Cigarettes Quit date: 05/21/1979 Years since quittin.0 Smokeless tobacco: Never Tobacco comments: social smoker in college Substance Use Topics Alcohol use: Yes Alcohol/week: 1.7 standard drinks Comment: 1-2 glasses of wine daily or every day Drug use: No REVIEW OF SYSTEMS: as above Reviewed relevant PMHx, PSHx, Social Hx, current medications and allergies. Review of Symptoms REVIEW OF SYSTEMS See HPI. EXAM: BP 118/62 (BP Site: Left Arm, BP Position: Sitting, BP Cuff Size: Regular Adult) Pulse 60 Resp 12 Wt 87.5 kg (193 lb) BMI 34.20 kg/m General Appearance: Well appearing, alert, in no acute distress, well-hydrated, well nourished.. Skin: Skin color, texture, turgor normal, no suspicious rashes or lesions. Head: Normocephalic, no masses, lesions, tenderness or abnormalities. Lungs: Lungs clear to auscultation. No wheezing, rhonchi, rales.. Heart: RRR without murmur, gallop, or rubs. No ectopy. Extremities: No deformities, edema, skin discoloration, clubbing or cyanosis. Good capillary refill. . Musculoskeletal: No joint swelling, deformity, or tenderness. Indeterminate Garcia's test. Peripheral Pulses: Normal. Neurologic: Gait normal. Reflexes normal and symmetric. Sensation grossly intact.. Health Maintenance List SPIROMETRY Never done HEPATITIS C SCREENING Never done DIABETIC FOOT EXAM due on 10/17/2017 DTAP,TDAP,TD(2 - Td or Tdap) due on 12/16/2019 ADVANCE DIRECTIVE DISCUSSION Never done DEPRESSION ASSESSMENT Never done URINE ALBUMIN:CREATININE RATIO due on 08/30/2021 MAMMOGRAM due on 08/18/2022 HBA1C due on 09/13/2022 DILATED RETINAL EXAM due on 09/15/2022 LDL CHOLESTEROL due on 03/15/2023 ANNUAL PCP TEAM CHRONIC DISEASE VISIT due on 04/10/2023 COLORECTAL CANCER SCREENING due on 02/15/2028 BONE DENSITY Completed INFLUENZA Completed SHINGRIX VACCINE Completed COVID-19 VACCINE Completed PNEUMOCOCCAL: 65+ Completed ASSESSMENT/PLAN: 1. Numbness and tingling in both hands - ICD9: 782.0, ICD10: R20.0, R20.2 Continue Mobic daily as this is an NSAID and will help with symptoms. Start taking gabapentin routinely at night, 2 tablets as needed. EMG to diagnosis -- concern for carpal tunnel. Discussed steroid and wrist braces-- not needed at this point but if symptoms worsen will consider. - EMG(NEURO/NI) RTO as needed if symptoms do not improve. Prescription instructions reviewed with patient as applicable. Potential red flag symptoms discussed with the patient. Reviewed appropriate action plan to take if red flag symptoms occur. Patient agreeable to treatment plan. Ceci Paris APRN.NAZANIN [id number] [place] [address] documented in this encounter [facility] 04-10-2022 Instructions Indira Robbins APRN.CNP - 04/10/2022 12:11 PM EST You can start taking your Dulera again. Start taking gabapentin daily at nighttime for your leg cramping. Your potassium level looks good, no need to restrict your diet. Recheck this level in 1 month. documented in this encounter [facility] 04-10-2022 History of Present illness Narrative Chief Complaint Patient presents with: Recheck: Patient is here for follow up/labs. HPI Franca Valenzuela is a 71 year old female who presents here today for Above Complaints.. Today: Frequent UTIs that are managed by urology. Started with sx yesterday, started Macrobid that is chronically prescribed by them. Was shivering yesterday and felt a little bit like she couldn't catch her breath. This has since resolved. Increased cramping in her legs. Stopped taking her Requip. Took gabapentin in the past, which was helpful. Past medical history, appointments, medications, allergies reviewed. Previous Medical History PAST MEDICAL HISTORY Diagnosis Date ASTHMA UNSPECIFIED 04/18/2006 Hyperlipidemia 08/30/2009 Impaired fasting glucose 12/20/2009 Glucose 2006 - 107, 2009 - 127 ANGLEIKA (obstructive sleep apnea) Osteoarthritis Prolapse of female genital organs Snoring Previous Surgical History PAST SURGICAL HISTORY Procedure Laterality Date ARTHRP ACETBLR/PROX FEM PROSTC AGRFT/ALGRFT Right 03/20/2016 Hip replacement, total ARTHRP KNE CONDYLE&PLATU MEDIAL&LAT COMPARTMENTS Left 01/08/2017 Knee replacement, total COLONOSCOPY 06/2002 COLONOSCOPY FLX DX W/COLLJ SPEC WHEN PFRMD 02/14/2018 Colonoscopy CORRECTION OF BUNION 2001 also toes straightened bilateral HEART CATHETERIZATION 01/12/2017 [place] HYSTERECTOMY HX 12/15/2015 Total vaginal hysterectomy, uterus <250g, Bilateral salpingo-oophorectomy, Colpopexy, vaginal vault suspension via intraperitoneal approach (uterosacral ligament suspension), Anterior repair, Posterior repair, TVT-O sling, Cystoscopy TONSILLECTOMY HX 3 years old Family History FAMILY HISTORY Problem Relation Age of Onset Allergies Mother Arthritis Mother Asthma Mother Hearing Loss Mother Heart Mother triple bypass ASHD Arthritis Father Diabetes Father Patient Allergies ALLERGIES Allergen Reactions Cat Dander Other: See Comments Dog Dander Other: See Comments Dust Mold Pollen Current Medications Current Outpatient Medications on File Prior to Visit Medication Sig meloxicam (MOBIC) 15 mg tablet Take 1 tablet by mouth once daily. estradiol (ESTRACE) 0.01 % (0.1 mg/gram) vaginal cream Use 1 g vaginally two times a week. albuterol HFA (PROAIR HFA) 90 mcg/actuation inhaler Inhale 2 Puffs as instructed every 4 hours as needed. phenazopyridine (PYRIDIUM, GERIDIUM) 200 mg tablet Take 1 tablet by mouth once daily as needed for pain. miSOPROStol (CYTOTEC) 200 mcg tablet Take 1 tablet by mouth twice daily. amoxicillin (POLYMOX, AMOXIL) 500 mg capsule Take four capsules one hour before dental procedure. rOPINIRole (REQUIP) 1 mg tablet Take 1-2 tablets by mouth daily at bedtime. For restless legs Magnesium 200 mg tab Take 200 mg by mouth once daily. mometasone-formoterol (DULERA) 100-5 mcg/actuation inhaler Inhale 2 Puffs as instructed twice daily. CALCIUM CARBONATE/VITAMIN D3 (VITAMIN D-3 ORAL) Take 1 tablet by mouth once daily. triamcinolone acetonide (NASACORT AQ) 55 mcg nasal inhaler Inhale 2 puffs daily. THERAPEUTIC MULTIVITAMIN TAB Take one(1) tablet daily by mouth cephALEXin (KEFLEX) 500 mg capsule Take 1 capsule by mouth twice daily. Extra pills given for prn use if you get a bladder infection TENS unit and electrodes cmpk 1 Units as directed. Dx: lumbar DDD, lumbar DJD, chronic low back pain mirabegron (MYRBETRIQ) 25 mg Tb24 Take 1 tablet by mouth once daily. (Patient not taking: Reported on 01/26/2022) Trospium (SANCTURA SR) 60 mg cp24 Take 1 capsule by mouth once daily. (Patient not taking: Reported on 01/26/2022) sulfamethoxazole-trimethoprim (BACTRIM,SEPTRA) 400-80 mg per tablet Take 2 tablets by mouth twice daily. Extra pills given for prn gabapentin (NEURONTIN) 300 mg capsule Take 2 capsules at bedtime as needed. lidocaine urojet (XYLOCAINE, GLYDO) 2 % jelp Apply 10 mL to affected area twice daily as needed. fexofenadine (PHAM) 180 mg tablet (Patient not taking: Reported on 04/10/2022) L. gasseri-B. bifidum-B longum 1.5 billion cell cap No current facility-administered medications on file prior to visit. Social History Social History Tobacco Use Smoking status: Former Packs/day: 0.50 Years: 10.00 Pack years: 5.00 Types: Cigarettes Quit date: 05/21/1979 Years since quittin.9 Smokeless tobacco: Never Tobacco comments: social smoker in college Substance Use Topics Alcohol use: Yes Alcohol/week: 1.7 standard drinks Comment: 1-2 glasses of wine daily or every day Drug use: No Review of Symptoms REVIEW OF SYSTEMS See HPI, otherwise negative EXAM: BP 124/86 (BP Site: Left Arm, BP Position: Sitting, BP Cuff Size: Regular Adult) Pulse 84 Temp 37.6 C (99.7 F) (Tympanic) Wt 85.3 kg (188 lb) SpO2 95% BMI 33.31 kg/m General Appearance: Well appearing, alert, in no acute distress, well-hydrated, well nourished.. Lungs: Lungs clear to auscultation. No wheezing, rhonchi, rales.. Heart: RRR without murmur, gallop, or rubs. No ectopy. Health Maintenance List SPIROMETRY Never done HEPATITIS C SCREENING Never done DIABETIC FOOT EXAM due on 10/17/2017 DTAP,TDAP,TD(2 - Td or Tdap) due on 12/16/2019 ADVANCE DIRECTIVE DISCUSSION Never done DEPRESSION ASSESSMENT Never done URINE ALBUMIN:CREATININE RATIO due on 08/30/2021 MAMMOGRAM due on 08/18/2022 HBA1C due on 09/13/2022 DILATED RETINAL EXAM due on 09/15/2022 ANNUAL PCP TEAM CHRONIC DISEASE VISIT due on 11/22/2022 LDL CHOLESTEROL due on 03/15/2023 COLORECTAL CANCER SCREENING due on 02/15/2028 BONE DENSITY Completed INFLUENZA Completed SHINGRIX VACCINE Completed COVID-19 VACCINE Completed PNEUMOCOCCAL: 65+ Completed Data reviewed Previous records, office notes, [place] report PDMP website checked and validated. All prescriptions have been APPROPRIATELY filled. No suspicious activity was identified. 04/10/2022 by Indira Robbins CNP. ASSESSMENT/PLAN: 1. Mild intermittent asthma without complication - ICD9: 493.90, ICD10: J45.20 (primary diagnosis) Mild intermittent Asthma stable - Avoidance of triggers recommended Requesting to restart her daily Dulera - MOMETASONE-FORMOTEROL HFA 100 MCG-5 MCG/ACTUATION AEROSOL INHALER 2. PLMD (periodic limb movement disorder) - ICD9: 327.51, ICD10: G47.61 Restart gabapentin, has worked well in the past. - GABAPENTIN 300 MG CAPSULE 3. Restless legs - ICD9: 333.94, ICD10: G25.81 Restart gabapentin, has worked well in the past. - GABAPENTIN 300 MG CAPSULE 4. Hyperkalemia - ICD9: 276.7, ICD10: E87.5 Stable. Recheck K+ level in 1 month per patient request. - POTASSIUM BLD Indira Robbins APRN.CNP Medical Decision Making: Problems: Moderate: 1+ chronic illnesses with change and 2+ stable chronic illnesses Data: Unique source(s) for external note(s) reviewed: 1 Unique test result(s) reviewed: 1 Unique test(s) ordered: 1 Risk: Low: Low risk from testing/treatment Medical Decision Making Level: 4 - Moderate documented in this encounter [facility] 03-16-2022 Miscellaneous Notes Patient returned call and given provider's message below. Elmer Carreon RN TC to patient with no answer. Left message to return call to office to receive results. IGOR Huerta PLease call patient and let her know that blood work results overall look great! HgA1c is slightly elevating but still within that pre-diabetes range. Vitamin D normal TSH normal Potassium is slightly elevated, I would like a repeat of this in 2-4 weeks. Labs ordered. Lipids look good. VERY slightly elevated LDL (bad cholestenol). Increase veggies and lean protein in diet. Continue with upcoming appointment as scheduled. Thank you, Ceci Paris APRN.NAZANIN documented in this encounter [facility] 03-14-2022 Miscellaneous Notes Pt notified of message below. Appt scheduled for labs and follow up appt. Rajni Weinberg LPN TC to patient with no answer. Left message to return call to office to receive update. IGOR Huerta Lab work placed. Please assist in appointment for routine follow-up and to discuss results. Thank you, Ceci Paris APRN.PSYCHIATRIC MENTAL HEALTH NURSE Images from the original note were not included. Please see pt mychart message and advise Breonna Hickey Ma documented in this encounter [facility] 03-10-2022 Miscellaneous Notes Turned into TE per JG Breonna Hickey Ma documented in this encounter [facility] 03-07-2022 Miscellaneous Notes Last office visit: 11/22/21 F/u scheduled: none Bethany Fan Ma documented in this encounter [facility] 03-07-2022 Miscellaneous Notes Last office visit: 11/22/21 F/u scheduled: none Bethany Fan Ma documented in this encounter [facility] 02-09-2022 History of Present illness Narrative POPULATION HEALTH NAVIGATION OUTREACH Action/FYI [place] Support: Called pt to schedule an appt in Pain Management. Lvm for pt to call [phone] for scheduling. Pt identified by name and : NO Outreach Outcome/Action Unable to reach patient: Left message Did you use a PCP flex slot to schedule this appointment? No Reason for Outreach Care Gap or Scheduling/Wellness visits Payer: Payor: [employer] MEDICARE / Plan: [employer] MEDICARE PPO / Product Type: PPO / Care Gap Reviewed:: Specialty Scheduling Reminder: Reminder note to check Health Maintenance for items below Health Maintenance items due: SPIROMETRY Never done HEPATITIS C SCREENING Never done DIABETIC FOOT EXAM due on 10/17/2017 DTAP,TDAP,TD(2 - Td or Tdap) due on 12/16/2019 HBA1C due on 03/01/2021 ADVANCE DIRECTIVE DISCUSSION Never done URINE ALBUMIN:CREATININE RATIO due on 08/30/2021 LDL CHOLESTEROL due on 08/30/2021 COVID-19 VACCINE(5 - Booster for Moderna series) due on 10/31/2021 INFLUENZA(1) due on 01/19/2022 Message Sent to Practice: No Navigation Signature: Annamaria Roper February 09, 2022 12:54 PM documented in this encounter [facility] 01-31-2022 Miscellaneous Notes Last office visit: 11/22/21 F/u scheduled: none Bethany Fan Ma documented in this encounter [facility] 01-26-2022 Nurse Note NURSE POST PROCEDURE ASSESSMENT Level of Consciousness: Alert and Oriented Transferred: via Ambulation Post Procedure Vital Signs: Not indicated Specimens obtained: None Post Procedure: Cystoscopy and Botox Set up Discharge Notes: Patient returns to pre-procedure mental status. Patient alert and oriented on discharge. Discharge Pain level: 0 on a scale of 0-10. THE FOLLOWING WAS EVALUATED Motivation To Learn: Interested Family/Significant Other Support: High : Family not present. Cognitive Ability: Alert and oriented Patient Learns Best By:Individual Instruction and Written Material The Following Influencing Factors Were Barriers To This Education Session: Voodoo Factors: No barriers The Following Physical Limitations Were Barriers To This Education Session: None Instruction Provided To: Patient Patient Evaluation:Verbalizes understanding Follow Up Plan: Follow up as needed Supplemental Material Given:Written Material UNIVERSAL PROTOCOL / SAFETY CHECKLIST Procedure to be Performed: Cystoscopy with Botox set up Sign In: A Moment of CARE was completed. Personnel directly involved with the procedure wore the appropriate PPE (Personal Protective Equipment). Special equipment: botox set up Patient/Surrogate Stated/Verified: PATIENT VERIFIED(optional for EMERGENT procedures): Patient name, Date of , Relevant allergies, and The intended procedure Time Out Communication: Intended patient and procedure match the source documents. Consent documented and matches the intended procedure. No relevant labs, photos, and/or imaging studies were applicable for review. No correct side/site applicable for marking and visibility. Medications required for procedure verified. Fire risk assessed and interventions discussed. No implant(s) inserted. Sign Out: SIGN OUT (optional for EMERGENT procedures): No specimen collected. No instruments, equipment or retained foreign bodies applicable. Post-procedure follow-up management communicated and Plan of Care Visit completed when applicable. ALL Dc LPN PRE CYSTO PROCEDURE ID Verified by: Sharon Velazquez RN Procedure Indication:Cystoscopy and Botox Set up Latex Allergy: No Betadine Allergy: No Lidocaine allergy: No Allergies reviewed and updated. Pre-Procedure Vital Signs: Blood pressure 163/84, pulse 83. Heart valve replacement:No Joint replacement: Yes Pre-Procedure Antibiotics: Cipro 500 mg po, given now @ 2:53pm , by Mone Chau LPN Patient Prep: Betadine Scrub to perineum and placement of Sterile Drape. Anesthetic Given: 10 cc 2% Lidocaine elizabeth Velazquez RN documented in this encounter [facility] 01-26-2022 History of Present illness Narrative 71 year old female here for botox injection. Last injection 10/09 ROAB, refractory UUI, ? IC in past ?? Labs reviewed: UA: neg PVR: minimal on SC today M.DMegan'S HOPCam NOTE / UNIVERSAL PROTOCOL / SAFETY CHECKLIST Sign In History and Physical Exam reviewed and is unchanged. Primary Diagnosis: Urge Incontinence Sign in Communication: Completed Time Out: Immediately prior to procedure, Team Confirms the Correct Patient, Correct Procedure; Botox Injection, Correct Site and Site Marking, Correct Position (if applicable). Sign Out: Sign Out Discussion: Completed Antibiotic(s) given immediately prior to procedure: bactrim Details of Procedure: After the genitalia were prepped and draped in a sterile manner a timeout was performed which confirmed the above information. A cystoscope was inserted atruamtically through the urethra. The bladder was distended; there is one ulcer lesion noted on the Left Lateral wall 100 units of botox in 20 cc were injected throughout the posterior bladder wall and trigone in 20 locations. There was no major bleeding noted. The cystoscope was removed. Patient tolerated procedure well. A/P: 71 year old female with refractory UUI and new appearance of solitary bladder lesions PLAN: -Follow-up in 5months for repeat injection at 200 units; may need Cysto/HD and fulguration/biopsy of bladder lesion - to be discussed Needs self- start antibiotic/Pyridium/Cytotec refilled today; she may need to stop Mobic in light of new bladder ulcer. Medical Decision Making: Problems: Moderate: 2+ stable chronic illnesses Data: Unique source(s) for external note(s) reviewed: 2 Unique test result(s) reviewed: 2 Risk: Moderate: Drug management and Decision on minor surgery w/ risk factors Medical Decision Making Level: 4 - Moderate Porfirio Rollins MD documented in this encounter [facility] 11-22-2021 History of Present illness Narrative Radiology Service Progress Note PATIENT NAME: Franca Valenzuela DATE OF SERVICE: November 22, 2021 TIME: 8:35 AM PATIENT IDENTITY VERIFICATION COMPLETED USING TWO (2) IDENTIFIERS: Name and Date of confirmed by patient verbally. FALL SCREENING: Has the patient had 2 falls in the last year or 1 fall with injury or currently using an Ambulatory Assistive Device (Walker, Cane, Wheelchair, Crutches, etc.)? No PATIENT GENDER DATA: Female. status: : No status: NO. PATIENT RELEVANT IMPLANT DATA REVIEWED: Yes RADIOLOGY DEPARTMENT: General X-ray: Exam(s) Completed: Spine X-Ray(s): Lumbar AP / LAT / L5-S1 PERIPHERAL IV DATA: Not applicable SIGNED BY: RT Chad(R) November 22, 2021 8:35 AM documented in this encounter [facility] 11-22-2021 History of Present illness Narrative CC: Franca Valenzuela is a 71 year old female who presents to the office for follow up HPI: Low back pain, improved slightly with use of the Meloxicam medication, worse with any prolonged standing, walking, bending, twisting activity. Long standing. No new bowel or bladder changes. Does feel aching and weakness into legs at times. Last xray 08/2020, also showed the scoliosis changes. Affecting her daily life now with activities ADLs and IADLs by patient description such as cleaning, stairs use etc Bladder incontinence, recurrent UTI, use of botox injections with DR. Rollins with benefit, no longer having to change clothes due to bladder incontinence. Now just rare use of bladder pads and medication Mirabetriq. ANGELIKA, still using CPAP, sleeping well overall, may need new mask/supplies. IFG, diet controlled, hasn't had recent recheck of labs. HPL, diet controlled, hasn't had recent recheck of labs. PAST MEDICAL HISTORY Diagnosis Date ASTHMA UNSPECIFIED 04/18/2006 Hyperlipidemia 08/30/2009 Impaired fasting glucose 12/20/2009 Glucose 2007 - 107, 2010 - 127 ANGELIKA (obstructive sleep apnea) Osteoarthritis Prolapse of female genital organs Snoring PAST SURGICAL HISTORY Procedure Laterality Date ARTHRP ACETBLR/PROX FEM PROSTC AGRFT/ALGRFT Right 03/20/2016 Hip replacement, total ARTHRP KNE CONDYLE&PLATU MEDIAL&LAT COMPARTMENTS Left 01/08/2017 Knee replacement, total COLONOSCOPY 06/2002 COLONOSCOPY FLX DX W/COLLJ SPEC WHEN PFRMD 02/14/2018 Colonoscopy CORRECTION OF BUNION 2001 also toes straightened bilateral HEART CATHETERIZATION 01/12/2017 [place] HYSTERECTOMY HX 12/15/2015 Total vaginal hysterectomy, uterus <250g, Bilateral salpingo-oophorectomy, Colpopexy, vaginal vault suspension via intraperitoneal approach (uterosacral ligament suspension), Anterior repair, Posterior repair, TVT-O sling, Cystoscopy TONSILLECTOMY HX 3 years old Social History: Social History Tobacco Use Smoking status: Former Smoker Packs/day: 0.50 Years: 10.00 Pack years: 5.00 Types: Cigarettes Quit date: 05/21/1979 Years since quittin.5 Smokeless tobacco: Never Used Tobacco comment: social smoker in [employer] Substance Use Topics Alcohol use: Yes Alcohol/week: 1.7 standard drinks Comment: 1-2 glasses of wine daily or every day Drug use: No FAMILY HISTORY Problem Relation Age of Onset Allergies Mother Arthritis Mother Asthma Mother Hearing Loss Mother Heart Mother triple bypass ASHD Arthritis Father Diabetes Father Current Outpatient prescriptions: estradiol (ESTRACE) 0.01 % (0.1 mg/gram) vaginal cream Use 1 g vaginally two times a week. amoxicillin (POLYMOX, AMOXIL) 500 mg capsule Take four capsules one hour before dental procedure. meloxicam (MOBIC) 15 mg tablet Take 1 tablet by mouth once daily. cephALEXin (KEFLEX) 500 mg capsule Take 1 capsule by mouth twice daily. Extra pills given for prn use if you get a bladder infection mirabegron (MYRBETRIQ) 25 mg Tb24 Take 1 tablet by mouth once daily. phenazopyridine (PYRIDIUM, GERIDIUM) 200 mg tablet Take 1 tablet by mouth once daily as needed for pain. Trospium (SANCTURA SR) 60 mg cp24 Take 1 capsule by mouth once daily. miSOPROStol (CYTOTEC) 200 mcg tablet Take 1 tablet by mouth twice daily. sulfamethoxazole-trimethoprim (BACTRIM,SEPTRA) 400-80 mg per tablet Take 2 tablets by mouth twice daily. Extra pills given for prn albuterol HFA (PROAIR HFA) 90 mcg/actuation inhaler Inhale 2 Puffs as instructed every 4 hours as needed. Magnesium 200 mg tab Take 200 mg by mouth once daily. fexofenadine (PHAM ALLERGY) 180 mg tablet L. gasseri-B. bifidum-B longum ([place]) 1.5 billion cell cap mometasone-formoterol (DULERA) 100-5 mcg/actuation inhaler Inhale 2 Puffs as instructed twice daily. CALCIUM CARBONATE/VITAMIN D3 (VITAMIN D-3 ORAL) Take 1 tablet by mouth once daily. triamcinolone acetonide (NASACORT AQ) 55 mcg nasal inhaler Inhale 2 puffs daily. THERAPEUTIC MULTIVITAMIN TAB Take one(1) tablet daily by mouth TENS unit and electrodes cmpk 1 Units as directed. Dx: lumbar DDD, lumbar DJD, chronic low back pain rOPINIRole (REQUIP) 1 mg tablet Take 1-2 tablets by mouth daily at bedtime. For restless legs gabapentin (NEURONTIN) 300 mg capsule Take 2 capsules at bedtime as needed. lidocaine urojet (XYLOCAINE, GLYDO) 2 % jelp Apply 10 mL to affected area twice daily as needed. Allergies: ALLERGIES Allergen Reactions Cat Dander Other: See Comments Dog Dander Other: See Comments Dust Mold Pollen ROS: See HPI PE: 11/22/21 0738 BP: 130/80 Pulse: 68 Resp: 16 Temp: 36.1 C (97 F) TempSrc: Right Tympanic Weight: 84.8 kg (187 lb) Height: 160 cm (5' 2.99) Gen: A&O, NAD, non-toxic appearing, Pleasant, cooperative HEENT: NT/AC, wearing glasses, PERRLA, EOMs intact b/l, nares clear and patent b/l, pharynx without erythema, exudate or lesions. MMMUvula midline. EACs without erythema or debris. TMs pearly chou with intact landmarks b/l. Neck: supple, No cervical LAD, no thyromegaly, no carotid bruits CV: RRR, normal S1 and S2, no murmurs, no gallops, no rubs, Pulses 2+ and symmetric in UE and LE b/l Lungs: normal respiratory effort, CTA b/l, no wheezing or rhonchi or rales Abd: soft, NT, ND, +BS, no hepatosplenomegaly MS: arthritis changes right knee with mild effusion Reduced ROM lumbar spine with scoliosis present Varicose veins present Neuro: CN II-XII intact b/l, diminished strength b/l legs and arms. Skin: warm, dry, intact, No rashes or lesions on exposed skin. No edema legs, normal peripheral pulses ASSESSMENT/PLAN: 1. DDD (degenerative disc disease), lumbar - ICD9: 722.52, ICD10: M51.36 (primary diagnosis) Chronic low back pain - Ice for localized tenderness - Warm moist heat for 20 min three times a day - NSAIDS- see orders - Xrays- see orders - Patient given instructions use of medications as ordered, intermittent rest, back care exercise program, weight loss, improved posture, proper lifting techniques and intermittent use of heat - Follow up with pain mgmt for opinion, in office as well sooner if symptoms persist or worsen - XR LUMBAR GENERAL 3V AP/LAT/L5-S1 - CONSULT TO PAIN MGT - TENS UNIT AND ELECTRODES COMBO PACK 2. Atrophic vaginitis - ICD9: 627.3, ICD10: N95.2 Rx refilled - ESTRADIOL 0.01% (0.1 MG/GRAM) VAGINAL CREAM 3. Status post total replacement of right hip - ICD9: V43.64, ICD10: Z96.641 - rx refilled. - AMOXICILLIN 500 MG CAPSULE 4. Other osteoarthritis of spine, lumbar region - ICD9: 721.3, ICD10: M47.896 Chronic low back pain - Ice for localized tenderness - Warm moist heat for 20 min three times a day - NSAIDS- see orders - Xrays- see orders - Patient given instructions use of medications as ordered, intermittent rest, back care exercise program, weight loss, improved posture, proper lifting techniques and intermittent use of heat - Follow up with pain mgmt for opinion, in office as well sooner if symptoms persist or worsen - XR LUMBAR GENERAL 3V AP/LAT/L5-S1 - CONSULT TO PAIN MGT - TENS UNIT AND ELECTRODES COMBO PACK 5. Chronic midline low back pain with bilateral sciatica - ICD9: 724.2, 724.3, 338.29, ICD10: M54.41, M54.42, G89.29 Chronic low back pain - Ice for localized tenderness - Warm moist heat for 20 min three times a day - NSAIDS- see orders - Xrays- see orders - Patient given instructions use of medications as ordered, intermittent rest, back care exercise program, weight loss, improved posture, proper lifting techniques and intermittent use of heat - Follow up with pain mgmt for opinion, in office as well sooner if symptoms persist or worsen - XR LUMBAR GENERAL 3V AP/LAT/L5-S1 - CONSULT TO PAIN MGT - TENS UNIT AND ELECTRODES COMBO PACK 6. Vitamin D deficiency - ICD9: 268.9, ICD10: E55.9 Continue supplement 7. IFG (impaired fasting glucose) - ICD9: 790.21, ICD10: R73.01 - recheck labs as ordered, need for weight loss - HGB A1C - COMP METABOLIC PANEL 8. Mixed hyperlipidemia - ICD9: 272.2, ICD10: E78.2 - to be determined upon return of lab results - Encouraged following a low fat, low cholesterol diet. - Discussed the benefits of regular aerobic exercise and weight loss. - LIPID PANEL BASIC - COMP METABOLIC PANEL 9. Mild intermittent asthma without complication - ICD9: 493.90, ICD10: J45.20 Mild intermittent Asthma stable - Continue current meds - Avoidance of triggers recommended 10. Restless legs - ICD9: 333.94, ICD10: G25.81 - recheck labs in 1-2 months for NaCl levels - COMP METABOLIC PANEL 11. Interstitial cystitis - ICD9: 595.1, ICD10: N30.10 chronic F/u with Urologist Gerhard Caldwell DO To ER if develops chest pain, shortness of breath, or severe worsening of symptoms. Discussed risks, benefits, alternatives, and potential side effects of medications. Patient expressed understanding and agreed with the plan. Gerhard Caldwell DO [address] [place] [address] documented in this encounter [facility] 11-22-2021 Instructions Gerhard Caldwell DO - 11/22/2021 8:[address] 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 Message Sent to Practice: No Navigation Signature: Anaid Goins MA October 12, 2021 3:46 PM documented in this encounter [facility] 09-22-2021 Nurse Note NURSE POST PROCEDURE ASSESSMENT Level of Consciousness: Alert and Oriented Transferred: via Ambulation Post Procedure Vital Signs: Not indicated Specimens obtained: None Post Procedure: Cystoscopy' Botox Injection Discharge Notes: Patient returns to pre-procedure mental status. Patient alert and oriented on discharge. Discharge Pain level: 0 on a scale of 0-10. THE FOLLOWING WAS EVALUATED Motivation To Learn: Interested Family/Significant Other Support: High : Family not present. Cognitive Ability: Alert and oriented Patient Learns Best By:Individual Instruction and Written Material The Following Influencing Factors Were Barriers To This Education Session: Voodoo Factors: No barriers The Following Physical Limitations Were Barriers To This Education Session: None Instruction Provided To: Patient Patient Evaluation:Verbalizes understanding Follow Up Plan: No Need for follow up Supplemental Material Given:Written Material Viola Watson UNIVERSAL PROTOCOL / SAFETY CHECKLIST Procedure to be Performed:Cysto/botox Injection Sign In: A Moment of CARE was completed. Personnel directly involved with the procedure wore the appropriate PPE (Personal Protective Equipment). No special equipment needed. Patient/Surrogate Stated/Verified: PATIENT VERIFIED(optional for EMERGENT procedures): Patient name, Date of , Relevant allergies and The intended procedure Time Out Communication: Intended patient and procedure match the source documents. Consent documented and matches the intended procedure. No relevant labs, photos, and/or imaging studies were applicable for review. No correct side/site applicable for marking and visibility. Medications required for procedure verified. Fire risk assessed and interventions discussed. No implant(s) inserted. Sign Out: SIGN OUT (optional for EMERGENT procedures): No specimen collected. Viola Watson PRE CYSTO PROCEDURE ID Verified by: Viola Watson Procedure Indication:Cystoscop/Botox Latex Allergy: No Betadine Allergy: No Lidocaine allergy: No Allergies reviewed and updated. Pre-Procedure Vital Signs: Blood pressure 136/76, pulse 71. Heart valve replacement:No Joint replacement: No Pre-Procedure Antibiotics: [id number], taken prior to visit @ 1:32 pm Carolina Villa MA verfied By Viola Watson Ct Patient Prep: Betadine Scrub to perineum and placement of Sterile Drape. Anesthetic Given: 50 cc's of 1% Lidocaine solution instilled into the bladder by Carolina Villa under the supervision of Dr. Porfirio Watson documented in this encounter [facility] 09-22-2021 History of Present illness Narrative 71 year old female here for botox injection. Last injection 06/02/21 ROAB, refractory UUI, ?IC Labs reviewed: UA PVR M.D.'S HOPS NOTE / UNIVERSAL PROTOCOL / SAFETY CHECKLIST Sign In History and Physical Exam reviewed and is unchanged. Primary Diagnosis: Urge Incontinence Sign in Communication: Completed Time Out: Immediately prior to procedure, Team Confirms the Correct Patient, Correct Procedure; Botox Injection, Correct Site and Site Marking, Correct Position (if applicable). Sign Out: Sign Out Discussion: Completed Antibiotic(s) given immediately prior to procedure: bactrim Details of Procedure: After the genitalia were prepped and draped in a sterile manner a timeout was performed which confirmed the above information. A cystoscope was inserted atruamtically through the urethra. The bladder was distended with no abnormalities of the bladder mucosa noted. No bladder stones. 100 units of botox in 20 cc were injected throughout the posterior bladder wall and trigone in 20 locations. There was no major bleeding noted. The cystoscope was removed. Patient tolerated procedure well. A/P: 71 year old female with refractory UUI PLAN: -Follow-up in 4-5months for repeat injection Refill Mirabegron Needs self- start antibiotic Fiona Jules DO FPMRS Fellow Porfirio Rollins MD I have seen and evaluated the patient and discussed the case with the resident physician. I agree with the assessment and plan as documented in the resident s note. I was physically present during the entire procedure or the critical portion and immediately available during the entire procedure. documented in this encounter [facility] 08-18-2021 Miscellaneous Notes August 18, 2021 PID: [id number] Franca Valenzuela [address] [place] [address] Dear Ms. Valenzuela, We are pleased to inform you that the results of your recent breast imaging exam on 08/18/2021 are normal. Early detection of cancer is very important. We also understand recommendations regarding breast cancer screening are controversial. Please discuss with your primary care provider which strategy is best for you and whether a mammogram is right for you. Your imaging studies and report will be kept on file at [facility] as part of your permanent medical record and are available for your continuing care. Thank you for allowing us to help in meeting your health care needs. Sincerely, Dr. Fraire Interpreting Radiologist [facility] (Normal over 40) documented in this encounter [facility] 08-16-2021 History of Present illness Narrative POPULATION HEALTH NAVIGATION OUTREACH Action/FYI [employer] Care Gaps Discuss/Due: Advance Directives,HGBA1C, Breast Cancer Screening, Dilated Retinal Exam 08/20/21 or after, and Medicare Wellness. Outcome: Left message on voice mail and sent [employer] message. Pt identified by name and : NO Outreach Outcome/Action Unable to reach patient: Left message [employer] message sent Reason for Outreach Care Gap or Scheduling/Wellness visits Payer: Payor: [employer] MEDICARE / Plan: [employer] MEDICARE PPO / Product Type: PPO / Care Gap Reviewed:: Annual Wellness visit Breast Cancer screening Diabetic Eye Exam HBA1C Reminder: Reminder note to check Health Maintenance for items below Health Maintenance items due: SPIROMETRY Never done HEPATITIS C SCREENING Never done DIABETIC FOOT EXAM due on 10/17/2017 DTAP,TDAP,TD(2 - Td or Tdap) due on 12/16/2019 MAMMOGRAM due on 02/12/2021 HBA1C due on 03/01/2021 DEPRESSION SCREENING due on 04/28/2021 ADVANCE DIRECTIVE DISCUSSION Never done DILATED RETINAL EXAM due on 08/20/2021 URINE ALBUMIN:CREATININE RATIO due on 08/30/2021 LDL CHOLESTEROL due on 08/30/2021 Message Sent to Practice: No Navigation Signature: Charo Moore Population Health Navigator August 16, 2021 3:45 PM documented in this encounter [facility] 01-08-2017 History of Past i llness Narrative Problem Noted Date Resolved Date S/P total knee arthroplasty 01/08/201712/20 Primary osteoarthritis of left knee 12/15/2016 01/09/2017 Overview: Added automatically from request for surgery [id number] Dyslipidemia 10/17/2016 12/22/2016 Osteoarthritis of both knees 12/14/201508/2016 Primary osteoarthritis involving multiple joints 09/11/2015 12/14/2015 Generalized osteoarthrosis, involving multiple s ites 05/03/2015 09/11/2015 Depression 01/08/2012 08/13/2015 Stress 01/08/2012 12/22/2016 Type II diabetes mellitus 08/25/20102016 Acute bronchitis 04/18/2006 12/20/2009 Prolapse of female genital organs 12/22/2016 documented as of this encounter (statuses as of 08/16/2021) [facility] History of Past illness Narrative* Problem Noted Date Resolved Date S/P total knee arthroplasty 01/08/201712/20 Primary osteoarthritis of left knee 12/15/2016 01/09/2017 Overview: Added automatically from request for surgery [id number] Dyslipidemia 10/17/2016 12/22/2016 Osteoarthritis of both knees 12/14/201508/2016 Primary osteoarthritis involving multiple joints 09/11/2015 12/14/2015 Generalized osteoarthrosis, involving multiple s ites 05/03/2015 09/11/2015 Depression 01/08/2012 08/13/2015 Stress 01/08/2012 12/22/2016 Type II diabetes mellitus 08/25/20102016 Acute bronchitis 04/18/2006 12/20/2009 Prolapse of female genital organs 12/22/2016 documented as of this encounter (statuses as of 08/20/2021) [facility] History of Past illness Narrative* Problem Noted Date Resolved Date S/P total knee arthroplasty 01/08/201712/20 Primary osteoarthritis of left knee 12/15/2016 01/09/2017 Overview: Added automatically from request for surgery [id number] Dyslipidemia 10/17/2016 12/22/2016 Osteoarthritis of both knees 12/14/201508/2016 Primary osteoarthritis involving multiple joints 09/11/2015 12/14/2015 Generalized osteoarthrosis, involving multiple s ites 05/03/2015 09/11/2015 Depression 01/08/2012 08/13/2015 Stress 01/08/2012 12/22/2016 Type II diabetes mellitus 08/25/20102016 Acute bronchitis 04/18/2006 12/20/2009 Prolapse of female genital organs 12/22/2016 documented as of this encounter (statuses as of 09/22/2021) [facility] History of Past illness Narrative* Problem Noted Date Resolved Date S/P total knee arthroplasty 01/08/201712/20 Primary osteoarthritis of left knee 12/15/2016 01/09/2017 Overview: Added automatically from request for surgery [id number] Dyslipidemia 10/17/2016 12/22/2016 Osteoarthritis of both knees 12/14/201508/2016 Primary osteoarthritis involving multiple joints 09/11/2015 12/14/2015 Generalized osteoarthrosis, involving multiple s ites 05/03/2015 09/11/2015 Depression 01/08/2012 08/13/2015 Stress 01/08/2012 12/22/2016 Type II diabetes mellitus 08/25/20102016 Acute bronchitis 04/18/2006 12/20/2009 Prolapse of female genital organs 12/22/2016 documented as of this encounter (statuses as of 10/12/2021) [facility] History of Past illness Narrative* Problem Noted Date Resolved Date S/P total knee arthroplasty 01/08/201712/20 Primary osteoarthritis of left knee 12/15/2016 01/09/2017 Overview: Added automatically from request for surgery [id number] Dyslipidemia 10/17/2016 12/22/2016 Osteoarthritis of both knees 12/14/201508/2016 Primary osteoarthritis involving multiple joints 09/11/2015 12/14/2015 Generalized osteoarthrosis, involving multiple s ites 05/03/2015 09/11/2015 Depression 01/08/2012 08/13/2015 Stress 01/08/2012 12/22/2016 Type II diabetes mellitus 08/25/20102016 Acute bronchitis 04/18/2006 12/20/2009 Prolapse of female genital organs 12/22/2016 documented as of this encounter (statuses as of 11/22/2021) [facility] History of Past illness Narrative* Problem Noted Date Resolved Date S/P total knee arthroplasty 01/08/201712/20 Primary osteoarthritis of left knee 12/15/2016 01/09/2017 Overview: Added automatically from request for surgery [id number] Dyslipidemia 10/17/2016 12/22/2016 Osteoarthritis of both knees 12/14/201508/2016 Primary osteoarthritis involving multiple joints 09/11/2015 12/14/2015 Generalized osteoarthrosis, involving multiple s ites 05/03/2015 09/11/2015 Depression 01/08/2012 08/13/2015 Stress 01/08/2012 12/22/2016 Type II diabetes mellitus 08/25/20102016 Acute bronchitis 04/18/2006 12/20/2009 Prolapse of female genital organs 12/22/2016 documented as of this encounter (statuses as of 01/26/2022) [facility] History of Past illness Narrative* Problem Noted Date Resolved Date S/P total knee arthroplasty 01/08/201712/20 Primary osteoarthritis of left knee 12/15/2016 01/09/2017 Overview: Added automatically from request for surgery [id number] Dyslipidemia 10/17/2016 12/22/2016 Osteoarthritis of both knees 12/14/201508/2016 Primary osteoarthritis involving multiple joints 09/11/2015 12/14/2015 Generalized osteoarthrosis, involving multiple s ites 05/03/2015 09/11/2015 Depression 01/08/2012 08/13/2015 Stress 01/08/2012 12/22/2016 Type II diabetes mellitus 08/25/20102016 Acute bronchitis 04/18/2006 12/20/2009 Prolapse of female genital organs 12/22/2016 documented as of this encounter (statuses as of 01/31/2022) [facility] History of Past illness Narrative* Problem Noted Date Resolved Date S/P total knee arthroplasty 01/08/201712/20 Primary osteoarthritis of left knee 12/15/2016 01/09/2017 Overview: Added automatically from request for surgery [id number] Dyslipidemia 10/17/2016 12/22/2016 Osteoarthritis of both knees 12/14/201508/2016 Primary osteoarthritis involving multiple joints 09/11/2015 12/14/2015 Generalized osteoarthrosis, involving multiple s ites 05/03/2015 09/11/2015 Depression 01/08/2012 08/13/2015 Stress 01/08/2012 12/22/2016 Type II diabetes mellitus 08/25/20102016 Acute bronchitis 04/18/2006 12/20/2009 Prolapse of female genital organs 12/22/2016 documented as of this encounter (statuses as of 02/09/2022) [facility] History of Past illness Narrative* Problem Noted Date Resolved Date S/P total knee arthroplasty 01/08/201712/20 Primary osteoarthritis of left knee 12/15/2016 01/09/2017 Overview: Added automatically from request for surgery [id number] Dyslipidemia 10/17/2016 12/22/2016 Osteoarthritis of both knees 12/14/201508/2016 Primary osteoarthritis involving multiple joints 09/11/2015 12/14/2015 Generalized osteoarthrosis, involving multiple s ites 05/03/2015 09/11/2015 Depression 01/08/2012 08/13/2015 Stress 01/08/2012 12/22/2016 Type II diabetes mellitus 08/25/20102016 Acute bronchitis 04/18/2006 12/20/2009 Prolapse of female genital organs 12/22/2016 documented as of this encounter (statuses as of 03/08/2022) [facility] History of Past illness Narrative* Problem Noted Date Resolved Date S/P total knee arthroplasty 01/08/201712/20 Primary osteoarthritis of left knee 12/15/2016 01/09/2017 Overview: Added automatically from request for surgery [id number] Dyslipidemia 10/17/2016 12/22/2016 Osteoarthritis of both knees 12/14/201508/2016 Primary osteoarthritis involving multiple joints 09/11/2015 12/14/2015 Generalized osteoarthrosis, involving multiple s ites 05/03/2015 09/11/2015 Depression 01/08/2012 08/13/2015 Stress 01/08/2012 12/22/2016 Type II diabetes mellitus 08/25/20102016 Acute bronchitis 04/18/2006 12/20/2009 Prolapse of female genital organs 12/22/2016 documented as of this encounter (statuses as of 03/10/2022) [facility] of Past illness Narrative* Problem Noted Date Resolved Date S/P total knee arthroplasty 01/08/201712/20 Primary osteoarthritis of left knee 12/15/2016 01/09/2017 Overview: Added automatically from request for surgery [id number] Dyslipidemia 10/17/2016 12/22/2016 Osteoarthritis of both knees 12/14/201508/2016 Primary osteoarthritis involving multiple joints 09/11/2015 12/14/2015 Generalized osteoarthrosis, involving multiple s ites 05/03/2015 09/11/2015 Depression 01/08/2012 08/13/2015 Stress 01/08/2012 12/22/2016 Type II diabetes mellitus 08/25/20102016 Acute bronchitis 04/18/2006 12/20/2009 Prolapse of female genital organs 12/22/2016 documented as of this encounter (statuses as of 03/14/2022) [facility] History of Past illness Narrative* Problem Noted Date Resolved Date S/P total knee arthroplasty 01/08/201712/20 Primary osteoarthritis of left knee 12/15/2016 01/09/2017 Overview: Added automatically from request for surgery [id number] Dyslipidemia 10/17/2016 12/22/2016 Osteoarthritis of both knees 12/14/201508/2016 Primary osteoarthritis involving multiple joints 09/11/2015 12/14/2015 Generalized osteoarthrosis, involving multiple s ites 05/03/2015 09/11/2015 Depression 01/08/2012 08/13/2015 Stress 01/08/2012 12/22/2016 Type II diabetes mellitus 08/25/20102016 Acute bronchitis 04/18/2006 12/20/2009 Prolapse of female genital organs 12/22/2016 documented as of this encounter (statuses as of 03/16/2022) [facility] of Past illness Narrative* Problem Noted Date Resolved Date S/P total knee arthroplasty 01/08/201712/20 Primary osteoarthritis of left knee 12/15/2016 01/09/2017 Overview: Added automatically from request for surgery [id number] Dyslipidemia 10/17/2016 12/22/2016 Osteoarthritis of both knees 12/14/201508/2016 Primary osteoarthritis involving multiple joints 09/11/2015 12/14/2015 Generalized osteoarthrosis, involving multiple s ites 05/03/2015 09/11/2015 Depression 01/08/2012 08/13/2015 Stress 01/08/2012 12/22/2016 Type II diabetes mellitus 08/25/20102016 Acute bronchitis 04/18/2006 12/20/2009 Prolapse of female genital organs 12/22/2016 documented as of this encounter (statuses as of 04/10/2022) [facility] of Past illness Narrative* Problem Noted Date Resolved Date S/P total knee arthroplasty 01/08/201712/20 Primary osteoarthritis of left knee 12/15/2016 01/09/2017 Overview: Added automatically from request for surgery [id number] Dyslipidemia 10/17/2016 12/22/2016 Osteoarthritis of both knees 12/14/201508/2016 Primary osteoarthritis involving multiple joints 09/11/2015 12/14/2015 Generalized osteoarthrosis, involving multiple s ites 05/03/2015 09/11/2015 Depression 01/08/2012 08/13/2015 Stress 01/08/2012 12/22/2016 Type II diabetes mellitus 08/25/20102016 Acute bronchitis 04/18/2006 12/20/2009 Prolapse of female genital organs 12/22/2016 documented as of this encounter (statuses as of 05/24/2022) [facility] of Past illness Narrative* Problem Noted Date Resolved Date S/P total knee arthroplasty 01/08/201712/20 Primary osteoarthritis of left knee 12/15/2016 01/09/2017 Overview: Added automatically from request for surgery [id number] Dyslipidemia 10/17/2016 12/22/2016 Osteoarthritis of both knees 12/14/201508/2016 Primary osteoarthritis involving multiple joints 09/11/2015 12/14/2015 Generalized osteoarthrosis, involving multiple s ites 05/03/2015 09/11/2015 Depression 01/08/2012 08/13/2015 Stress 01/08/2012 12/22/2016 Type II diabetes mellitus 08/25/20102016 Acute bronchitis 04/18/2006 12/20/2009 Prolapse of female genital organs 12/22/2016 documented as of this encounter (statuses as of 06/09/2022) [facility] History of Past illness Narrative* Problem Noted Date Resolved Date S/P total knee arthroplasty 01/08/201712/20 Primary osteoarthritis of left knee 12/15/2016 01/09/2017 Overview: Added automatically from request for surgery [id number] Dyslipidemia 10/17/2016 12/22/2016 Osteoarthritis of both knees 12/14/201508/2016 Primary osteoarthritis involving multiple joints 09/11/2015 12/14/2015 Generalized osteoarthrosis, involving multiple s ites 05/03/2015 09/11/2015 Depression 01/08/2012 08/13/2015 Stress 01/08/2012 12/22/2016 Type II diabetes mellitus 08/25/20102016 Acute bronchitis 04/18/2006 12/20/2009 Prolapse of female genital organs 12/22/2016 documented as of this encounter (statuses as of 06/09/2022) [facility]2017 History of Past illness Narrative* Problem Noted Date Resolved Date S/P total knee arthroplasty 01/08/201712/20 Primary osteoarthritis of left knee 12/15/2016 01/09/2017 Overview: Added automatically from request for surgery [id number] Dyslipidemia 10/17/2016 12/22/2016 Osteoarthritis of both knees 12/14/201508/2016 Primary osteoarthritis involving multiple joints 09/11/2015 12/14/2015 Generalized osteoarthrosis, involving multiple s ites 05/03/2015 09/11/2015 Depression 01/08/2012 08/13/2015 Stress 01/08/2012 12/22/2016 Type II diabetes mellitus 08/25/20102016 Acute bronchitis 04/18/2006 12/20/2009 Prolapse of female genital organs 12/22/2016 documented as of this encounter (statuses as of 06/12/2022) [facility] History of Past illness Narrative* Problem Noted Date Resolved Date S/P total knee arthroplasty 01/08/201712/20 Primary osteoarthritis of left knee 12/15/2016 01/09/2017 Overview: Added automatically from request for surgery [id number] Dyslipidemia 10/17/2016 12/22/2016 Osteoarthritis of both knees 12/14/201508/2016 Primary osteoarthritis involving multiple joints 09/11/2015 12/14/2015 Generalized osteoarthrosis, involving multiple s ites 05/03/2015 09/11/2015 Depression 01/08/2012 08/13/2015 Stress 01/08/2012 12/22/2016 Type II diabetes mellitus 08/25/20102016 Acute bronchitis 04/18/2006 12/20/2009 Prolapse of female genital organs 12/22/2016 documented as of this encounter (statuses as of 06/23/2022) [facility] History of Past illness Narrative* Problem Noted Date Resolved Date S/P total knee arthroplasty 01/08/201712/20 Primary osteoarthritis of left knee 12/15/2016 01/09/2017 Overview: Added automatically from request for surgery [id number] Dyslipidemia 10/17/2016 12/22/2016 Osteoarthritis of both knees 12/14/201508/2016 Primary osteoarthritis involving multiple joints 09/11/2015 12/14/2015 Generalized osteoarthrosis, involving multiple s ites 05/03/2015 09/11/2015 Depression 01/08/2012 08/13/2015 Stress 01/08/2012 12/22/2016 Type II diabetes mellitus 08/25/20102016 Acute bronchitis 04/18/2006 12/20/2009 Prolapse of female genital organs 12/22/2016 documented as of this encounter (statuses as of 06/27/2022) [facility] History of Past illness Narrative* Problem Noted Date Resolved Date S/P total knee arthroplasty 01/08/201712/20 Primary osteoarthritis of left knee 12/15/2016 01/09/2017 Overview: Added automatically from request for surgery [id number] Dyslipidemia 10/17/2016 12/22/2016 Osteoarthritis of both knees 12/14/201508/2016 Primary osteoarthritis involving multiple joints 09/11/2015 12/14/2015 Generalized osteoarthrosis, involving multiple s ites 05/03/2015 09/11/2015 Depression 01/08/2012 08/13/2015 Stress 01/08/2012 12/22/2016 Type II diabetes mellitus 08/25/20102016 Acute bronchitis 04/18/2006 12/20/2009 Prolapse of female genital organs 12/22/2016 documented as of this encounter (statuses as of 06/29/2022) [facility] History of Past illness Narrative* Problem Noted Date Resolved Date S/P total knee arthroplasty 01/08/201712/20 Primary osteoarthritis of left knee 12/15/2016 01/09/2017 Overview: Added automatically from request for surgery [id number] Dyslipidemia 10/17/2016 12/22/2016 Osteoarthritis of both knees 12/14/201508/2016 Primary osteoarthritis involving multiple joints 09/11/2015 12/14/2015 Generalized osteoarthrosis, involving multiple s ites 05/03/2015 09/11/2015 Depression 01/08/2012 08/13/2015 Stress 01/08/2012 12/22/2016 Type II diabetes mellitus 08/25/20102016 Acute bronchitis 04/18/2006 12/20/2009 Prolapse of female genital organs 12/22/2016 documented as of this encounter (statuses as of 07/03/2022) [facility] History of Past illness Narrative* Problem Noted Date Resolved Date S/P total knee arthroplasty 01/08/201712/20 Primary osteoarthritis of left knee 12/15/2016 01/09/2017 Overview: Added automatically from request for surgery [id number] Dyslipidemia 10/17/2016 12/22/2016 Osteoarthritis of both knees 12/14/201508/2016 Primary osteoarthritis involving multiple joints 09/11/2015 12/14/2015 Generalized osteoarthrosis, involving multiple s ites 05/03/2015 09/11/2015 Depression 01/08/2012 08/13/2015 Stress 01/08/2012 12/22/2016 Type II diabetes mellitus 08/25/20102016 Acute bronchitis 04/18/2006 12/20/2009 Prolapse of female genital organs 12/22/2016 documented as of this encounter (statuses as of 07/03/2022) [facility] History of Past illness Narrative* Problem Noted Date Resolved Date S/P total knee arthroplasty 01/08/201712/20 Primary osteoarthritis of left knee 12/15/2016 01/09/2017 Overview: Added automatically from request for surgery [id number] Dyslipidemia 10/17/2016 12/22/2016 Osteoarthritis of both knees 12/14/201508/2016 Primary osteoarthritis involving multiple joints 09/11/2015 12/14/2015 Generalized osteoarthrosis, involving multiple s ites 05/03/2015 09/11/2015 Depression 01/08/2012 08/13/2015 Stress 01/08/2012 12/22/2016 Type II diabetes mellitus 08/25/20102016 Acute bronchitis 04/18/2006 12/20/2009 Prolapse of female genital organs 12/22/2016 documented as of this encounter (statuses as of 08/04/2022) [facility] History of Past illness Narrative* Problem Noted Date Resolved Date S/P total knee arthroplasty 01/08/201712/20 Primary osteoarthritis of left knee 12/15/2016 01/09/2017 Overview: Added automatically from request for surgery [id number] Dyslipidemia 10/17/2016 12/22/2016 Osteoarthritis of both knees 12/14/201508/2016 Primary osteoarthritis involving multiple joints 09/11/2015 12/14/2015 Generalized osteoarthrosis, involving multiple s ites 05/03/2015 09/11/2015 Depression 01/08/2012 08/13/2015 Stress 01/08/2012 12/22/2016 Type II diabetes mellitus 08/25/20102016 Acute bronchitis 04/18/2006 12/20/2009 Prolapse of female genital organs 12/22/2016 documented as of this encounter (statuses as of 08/04/2022) [facility] History of Past illness Narrative* Problem Noted Date Resolved Date S/P total knee arthroplasty 01/08/201712/20 Primary osteoarthritis of left knee 12/15/2016 01/09/2017 Overview: Added automatically from request for surgery [id number] Dyslipidemia 10/17/2016 12/22/2016 Osteoarthritis of both knees 12/14/201508/2016 Primary osteoarthritis involving multiple joints 09/11/2015 12/14/2015 Generalized osteoarthrosis, involving multiple s ites 05/03/2015 09/11/2015 Depression 01/08/2012 08/13/2015 Stress 01/08/2012 12/22/2016 Type II diabetes mellitus 08/25/20102016 Acute bronchitis 04/18/2006 12/20/2009 Prolapse of female genital organs 12/22/2016 documented as of this encounter (statuses as of 08/08/2022) [facility] History of Past illness Narrative* Problem Noted Date Resolved Date S/P total knee arthroplasty 01/08/201712/20 Primary osteoarthritis of left knee 12/15/2016 01/09/2017 Overview: Added automatically from request for surgery [id number] Dyslipidemia 10/17/2016 12/22/2016 Osteoarthritis of both knees 12/14/201508/2016 Primary osteoarthritis involving multiple joints 09/11/2015 12/14/2015 Generalized osteoarthrosis, involving multiple s ites 05/03/2015 09/11/2015 Depression 01/08/2012 08/13/2015 Stress 01/08/2012 12/22/2016 Type II diabetes mellitus 08/25/20102016 Acute bronchitis 04/18/2006 12/20/2009 Prolapse of female genital organs 12/22/2016 documented as of this encounter (statuses as of 08/11/2022) [facility] History of Past illness Narrative* Problem Noted Date Resolved Date S/P total knee arthroplasty 01/08/201712/20 Primary osteoarthritis of left knee 12/15/2016 01/09/2017 Overview: Added automatically from request for surgery [id number] Dyslipidemia 10/17/2016 12/22/2016 Osteoarthritis of both knees 12/14/201508/2016 Primary osteoarthritis involving multiple joints 09/11/2015 12/14/2015 Generalized osteoarthrosis, involving multiple s ites 05/03/2015 09/11/2015 Depression 01/08/2012 08/13/2015 Stress 01/08/2012 12/22/2016 Type II diabetes mellitus 08/25/20102016 Acute bronchitis 04/18/2006 12/20/2009 Prolapse of female genital organs 12/22/2016 documented as of this encounter (statuses as of 09/07/2022) [facility] History of Past illness Narrative* Problem Noted Date Resolved Date S/P total knee arthroplasty 01/08/201712/20 Primary osteoarthritis of left knee 12/15/2016 01/09/2017 Overview: Added automatically from request for surgery [id number] Dyslipidemia 10/17/2016 12/22/2016 Osteoarthritis of both knees 12/14/201508/2016 Primary osteoarthritis involving multiple joints 09/11/2015 12/14/2015 Generalized osteoarthrosis, involving multiple s ites 05/03/2015 09/11/2015 Depression 01/08/2012 08/13/2015 Stress 01/08/2012 12/22/2016 Type II diabetes mellitus 08/25/20102016 Acute bronchitis 04/18/2006 12/20/2009 Prolapse of female genital organs 12/22/2016 documented as of this encounter (statuses as of 09/26/2022) [facility] History of Past illness Narrative* Problem Noted Date Resolved Date S/P total knee arthroplasty 01/08/201712/20 Primary osteoarthritis of left knee 12/15/2016 01/09/2017 Overview: Added automatically from request for surgery [id number] Dyslipidemia 10/17/2016 12/22/2016 Osteoarthritis of both knees 12/14/201508/2016 Primary osteoarthritis involving multiple joints 09/11/2015 12/14/2015 Generalized osteoarthrosis, involving multiple s ites 05/03/2015 09/11/2015 Depression 01/08/2012 08/13/2015 Stress 01/08/2012 12/22/2016 Type II diabetes mellitus 08/25/20102016 Acute bronchitis 04/18/2006 12/20/2009 Prolapse of female genital organs 12/22/2016 documented as of this encounter (statuses as of 09/27/2022) [facility] History of Past illness Narrative* Problem Noted Date Resolved Date S/P total knee arthroplasty 01/08/201712/20 Primary osteoarthritis of left knee 12/15/2016 01/09/2017 Overview: Added automatically from request for surgery [id number] Dyslipidemia 10/17/2016 12/22/2016 Osteoarthritis of both knees 12/14/201508/2016 Primary osteoarthritis involving multiple joints 09/11/2015 12/14/2015 Generalized osteoarthrosis, involving multiple s ites 05/03/2015 09/11/2015 Depression 01/08/2012 08/13/2015 Stress 01/08/2012 12/22/2016 Type II diabetes mellitus 08/25/20102016 Acute bronchitis 04/18/2006 12/20/2009 Prolapse of female genital organs 12/22/2016 documented as of this encounter (statuses as of 09/29/2022) [facility] History of Past illness Narrative* Problem Noted Date Resolved Date S/P total knee arthroplasty 01/08/201712/20 Primary osteoarthritis of left knee 12/15/2016 01/09/2017 Overview: Added automatically from request for surgery [id number] Dyslipidemia 10/17/2016 12/22/2016 Osteoarthritis of both knees 12/14/201508/2016 Primary osteoarthritis involving multiple joints 09/11/2015 12/14/2015 Generalized osteoarthrosis, involving multiple s ites 05/03/2015 09/11/2015 Depression 01/08/2012 08/13/2015 Stress 01/08/2012 12/22/2016 Type II diabetes mellitus 08/25/20102016 Acute bronchitis 04/18/2006 12/20/2009 Prolapse of female genital organs 12/22/2016 documented as of this encounter (statuses as of 10/03/2022) [facility] History of Past illness Narrative* Problem Noted Date Resolved Date S/P total knee arthroplasty 01/08/201712/20 Primary osteoarthritis of left knee 12/15/2016 01/09/2017 Overview: Added automatically from request for surgery [id number] Dyslipidemia 10/17/2016 12/22/2016 Osteoarthritis of both knees 12/14/201508/2016 Primary osteoarthritis involving multiple joints 09/11/2015 12/14/2015 Generalized osteoarthrosis, involving multiple s ites 05/03/2015 09/11/2015 Depression 01/08/2012 08/13/2015 Stress 01/08/2012 12/22/2016 Type II diabetes mellitus 08/25/20102016 Acute bronchitis 04/18/2006 12/20/2009 Prolapse of female genital organs 12/22/2016 documented as of this encounter (statuses as of 11/24/2022) [facility] History of Past illness Narrative* Problem Noted Date Resolved Date S/P total knee arthroplasty 01/08/201712/20 Primary osteoarthritis of left knee 12/15/2016 01/09/2017 Overview: Added automatically from request for surgery [id number] Dyslipidemia 10/17/2016 12/22/2016 Osteoarthritis of both knees 12/14/201508/2016 Primary osteoarthritis involving multiple joints 09/11/2015 12/14/2015 Generalized osteoarthrosis, involving multiple s ites 05/03/2015 09/11/2015 Depression 01/08/2012 08/13/2015 Stress 01/08/2012 12/22/2016 Type II diabetes mellitus 08/25/20102016 Acute bronchitis 04/18/2006 12/20/2009 Prolapse of female genital organs 12/22/2016 documented as of this encounter (statuses as of 11/24/2022) [facility] History of Past illness Narrative* Problem Noted Date Diagnosed Date Resolved Date S/P total knee arthroplasty 01/08/2017 01/09/2017 Primary osteoarthritis of left knee 12/15/2016 01/09/2017 Overview: Added automatically from request for surgery [id number] Dyslipidemia 10/17/2016 12/22/2016 Osteoarthritis of both knees 12/14/2015 12/22/2016 Primary osteoarthritis invol ving multiple joints 09/11/2015 12/14/2015 Generalized osteoarthrosis, involving multiple sites 05/03/2015 09/11/2015 Depression 01/08/2012 08/13/2015 Stress 01/08/2012 12/22/2016 Type II diabetes mellitus 08/25/2010 Acute bronchitis 04/18/2006 12/20/2009 Prolapse of female genital organs 12/22/2016 documented as of this encounter (statuses as of 12/06/2022) [facility] History of Past illness Narrative* Problem Noted Date Diagnosed Date Resolved Date S/P total knee arthroplasty 01/08/2017 01/09/2017 Primary osteoarthritis of left knee 12/15/2016 01/09/2017 Overview: Added automatically from request for surgery [id number] Dyslipidemia 10/17/2016 12/22/2016 Osteoarthritis of both knees 12/14/2015 12/22/2016 Primary osteoarthritis invol ving multiple joints 09/11/2015 12/14/2015 Generalized osteoarthrosis, involving multiple sites 05/03/2015 09/11/2015 Depression 01/08/2012 08/13/2015 Stress 01/08/2012 12/22/2016 Type II diabetes mellitus 08/25/2010 Acute bronchitis 04/18/2006 12/20/2009 Prolapse of female genital organs 12/22/2016 documented as of this encounter (statuses as of 12/11/2022) [facility] History of Past illness Narrative* Problem Noted Date Diagnosed Date Resolved Date S/P total knee arthroplasty 01/08/2017 01/09/2017 Primary osteoarthritis of left knee 12/15/2016 01/09/2017 Overview: Added automatically from request for surgery [id number] Dyslipidemia 10/17/2016 12/22/2016 Osteoarthritis of both knees 12/14/2015 12/22/2016 Primary osteoarthritis invol ving multiple joints 09/11/2015 12/14/2015 Generalized osteoarthrosis, involving multiple sites 05/03/2015 09/11/2015 Depression 01/08/2012 08/13/2015 Stress 01/08/2012 12/22/2016 Type II diabetes mellitus 08/25/2010 Acute bronchitis 04/18/2006 12/20/2009 Prolapse of female genital organs 12/22/2016 documented as of this encounter (statuses as of 12/14/2022) [facility] History of Past illness Narrative* Problem Noted Date Diagnosed Date Resolved Date S/P total knee arthroplasty 01/08/2017 01/09/2017 Primary osteoarthritis of left knee 12/15/2016 01/09/2017 Overview: Added automatically from request for surgery [id number] Dyslipidemia 10/17/2016 12/22/2016 Osteoarthritis of both knees 12/14/2015 12/22/2016 Primary osteoarthritis invol ving multiple joints 09/11/2015 12/14/2015 Generalized osteoarthrosis, involving multiple sites 05/03/2015 09/11/2015 Depression 01/08/2012 08/13/2015 Stress 01/08/2012 12/22/2016 Type II diabetes mellitus 08/25/2010 Acute bronchitis 04/18/2006 12/20/2009 Prolapse of female genital organs 12/22/2016 documented as of this encounter (statuses as of 12/18/2022) [facility] History of Past illness Narrative* Problem Noted Date Diagnosed Date Resolved Date S/P total knee arthroplasty 01/08/2017 01/09/2017 Primary osteoarthritis of left knee 12/15/2016 01/09/2017 Overview: Added automatically from request for surgery [id number] Dyslipidemia 10/17/2016 12/22/2016 Osteoarthritis of both knees 12/14/2015 12/22/2016 Primary osteoarthritis invol ving multiple joints 09/11/2015 12/14/2015 Generalized osteoarthrosis, involving multiple sites 05/03/2015 09/11/2015 Depression 01/08/2012 08/13/2015 Stress 01/08/2012 12/22/2016 Type II diabetes mellitus 08/25/2010 Acute bronchitis 04/18/2006 12/20/2009 Prolapse of female genital organs 12/22/2016 documented as of this encounter (statuses as of 12/20/2022) [facility] of Past illness Narrative* Problem Noted Date Diagnosed Date Resolved Date S/P total knee arthroplasty 01/08/2017 01/09/2017 Primary osteoarthritis of left knee 12/15/2016 01/09/2017 Overview: Added automatically from request for surgery [id number] Dyslipidemia 10/17/2016 12/22/2016 Osteoarthritis of both knees 12/14/2015 12/22/2016 Primary osteoarthritis invol ving multiple joints 09/11/2015 12/14/2015 Generalized osteoarthrosis, involving multiple sites 05/03/2015 09/11/2015 Depression 01/08/2012 08/13/2015 Stress 01/08/2012 12/22/2016 Type II diabetes mellitus 08/25/2010 Acute bronchitis 04/18/2006 12/20/2009 Prolapse of female genital organs 12/22/2016 documented as of this encounter (statuses as of 12/22/2022) [facility] of Past illness Narrative* Problem Noted Date Diagnosed Date Resolved Date S/P total knee arthroplasty 01/08/2017 01/09/2017 Primary osteoarthritis of left knee 12/15/2016 01/09/2017 Overview: Added automatically from request for surgery [id number] Dyslipidemia 10/17/2016 12/22/2016 Osteoarthritis of both knees 12/14/2015 12/22/2016 Primary osteoarthritis invol ving multiple joints 09/11/2015 12/14/2015 Generalized osteoarthrosis, involving multiple sites 05/03/2015 09/11/2015 Depression 01/08/2012 08/13/2015 Stress 01/08/2012 12/22/2016 Type II diabetes mellitus 08/25/2010 Acute bronchitis 04/18/2006 12/20/2009 Prolapse of female genital organs 12/22/2016 documented as of this encounter (statuses as of 01/16/2023) [facility] of Past illness Narrative* Problem Noted Date Diagnosed Date Resolved Date S/P total knee arthroplasty 01/08/2017 01/09/2017 Primary osteoarthritis of left knee 12/15/2016 01/09/2017 Overview: Added automatically from request for surgery [id number] Dyslipidemia 10/17/2016 12/22/2016 Osteoarthritis of both knees 12/14/2015 12/22/2016 Primary osteoarthritis invol ving multiple joints 09/11/2015 12/14/2015 Generalized osteoarthrosis, involving multiple sites 05/03/2015 09/11/2015 Depression 01/08/2012 08/13/2015 Stress 01/08/2012 12/22/2016 Type II diabetes mellitus 08/25/2010 Acute bronchitis 04/18/2006 12/20/2009 Prolapse of female genital organs 12/22/2016 documented as of this encounter (statuses as of 03/25/2023) [facility] History of Past illness Narrative* Problem Noted Date Diagnosed Date Resolved Date S/P total knee arthroplasty 01/08/2017 01/09/2017 Primary osteoarthritis of left knee 12/15/2016 01/09/2017 Overview: Added automatically from request for surgery [id number] Dyslipidemia 10/17/2016 12/22/2016 Osteoarthritis of both knees 12/14/2015 12/22/2016 Primary osteoarthritis invol ving multiple joints 09/11/2015 12/14/2015 Generalized osteoarthrosis, involving multiple sites 05/03/2015 09/11/2015 Depression 01/08/2012 08/13/2015 Stress 01/08/2012 12/22/2016 Type II diabetes mellitus 08/25/2010 Acute bronchitis 04/18/2006 12/20/2009 Prolapse of female genital organs 12/22/2016 documented as of this encounter (statuses as of 03/25/2023) [facility] Recurrent UTI- Primary Urinary tract infection, site not specified Screening for genitourinary condition Screening for other and unspecified genitourinary condition Nocturia Urge incontinence [facility] Diagnosis DDD (degenerative disc disease), lumbar- Primary Degeneration of lumbar or lumbosacral intervertebral disc Atrophic vaginitis Postmenopausal atrophic vaginitis Status post total replacement of right hip Other osteoarthritis of spine, 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 Vitamin D deficiency Unspecified vitamin D deficiency IFG (impaired fasting glucose) Impaired fasting glucose Mixed hyperlipidemia Mild intermittent asthma without complication Unspecified asthma Restless legs Restless legs syndrome (RLS) Interstitial cystitis Chronic interstitial cystitis [facility] Diagnosis Screening for genitourinary condition [Z13.89 (ICD-10-CM)]- Primary Screening for other and unspecified genitourinary condition Chronic interstitial cystitis with hematuria Chronic interstitial cystitis Urinary frequency Urgency of urination Urge incontinence Interstitial cystitis Chronic interstitial cystitis [facility] Diagnosis Mild intermittent asthma without complication Unspecified asthma documented in this encounter [facility] note* Diagnosis Atrophic vaginitis Postmenopausal atrophic vaginitis documented in this encounter [facility] note* Diagnosis Arthritis of left knee Unspecified arthropathy, lower leg [facility]* Diagnosis Vitamin D deficiency- Primary Unspecified vitamin D deficiency IFG (impaired fasting glucose) Impaired fasting glucose Mixed hyperlipidemia Controlled type 2 diabetes mellitus without complication, without long-term current use of insulin ([facility]) Screening for thyroid disorder [facility]* Diagnosis Hyperkalemia- Primary Hyperpotassemia [facility]* Diagnosis Mild intermittent asthma without complication- Primary Unspecified asthma PLMD (periodic limb movement disorder) Periodic limb movement disorder Restless legs Restless legs syndrome (RLS) Hyperkalemia Hyperpotassemia documented in this encounter [facility] note* Diagnosis Numbness and tingling in both hands- Primary documented in this encounter [facility] note* Diagnosis PLMD (periodic limb movement disorder) Periodic limb movement disorder Restless legs Restless legs syndrome (RLS) documented in this encounter [facility] note* Diagnosis Numbness and tingling in both hands [facility]* Diagnosis Screening for genitourinary condition [Z13.89 (ICD-10-CM)]- Primary Screening for other and unspecified genitourinary condition Urinary tract infection without hematuria, site unspecified Lesion of bladder Unspecified disorder of bladder Incomplete emptying of bladder Incomplete bladder emptying Recurrent UTI Urinary tract infection, site not specified Incomplete bladder emptying documented in this encounter [facility] note* Diagnosis Encounter for screening mammogram for malignant neoplasm of breast- Primary Other screening mammogram Arthritis of left knee Unspecified arthropathy, lower leg IFG (impaired fasting glucose) Impaired fasting glucose Numbness and tingling in both hands Mild carpal tunnel syndrome, unspecified laterality Controlled type 2 diabetes mellitus without complication, without long-term current use of insulin ([facility]) Mixed hyperlipidemia documented in this encounter [facility] note* Diagnosis Recurrent UTI- Primary Urinary tract infection, site not specified [facility] Diagnosis Recurrent UTI- Primary Urinary tract infection, site not specified Overactive bladder Hypertonicity of bladder Stress incontinence Female stress incontinence Dysfunctional voiding of urine Unspecified disorder of urethra and urinary tract documented [facility]* Diagnosis ANGELIKA (obstructive sleep apnea)- Primary Obstructive sleep apnea (adult) (pediatric) documented [facility]* Diagnosis Degeneration of lumbosacral intervertebral disc- Primary Degeneration of lumbar or lumbosacral intervertebral disc Spondylosis of lumbosacral region, unspecified spinal osteoarthritis complication status Lumbosacral stenosis Spinal stenosis, lumbar region, without neurogenic claudication Arthropathy of lumbar facet joint Lumbosacral spondylosis without myelopathy documented [facility]* Diagnosis Screening for genitourinary condition [Z13.89 (ICD-10-CM)]- Primary Screening for other and unspecified genitourinary condition Atrophic vaginitis 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 Chronic interstitial cystitis Genitourinary syndrome of menopause Recurrent UTI Urinary tract infection, site not specified Lesion of bladder Unspecified disorder of bladder Urgency of urination Urinary frequency documented [facility]* Diagnosis Degeneration of lumbosacral intervertebral disc- Primary Degeneration of lumbar or lumbosacral intervertebral disc Spondylosis of lumbosacral region, unspecified spinal osteoarthritis complication status Lumbosacral stenosis Spinal stenosis, lumbar region, without neurogenic claudication Arthropathy of lumbar facet joint Lumbosacral spondylosis without myelopathy documented [facility]* Diagnosis Controlled type 2 diabetes mellitus without complication, without long-term current use of insulin ([facility])- Primary Travel advice encounter Other specified counseling Situational anxiety Other anxiety states Situational insomnia Transient disorder of initiating or maintaining sleep Dysuria Mixed hyperlipidemia Chronic midline low back pain with bilateral sciatica Overactive bladder Hypertonicity of bladder documented [facility]* Diagnosis Bladder pain- Primary Other symptoms involving urinary system documented [facility]* Diagnosis Degeneration of lumbosacral intervertebral disc- Primary Degeneration of lumbar or lumbosacral intervertebral disc Spondylosis of lumbosacral region, unspecified spinal osteoarthritis complication status Lumbosacral stenosis Spinal stenosis, lumbar region, without neurogenic claudication Arthropathy of lumbar facet joint Lumbosacral spondylosis without myelopathy [facility] Diagnosis Screening for genitourinary condition- Primary Screening for other and unspecified genitourinary condition [facility] Diagnosis Degeneration of lumbosacral intervertebral disc- Primary Degeneration of lumbar or lumbosacral intervertebral disc Spondylosis of lumbosacral region, unspecified spinal osteoarthritis complication status Lumbosacral stenosis Spinal stenosis, lumbar region, without neurogenic claudication Arthropathy of lumbar facet joint Lumbosacral spondylosis without myelopathy [facility]* Diagnosis Encounter for screening mammogram for malignant neoplasm of breast Other screening mammogram [facility] Diagnosis Encounter for screening [facility] for [facility] cancer [facility] Diagnosis Sore throat- Primary Acute pharyngitis URI, acute Acute upper respiratory infections of unspecified site [facility]* Diagnosis Screening for genitourinary condition [Z13.89]- Primary Screening for other and unspecified genitourinary condition Atrophic vaginitis Postmenopausal atrophic vaginitis Recurrent UTI Urinary tract infection, site not specified Urge incontinence Urinary frequency Urgency of urination [facility]* Diagnosis Mild intermittent asthma without complication Unspecified asthma [facility]* Diagnosis DDD (degenerative disc disease), lumbar Degeneration of lumbar or lumbosacral intervertebral disc Other osteoarthritis of spine, 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 [facility]* Diagnosis Atrophic vaginitis Postmenopausal atrophic vaginitis [facility]* Diagnosis Restless legs Restless legs syndrome (RLS) [facility]* Diagnosis Medicare annual wellness visit, subsequent- Primary Routine general medical examination at a health care facility Mild intermittent asthma without complication Unspecified asthma Situational insomnia Transient disorder of initiating or maintaining sleep Travel advice encounter Other specified counseling Situational anxiety Other anxiety states Controlled type 2 diabetes mellitus without complication, without long-term current use of insulin (HCC) Mixed hyperlipidemia Chronic midline low back pain with bilateral sciatica Overactive bladder Hypertonicity of bladder Degeneration of intervertebral disc of lumbar region with discogenic back pain and lower extremity pain [facility]* Diagnosis Urge incontinence- Primary documented in this encounter [facility] note* Diagnosis Mild intermittent asthma without complication Unspecified asthma documented in this encounter [facility] note* Diagnosis Controlled type 2 diabetes mellitus without complication, without long-term current use of insulin (HCC)- Primary documented in this encounter [facility] noteNo assessment information availableWFulton [facility] Work Phone: Evaluation note* Diagnosis Encounter for screening mammogram for malignant neoplasm of breast- Primary Other screening mammogram documented in this encounter [facility] note* Diagnosis Urge incontinence- Primary Urinary frequency Urgency of urination Genitourinary syndrome of menopause Recurrent UTI Urinary tract infection, site not specified documented in this encounter [facility] for referral (narrative)* Outpatient Procedure (Routine) - Pending Review Specialty Diagnoses / Procedures Referred By Dwayne maldonado Referred To Contact [facility] Diagnoses Numbness and tingling in both hands Procedures EMG(NEURO/NI) NERVE CONDUCTION STUDIES 9-10 STUDIES Ceci Paris APRN.CNP [address] [place] [address] [place] [id number] Referral ID Status Reason Start Date Expiration Date Visits Requested Visits Authorized [id number] Pending Review Auto-Generat ed Referral 2 05/18/2023 1 1 [facility] for referral (narrative)* Outpatient Procedure (Routine) - Pending Review Specialty Diagnoses / Procedures Referred By Dwayne maldonado Referred To Contact [facility] Diagnoses Incomplete emptying of bladder Procedures FLUROURODYNAMICS WITH EMG EMG STDS ANAL/URTL SPHNCTR OTH/THN NDL Porfirio Rollins MD [address] [place] [address] [address] Referral ID Status Reason Start Date Expiration Date Visits Requested Visits Authorized [id number] Pending Review Auto-Generat ed Referral 06/29/2022 06/29/2023 1 1 [facility] for referral (narrative)* Diagnostic Procedure Only (Routine) - Authorized Specialty Diagnoses / Procedures Referred By aKtrinac t Referred To Contact [facility] Diagnoses Encounter for screening mammogram for malignant neoplasm of breast Procedures ESTHELA SCREENING SCREENING MAMMOGRAPHY BI 2-VIEW BREAST INC CAD Gerhard Caldwell, DO [address] [place] [address] [facility] [address] [place] [address] Referral ID Status Reason Start Date Expiration Date Visits Requested Visits Authorized [id number] Authorized Auto-Generat ed Referral 06/30/2022 07/30/2023 1 1 [facility] for referral (narrative)* Diagnostic Procedure Only (Routine) - Closed Specialty Diagnoses / Procedures Referred By Katrinac t Referred To Contact [facility] Diagnoses Encounter for screening mammogram for malignant neoplasm of breast Procedures ESTHELA SCREENING SCREENING MAMMOGRAPHY BI 2-VIEW BREAST INC CAD Gerhard Caldwell, DO [address] [place] [address] [facility] [address] [address] Referral ID Status Reason Start Date Expiration Date V isits Requested Visits Authorized [id number] Closed Auto-Generate d Referral 06/30/2022 07/30/2023 1 1 [facility] for referral (narrative)* Diagnostic Procedure Only (Routine) - Closed Specialty Diagnoses / Procedures Referred By Dwayne t Referred To Contact XR IMAGING Diagnoses DDD (degenerative disc disease), lumbar Other osteoarthritis of spine, 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 Procedures XR LUMBAR GENERAL 3V AP/LAT/L5-S1 RADEX SPINE LUMBOSACRAL 2/3 VIEWS Gerhard Caldwell, DO [address] [place] [address] [place] [address] Referral ID Status Reason Start Date Expiration Date V isits Requested Visits Authorized [id number] Closed Auto-Generate d Referral 11/22/2021 12/22/2022 1 1 [facility] for referral (narrative)No reason for referral information availableWFulton [facility] Work Phone: Reason for visit Narrative* Diagnostic Procedure Only (Routine) - Closed Specialty Diagnoses / Procedures Referred By Contac t Referred To Contact [facility] Diagnoses Encounter for screening mammogram for malignant neoplasm of breast Procedures ESTHELA SCREENING SCREENING MAMMOGRAPHY BI 2-VIEW BREAST INC CAD Gerhard Caldwell DO [address] [place] [address] [facility] [address] [place] [address] Referral ID Status Reason Start Date Expiration Date V isits Requested Visits Authorized [id number] Closed Auto-Generate d Referral 06/30/2022 07/30/2023 1 1 [facility] for visit Narrative* Diagnostic Procedure Only (Routine) - Closed Specialty Diagnoses / Procedures Referred By Contac t Referred To Contact [facility] IMAG[facility] Diagnoses Encounter for screening mammogram for breast cancer Procedures ESTHELA SCREENING SCREENING MAMMOGRAPHY BI 2-VIEW BREAST INC CAD Ceci Dwyer, NETO.PSYCHIATRIC MENTAL HEALTH NURSE [address] [place] [address] [facility] [address] [place] [address] Referral ID Status Reason Start Date Expiration Date V isits Requested Visits Authorized [id number] Closed Auto-Generate d Referral 09/13/2023 10/12/2024 1 1 [facility] for visit Narrative* Diagnostic Procedure Only (Routine) - Closed Specialty Diagnoses / Procedures Referred By Contac t Referred To Contact XR IMAGING Diagnoses DDD (degenerative disc disease), lumbar Other osteoarthritis of spine, 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 Procedures XR LUMBAR GENERAL 3V AP/LAT/L5-S1 RADEX SPINE LUMBOSACRAL 2/3 VIEWS Gerhard Caldwell DO [address] [place] [address] [place] [address] Referral ID Status Reason Start Date Expiration Date V isits Requested Visits Authorized [id number] Closed Auto-Generate d Referral 11/22/2021 12/22/2022 1 1 [facility] Summary Purpose Family History No Family History Records Found Relationship Condition Age at Onset Recorded Date/T rosmery Unknown Family History?No pe rtinent history Unknown January 11, 2017 4:59pm Family History?No pe rtinent history Unknown January 11, 2017 4:59pm Advance Directives No Advanced Directives Records FoundDocuments on File Type Date Recorded 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 Advance Directive(s) 02/14/2018 6:42 AM Advance Directive(s) 02/07/2018 7:25 AM Advance Directive(s) 03/22/2017 1:30 PM Advance Directive(s) 02/08/2017 12:28 PM Advance Directive(s) 01/08/2017 11:14 AM Advance Directive(s) 12/19/2016 9:04 AM Advance Directive(s) 12/22/2015 3:09 PM Advance Directive(s) 12/06/2015 12:44 PM Documents on File Type Date Recorded 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 Advance Directive(s) 02/14/2018 6:42 AM Advance Directive(s) 02/07/2018 7:25 AM Advance Directive(s) 03/22/2017 1:30 PM Advance Directive(s) 02/08/2017 12:28 PM Advance Directive(s) 01/08/2017 11:14 AM Advance Directive(s) 12/19/2016 9:04 AM Advance Directive(s) 12/22/2015 3:09 PM Advance Directive(s) 12/06/2015 12:44 PM Documents on File Type Date Recorded 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 Advance Directive(s) 12/22/2015 3:09 PM Documents on File Type Date Recorded 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 Advance Directive(s) 12/22/2015 3:09 PM Reason for Referral Status Reason Specialty Diagnoses / Procedures Referred By Contact Referred To Contact Pending Review Specialty Services Required/[facility] Diagnoses Elevated troponin Scar Kaplan MD [address] [facility] [address] [place] [address] Status Reason Specialty Diagnoses / Procedures Referred By Contact Referred To Contact Pending Review Cardiac Rehabilitation Diagnoses Elevated troponin Scar Kaplan MD [address] [facility] [address] [place] [address] Specialty Diagnoses / Procedures Referred By Contac t Referred To Contact Pain Management Diagnoses DDD (degenerative disc disease), lumbar Other osteoarthritis of spine, 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 Procedures CONSULT TO PAIN MGT OFFICE/OUTPATIENT [facility] MDM 60-74 MINUTES Gerhard Caldwell, DO [address] [place] [address] Referral ID Status Reason Start Date Expiration Date Visits Requested Visits Authorized [id number] Pending Review PCP Requested Referral 11/22/2021 11/22/2022 1 1 Specialty Diagnoses / Procedures Referred By Contac t Referred To Contact XR IMAGING Diagnoses DDD (degenerative disc disease), lumbar Other osteoarthritis of spine, 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 Procedures XR LUMBAR GENERAL 3V AP/LAT/L5-S1 RADEX SPINE LUMBOSACRAL 2/3 VIEWS Gerhard Caldwell, DO [address] [place] [address] X[facility] Imaging Referral ID Status Reason Start Date Expiration Date V isits Requested Visits Authorized [id number] Closed Auto-Generate d Referral 11/22/2021 12/22/2022 1 1 Specialty Diagnoses / Procedures Referred By Contac t Referred To Contact [facility] Diagnoses Degeneration of lumbosacral intervertebral disc Spondylosis of lumbosacral region, unspecified spinal osteoarthritis complication status Lumbosacral stenosis Arthropathy of lumbar facet joint Procedures PT REHAB FOLLOW UP ORDER THERAPEUTIC EXERCISES RE, EA 15 MIN. Jane López, PT [facility] [place] [address] [place] [address] Referral ID Status Reason Start Date Expiration Date Visits Requested Visits Authorized [id number] Pending Review PCP Requested Referral Auto-Generate d Referral 11/24/2022 02/22/2023 1 1 Specialty Diagnoses / Procedures Referred By Contac t Referred To Contact Diagnoses Travel advice encounter Situational anxiety Gerhard Caldwell, DO [address] [place] [address] Referral ID Status Reason Start Date Expiration Date V isits Requested Visits Authorized [id number] Authorized 11/05/2022 12/05/2023 1 1 Discharge Instructions * Discharge Instr - Care Coordination - Nereida Douglas LISW-S - 01/12/2017 1:12 PM EDT [facility] [phone]-phone [phone]-fax * Tabitha Lorenzana MD - 01/12/2017 Mrs. Valenzuela, You came to [facility] because you had an episode where you were unresponsive in the night. You had a heart catheterization which is a procedure that takes images of the heart's blood vessels. Your catheterization results were normal which means you did not have a heart attack. We believe this episode of unresponsiveness and low oxygen was because you were taking Rogers at night. Rogers and other pain medications can lower your breathing. You have obstructive sleep apnea which means you stop breathing at night. With your sleep apnea and the pain medications you are at risk for losing oxygen while sleeping. We recommend to avoid taking Rogers while sleeping at night and to resume all of your home medications. It is also very important that you wear you CPAP machine because of your obstructive sleep apnea. Your CPAP will prevent you from losing oxygen at night. These modifications should prevent similarevents in the future. Please take tramadol for your pain as needed, and ibuprofen for breakthrough pain. Please stagger the dosages of tramadol and ibuprofen. You can take tramadol for two weeks. We will discontinue the Rogers. For uncontrolled pain please follow with your family doctor. Please bring this letter and all of your discharge information from this visit to your next follow up orthopedic surgery appointment. Please follow up with your family doctor in one to two week to help manage your pain. Thank you for allowing us to care for you here at [facility]. in this encounter History of Present Illness * Merlyn Cabrera RN - 01/12/2017 5:39 PM EDT D/C INSTRUCTIONS EXPLAINED AND GIVEN TO PT * Miya Keller RN - 01/12/2017 10:59 AM EDT COMPLEX DISCHARGE Date: 01/12/2017 Time: 10:59 AM Patient Name: Franca Valenzuela Date of : 1950 Sex: Female Current with [facility] for pt as she is s/p tka earlier this week. Ss c/s. Discharge Plan Shared UM/CC and RN Source of Information: Patient Living Arrangements: Spouse/significant other Support Systems: Spouse/significant other Functional Status: Minimum assistance Type of Residence: Private residence Prior to Admission Home Care Services: Yes Type of Current Home Care Services: Home health care (pt only) Current Agency Name: ([facility] [phone]) Current Home Equipment: Walker, 07/19 Commode, Tub/Shower chair Insurance Coverage for Prescriptions: Yes Anticipated Discharge Plan Anticipated Home Care Needs: Home health care ( ss c/s.) Potential for Readmission Potential for Readmission: No Discharge Readiness Expected Discharge Date: 01/13/17 in this encounter* Buffy Moran, RN - 01/14/2017 2:50 PM EDT Patient [facility] in [facility]. Per cardiology team, patient may follow up with her PCP as scheduled/needed. No cardiology follow up needed at this time. in this encounter Assessments Diagnosis Elevated troponin - Primary Other abnormal blood chemistry Hypoxia Hypoxemia Medications Administered Section Inactive Administered Medications - up to 3 most recent administrations Medication Order MAR Action Action Date Dose Rate Site lidocaine 1 % 50 mL buffered injection (XYLOCAINE) 50 mL, OTHER, ONCE, 1 dose, On Hilda 09/22/21 at 1200 Given by LIP 09/22/2021 12:00 PM EDT 50 mL onabotulinum toxin type A 100 Units injection (BOTOX) 100 Units, OTHER, ONCE (UP TO 30 DAYS AMB), 1 dose, On Hilda 09/22/21 at 1200 Given by LIP 09/22/2021 12:00 PM EDT 100 Units Inactive Administered Medications - up to 3 most recent administrations Medication Order MAR Action Action Date Dose Rate Site chloroprocaine (PF) 20 mg/mL (2 %) 1,200 mg injection (NESACAINE) 1,200 mg (60 mL), INJECTION(UNSPECIFIED PARENTERAL ROUTES), ONCE, 1 dose, On Hilda 01/26/22 at 1330 Given 01/26/2022 1:30 PM EDT 1,200 mg Other ciprofloxacin HCl 500 mg tab(s) (CIPRO) 500 mg, ORAL, ONCE (UP TO 30 DAYS AMB), 1 dose, On Hilda 01/26/22 at 1330, Administer 2 hours before or 6 hours after antacids, calcium, iron, zinc or foods containing these items. Tube feedings should be held 1 hour before and 1 hour after administration., Please document the antimicrobial indication: Prophylaxis Given 01/26/2022 1:30 PM EDT 500 mg Oral onabotulinum toxin type A 100 Units injection (BOTOX) 100 Units, INTRAMUSCULAR, ONCE (UP TO 30 DAYS AMB), 1 dose, On Hilda 01/26/22 at 1330, This record documents the total dose provided to patient. See progress note for specific locations and amounts administered. REFRIGERATE - Pharmaceutical Waste: Lab Pack - Given by SUSAN 01/26/2022 1:30 PM EDT 100 Units Other Inactive Administered Medications - up to 3 most recent administrations Medication Order MAR Action Action Date Dose Rate Site sulfamethoxazole-trimethoprim 800-160 mg 1 tablet (BACTRIM DS,SEPTRA DS) 1 tablet, ORAL, ONCE, 1 dose, On Hilda 06/29/22 at 0000, Please document the antimicrobial indication: Empiric Given 06/29/2022 3:09 PM EST 1 tablet Inactive Administered Medications - up to 3 most recent administrations Medication Order MAR Action Action Date Dose Rate Site lidocaine 20 mg/mL (2 %) 1,000 mg injection (XYLOCAINE) 1,000 mg (50 mL), OTHER, ONCE, 1 dose, On Sun12/18/22 at 0830, Intravesical pre-procedure Given 12/18/2022 8:30 AM EDT 1,000 mg Other onabotulinum toxin type A 100 Units injection (BOTOX) 100 Units, INTRAVESICAL, ONCE (UP TO 30 DAYS AMB), 1 dose, On Sun12/18/22 at 0830, This record documents the total dose provided to patient. See progress note for specific locations and amounts administered. Intravesical. REFRIGERATE - Pharmaceutical Waste: Lab Pack - Given by SUSAN 12/18/2022 8:30 AM EDT 100 Units Other Chief Complaint and Reason for Visit Chief Complaint Admit Date XR OF LUMBAR SPINE October 02, 2024 10:54 am Additional Source Comments INFORMATION SOURCE (unrecogn ized section and content) DATE CREATED AUTHOR 11/14/2017 [facility] DATE CREATED AUTHOR AUTHOR'S ORGANIZ ATION 06/22/2020 [facility] DATE CREATED AUTHOR AUTHOR'S ORGANIZ ATION 10/15/2024 [facility] DATE CREATED AUTHOR AUTHOR'S ORGANIZ ATION 10/20/[address] [facility] Reason for Visit (unrecogniz ed section and content) Reason Comments Botox Injection Specialty Diagnoses / Procedures Referred By Dwayne maldonado Referred To Contact Urology / UROLOGY Diagnoses Interstitial cystitis (chronic) without hematuria Urge incontinence OAB (overactive bladder) N32.81 - OAB (overactive bladder) Procedures CYSTOURETHROSCOPY INJ CHEMODENERVATION BLADDER BOTULINUM TOXIN A PER 1 UNIT [id number] BOTOX 100 UNITS ONCE EVERY [place] [address] [place] [address] Porfirio Rollins MD [address] [place] [address] Referral ID Status Reason Start Date Expiration Date V isits Requested Visits Authorized [id number] Authorized 06/01/2021 06/01/2022 4 4 Status Reason Specialty Diagnoses / Procedures Referre d By Contact Referred To Contact Diagnoses Chest pain Altered mental status Procedures Left Heart Cath Possible PTCA/Stent Reason Onset Date Comments Population Health Navigation Outreach 08/16/2021 [employer] Care Gaps Reason Comments Cystoscopy-1 Botox Injection Reason Onset Date Comments Population Health Navigation Outreach 10/12/2021 [employer] Care Gap - Open in error Reason Comments Medicare Wellness Exam Reason Onset Date Comments Refill Request 01/31/2022 Reason Onset Date Comments Refill Request 03/06/2022 Reason Comments Results Orders Reason Comments Results Reason Comments Recheck Patient is here for follow up/labs. Reason Comments Numbness Numbness in demarco hand s and fingers started about a couple weeks ago Reason Comments Refill Request Reason Onset Date Comments EMG 06/09/2022 Specialty Diagnoses / Procedures Referred By Dwayne maldonado [facility] Diagnoses Numbness and tingling in both hands Procedures EMG(NEURO/NI) NERVE CONDUCTION STUDIES 9-10 STUDIES Ceci Dwyer APRN.PSYCHIATRIC MENTAL HEALTH NURSE [address] [place] [address] [facility] [address] [place] [address] Referral ID Status Reason Start Date Expiration Date V isits Requested Visits Authorized [id number] Closed Auto-Generate d Referral 05/26/2022 05/18/2023 1 1 Reason Comments Botox Injection Cystoscopy-1 Specialty Diagnoses / Procedures Referred By Contac t Referred To Contact Urology / UROLOGY Diagnoses 100 UNITS BOTOX Procedures [place] [address] [facility] [place] [id number] Porfirio Rollins MD [address] [place] [address] Referral ID Status Reason Start Date Expiration Date Visits Requested Visits Authorized [id number] Waiting for Response Financial Clearance Required - Self Pay Patient Cleared - Admin/Chairma n/Director advise to proceed 06/29/2022 09/27/2022 1 1 Reason Comments Follow Up Reason Comments LAB RESULTS Reason Comments Urinary Frequency With burning x1 day Reason Comments Follow Up Reason Comments Sleep Apnea Reason Comments The complete one Reason Comments Results Sleep study from [facility] Reason Comments Physical Therapy Specialty Diagnoses / Procedures Referred By Contac t Referred To Contact Physical Therapy / PHYSICAL THERAPY Diagnoses Back pain back pain outside order Procedures NEW RS PT SPINE Juan M Zhong [address] [place] [address] Jane López, PT Referral ID Status Reason Start Date Expiration Date V isits Requested Visits Authorized [id number] Authorized 05/21/2022 05/20/2023 99 99 Reason Comments Established Patient Reason Comments PT Progress Note Specialty Diagnoses / Procedures Referred By Contac t Referred To Contact Physical Therapy / PHYSICAL THERAPY Diagnoses Back pain back pain outside order Procedures NEW RS PT SPINE Juan M Zhong [address] [place] [address] Jane López, PT Reason Comments 6 Month Exam Reason Comments UTI Possible uti, bladde r pain x 2 days Reason Comments CMN Specialty Diagnoses / Procedures Referred By Contac t Referred To Contact Urology / UROLOGY Diagnoses Overactive bladder Cystoscopy botox Procedures BOTULINUM TOXIN A PER 1 UNIT [place] [address] [address] [place] [phone] Porfirio Rollins MD [address] [place] [address] Referral ID Status Reason Start Date Expiration Date V isits Requested Visits Authorized [id number] Authorized 12/20/2022 12/21/2023 4 4 Reason Comments PT Discharge Reason Comments Cough Cough, ST and swolle n glands x 2 days Reason Onset Date Comments Population Health Navigation Outreach 11/28/2023 Adrian Liu [place] Reason Comments Rejected CMN Reason Onset Date Comments Refill Request 01/29/2024 Reason Onset Date Comments Refill Request 02/20/2024 Reason Comments Medicare Wellness Exam Specialty Diagnoses / Procedures Referred By Contac t Referred To Contact Urology / UROLOGY Diagnoses Urge incontinence 100 UNITS Cystoscopy botox Procedures BOTULINUM TOXIN A PER 1 [place] [address] [address] [place] [phone] Porfirio Rollins MD [address] [place] [id number] Referral ID Status Reason Start Date Expiration Date V isits Requested Visits Authorized [id number] Authorized 04/23/2024 03/26/2025 99 99 Reason Comments Med Change Request Reason Onset Date Comments Population Health Navigation Outreach 09/26/2024 Zero [facility] - Protem PCSA Specialty Diagnoses / Procedures Referred By Contac t Referred To Contact Urology / UROLOGY Diagnoses Urge incontinence 100 UNITS Cystoscopy botox Procedures BOTULINUM TOXIN A PER 1 UNIT [place] [address] [address] [place] [phone] Phone: tel: Porfirio Rollins MD [address] [facility] [place] [id number] Phone: tel: fax: Source Comments (unrecognize d section and content) In the event this informatio n is protected by the Federal Confidentiality of Alcohol and Drug Abuse Patient Records regulations: The Federal rules restrict any use of the information to criminally investigate or prosecute any alcohol or drug abuse patient.[facility] CenterIn the event this information is protected by the Federal Confidentiality of Alcohol and Drug Abuse Patient Records regulations: The Federal rules restrict any use of the information to criminally investigate or prosecute any alcohol or drug abuse patient.[facility] CenterIn the event this information is protected by the Federal Confidentiality of Alcohol and Drug Abuse Patient Records regulations: The Federal rules restrict any use of the information to criminally investigate or prosecute any alcohol or drug abuse patient.[facility] CenterIn the event this information is protected by the Federal Confidentiality of Alcohol and Drug Abuse Patient Records regulations: The Federal rules restrict any use of the information to criminally investigate or prosecute any alcohol or drug abuse patient.[facility] CenterIn the event this information is protected by the Federal Confidentiality of Alcohol and Drug Abuse Patient Records regulations: The Federal rules restrict any use of the information to criminally investigate or prosecute any alcohol or drug abuse patient.[facility] CenterIn the event this information is protected by the Federal Confidentiality of Alcohol and Drug Abuse Patient Records regulations: The Federal rules restrict any use of the information to criminally investigate or prosecute any alcohol or drug abuse patient.[facility] CenterIn the event this information is protected by the Federal Confidentiality of Alcohol and Drug Abuse Patient Records regulations: The Federal rules restrict any use of the information to criminally investigate or prosecute any alcohol or drug abuse patient.[facility] CenterIn the event this information is protected by the Federal Confidentiality of Alcohol and Drug Abuse Patient Records regulations: The Federal rules restrict any use of the information to criminally investigate or prosecute any alcohol or drug abuse patient.[facility] CenterIn the event this information is protected by the Federal Confidentiality of Alcohol and Drug Abuse Patient Records regulations: The Federal rules restrict any use of the information to criminally investigate or prosecute any alcohol or drug abuse patient.[facility] CenterIn the event this information is protected by the Federal Confidentiality of Alcohol and Drug Abuse Patient Records regulations: The Federal rules restrict any use of the information to criminally investigate or prosecute any alcohol or drug abuse patient.[facility] CenterIn the event this information is protected by the Federal Confidentiality of Alcohol and Drug Abuse Patient Records regulations: The Federal rules restrict any use of the information to criminally investigate or prosecute any alcohol or drug abuse patient.[facility] CenterIn the event this information is protected by the Federal Confidentiality of Alcohol and Drug Abuse Patient Records regulations: The Federal rules restrict any use of the information to criminally investigate or prosecute any alcohol or drug abuse patient.[facility] CenterIn the event this information is protected by the Federal Confidentiality of Alcohol and Drug Abuse Patient Records regulations: The Federal rules restrict any use of the information to criminally investigate or prosecute any alcohol or drug abuse patient.[facility] CenterIn the event this information is protected by the Federal Confidentiality of Alcohol and Drug Abuse Patient Records regulations: The Federal rules restrict any use of the information to criminally investigate or prosecute any alcohol or drug abuse patient.[facility] CenterIn the event this information is protected by the Federal Confidentiality of Alcohol and Drug Abuse Patient Records regulations: The Federal rules restrict any use of the information to criminally investigate or prosecute any alcohol or drug abuse patient.[facility] CenterIn the event this information is protected by the Federal Confidentiality of Alcohol and Drug Abuse Patient Records regulations: The Federal rules restrict any use of the information to criminally investigate or prosecute any alcohol or drug abuse patient.[facility] CenterIn the event this information is protected by the Federal Confidentiality of Alcohol and Drug Abuse Patient Records regulations: The Federal rules restrict any use of the information to criminally investigate or prosecute any alcohol or drug abuse patient.[facility] CenterIn the event this information is protected by the Federal Confidentiality of Alcohol and Drug Abuse Patient Records regulations: The Federal rules restrict any use of the information to criminally investigate or prosecute any alcohol or drug abuse patient.[facility] CenterIn the event this information is protected by the Federal Confidentiality of Alcohol and Drug Abuse Patient Records regulations: The Federal rules restrict any use of the information to criminally investigate or prosecute any alcohol or drug abuse patient.[facility] CenterIn the event this information is protected by the Federal Confidentiality of Alcohol and Drug Abuse Patient Records regulations: The Federal rules restrict any use of the information to criminally investigate or prosecute any alcohol or drug abuse patient.[facility] CenterIn the event this information is protected by the Federal Confidentiality of Alcohol and Drug Abuse Patient Records regulations: The Federal rules restrict any use of the information to criminally investigate or prosecute any alcohol or drug abuse patient.[facility] CenterIn the event this information is protected by the Federal Confidentiality of Alcohol and Drug Abuse Patient Records regulations: The Federal rules restrict any use of the information to criminally investigate or prosecute any alcohol or drug abuse patient.[facility] CenterIn the event this information is protected by the Federal Confidentiality of Alcohol and Drug Abuse Patient Records regulations: The Federal rules restrict any use of the information to criminally investigate or prosecute any alcohol or drug abuse patient.[facility] CenterIn the event this information is protected by the Federal Confidentiality of Alcohol and Drug Abuse Patient Records regulations: The Federal rules restrict any use of the information to criminally investigate or prosecute any alcohol or drug abuse patient.[facility] CenterIn the event this information is protected by the Federal Confidentiality of Alcohol and Drug Abuse Patient Records regulations: The Federal rules restrict any use of the information to criminally investigate or prosecute any alcohol or drug abuse patient.[facility] CenterIn the event this information is protected by the Federal Confidentiality of Alcohol and Drug Abuse Patient Records regulations: The Federal rules restrict any use of the information to criminally investigate or prosecute any alcohol or drug abuse patient.[facility] CenterIn the event this information is protected by the Federal Confidentiality of Alcohol and Drug Abuse Patient Records regulations: The Federal rules restrict any use of the information to criminally investigate or prosecute any alcohol or drug abuse patient.[facility] CenterIn the event this information is protected by the Federal Confidentiality of Alcohol and Drug Abuse Patient Records regulations: The Federal rules restrict any use of the information to criminally investigate or prosecute any alcohol or drug abuse patient.[facility] CenterIn the event this information is protected by the Federal Confidentiality of Alcohol and Drug Abuse Patient Records regulations: The Federal rules restrict any use of the information to criminally investigate or prosecute any alcohol or drug abuse patient.[facility] CenterIn the event this information is protected by the Federal Confidentiality of Alcohol and Drug Abuse Patient Records regulations: The Federal rules restrict any use of the information to criminally investigate or prosecute any alcohol or drug abuse patient.[facility] CenterIn the event this information is protected by the Federal Confidentiality of Alcohol and Drug Abuse Patient Records regulations: The Federal rules restrict any use of the information to criminally investigate or prosecute any alcohol or drug abuse patient.[facility] CenterIn the event this information is protected by the Federal Confidentiality of Alcohol and Drug Abuse Patient Records regulations: The Federal rules restrict any use of the information to criminally investigate or prosecute any alcohol or drug abuse patient.[facility] CenterIn the event this information is protected by the Federal Confidentiality of Alcohol and Drug Abuse Patient Records regulations: The Federal rules restrict any use of the information to criminally investigate or prosecute any alcohol or drug abuse patient.[facility] CenterIn the event this information is protected by the Federal Confidentiality of Alcohol and Drug Abuse Patient Records regulations: The Federal rules restrict any use of the information to criminally investigate or prosecute any alcohol or drug abuse patient.[facility] CenterIn the event this information is protected by the Federal Confidentiality of Alcohol and Drug Abuse Patient Records regulations: The Federal rules restrict any use of the information to criminally investigate or prosecute any alcohol or drug abuse patient.[facility] CenterIn the event this information is protected by the Federal Confidentiality of Alcohol and Drug Abuse Patient Records regulations: The Federal rules restrict any use of the information to criminally investigate or prosecute any alcohol or drug abuse patient.[facility] CenterIn the event this information is protected by the Federal Confidentiality of Alcohol and Drug Abuse Patient Records regulations: The Federal rules restrict any use of the information to criminally investigate or prosecute any alcohol or drug abuse patient.[facility] CenterIn the event this information is protected by the Federal Confidentiality of Alcohol and Drug Abuse Patient Records regulations: The Federal rules restrict any use of the information to criminally investigate or prosecute any alcohol or drug abuse patient.[facility] CenterIn the event this information is protected by the Federal Confidentiality of Alcohol and Drug Abuse Patient Records regulations: The Federal rules restrict any use of the information to criminally investigate or prosecute any alcohol or drug abuse patient.[facility] CenterIn the event this information is protected by the Federal Confidentiality of Alcohol and Drug Abuse Patient Records regulations: The Federal rules restrict any use of the information to criminally investigate or prosecute any alcohol or drug abuse patient.[facility] CenterIn the event this information is protected by the Federal Confidentiality of Alcohol and Drug Abuse Patient Records regulations: The Federal rules restrict any use of the information to criminally investigate or prosecute any alcohol or drug abuse patient.[facility] CenterIn the event this information is protected by the Federal Confidentiality of Alcohol and Drug Abuse Patient Records regulations: The Federal rules restrict any use of the information to criminally investigate or prosecute any alcohol or drug abuse patient.[facility] CenterIn the event this information is protected by the Federal Confidentiality of Alcohol and Drug Abuse Patient Records regulations: The Federal rules restrict any use of the information to criminally investigate or prosecute any alcohol or drug abuse patient.[facility] CenterIn the event this information is protected by the Federal Confidentiality of Alcohol and Drug Abuse Patient Records regulations: The Federal rules restrict any use of the information to criminally investigate or prosecute any alcohol or drug abuse patient.[facility] CenterIn the event this information is protected by the Federal Confidentiality of Alcohol and Drug Abuse Patient Records regulations: The Federal rules restrict any use of the information to criminally investigate or prosecute any alcohol or drug abuse patient.[facility] CenterIn the event this information is protected by the Federal Confidentiality of Alcohol and Drug Abuse Patient Records regulations: The Federal rules restrict any use of the information to criminally investigate or prosecute any alcohol or drug abuse patient.[facility] CenterIn the event this information is protected by the Federal Confidentiality of Alcohol and Drug Abuse Patient Records regulations: The Federal rules restrict any use of the information to criminally investigate or prosecute any alcohol or drug abuse patient.[facility] CenterIn the event this information is protected by the Federal Confidentiality of Alcohol and Drug Abuse Patient Records regulations: The Federal rules restrict any use of the information to criminally investigate or prosecute any alcohol or drug abuse patient.[facility] CenterIn the event this information is protected by the Federal Confidentiality of Alcohol and Drug Abuse Patient Records regulations: The Federal rules restrict any use of the information to criminally investigate or prosecute any alcohol or drug abuse patient.[facility] CenterIn the event this information is protected by the Federal Confidentiality of Alcohol and Drug Abuse Patient Records regulations: The Federal rules restrict any use of the information to criminally investigate or prosecute any alcohol or drug abuse patient.[facility] CenterIn the event this information is protected by the Federal Confidentiality of Alcohol and Drug Abuse Patient Records regulations: The Federal rules restrict any use of the information to criminally investigate or prosecute any alcohol or drug abuse patient.[facility] CenterIn the event this information is protected by the Federal Confidentiality of Alcohol and Drug Abuse Patient Records regulations: The Federal rules restrict any use of the information to criminally investigate or prosecute any alcohol or drug abuse patient.[facility] CenterIn the event this information is protected by the Federal Confidentiality of Alcohol and Drug Abuse Patient Records regulations: The Federal rules restrict any use of the information to criminally investigate or prosecute any alcohol or drug abuse patient.[facility] CenterIn the event this information is protected by the Federal Confidentiality of Alcohol and Drug Abuse Patient Records regulations: The Federal rules restrict any use of the information to criminally investigate or prosecute any alcohol or drug abuse patient.[facility] CenterIn the event this information is protected by the Federal Confidentiality of Alcohol and Drug Abuse Patient Records regulations: The Federal rules restrict any use of the information to criminally investigate or prosecute any alcohol or drug abuse patient.[facility] CenterIn the event this information is protected by the Federal Confidentiality of Alcohol and Drug Abuse Patient Records regulations: The Federal rules restrict any use of the information to criminally investigate or prosecute any alcohol or drug abuse patient.[facility] CenterIn the event this information is protected by the Federal Confidentiality of Alcohol and Drug Abuse Patient Records regulations: The Federal rules restrict any use of the information to criminally investigate or prosecute any alcohol or drug abuse patient.[facility] CenterIn the event this information is protected by the Federal Confidentiality of Alcohol and Drug Abuse Patient Records regulations: The Federal rules restrict any use of the information to criminally investigate or prosecute any alcohol or drug abuse patient.[facility] CenterIn the event this information is protected by the Federal Confidentiality of Alcohol and Drug Abuse Patient Records regulations: The Federal rules restrict any use of the information to criminally investigate or prosecute any alcohol or drug abuse patient.[facility] CenterIn the event this information is protected by the Federal Confidentiality of Alcohol and Drug Abuse Patient Records regulations: The Federal rules restrict any use of the information to criminally investigate or prosecute any alcohol or drug abuse patient.[facility] CenterIn the event this information is protected by the Federal Confidentiality of Alcohol and Drug Abuse Patient Records regulations: The Federal rules restrict any use of the information to criminally investigate or prosecute any alcohol or drug abuse patient.[facility] CenterIn the event this information is protected by the Federal Confidentiality of Alcohol and Drug Abuse Patient Records regulations: The Federal rules restrict any use of the information to criminally investigate or prosecute any alcohol or drug abuse patient.[facility] CenterIn the event this information is protected by the Federal Confidentiality of Alcohol and Drug Abuse Patient Records regulations: The Federal rules restrict any use of the information to criminally investigate or prosecute any alcohol or drug abuse patient.[facility] Care Teams (unrecognized sec tion and content) Parts Designer Relationship Specialty Start Date End Date Gerhard Caldwell, DO [address] [place] [address] PCP - General Family Practice 03/07/16 Parts Designer Relationship Specialty Start Date End Date Gerhard Caldwell, DO [address] [place] [address] PCP - General Family Practice 03/07/16 Parts Designer Relationship Specialty Start Date End Date Gerhard Caldwell DO [address] [facility] [place] [address] PCP - General Family Practice 03/07/16 Parts Designer Relationship Specialty Start Date End Date Gerhard Caldwell, DO [address] [facility] [place] [address] PCP - General Family Practice 03/07/16 Parts Designer Relationship Specialty Start Date End Date Gerhard Caldwell, DO [address] [facility] [place] [address] PCP - General Family Practice 03/07/16 Parts Designer Relationship Specialty Start Date End Date Gerhard Caldwell, DO [address] [place], [place] [address] PCP - General Family Practice 03/07/16 Parts Designer Relationship Specialty Start Date End Date Gerhard Caldwell, DO [address] [place] [address] PCP - General Family Practice 03/07/16 Parts Designer Relationship Specialty Start Date End Date Gerhard Caldwell, DO [address] [facility] [place] [address] PCP - General Family Medicine 03/07/16 Parts Designer Relationship Specialty Start Date End Date Gerhard Caldwell, DO [address] [facility] [place] [address] PCP - General Family Medicine 03/07/16 Parts Designer Relationship Specialty Start Date End Date Gerhard Caldwell, DO [address] [facility] [place] [address] PCP - General Family Medicine 03/07/16 Parts Designer Relationship Specialty Start Date End Date Gerhard Caldwell, DO [address] [facility] [place] [address] PCP - General Family Medicine 03/07/16 Parts Designer Relationship Specialty Start Date End Date Gerhard Caldwell, DO [address] [facility] [place] [address] PCP - General Family Medicine 03/07/16 Parts Designer Relationship Specialty Start Date End Date Gerhard Caldwell, DO [address] [place] [address] PCP - General Family Medicine 03/07/16 Parts Designer Relationship Specialty Start Date End Date Gerhard Caldwell, DO [address] [place] [address] PCP - General Family Medicine 03/07/16 Parts Designer Relationship Specialty Start Date End Date Gerhard Caldwell, DO [address] [place] [address] PCP - General Family Medicine 03/07/16 Parts Designer Relationship Specialty Start Date End Date Gerhard Caldwell, DO [address] [place] [address] PCP - General Family Medicine 03/07/16 Parts Designer Relationship Specialty Start Date End Date Gerhard Caldwell, DO [address] [place] [address] PCP - General Family Medicine 03/07/16 Parts Designer Relationship Specialty Start Date End Date Gerhard Caldwell, DO [address] [place] [address] PCP - General Family Medicine 03/07/16 Parts Designer Relationship Specialty Start Date End Date Gerhard Caldwell, DO [address] [place] [address] PCP - General Family Medicine 03/07/16 Parts Designer Relationship Specialty Start Date End Date Gerhard Caldwell, DO [address] [place] [address] PCP - General Family Medicine 03/07/16 Parts Designer Relationship Specialty Start Date End Date Gerhard Caldwell, DO [address] [place] [address] PCP - General Family Medicine 03/07/16 Parts Designer Relationship Specialty Start Date End Date Gerhard Caldwell, DO [address] [place] [address] PCP - General Family Medicine 03/07/16 Parts Designer Relationship Specialty Start Date End Date Gerhard Caldwell, DO [address] [place] [address] PCP - General Family Medicine 03/07/16 Parts Designer Relationship Specialty Start Date End Date Gerhard Caldwell, DO [address] [place] [address] PCP - General Family Medicine 03/07/16 Parts Designer Relationship Specialty Start Date End Date Gerhard Caldwell, DO [address] [place] [address] PCP - General Family Medicine 03/07/16 Parts Designer Relationship Specialty Start Date End Date Gerhadr Caldwell, DO [address] [place] [address] PCP - General Family Medicine 03/07/16 Parts Designer Relationship Specialty Start Date End Date Gerhard Caldwell, DO [address] [place] [address] PCP - General Family Medicine 03/07/16 Parts Designer Relationship Specialty Start Date End Date Gerhard Caldwell, DO [address] [place] [address] PCP - General Family Medicine 03/07/16 Parts Designer Relationship Specialty Start Date End Date Gerhard Caldwell, DO [address] [place] [address] PCP - General Family Medicine 03/07/16 Parts Designer Relationship Specialty Start Date End Date Gerhard Caldwell DO [address] [place] [address] PCP - General Family Medicine 03/07/16 Parts Designer Relationship Specialty Start Date End Date Gerhard Caldwell DO [address] [place] [address] PCP - General Family Medicine 03/07/16 Parts Designer Relationship Specialty Start Date End Date Gerhard Caldwell DO [address] [facility] [place] [address] PCP - General Family Medicine 03/07/16 Parts Designer Relationship Specialty Start Date End Date Gerhard Caldwell DO [address] [facility] [place] [address] PCP - General Family Medicine 03/07/16 Parts Designer Relationship Specialty Start Date End Date Gerhard Caldwell DO [address] [facility] [place] [address] PCP - General Family Medicine 03/07/16 Parts Designer Relationship Specialty Start Date End Date Gerhard Caldwell DO [address] [facility] [place] [address] PCP - General Family Medicine 03/07/16 Parts Designer Relationship Specialty Start Date End Date Gerhard Caldwell DO [address] [facility] [place] [address] PCP - General Family Medicine 03/07/16 Parts Designer Relationship Specialty Start Date End Date Gerhard Caldwell DO [address] [facility] [place] [address] PCP - General Family Medicine 03/07/16 Parts Designer Relationship Specialty Start Date End Date Gerhard Caldwell, [address] [facility] [place] [address] PCP - General Family Medicine 03/07/16 Parts Designer Relationship Specialty Start Date End Date Gerhard Caldwell DO [address] [facility] [place] [address] PCP - General Family Medicine 03/07/16 Parts Designer Relationship Specialty Start Date End Date Gerhard Caldwell, DO [address] [facility] [place] [address] PCP - General Family Medicine 03/07/16 Parts Designer Relationship Specialty Start Date End Date Gerhard Caldwell, DO [address] [facility] [place] [address] PCP - General Family Medicine 03/07/16 Parts Designer Relationship Specialty Start Date End Date Gerhard Caldwell, DO [address] [facility] [place] [address] PCP - General Family Medicine 03/07/16 Parts Designer Relationship Specialty Start Date End Date Gerhard Caldwell DO [address] [facility] [place] [address] PCP - General Family Medicine 03/07/16 Parts Designer Relationship Specialty Start Date End Date Gerhard Caldwell, [address] [facility] [place] [address] PCP - General Family Medicine 03/07/16 Parts Designer Relationship Specialty Start Date End Date Gerhard Caldwell, DO [address] [facility] [place] [address] PCP - General Family Medicine 03/07/16 Parts Designer Relationship Specialty Start Date End Date Gerhard Caldwell DO [address] [facility] [place] [address] PCP - General Family Medicine 03/07/16 Parts Designer Relationship Specialty Start Date End Date Gerhard Caldwell, DO [address] [facility] [place] [address] PCP - General Family Medicine 03/07/16 Parts Designer Relationship Specialty Start Date End Date Gerhard Caldwell DO [address] [place] [address] PCP - General Family Medicine 03/07/16 Parts Designer Relationship Specialty Start Date End Date Gerhard Caldwell DO [address] [place], [place] [address] PCP - General Family Medicine 03/07/16 Ceci Dwyer, BOTANY LABORATORY ASSISTANT.PSYCHIATRIC MENTAL HEALTH NURSE [address] [place], [place] [address] [facility] 04/27/24 Indira Robbins, BOTANY LABORATORY ASSISTANT.PSYCHIATRIC MENTAL HEALTH NURSE [address] [place] [address] [facility] 04/27/24 Parts Designer Relationship Specialty Start Date End Date Gerhard Caldwell DO [address] [place] [address] PCP - General [facility] Medicine 03/07/16 Indira Robbins, BOTANY LABORATORY ASSISTANT.PSYCHIATRIC MENTAL HEALTH NURSE [address] [place], [place] [address] [facility] 04/27/24 Team Status: Active Member Role Status Dates Dr. Gerhard Caldwell DO Family Provider Active Dr. Gerhard Caldwell DO Primary Care Provider Active Team Status: Inactive Member Role Status Dates Dr. Gerhard Caldwell DO Primary Care Provider Active Start: October 02, 2024 End: October 02, 2024 PLUNGER SCOOP OPERATORMegan Lala Attending Provider Active Star t: October 02, 2024 End: October 02, 2024 PLUNGER SCOOP OPERATORMegan Lala Referring Provider Active Star t: October 02, 2024 End: October 02, 2024 Parts Designer Relationship Specialty Start Date End Date Gerhard Caldwell DO [address] [facility] [place] [address] PCP - General Family Medicine 03/07/16 Indira Robbins, BOTANY LABORATORY ASSISTANT.PSYCHIATRIC MENTAL HEALTH NURSE [address] [facility] [place] [address] Health Officer Family [facility] 04/27/24 Parts Designer Relationship Specialty Start Date End Date Gerhard Caldwell DO [address] [place] [address] PCP - General Family Medicine 03/07/16 Indira Robbins, BOTANY LABORATORY ASSISTANT.PSYCHIATRIC MENTAL HEALTH NURSE [address] [place] [address] Health Officer Family [facility] 04/27/24 Parts Designer Relationship Specialty Start Date End Date Gerhard Caldwell DO [address] [place] [address] PCP - General Family Medicine 03/07/16 Indira Robbins, BOTANY LABORATORY ASSISTANT.PSYCHIATRIC MENTAL HEALTH NURSE [address] [place] [address] Health Officer Family [facility] 04/27/24 Parts Designer Relationship Specialty Start Date End Date Gerhard Caldwell DO [address] [place] [address] PCP - General Family Medicine 03/07/16 Indira Robbins, BOTANY LABORATORY ASSISTANT.PSYCHIATRIC MENTAL HEALTH NURSE [address] [place] [address] [facility] Family Medicine 04/27/24 Goals (unrecognized section and content) Goals may be documented in a n alternate section FOR RECORDS PERTAINING TO PATIENTS WHO ARE OR HAVE BEEN ENROLLED IN A CHEMICAL DEPENDENCY/SUBSTANCEABUSE PROGRAM, SOME INFORMATION MAY BE OMITTED. This clinical summary was aggregated from multiple sources. Caution should be exercised in using it in the provision of clinical care. This summary normalizes information from multiple sources, and as a consequence, information in this document may materially change the coding, format and clinical context of patient data. In addition, data may be omitted in some cases. CLINICAL DECISIONS SHOULD BE BASED ON THE PRIMARY CLINICAL RECORDS. [facility] [address] [facility]. provides no warranty or guarantee of the accuracy or completeness of information in this document.
[2024-11-20 12:29] LABS: Hematocrit 39.7 % (37-47); Hemoglobin 13.9 g/dL (12.0-15.0); Mean Corp Hgb Conc 35.0 g/dL (32-36); Mean Corpuscular Volume 95.2 fL (81-99); Mean Platelet Vol. 10.5 fl (6.2-12.0); Platelet Count 246 K/mm3 (150-450); RBC Distribution Width CV 12.6 % (11.6-14.6); RBC Distribution Width SD 44.0 fl (35.1-43.9); Red Blood Count 4.17 M/mm3 (4.2-5.4); White Blood Count 5.7 K/mm3 (4.4-11.0)
[2024-11-20 12:47] LABS: Anion Gap 9 (5-15); BUN 13 mg/dL (4-19); BUN/Creat Ratio 25.4 RATIO (10-20); Calcium,Total 9.2 mg/dL (7.6-11.0); Carbon Dioxide 25.5 mmol/L (21.0-32.0); Chloride 99 mmol/L (98-108); Glucose 124 mg/dL (70-99); Potassium 4.6 mmol/L (3.3-5.1)
== END | disposition home or self-care (01) ==
LOC: MTLAB 09:30
PROVIDERS: PCP Student in an Organized Health Care Education/Training Program; Referring Provider Clinical Nurse Specialist Adult Health; Visit Provider Clinical Nurse Specialist Adult Health
DX: Z79.899 Other long term (current) drug therapy (principal); Z79.1 Long term (current) use of non-steroidal anti-inflammatories (NSAID)
CPT/HCPCS: 36415; 80048; 85027

== ENCOUNTER 2025-01-02 11:19 | Outpatient (CLI) | payer MEDICARE, SELFPAY ==
[2025-01-02 13:24] LABS: Anion Gap 11 (5-15); BUN 11 mg/dL (4-19); BUN/Creat Ratio 22.7 RATIO (10-20); Calcium,Total 9.5 mg/dL (7.6-11.0); Carbon Dioxide 24.2 mmol/L (21.0-32.0); Chloride 95 mmol/L (98-108); Glucose 110 mg/dL (70-99); Potassium 4.2 mmol/L (3.3-5.1)
== END 2025-01-02 23:59 | disposition home or self-care (01) ==
LOC: MTLAB 11:21
PROVIDERS: PCP Student in an Organized Health Care Education/Training Program; Referring Provider Clinical Nurse Specialist Adult Health; Visit Provider Clinical Nurse Specialist Adult Health
DX: Z51.81 Encounter for therapeutic drug level monitoring (principal); Z79.1 Long term (current) use of non-steroidal anti-inflammatories (NSAID)
CPT/HCPCS: 36415; 80048